=== PATIENT | male | born 1950 | race Caucasian/White ===

== ENCOUNTER 2020-09-13 13:36 | Inpatient (IN) | payer OTHER ==
--- OUTSIDE RECORDS SUMMARY | 2020-09-13 13:45 | XMS REPORT | Clinical Summary ---
:1950 Author Organization [facility] Address [address] [place] [id number] Care Team Providers Name Role Phone MD Chris Primary Care Provider Allergies Active Allergy Reactions Severity Noted Date Comments Amoxicillin-Pot 03/12/2018 Patient call ed after Clavulanate his office visi t to inform that he had a previous allerg y to medication. He could not give specif ic reactions. He o nly stated " he fel t really bad" Pregabalin 03/12/2018 Patient called after his office visi t to inform that he had a previous allerg y to medication. He could not give specif ic reactions. He o nly stated " he fel t really bad" Liraglutide Other (See Comments) 03/11/2018 Per hetal leo, makes him extremly il l. Breaks out in a cold sweat. Medications Medication Sig Dispensed Refills Start End Status Date Date lactulose 10 Take by mouth 3 0 A ctive gram/15 mL (15 mL) (three) times a solution day. cyclobenzaprine Take 1 tablet (5 30 tablet 0 Active (FLEXERIL) 5 mg mg total) by 0 021 tablet mouth 2 (two) times a day as needed for muscle spasms for up to 30 days. hydrOXYzine Take 1 tablet 10 tablet 0 Acti ve (ATARAX) 25 MG (25 mg total) by 0 021 tablet mouth 2 (two) times a day as needed for itching for up to 30 days. alum-mag Take 30 mL by 354 mL 0 Active hydroxide-simeth mouth 3 (three) 0 (MAALOX PLUS) times a day as 200-200-20 mg/5 mL needed for suspension indigestion or heartburn. fluticasone 2 sprays (100 15.8 mL 0 Acti ve propionate mcg total) by 1 021 (FLONASE) 50 Each Nare route mcg/actuation nasal daily for 30 spray days. metoprolol tartrate Take 0.5 tablets 30 tablet 0 Active (LOPRESSOR) 25 mg (12.5 mg total) 0 021 tablet by mouth 2 (two) times a day for 30 days. midodrine Take 3 tablets 270 tablet 0 Acti ve (PROAMATINE) 5 MG (15 mg total) by 0 021 tablet mouth 3 (three) times a day for 30 days. pantoprazole Take 1 tablet 60 tablet 0 Act brandon (Protonix) 40 MG EC (40 mg total) by 0 021 tablet mouth 2 (two) times a day for [address] 1 tablet 90 tablet 12 A ctive (NITROSTAT) 0.4 MG (0.4 mg total) 0 021 SL tablet under the tongue every 5 (five) minutes as needed for chest pain for up to 30 days. ondansetron ODT Take 1 tablet (4 20 tablet 0 Active (ZOFRAN-ODT) 4 MG mg total) by 0 021 disintegrating mouth every 8 tablet (eight) hours as needed for nausea or vomiting for up to 30 days. riFAXimin (XIFAXAN) Take 1 tablet 60 tablet 0 Active 550 mg tablet (550 mg total) 0 021 by mouth 2 (two) times a day for 30 days. voriconazole Take 1 tablet 60 tablet 0 2 Act brandon (VFEND) 200 MG (200 mg total) 0 021 tablet by mouth every 12 (twelve) hours for 30 days. senna (SENOKOT) 8.6 Take 1 tablet by 60 tablet 0 Active mg tablet mouth 2 (two) 0 021 times a day as needed for constipation (stool softening) for up to 30 days. cyclobenzaprine Take 10 mg by 0 Discontinued (FLEXERIL) 10 mg mouth 3 (three) 020 (Stop Taking at tablet times a day as Disch arge) needed. metoprolol Take 25 mg by 0 Disco ntinued succinate XL mouth daily. 020 (Sto p Taking at (TOPROL-XL) 25 mg Di scharge) 24 hr tablet naproxen sodium 220 Take 1 capsule 0 08/25 Discontinued mg capsule by mouth every 8 020 (S top Taking at (eight) hours as Dis charge) needed. omega-3 fatty Take 1,000 mg by 0 Discontinued acids-fish oil mouth. 020 (Med List 300-1,000 mg Cleanup ) capsule omeprazole Take 40 mg by 0 Disco ntinued (PriLOSEC) 40 MG mouth. 020 (St op Taking at capsule Discharge) traMADol (ULTRAM) Take 50 mg by 0 Discontinued 50 mg tablet mouth every 6 020 (St op Taking at (six) hours as Disch arge) needed. metFORMIN Take 1,000 mg by 0 Dis continued (GLUCOPHAGE) 1,000 mouth daily with 020 (Stop Taking at mg tablet breakfast. Discharge ) loratadine Take 10 mg by 0 Disco ntinued (CLARITIN) 10 mg mouth. 020 (Me d List tablet Cleanup) lisinopril Take 20 mg by 0 Disco ntinued (PRINIVIL,ZESTRIL) mouth daily. 020 (Stop Taking at 20 mg tablet Dischar ge) aspirin 325 MG Take 325 mg by 0 Discontinued tablet mouth. 020 (Stop Taki ng at Discharge) citalopram (CeleXA) Take 40 mg by 0 Discontinued 40 MG tablet mouth daily. 020 (Sto p Taking at Discharge) hydrOXYzine Take 25 mg by 0 Disc ontinued (ATARAX) 25 MG mouth 2 (two) 020 ( Stop Taking at tablet times a day. Dischar ge) Active Problems Problem Noted Date Debilitated 08/24/2020 Encounter for pre-transplant evaluation for liver quijano splant 08/15/2020 Anasarca 08/04/2020 Non-alcoholic cirrhosis 07/27/2020 Ascites 07/27/2020 Portal hypertension 07/27/2020 Leg edema 03/11/2018 Venous stasis dermatitis of both lower extremities Leg pain, bilateral 03/11/2018 Encounters Date Type Specialty Care Team Description 09/12/2020 Telephone Transplant Alvarez, Labs needed to list Tanika, CAYETANO patient 09/05/2020 Telephone Transplant Alvarez, Labs needed for CAYETANO Sagastume listing 08/31/2020 Travel 08/31/2020 Transcribe Orders Radiology Golden, Other asci dejuan Montemayor MD (Primary Dx) 08/30/2020 Telephone Transplant Anisa Menjivar TXP APPROVED 08/29/2020 Telephone Transplant Mitul, Speak to martin zhufilemon Rupa 08/24/2020 Surgery Procedural Jey Grier MD Right and lef t heart Cardiology cath w lv alexus [42669 (CPT)] 08/23/2020 Telephone Transplant Torrey Sawant post MRB outco me Eliud RN 08/18/2020 Documentation Transplant Torrey Sawant, CAYETANO 08/15/2020 Orders Only Transplant Unique Naqvi MD 08/15/2020 Documentation Transplant Marcus Martin, Liver Eval ( consent RN for OLT evaluat ion scanned in ) 08/15/2020 Telephone Transplant Radha Diggs, CAYETANO 08/15/2020 Telephone Transplant Maria A Ace, Referral - anatoly Txp RN (pt was previou sly referred for ou tpt eval but today is referred for in pt liver eval) 08/04/2020 - Hospital Encounter General Internal Dimitri Pierre rca (Primary Dx); 08/25/2020 Medicine MD Irina Leg edema; Wili Crowley, Venous stasis dermatitis of both lower extremities; Non-alcoholic c irrhosis (HCC); Portal hyperten arian (HCC); Hyperkalemia; Essential hyper tension; JENNIFER (acute kidn ey injury) (HCC); Hypervolemia, u nspecified hypervolemia type; Encounter for p re-transplant evaluation for liver transplant; Leg pain, bilat eral; Other ascites 08/02/2020 Telephone Transplant Kecia Chambers, New patient p acket MA 08/01/2020 Travel 08/01/2020 Orders Only Transplant Kale Dickey Liver cirrhosi s secondary to ANAYA (HCC) (Primary Dx); Fly Encounter for p re-transplant evaluation for liver transplant; Screening for i schemic heart disease 07/29/2020 Telephone Transplant Anisa Menjivar APPROVED 07/27/2020 Telephone Transplant Maria A Ace, Padmini - Brandie Wong RN after 09/13/2019 Immunizations Name Administration Dates Next Due FLUZONE HIGH-DOSE PF 08/25/2020 Surgical History Surgery Date Site/Laterality Comments TONSILLECTOMY WISDOM TOOTH EXTRACTION CATARACT EXTRACTION, BILATERAL CARDIAC CATHETERIZATION 08/24/2020 N/A Procedur e: Right and left heart cath w lv gram; Surgeon: Donal Grier MD; Location: [facility] [employer] Supervisor Invasive Locatio n; Service: Cardiov ascular; Laterality: N/A; Medical History Medical History Date Comments Diabetes mellitus (HCC) Hyperlipidemia Hypertension Obesity Coronary artery disease Sleep apnea, obstructive uses CPAP Ascites Nonalcoholic hepatosteatosis Hepatic encephalopathy (HCC) Type 2 diabetes mellitus (HCC) Depression feeling anxious and a little over health issues Family History Medical History Relation Name Comments Cancer Father mesothelioma-isra g Diabetes Father Heart disease Father Hypertension Father Heart disease Mother Hypertension Mother Relation Name Status Comments Father at 87y/ o Mother @age 87y/o Social History Tobacco Use Types Packs/Day Years Used Date Former Smoker Cigarettes 16 Quit: 1979 Smokeless Tobacco: Never Used Alcohol Use Drinks/Week oz/Week Comments No Sex Assigned at Date Recorded Not on file Job Start Date Occupation Industry Not on file Not on file Not on file COVID-19 Exposure Response Date Recorded In the last month, have you been in contact with No / Unsure 08/31/2020 12:47 PM [employer] someone who was confirmed or suspected to have Coronavirus / COVID-19? Last Filed Vital Signs Vital Sign Reading Time Taken Comments Blood Pressure 117/57 08/25/2020 6:18 PM [employer] Pulse 77 08/25/2020 6:18 PM [employer] Temperature 35.6 C (96.1 F) 08/25/2020 4:10 PM [employer] Respiratory Rate 19 08/25/2020 4:10 PM [employer] Oxygen Saturation 98% 08/25/2020 6:18 PM [employer] Inhaled Oxygen Concentration - - Weight 123 kg (272 lb 3.2 oz) 08/23/2020 6:15 AM [employer] Height 182.9 cm (6') 08/16/2020 2:52 PM [employer] Body Mass Index 36.92 08/16/2020 2:52 PM [employer] Plan of Treatment Date Type Specialty Care Team Description 09/19/2020 Appointment Radiology Jazmyne Franks MD [address] [place], [place] [address] [phone] Health Maintenance Due Date Last Done Comments COVID-19 VACCINE (1 of 2) 1964 COLONOSCOPY SCREENING 1998 SHINGLES VACCINES (#1) 1998 65+ PNEUMOCOCCAL VACCINE (1 of 1 - PPSV23) 2013 INFLUENZA VACCINE Completed 08/25/2020 Procedures Procedure Name Priority Date/Time Associated Comments Diagnosis POC GLUCOSE Routine 08/25/2020 6:24 Results for this PM [employer] procedure are i n the results section. CT CHEST W CONTRAST Routine 08/25/2020 5:30 Resu lts for this ABDOMEN W WO CONTRAST PM [employer] proced ure are in PELVIS W CONTRAST the result s section. POC GLUCOSE Routine 08/25/2020 11:49 Results for this AM [employer] procedure are i n the results section. POC GLUCOSE Routine 08/25/2020 7:22 Results for this AM [employer] procedure are i n the results section. ESTIMATED GFR Routine 08/25/2020 5:30 Results fo r this AM [employer] procedure are i n the results section. PHOSPHORUS LEVEL Routine 08/25/2020 5:30 Results for this AM [employer] procedure are i n the results section. MAGNESIUM LEVEL Routine 08/25/2020 5:30 Results for this AM [employer] procedure are i n the results section. COMPREHENSIVE METABOLIC Routine 08/25/2020 5:30 Results for this PANEL AM [employer] procedure are i n the results section. HC COMPLETE BLD COUNT Routine 08/25/2020 5:30 Re sults for this W/AUTO DIFF AM [employer] procedure are i n the results section. PROTHROMBIN TIME WITH Routine 08/25/2020 5:30 Re sults for this INR AM [employer] procedure are i n the results section. POC GLUCOSE Routine 08/24/2020 9:18 Results for this PM [employer] procedure are i n the results section. POC GLUCOSE Routine 08/24/2020 5:38 Results for this PM [employer] procedure are i n the results section. POC GLUCOSE Routine 08/24/2020 2:08 Results for this PM [employer] procedure are i n the results section. POC GLUCOSE Routine 08/24/2020 11:14 Results for this AM [employer] procedure are i n the results section. POC GLUCOSE Routine 08/24/2020 9:31 Results for this AM [employer] procedure are i n the results section. CV RIGHT AND LEFT HEART Routine 08/24/2020 8:44 Results for this CATH W LV GRAM AM [employer] procedure are in the results section. ESTIMATED GFR Routine 08/24/2020 6:38 Results fo r this AM [employer] procedure are i n the results section. COMPREHENSIVE METABOLIC Routine 08/24/2020 6:38 Results for this PANEL AM [employer] procedure are i n the results section. HC COMPLETE BLD COUNT Routine 08/24/2020 6:38 Re sults for this W/AUTO DIFF AM [employer] procedure are i n the results section. PHOSPHORUS LEVEL Routine 08/24/2020 6:38 Results for this AM [employer] procedure are i n the results section. MAGNESIUM LEVEL Routine 08/24/2020 6:38 Results for this AM [employer] procedure are i n the results section. PROTHROMBIN TIME WITH Routine 08/24/2020 6:38 Re sults for this INR AM [employer] procedure are i n the results section. HEMODIALYSIS Routine 08/24/2020 12:05 AM [employer] POC GLUCOSE Routine 08/23/2020 9:25 Results for this PM [employer] procedure are i n the results section. POC GLUCOSE Routine 08/23/2020 4:49 Results for this PM [employer] procedure are i n the results section. COVID-19 QUALITATIVE PCR Routine 08/23/2020 3:56 Results for this PM [employer] procedure are i n the results section. SPIROMETRY, DIFFUSION, Routine 08/23/2020 2:10 Anasarca R esults for this MIPS/MEPS PM [employer] procedure are i n the results section. POC GLUCOSE Routine 08/23/2020 1:26 Results for this PM [employer] procedure are i n the results section. XR CHEST 1 VW PORTABLE Routine 08/23/2020 12:07 R esults for this PM [employer] procedure are i n the results section. POC GLUCOSE Routine 08/23/2020 8:28 Results for this AM [employer] procedure are i n the results section. BILIRUBIN DIRECT Routine 08/23/2020 6:08 Results for this AM [employer] procedure are i n the results section. ESTIMATED GFR Routine 08/23/2020 6:08 Results fo r this AM [employer] procedure are i n the results section. HC COMPLETE BLD COUNT Routine 08/23/2020 6:08 Re sults for this W/AUTO DIFF AM [employer] procedure are i n the results section. COMPREHENSIVE METABOLIC Routine 08/23/2020 6:08 Results for this PANEL AM [employer] procedure are i n the results section. PROTHROMBIN TIME WITH Routine 08/23/2020 6:08 Re sults for this INR AM [employer] procedure are i n the results section. POC GLUCOSE Routine 08/22/2020 8:01 Results for this PM [employer] procedure are i n the results section. POC GLUCOSE Routine 08/22/2020 12:29 Results for this PM [employer] procedure are i n the results section. POC GLUCOSE Routine 08/22/2020 11:32 Results for this AM [employer] procedure are i n the results section. POC GLUCOSE Routine 08/22/2020 8:37 Results for this AM [employer] procedure are i n the results section. ESTIMATED GFR Routine 08/22/2020 5:47 Results fo r this AM [employer] procedure are i n the results section. HC COMPLETE BLD COUNT Routine 08/22/2020 5:47 Re sults for this W/AUTO DIFF AM [employer] procedure are i n the results section. PHOSPHORUS LEVEL Routine 08/22/2020 5:47 Results for this AM [employer] procedure are i n the results section. MAGNESIUM LEVEL Routine 08/22/2020 5:47 Results for this AM [employer] procedure are i n the results section. BASIC METABOLIC PANEL Routine 08/22/2020 5:47 Re sults for this AM [employer] procedure are i n the results section. HEPATIC FUNCTION PANEL Routine 08/22/2020 5:47 R esults for this AM [employer] procedure are i n the results section. PROTHROMBIN TIME WITH Routine 08/22/2020 5:47 Re sults for this INR AM [employer] procedure are i n the results section. HEMODIALYSIS Routine 08/22/2020 12:05 AM [employer] POC GLUCOSE Routine 08/21/2020 9:22 Results for this PM [employer] procedure are i n the results section. POC GLUCOSE Routine 08/21/2020 7:16 Results for this PM [employer] procedure are i n the results section. BLAYNE HOOVER VIRUS (EBV) Routine 08/21/2020 6:03 Results for this BY PCR PM [employer] procedure are i n the results section. US ABDOMINAL Routine 08/21/2020 3:05 Results for this PARACENTESIS IMAGING PM [employer] procedu re are in the results section. ALBUMIN, MISC FLUID Routine 08/21/2020 2:35 Resu lts for this PM [employer] procedure are i n the results section. CELL COUNT AND Routine 08/21/2020 2:35 Results f or this DIFFERENTIAL, BODY FLUID PM [employer] pro cedure are in the results section. PROTEIN, MISC FLUID Routine 08/21/2020 2:35 Resu lts for this PM [employer] procedure are i n the results section. GRAM STAIN Routine 08/21/2020 2:35 Results for this PM [employer] procedure are i n the results section. ANAEROBIC CULTURE Routine 08/21/2020 2:35 Result s for this PM [employer] procedure are i n the results section. AEROBIC CULTURE Routine 08/21/2020 2:35 Results for this PM [employer] procedure are i n the results section. POC GLUCOSE Routine 08/21/2020 11:39 Results for this AM [employer] procedure are i n the results section. POC GLUCOSE Routine 08/21/2020 8:24 Results for this AM [employer] procedure are i n the results section. HEPATIC FUNCTION PANEL Routine 08/21/2020 5:46 R esults for this AM [employer] procedure are i n the results section. VANCOMYCIN LEVEL, RANDOM Routine 08/21/2020 5:46 Results for this AM [employer] procedure are i n the results section. PROTHROMBIN TIME WITH Routine 08/21/2020 5:46 Re sults for this INR AM [employer] procedure are i n the results section. PHOSPHORUS LEVEL Routine 08/21/2020 5:46 Results for this AM [employer] procedure are i n the results section. MAGNESIUM LEVEL Routine 08/21/2020 5:46 Results for this AM [employer] procedure are i n the results section. IONIZED CALCIUM Routine 08/21/2020 5:46 Results for this AM [employer] procedure are i n the results section. ESTIMATED GFR Routine 08/21/2020 5:46 Results fo r this AM [employer] procedure are i n the results section. HC COMPLETE BLD COUNT Routine 08/21/2020 5:46 Re sults for this W/AUTO DIFF AM [employer] procedure are i n the results section. BASIC METABOLIC PANEL Routine 08/21/2020 5:46 Re sults for this AM [employer] procedure are i n the results section. POC GLUCOSE Routine 08/20/2020 8:46 Results for this PM [employer] procedure are i n the results section. POC GLUCOSE Routine 08/20/2020 11:57 Results for this AM [employer] procedure are i n the results section. POC GLUCOSE Routine 08/20/2020 8:12 Results for this AM [employer] procedure are i n the results section. HEMODIALYSIS Routine 08/20/2020 8:10 AM [employer] POC GLUCOSE Routine 08/20/2020 4:20 Results for this AM [employer] procedure are i n the results section. ESTIMATED GFR Routine 08/20/2020 12:31 Results fo r this AM [employer] procedure are i n the results section. PHOSPHORUS LEVEL Routine 08/20/2020 12:31 Results for this AM [employer] procedure are i n the results section. MAGNESIUM LEVEL Routine 08/20/2020 12:31 Results for this AM [employer] procedure are i n the results section. IONIZED CALCIUM Routine 08/20/2020 12:31 Results for this AM [employer] procedure are i n the results section. HEPATIC FUNCTION PANEL Routine 08/20/2020 12:31 R esults for this AM [employer] procedure are i n the results section. BASIC METABOLIC PANEL Routine 08/20/2020 12:31 Re sults for this AM [employer] procedure are i n the results section. VANCOMYCIN LEVEL, RANDOM Routine 08/20/2020 12:31 Results for this AM [employer] procedure are i n the results section. POC GLUCOSE Routine 08/20/2020 12:16 Results for this AM [employer] procedure are i n the results section. FIBRINOGEN Routine 08/20/2020 12:00 Results for this AM [employer] procedure are i n the results section. HC COMPLETE BLD COUNT Routine 08/20/2020 12:00 Re sults for this W/AUTO DIFF AM [employer] procedure are i n the results section. POC GLUCOSE Routine 08/19/2020 9:28 Results for this PM [employer] procedure are i n the results section. POC GLUCOSE Routine 08/19/2020 3:50 Results for this PM [employer] procedure are i n the results section. POC GLUCOSE Routine 08/19/2020 11:31 Results for this AM [employer] procedure are i n the results section. POC GLUCOSE Routine 08/19/2020 7:46 Results for this AM [employer] procedure are i n the results section. HEMODIALYSIS Routine 08/19/2020 7:18 AM [employer] POC GLUCOSE Routine 08/19/2020 7:08 Results for this AM [employer] procedure are i n the results section. POC GLUCOSE Routine 08/19/2020 4:40 Results for this AM [employer] procedure are i n the results section. TYPE AND SCREEN Routine 08/19/2020 12:47 Results for this AM [employer] procedure are i n the results section. POC GLUCOSE Routine 08/19/2020 12:37 Results for this AM [employer] procedure are i n the results section. ESTIMATED GFR Routine 08/19/2020 12:30 Results fo r this AM [employer] procedure are i n the results section. IONIZED CALCIUM Routine 08/19/2020 12:30 Results for this AM [employer] procedure are i n the results section. FIBRINOGEN Routine 08/19/2020 12:30 Results for this AM [employer] procedure are i n the results section. HEPATIC FUNCTION PANEL Routine 08/19/2020 12:30 R esults for this AM [employer] procedure are i n the results section. PROTHROMBIN TIME WITH Routine 08/19/2020 12:30 Re sults for this INR AM [employer] procedure are i n the results section. PHOSPHORUS LEVEL Routine 08/19/2020 12:30 Results for this AM [employer] procedure are i n the results section. PARTIAL THROMBOPLASTIN Routine 08/19/2020 12:30 R esults for this TIME (PTT) AM [employer] procedure are i n the results section. MAGNESIUM LEVEL Routine 08/19/2020 12:30 Results for this AM [employer] procedure are i n the results section. HC COMPLETE BLD COUNT Routine 08/19/2020 12:30 Re sults for this W/AUTO DIFF AM [employer] procedure are i n the results section. BASIC METABOLIC PANEL Routine 08/19/2020 12:30 Re sults for this AM [employer] procedure are i n the results section. VANCOMYCIN LEVEL, RANDOM Routine 08/19/2020 12:30 Results for this AM [employer] procedure are i n the results section. HEPATITIS B SURFACE STAT 08/18/2020 9:20 Resu lts for this ANTIGEN PM [employer] procedure are i n the results section. POC GLUCOSE Routine 08/18/2020 8:44 Results for this PM [employer] procedure are i n the results section. HEMODIALYSIS Routine 08/18/2020 5:58 PM [employer] POC GLUCOSE Routine 08/18/2020 3:50 Results for this PM [employer] procedure are i n the results section. POC GLUCOSE Routine 08/18/2020 2:15 Results for this PM [employer] procedure are i n the results section. CT CHEST WO CONTRAST Routine 08/18/2020 1:32 Res ults for this PM [employer] procedure are i n the results section. IR TUNNELED DIALYSIS Routine 08/18/2020 1:23 Res ults for this CATHETER PLACEMENT PM [employer] procedure are in the results section. US CAROTID DUPLEX Routine 08/18/2020 11:45 Result s for this BILATERAL AM [employer] procedure are i n the results section. C1Q CLASS 1 & 2 ANTIBODY Routine 08/18/2020 11:15 Results for this AM [employer] procedure are i n the results section. SINGLE ANTIGEN BEADS Routine 08/18/2020 11:15 Res ults for this AM [employer] procedure are i n the results section. LOW RESOLUTION FULL Routine 08/18/2020 11:15 Resu lts for this TYPING BY SSO AM [employer] procedure are in the results section. BLAYNE-HOOVER VIRUS Routine 08/18/2020 11:15 Resul ts for this ANTIBODY TEST AM [employer] procedure are in the results section. POC GLUCOSE Routine 08/18/2020 8:05 Results for this AM [employer] procedure are i n the results section. POC GLUCOSE Routine 08/18/2020 4:46 Results for this AM [employer] procedure are i n the results section. BILIRUBIN DIRECT Routine 08/18/2020 12:27 Results for this AM [employer] procedure are i n the results section. ESTIMATED GFR Routine 08/18/2020 12:27 Results fo r this AM [employer] procedure are i n the results section. PARTIAL THROMBOPLASTIN Routine 08/18/2020 12:27 R esults for this TIME (PTT) AM [employer] procedure are i n the results section. PHOSPHORUS LEVEL Routine 08/18/2020 12:27 Results for this AM [employer] procedure are i n the results section. MAGNESIUM LEVEL Routine 08/18/2020 12:27 Results for this AM [employer] procedure are i n the results section. IONIZED CALCIUM Routine 08/18/2020 12:27 Results for this AM [employer] procedure are i n the results section. FIBRINOGEN Routine 08/18/2020 12:27 Results for this AM [employer] procedure are i n the results section. HC COMPLETE BLD COUNT Routine 08/18/2020 12:27 Re sults for this W/AUTO DIFF AM [employer] procedure are i n the results section. PROTHROMBIN TIME WITH Routine 08/18/2020 12:27 Re sults for this INR [employer] procedure are i n the results section. COMPREHENSIVE METABOLIC Routine 08/18/2020 12:27 Results for this PANEL [employer] procedure are i n the results section. POC GLUCOSE Routine 08/18/2020 12:25 Results for this [employer] procedure are i n the results section. POC GLUCOSE Routine 08/17/2020 8:15 Results for this PM [employer] procedure are i n the results section. POC GLUCOSE Routine 08/17/2020 3:39 Results for this [employer] procedure are i n the results section. POC GLUCOSE Routine 08/17/2020 11:46 Results for this [employer] procedure are i n the results section. POC GLUCOSE Routine 08/17/2020 7:58 Results for this [employer] procedure are i n the results section. POC GLUCOSE Routine 08/17/2020 4:18 Results for this [employer] procedure are i n the results section. BILIRUBIN DIRECT Routine 08/17/2020 12:32 Results for this [employer] procedure are i n the results section. FIBRINOGEN Routine 08/17/2020 12:32 Results for this AM [employer] procedure are i n the results section. PARTIAL THROMBOPLASTIN Routine 08/17/2020 12:32 R esults for this TIME (PTT) [employer] procedure are i n the results section. PROTHROMBIN TIME WITH Routine 08/17/2020 12:32 Re sults for this INR AM [employer] procedure are i n the results section. COMPREHENSIVE METABOLIC Routine 08/17/2020 12:32 Results for this PANEL [employer] procedure are i n the results section. IONIZED CALCIUM Routine 08/17/2020 12:32 Results for this AM [employer] procedure are i n the results section. ESTIMATED GFR Routine 08/17/2020 12:32 Results fo r this AM [employer] procedure are i n the results section. PHOSPHORUS LEVEL Routine 08/17/2020 12:32 Results for this [employer] procedure are i n the results section. MAGNESIUM LEVEL Routine 08/17/2020 12:32 Results for this AM [employer] procedure are i n the results section. HC COMPLETE BLD COUNT Routine 08/17/2020 12:32 Re sults for this W/AUTO DIFF [employer] procedure are i n the results section. POC GLUCOSE Routine 08/17/2020 12:13 Results for this [employer] procedure are i n the results section. HC COMPLETE BLD COUNT STAT 08/16/2020 9:38 Re sults for this W/AUTO DIFF PM [employer] procedure are i n the results section. POC GLUCOSE Routine 08/16/2020 8:30 Results for this PM [employer] procedure are i n the results section. US DUPLEX VENOUS LOWER Routine 08/16/2020 8:20 R esults for this EXTREMITY BILATERAL [employer] procedur e are in the results section. POC GLUCOSE Routine 08/16/2020 4:16 Results for this PM [employer] procedure are i n the results section. BLOOD CULTURE, AEROBIC & Routine 08/16/2020 4:15 Results for this ANAEROBIC [employer] procedure are i n the results section. BLOOD CULTURE, AEROBIC & Routine 08/16/2020 4:05 Results for this ANAEROBIC [employer] procedure are i n the results section. POC GLUCOSE Routine 08/16/2020 3:08 Results for this [employer] procedure are i n the results section. ESTIMATED GFR STAT 08/16/2020 3:05 Results fo r this PM [employer] procedure are i n the results section. PROTHROMBIN TIME WITH STAT 08/16/2020 3:05 Re sults for this INR [employer] procedure are i n the results section. PHOSPHORUS LEVEL STAT 08/16/2020 3:05 Results for this [employer] procedure are i n the results section. MAGNESIUM LEVEL STAT 08/16/2020 3:05 Results for this [employer] procedure are i n the results section. LACTIC ACID LEVEL STAT 08/16/2020 3:05 Result s for this [employer] procedure are i n the results section. IONIZED CALCIUM STAT 08/16/2020 3:05 Results for this [employer] procedure are i n the results section. HEPATIC FUNCTION PANEL STAT 08/16/2020 3:05 R esults for this PM [employer] procedure are i n the results section. FIBRINOGEN STAT 08/16/2020 3:05 Results for this [employer] procedure are i n the results section. HC COMPLETE BLD COUNT STAT 08/16/2020 3:05 Re sults for this W/AUTO DIFF PM [employer] procedure are i n the results section. BASIC METABOLIC PANEL STAT 08/16/2020 3:05 Re sults for this [employer] procedure are i n the results section. POC GLUCOSE Routine 08/16/2020 12:12 Results for this PM [employer] procedure are i n the results section. TTE LIMITED W AGITATED Today 08/16/2020 10:00 R esults for this SALINE W CONT W DOP [employer] procedur e are in the results section. POC GLUCOSE Routine 08/16/2020 8:25 Results for this AM [employer] procedure are i n the results section. PROTHROMBIN TIME WITH Routine 08/16/2020 5:30 Re sults for this INR AM [employer] procedure are i n the results section. HC COMPLETE BLD COUNT Routine 08/16/2020 5:30 Re sults for this W/AUTO DIFF AM [employer] procedure are i n the results section. MISCELLANEOUS REFERRAL Routine 08/16/2020 5:30 R esults for this TEST AM [employer] procedure are i n the results section. TB T-SPOT Routine 08/16/2020 5:30 Results for this AM [employer] procedure are i n the results section. CYTOMEGALOVIRUS AB, IGM Routine 08/16/2020 4:00 Results for this [employer] procedure are i n the results section. CYTOMEGALOVIRUS AB, IGG Routine 08/16/2020 4:00 Results for this AM [employer] procedure are i n the results section. ALPHA-1 ANTITRYPSIN Routine 08/16/2020 4:00 Resu lts for this LEVEL [employer] procedure are i n the results section. CERULOPLASMIN LEVEL Routine 08/16/2020 4:00 Resu lts for this AM [employer] procedure are i n the results section. TOTAL IRON BINDING Routine 08/16/2020 4:00 Resul ts for this CAPACITY AM [employer] procedure are i n the results section. FERRITIN LEVEL Routine 08/16/2020 4:00 Results f or this AM [employer] procedure are i n the results section. VITAMIN D 25 HYDROXY Routine 08/16/2020 4:00 Res ults for this LEVEL [employer] procedure are i n the results section. C-REACTIVE PROTEIN Routine 08/16/2020 4:00 Resul ts for this AM [employer] procedure are i n the results section. THYROID STIMULATING Routine 08/16/2020 4:00 Resu lts for this HORMONE AM [employer] procedure are i n the results section. CORTISOL LEVEL, RANDOM Routine 08/16/2020 4:00 R esults for this AM [employer] procedure are i n the results section. LIPID PANEL Routine 08/16/2020 4:00 Results for this AM [employer] procedure are i n the results section. CARCINOEMBRYONIC ANTIGEN Routine 08/16/2020 4:00 Results for this (CEA) AM [employer] procedure are i n the results section. ALPHA FETOPROTEIN Routine 08/16/2020 4:00 Result s for this AM [employer] procedure are i n the results section. ESTIMATED GFR Routine 08/16/2020 4:00 Results fo r this AM [employer] procedure are i n the results section. COMPREHENSIVE METABOLIC Routine 08/16/2020 4:00 Results for this PANEL [employer] procedure are i n the results section. PHOSPHORUS LEVEL Routine 08/16/2020 4:00 Results for this AM [employer] procedure are i n the results section. MAGNESIUM LEVEL Routine 08/16/2020 4:00 Results for this [employer] procedure are i n the results section. XR PANOREX STAT 08/15/2020 9:39 Results for this PM [employer] procedure are i n the results section. POC GLUCOSE Routine 08/15/2020 9:03 Results for this PM [employer] procedure are i n the results section. SYPHILIS TOTAL ANTIBODY Routine 08/15/2020 6:30 Results for this PM [employer] procedure are i n the results section. MISCELLANEOUS REFERRAL Routine 08/15/2020 5:30 R esults for this TEST [employer] procedure are i n the results section. MISCELLANEOUS REFERRAL Routine 08/15/2020 5:30 R esults for this TEST [employer] procedure are i n the results section. MISCELLANEOUS REFERRAL STAT 08/15/2020 5:30 R esults for this TEST [employer] procedure are i n the results section. VITAMIN D 25 HYDROXY Routine 08/15/2020 5:30 Res ults for this LEVEL [employer] procedure are i n the results section. TYPE AND SCREEN Routine 08/15/2020 5:30 Results for this PM [employer] procedure are i n the results section. T3, FREE STAT 08/15/2020 5:30 Results for this PM [employer] procedure are i n the results section. ANTI SMOOTH MUSCLE AB STAT 08/15/2020 5:30 Re sults for this SCREEN [employer] procedure are i n the results section. ANTI MITOCHONDRIA SCREEN STAT 08/15/2020 5:30 Results for this PM [employer] procedure are i n the results section. HEPATITIS BE AB STAT 08/15/2020 5:30 Results for this PM [employer] procedure are i n the results section. HEPATITIS BE AG STAT 08/15/2020 5:30 Results for this PM [employer] procedure are i n the results section. HCG QUALITATIVE, SERUM Routine 08/15/2020 5:30 R esults for this SCREEN [employer] procedure are i n the results section. DRUG CASTILLO 9, SER/MADDIE, Routine 08/15/2020 5:30 Res ults for this SCRN W/RFLX TO CONF PM [employer] procedur e are in the results section. HEMOGLOBIN A1C Routine 08/15/2020 5:30 Results f or this PM [employer] procedure are i n the results section. HC COMPLETE BLD COUNT Routine 08/15/2020 5:30 Re sults for this W/AUTO DIFF PM [employer] procedure are i n the results section. ARTERIAL BLOOD GAS Routine 08/15/2020 5:00 Resul ts for this PM [employer] procedure are i n the results section. POC GLUCOSE Routine 08/15/2020 4:30 Results for this PM [employer] procedure are i n the results section. CORTISOL LEVEL, RANDOM STAT 08/15/2020 3:21 R esults for this PM [employer] procedure are i n the results section. LIPID PANEL STAT 08/15/2020 3:21 Results for this PM [employer] procedure are i n the results section. PROSTATE SPECIFIC STAT 08/15/2020 3:21 Result s for this ANTIGEN PM [employer] procedure are i n the results section. CANCER ANTIGEN 19-9 STAT 08/15/2020 3:21 Resu lts for this PM [employer] procedure are i n the results section. T4, FREE STAT 08/15/2020 3:21 Results for this PM [employer] procedure are i n the results section. HIV AG/AB COMBINATION Routine 08/15/2020 3:20 Re sults for this PM [employer] procedure are i n the results section. PREALBUMIN LEVEL Routine 08/15/2020 3:19 Results for this PM [employer] procedure are i n the results section. POC GLUCOSE Routine 08/15/2020 11:53 Results for this AM [employer] procedure are i n the results section. US RENAL Routine 08/15/2020 10:57 Results for this AM [employer] procedure are i n the results section. POC GLUCOSE Routine 08/15/2020 7:31 Results for this AM [employer] procedure are i n the results section. BETA HYDROXYBUTYRATE Routine 08/15/2020 6:02 Res ults for this AM [employer] procedure are i n the results section. LACTIC ACID LEVEL Routine 08/15/2020 6:02 Result s for this AM [employer] procedure are i n the results section. ESTIMATED GFR Routine 08/15/2020 3:59 Results fo r this AM [employer] procedure are i n the results section. PHOSPHORUS LEVEL Routine 08/15/2020 3:59 Results for this AM [employer] procedure are i n the results section. MAGNESIUM LEVEL Routine 08/15/2020 3:59 Results for this AM [employer] procedure are i n the results section. BASIC METABOLIC PANEL Routine 08/15/2020 3:59 Re sults for this AM [employer] procedure are i n the results section. HC COMPLETE BLD COUNT Routine 08/15/2020 3:59 Re sults for this W/AUTO DIFF AM [employer] procedure are i n the results section. FIBRINOGEN Routine 08/15/2020 12:54 Results for this AM [employer] procedure are i n the results section. PARTIAL THROMBOPLASTIN Routine 08/15/2020 12:54 R esults for this TIME (PTT) [employer] procedure are i n the results section. PROTHROMBIN TIME WITH Routine 08/15/2020 12:54 Re sults for this INR [employer] procedure are i n the results section. POC GLUCOSE Routine 08/14/2020 9:23 Results for this PM [employer] procedure are i n the results section. POC GLUCOSE Routine 08/14/2020 6:17 Results for this PM [employer] procedure are i n the results section. POC GLUCOSE Routine 08/14/2020 11:49 Results for this AM [employer] procedure are i n the results section. HC COMPLETE BLD COUNT Routine 08/14/2020 11:15 Re sults for this W/AUTO DIFF AM [employer] procedure are i n the results section. ESTIMATED GFR Routine 08/14/2020 8:20 Results fo r this AM [employer] procedure are i n the results section. PHOSPHORUS LEVEL Routine 08/14/2020 8:20 Results for this [employer] procedure are i n the results section. MAGNESIUM LEVEL Routine 08/14/2020 8:20 Results for this AM [employer] procedure are i n the results section. COMPREHENSIVE METABOLIC Routine 08/14/2020 8:20 Results for this PANEL [employer] procedure are i n the results section. POC GLUCOSE Routine 08/14/2020 7:34 Results for this AM [employer] procedure are i n the results section. POC GLUCOSE Routine 08/13/2020 9:16 Results for this PM [employer] procedure are i n the results section. POC GLUCOSE Routine 08/13/2020 4:55 Results for this PM [employer] procedure are i n the results section. POC GLUCOSE Routine 08/13/2020 11:54 Results for this AM [employer] procedure are i n the results section. POC GLUCOSE Routine 08/13/2020 8:02 Results for this AM [employer] procedure are i n the results section. ESTIMATED GFR Routine 08/13/2020 4:21 Results fo r this [employer] procedure are i n the results section. PHOSPHORUS LEVEL Routine 08/13/2020 4:21 Results for this AM [employer] procedure are i n the results section. MAGNESIUM LEVEL Routine 08/13/2020 4:21 Results for this AM [employer] procedure are i n the results section. HC COMPLETE BLD COUNT Routine 08/13/2020 4:21 Re sults for this W/AUTO DIFF AM [employer] procedure are i n the results section. COMPREHENSIVE METABOLIC Routine 08/13/2020 4:21 Results for this PANEL [employer] procedure are i n the results section. PROTHROMBIN TIME WITH Routine 08/13/2020 4:21 Re sults for this INR AM [employer] procedure are i n the results section. POC GLUCOSE Routine 08/12/2020 10:13 Results for this PM [employer] procedure are i n the results section. POC GLUCOSE Routine 08/12/2020 5:58 Results for this PM [employer] procedure are i n the results section. POC GLUCOSE Routine 08/12/2020 11:53 Results for this [employer] procedure are i n the results section. POC GLUCOSE Routine 08/12/2020 7:38 Results for this AM [employer] procedure are i n the results section. ESTIMATED GFR Routine 08/12/2020 3:45 Results fo r this [employer] procedure are i n the results section. PHOSPHORUS LEVEL Routine 08/12/2020 3:45 Results for this [employer] procedure are i n the results section. MAGNESIUM LEVEL Routine 08/12/2020 3:45 Results for this AM [employer] procedure are i n the results section. HC COMPLETE BLD COUNT Routine 08/12/2020 3:45 Re sults for this W/AUTO DIFF [employer] procedure are i n the results section. COMPREHENSIVE METABOLIC Routine 08/12/2020 3:45 Results for this PANEL [employer] procedure are i n the results section. PROTHROMBIN TIME WITH Routine 08/12/2020 3:45 Re sults for this INR [employer] procedure are i n the results section. POC GLUCOSE Routine 08/11/2020 9:17 Results for this PM [employer] procedure are i n the results section. POC GLUCOSE Routine 08/11/2020 6:30 Results for this [employer] procedure are i n the results section. POC GLUCOSE Routine 08/11/2020 11:40 Results for this [employer] procedure are i n the results section. POC GLUCOSE Routine 08/11/2020 7:56 Results for this AM [employer] procedure are i n the results section. ESTIMATED GFR Routine 08/11/2020 6:20 Results fo r this [employer] procedure are i n the results section. PHOSPHORUS LEVEL Routine 08/11/2020 6:20 Results for this [employer] procedure are i n the results section. MAGNESIUM LEVEL Routine 08/11/2020 6:20 Results for this AM [employer] procedure are i n the results section. HC COMPLETE BLD COUNT Routine 08/11/2020 6:20 Re sults for this W/AUTO DIFF [employer] procedure are i n the results section. COMPREHENSIVE METABOLIC Routine 08/11/2020 6:20 Results for this PANEL [employer] procedure are i n the results section. PROTHROMBIN TIME WITH Routine 08/11/2020 6:20 Re sults for this INR [employer] procedure are i n the results section. POC GLUCOSE Routine 08/10/2020 8:51 Results for this [employer] procedure are i n the results section. POC GLUCOSE Routine 08/10/2020 6:25 Results for this [employer] procedure are i n the results section. POC GLUCOSE Routine 08/10/2020 12:14 Results for this [employer] procedure are i n the results section. US ABDOMINAL Routine 08/10/2020 11:40 Results for this PARACENTESIS IMAGING AM [employer] procedu re are in the results section. ESTIMATED GFR Routine 08/10/2020 4:00 Results fo r this [employer] procedure are i n the results section. PHOSPHORUS LEVEL Routine 08/10/2020 4:00 Results for this [employer] procedure are i n the results section. MAGNESIUM LEVEL Routine 08/10/2020 4:00 Results for this [employer] procedure are i n the results section. HC COMPLETE BLD COUNT Routine 08/10/2020 4:00 Re sults for this W/AUTO DIFF [employer] procedure are i n the results section. PROTHROMBIN TIME WITH Routine 08/10/2020 4:00 Re sults for this INR [employer] procedure are i n the results section. COMPREHENSIVE METABOLIC Routine 08/10/2020 4:00 Results for this PANEL [employer] procedure are i n the results section. POC GLUCOSE Routine 08/09/2020 9:24 Results for this PM [employer] procedure are i n the results section. POC GLUCOSE Routine 08/09/2020 6:01 Results for this [employer] procedure are i n the results section. COVID-19 QUALITATIVE PCR Routine 08/09/2020 1:37 Results for this [employer] procedure are i n the results section. OSMOLALITY, URINE Routine 08/09/2020 1:15 Result s for this [employer] procedure are i n the results section. SODIUM LEVEL, URINE, Routine 08/09/2020 1:15 Res ults for this RANDOM [employer] procedure are i n the results section. URINALYSIS SCREEN AND Routine 08/09/2020 1:15 Re sults for this MICROSCOPY, WITH REFLEX [employer] proc edure are in TO CULTURE the results section. URINE CULTURE Routine 08/09/2020 1:15 Results fo r this [employer] procedure are i n the results section. POC GLUCOSE Routine 08/09/2020 11:49 Results for this [employer] procedure are i n the results section. ESTIMATED GFR Routine 08/09/2020 4:40 Results fo r this [employer] procedure are i n the results section. PHOSPHORUS LEVEL Routine 08/09/2020 4:40 Results for this [employer] procedure are i n the results section. MAGNESIUM LEVEL Routine 08/09/2020 4:40 Results for this [employer] procedure are i n the results section. HC COMPLETE BLD COUNT Routine 08/09/2020 4:40 Re sults for this W/AUTO DIFF [employer] procedure are i n the results section. PROTHROMBIN TIME WITH Routine 08/09/2020 4:40 Re sults for this INR [employer] procedure are i n the results section. COMPREHENSIVE METABOLIC Routine 08/09/2020 4:40 Results for this PANEL [employer] procedure are i n the results section. POC GLUCOSE Routine 08/08/2020 9:51 Results for this [employer] procedure are i n the results section. POC GLUCOSE Routine 08/08/2020 12:10 Results for this [employer] procedure are i n the results section. US ABDOMINAL Routine 08/08/2020 10:17 Results for this PARAC[employer]ESIS IMAGING [employer] procedu re are in the results section. POC GLUCOSE Routine 08/08/2020 7:54 Results for this [employer] procedure are i n the results section. ESTIMATED GFR Routine 08/08/2020 4:45 Results fo r this [employer] procedure are i n the results section. PHOSPHORUS LEVEL Routine 08/08/2020 4:45 Results for this [employer] procedure are i n the results section. MAGNESIUM LEVEL Routine 08/08/2020 4:45 Results for this [employer] procedure are i n the results section. BASIC METABOLIC PANEL Routine 08/08/2020 4:45 Re sults for this [employer] procedure are i n the results section. HC COMPLETE BLD COUNT Routine 08/08/2020 4:45 Re sults for this W/AUTO DIFF [employer] procedure are i n the results section. POC GLUCOSE Routine 08/07/2020 10:54 Results for this [employer] procedure are i n the results section. POC GLUCOSE Routine 08/07/2020 5:00 Results for this [employer] procedure are i n the results section. POC GLUCOSE Routine 08/07/2020 11:40 Results for this [employer] procedure are i n the results section. ECG 12-LEAD STAT 08/07/2020 8:32 Results for this [employer] procedure are i n the results section. POC GLUCOSE Routine 08/07/2020 7:52 Results for this [employer] procedure are i n the results section. HC COMPLETE BLD COUNT Routine 08/07/2020 5:30 Re sults for this W/AUTO DIFF [employer] procedure are i n the results section. ESTIMATED GFR Routine 08/07/2020 4:00 Results fo r this [employer] procedure are i n the results section. PHOSPHORUS LEVEL Routine 08/07/2020 4:00 Results for this [employer] procedure are i n the results section. MAGNESIUM LEVEL Routine 08/07/2020 4:00 Results for this [employer] procedure are i n the results section. BASIC METABOLIC PANEL Routine 08/07/2020 4:00 Re sults for this [employer] procedure are i n the results section. POC GLUCOSE Routine 08/06/2020 9:40 Results for this [employer] procedure are i n the results section. POC GLUCOSE Routine 08/06/2020 6:45 Results for this [employer] procedure are i n the results section. ECG 12-LEAD Routine 08/06/2020 9:03 Results for this [employer] procedure are i n the results section. ECG 12-LEAD Routine 08/06/2020 8:20 Results for this [employer] procedure are i n the results section. POC GLUCOSE Routine 08/06/2020 8:02 Results for this [employer] procedure are i n the results section. ECG 12-LEAD STAT 08/06/2020 7:32 Results for this [employer] procedure are i n the results section. URINALYSIS SCREEN AND STAT 08/06/2020 6:30 Re sults for this MICROSCOPY, WITH REFLEX [employer] proc edure are in TO CULTURE the results section. URINE CULTURE STAT 08/06/2020 6:30 Results fo r this [employer] procedure are i n the results section. OCCULT BLOOD, STOOL Routine 08/06/2020 6:30 Resu lts for this [employer] procedure are i n the results section. HC COMPLETE BLD COUNT Routine 08/06/2020 5:00 Re sults for this W/AUTO DIFF [employer] procedure are i n the results section. TROPONIN Routine 08/06/2020 4:00 Results for this [employer] procedure are i n the results section. ESTIMATED GFR Routine 08/06/2020 4:00 Results fo r this [employer] procedure are i n the results section. PHOSPHORUS LEVEL Routine 08/06/2020 4:00 Results for this [employer] procedure are i n the results section. MAGNESIUM LEVEL Routine 08/06/2020 4:00 Results for this [employer] procedure are i n the results section. BASIC METABOLIC PANEL Routine 08/06/2020 4:00 Re sults for this [employer] procedure are i n the results section. MISCELLANEOUS REFERRAL Routine 08/05/2020 10:30 R esults for this TEST [employer] procedure are i n the results section. POC GLUCOSE Routine 08/05/2020 9:27 Results for this [employer] procedure are i n the results section. POC GLUCOSE Routine 08/05/2020 5:41 Results for this [employer] procedure are i n the results section. US ABDOMEN COMPLETE Routine 08/05/2020 4:25 Resu lts for this [employer] procedure are i n the results section. US ABDOMINAL Routine 08/05/2020 4:05 Results for this PARACENTESIS IMAGING PM [employer] procedu re are in the results section. CELL COUNT AND Routine 08/05/2020 3:30 Results f or this DIFFERENTIAL, BODY FLUID PM [employer] pro cedure are in the results section. GRAM STAIN Routine 08/05/2020 3:30 Results for this PM [employer] procedure are i n the results section. ANAEROBIC CULTURE Routine 08/05/2020 3:30 Result s for this PM [employer] procedure are i n the results section. AEROBIC CULTURE Routine 08/05/2020 3:30 Results for this PM [employer] procedure are i n the results section. TTE COMPLETE, W Routine 08/05/2020 1:00 Results for this CONTRAST, W DOPPLER PM [employer] procedur e are in ([id number]) the results section. MISCELLANEOUS REFERRAL Routine 08/05/2020 12:40 R esults for this TEST PM [employer] procedure are i n the results section. MISCELLANEOUS REFERRAL Routine 08/05/2020 12:40 R esults for this TEST PM [employer] procedure are i n the results section. POC GLUCOSE Routine 08/05/2020 12:06 Results for this PM [employer] procedure are i n the results section. AMYLASE LEVEL Routine 08/05/2020 11:40 Results fo r this AM [employer] procedure are i n the results section. HEMOCHROMATOSIS (HFE) 3 Routine 08/05/2020 11:40 Results for this MUTATIONS AM [employer] procedure are i n the results section. IMMUNOGLOBULIN M Routine 08/05/2020 11:40 Results for this AM [employer] procedure are i n the results section. IMMUNOGLOBULIN A Routine 08/05/2020 11:40 Results for this AM [employer] procedure are i n the results section. IMMUNOGLOBULIN G Routine 08/05/2020 11:40 Results for this AM [employer] procedure are i n the results section. SILKE Routine 08/05/2020 11:40 Results for this AM [employer] procedure are i n the results section. LIVER-KIDNEY MICROSOME Routine 08/05/2020 11:40 R esults for this AB, IGG AM [employer] procedure are i n the results section. HEPATITIS C ANTIBODY Routine 08/05/2020 11:40 Res ults for this AM [employer] procedure are i n the results section. HEPATITIS B CORE Routine 08/05/2020 11:40 Results for this ANTIBODY IGM AM [employer] procedure are i n the results section. HEPATITIS B CORE Routine 08/05/2020 11:40 Results for this ANTIBODY TOTAL AM [employer] procedure are in the results section. HEPATITIS B SURFACE Routine 08/05/2020 11:40 Resu lts for this ANTIGEN AM [employer] procedure are i n the results section. HEPATITIS B SURFACE AB, Routine 08/05/2020 11:40 Results for this QUANTITATIVE AM [employer] procedure are i n the results section. HEPATITIS B SURFACE Routine 08/05/2020 11:40 Resu lts for this ANTIBODY AM [employer] procedure are i n the results section. HEPATITIS A ANTIBODY IGM Routine 08/05/2020 11:40 Results for this AM [employer] procedure are i n the results section. HEPATITIS A ANTIBODY Routine 08/05/2020 11:40 Res ults for this TOTAL AM [employer] procedure are i n the results section. URIC ACID LEVEL Routine 08/05/2020 11:40 Results for this AM [employer] procedure are i n the results section. ALPHA-1 ANTITRYPSIN Routine 08/05/2020 11:40 Resu lts for this PHENOTYPE AM [employer] procedure are i n the results section. ALPHA-1 ANTITRYPSIN Routine 08/05/2020 11:40 Resu lts for this LEVEL AM [employer] procedure are i n the results section. CERULOPLASMIN LEVEL Routine 08/05/2020 11:40 Resu lts for this AM [employer] procedure are i n the results section. TOTAL IRON BINDING Routine 08/05/2020 11:40 Resul ts for this CAPACITY AM [employer] procedure are i n the results section. FERRITIN LEVEL Routine 08/05/2020 11:40 Results f or this AM [employer] procedure are i n the results section. LIPID PANEL Routine 08/05/2020 11:40 Results for this AM [employer] procedure are i n the results section. BILIRUBIN DIRECT Routine 08/05/2020 11:40 Results for this AM [employer] procedure are i n the results section. LIPASE LEVEL Routine 08/05/2020 11:40 Results for this AM [employer] procedure are i n the results section. ALPHA FETOPROTEIN Routine 08/05/2020 11:40 Result s for this AM [employer] procedure are i n the results section. BLOOD CULTURE, AEROBIC & Routine 08/05/2020 11:14 Results for this ANAEROBIC AM [employer] procedure are i n the results section. BLOOD CULTURE, AEROBIC & Routine 08/05/2020 11:14 Results for this ANAEROBIC AM [employer] procedure are i n the results section. ECG 12-LEAD Routine 08/05/2020 10:09 Results for this AM [employer] procedure are i n the results section. FIBRINOGEN STAT 08/05/2020 8:10 Results for this AM [employer] procedure are i n the results section. POC GLUCOSE Routine 08/05/2020 7:32 Results for this AM [employer] procedure are i n the results section. URINALYSIS SCREEN AND Routine 08/05/2020 7:00 Re sults for this MICROSCOPY, WITH REFLEX AM [employer] proc edure are in TO CULTURE the results section. CREATININE LEVEL, URINE, Routine 08/05/2020 7:00 Results for this RANDOM AM [employer] procedure are i n the results section. OSMOLALITY, URINE Routine 08/05/2020 7:00 Result s for this AM [employer] procedure are i n the results section. SODIUM LEVEL, URINE, Routine 08/05/2020 7:00 Res ults for this RANDOM AM [employer] procedure are i n the results section. URINE CULTURE Routine 08/05/2020 7:00 Results fo r this AM [employer] procedure are i n the results section. HEMOGLOBIN A1C Routine 08/05/2020 5:20 Results f or this AM [employer] procedure are i n the results section. CBC HEMOGRAM Routine 08/05/2020 5:20 Results for this AM [employer] procedure are i n the results section. HEPATIC FUNCTION PANEL Routine 08/05/2020 4:00 R esults for this AM [employer] procedure are i n the results section. ESTIMATED GFR Routine 08/05/2020 4:00 Results fo r this AM [employer] procedure are i n the results section. LIPID PANEL Routine 08/05/2020 4:00 Results for this AM [employer] procedure are i n the results section. T4, FREE Routine 08/05/2020 4:00 Results for this AM [employer] procedure are i n the results section. THYROID STIMULATING Routine 08/05/2020 4:00 Resu lts for this HORMONE AM [employer] procedure are i n the results section. PHOSPHORUS LEVEL Routine 08/05/2020 4:00 Results for this AM [employer] procedure are i n the results section. MAGNESIUM LEVEL Routine 08/05/2020 4:00 Results for this AM [employer] procedure are i n the results section. BASIC METABOLIC PANEL Routine 08/05/2020 4:00 Re sults for this AM [employer] procedure are i n the results section. LACTIC ACID LEVEL, Timed 08/04/2020 10:54 Resul ts for this SEPSIS - NOW AND REPEAT PM [employer] proc edure are in 2X EVERY 3 HOURS the results section. POC GLUCOSE Routine 08/04/2020 10:50 Results for this PM [employer] procedure are i n the results section. TROPONIN Timed 08/04/2020 9:55 Results for this PM [employer] procedure are i n the results section. LACTIC ACID LEVEL, Timed 08/04/2020 9:55 Resul ts for this SEPSIS - NOW AND REPEAT PM [employer] proc edure are in 2X EVERY 3 HOURS the results section. US ABDOMINAL DOPPLER STAT 08/04/2020 9:43 Res ults for this PM [employer] procedure are i n the results section. POC GLUCOSE Routine 08/04/2020 9:35 Results for this PM [employer] procedure are i n the results section. US RENAL STAT 08/04/2020 8:50 Results for this PM [employer] procedure are i n the results section. POC GLUCOSE Routine 08/04/2020 6:48 Results for this PM [employer] procedure are i n the results section. ECG 12-LEAD Routine 08/04/2020 6:45 Results for this PM [employer] procedure are i n the results section. ESTIMATED GFR STAT 08/04/2020 6:45 Results fo r this PM [employer] procedure are i n the results section. ALCOHOL LEVEL, BLOOD STAT 08/04/2020 6:45 Res ults for this PM [employer] procedure are i n the results section. BASIC METABOLIC PANEL STAT 08/04/2020 6:45 Re sults for this PM [employer] procedure are i n the results section. TROPONIN Timed 08/04/2020 6:45 Results for this PM [employer] procedure are i n the results section. COVID-19 QUALITATIVE PCR STAT 08/04/2020 6:45 Results for this PM [employer] procedure are i n the results section. POC GLUCOSE Routine 08/04/2020 6:31 Results for this PM [employer] procedure are i n the results section. POC GLUCOSE Routine 08/04/2020 6:17 Results for this PM [employer] procedure are i n the results section. POC GLUCOSE Routine 08/04/2020 6:01 Results for this PM [employer] procedure are i n the results section. BILIRUBIN DIRECT Routine 08/04/2020 5:10 Results for this PM [employer] procedure are i n the results section. AMMONIA LEVEL STAT 08/04/2020 5:10 Results fo r this PM [employer] procedure are i n the results section. LIPASE LEVEL STAT 08/04/2020 5:10 Results for this PM [employer] procedure are i n the results section. AMYLASE LEVEL STAT 08/04/2020 5:10 Results fo r this PM [employer] procedure are i n the results section. MAGNESIUM LEVEL STAT 08/04/2020 5:10 Results for this PM [employer] procedure are i n the results section. LACTIC ACID LEVEL, STAT 08/04/2020 5:10 Resul ts for this SEPSIS - NOW AND REPEAT PM [employer] proc edure are in 2X EVERY 3 HOURS the results section. BLOOD CULTURE, AEROBIC & Routine 08/04/2020 5:10 Results for this ANAEROBIC PM [employer] procedure are i n the results section. BLOOD CULTURE, AEROBIC & Routine 08/04/2020 4:55 Results for this ANAEROBIC PM [employer] procedure are i n the results section. ME CRITICAL CARE, E/M Routine 08/04/2020 4:30 Re sults for this 30-74 MINUTES PM [employer] procedure are in the results section. ESTIMATED GFR STAT 08/04/2020 4:25 Results fo r this PM [employer] procedure are i n the results section. LACTIC ACID LEVEL STAT 08/04/2020 4:25 Result s for this PM [employer] procedure are i n the results section. PROTHROMBIN TIME WITH STAT 08/04/2020 4:25 Re sults for this INR PM [employer] procedure are i n the results section. PARTIAL THROMBOPLASTIN STAT 08/04/2020 4:25 R esults for this TIME (PTT) PM [employer] procedure are i n the results section. B NATRIURETIC PEPTIDE STAT 08/04/2020 4:25 Re sults for this PM [employer] procedure are i n the results section. TROPONIN STAT 08/04/2020 4:25 Results for this PM [employer] procedure are i n the results section. COMPREHENSIVE METABOLIC STAT 08/04/2020 4:25 Results for this PANEL PM [employer] procedure are i n the results section. HC COMPLETE BLD COUNT STAT 08/04/2020 4:25 Re sults for this W/AUTO DIFF PM [employer] procedure are i n the results section. ECG 12-LEAD STAT 08/04/2020 4:05 Results for this PM [employer] procedure are i n the results section. after 09/13/2019 Results POC glucose (08/25/2020 6:24 PM [employer] WORK[employer])Only the most recent of95 resultswithin the time period is included. Pathologist Sig nature POC glucose 123 (H) 65 - 99 mg/dL [facility] Comment: HOSPITAL Supervisor Testing Name: Bc Valera Device ID: [id number] Chartable: PENDING SALE TO [facility] Notified RN Specimen Blood Performing Organization Address City/State/ZIP Code Phon e Number [facility] DEPARTMENT OF PATHOLOGY AND [address] [place] [address] [phone] GENOMIC MEDICINE [facility] [address] [place] [id number] Chest W Contrast Abdomen W Wo Contrast Pelvis W Contrast (08/25/2020 5:30 PM [employer] WORK[employer]) Specimen Narrative Performed At EXAMINATION: CT CHEST W CONTRAST ABDOMEN W WO CONTRA ST PELVIS W [facility] CONTRAST CLINICAL HISTORY: 70 years Male OLT ev al, elevated alk phos TECHNIQUE: Multiple axial images of the chest, abdom en, and pelvis were obtained following intravenous administration of iodinated contrast. Precontrast, arterial, portal venous and del ayed series of the abdomen were included as part of the [facility] er protocol. Oral contrast was administered. Sagittal and coronal computerized reformatted images were obtained. CT imag ing was performed with iterative reconstruction techniques and/or automa luis exposure control to reduce radiation dose. Examin ation limited due to patient habitus with partial exclusion of both flanks in the left hemiabdomen beyond study limits . COMPARISON: CT chest 08/18/2020 IMPRESSION: CHEST: Lungs: Small left pleural effusion with associated bas ilar atelectasis, similar to prior. No confluent consolidation or pneumo thorax. 9 mm calcified granuloma in the right upper lobe. Additiona l smaller calcified granulomata in the right lower lobe. Heart, vasculature: Right internal jugular central acc ess catheter with tip in the superior cavoatrial junction. Cardiac size is normal. No pericardial effusion. Caliber of the great vessels is normal. No central pulmonary embolism. Atherosclerotic calcification of the coronary arteries. Lymph nodes: No supraclavicular, axillary or mediastin al lymphadenopathy. Other findings: 7 mm and smaller right t hyroid nodules. ABDOMEN: Upper abdominal organs: Liver: Liver measures 22 cm in craniocaudal dimension with macronodular contour, hypertrophy of the left hemiliver and caudate lobe and widening of the periportal space. Hepatic parenchyma has a mode rately heterogeneous attenuation on precontrast series with numerous subcentimeter hypoattenuating and hypoen hancing foci in the left greater than right hemiliver (series 5, image 42).No suspicious arterially enhancing lesions. Gallbladder: Nondistended. Spleen: Enlarged, measures 17.3 cm in cr aniocaudal dimension. Pancreas: Normal. Adrenal Glands: Mild low-attenuation thickening of the left adrenal gland with normal adreniform morphology. Kidneys: No hydronephrosis. No obstructi ng renal or ureteral calculi. Bowel and mesentery: Small hiatal hernia. Large and sm all bowel loops are normal in caliber without focal wall thickening or mesenteric fat stranding. Large volume of ascites. No f ree intraperitoneal gas. Vasculature: Abdominal aorta is of normal caliber. Elise iac artery, superior and inferior mesenteric arteries, superior me senteric and portal veins appear patent. Severe calcified and non-calcified atherosclerotic disease of the abdominal aorta and branch vessels. Recanalized umbilical ve in. Perisplenic collaterals. Lymph nodes: Increased number of mildly enlarged small bowel mesentery and retroperitoneal, periportal and gastrohepatic liga ment lymph nodes. For reference: 1. Left para-aortic lymph node (series 6, image 135) m easures 2.4 x 1.4 cm. 2. Small bowel mesentery lymph node (series 6, image 1 51) measures 2.1 x 1.4 cm. 3. Gastrohepatic ligament lymph node (series 6, image 124) measures 1.7 x 1.5 cm. PELVIS: Urinary bladder: Normal. Lymph nodes: No pelvic lymphadenopathy. MUSCULOSKELETAL: No suspicious lytic or blastic osseous lesions. The cartwright perficial soft tissues are unremarkable. Age appropriate degenerative changes of the spine. SUMMARY: 1. Nodular, cirrhotic liver with sequelae of portal hy pertension including splenomegaly and large volume of ascites. 2. Numerous subcentimeter hypoattenuating/hypoenhancin g foci in the left greater than right right hemiliver, indeterminate and could represent regenerative nodules, however infiltrative hepatocellu lar lesion not excluded. Further evaluation with liver MRI is recommended. Evacuation of ascites prior to MRI may be considered to improve image fidelity. 3. Small left pleural effusion. [id number] Procedure Note Hm Interface, Radiology Results Incoming - 08/25/2020 5:51 PM [employer] WORKER EXAMINATION: CT CHEST W CONTRAST ABDOMEN W WO CONTRAST PELVIS W CONTRAST CLINICAL HISTORY: 70 years Male OLT rosenda l, elevated alk phos TECHNIQUE: Multiple axial images of the chest, abdomen, and pelvis were obtained following intravenous administration of iodinated contrast. Precontrast, arterial, portal venous and delayed series of the abdomen were included as part of the liver protocol. Oral contrast was administered . Sagittal and coronal computerized reformatted images were obtained. CT imaging was performed with iterative reconstruction techniques and/or automated exposure control to reduce radiation dose. Examination limited due to patient habitus with part ial exclusion of both flanks in the left hemiabdomen beyond study limits. COMPARISON: CT chest 08/18/2020 IMPRESSION: CHEST: Lungs: Small left pleural effusion with associated basilar atelectasis, similar to prior. No confluent consolidation or pneumothorax. 9 mm calcified granuloma in the right upper lobe. Additional smaller calcified granulomata in the right lower lobe. Heart, vasculature: Right internal jugul ar central access catheter with tip in the superior cavoatrial junction. Cardiac size is normal. No pericardial effusion. Caliber of the great vessels is normal. No central pulmonary embolism. Atherosclerotic calcification of the coronary arteries. Lymph nodes: No supraclavicular, axillar y or mediastinal lymphadenopathy. Other findings: 7 mm and smaller right t hyroid nodules. ABDOMEN: Upper abdominal organs: Liver: Liver measures 22 cm in craniocau baldev dimension with macronodular contour, hypertrophy of the left hemiliver and caudate lobe and widening of the periportal space. Hepatic parenchyma has a moderately heterogeneous attenuation on precontrast series with numerous subcentimeter hypoattenuat ing and hypoenhancing foci in the left greater than right hemiliver (series 5, image 42).No suspicious arterially enhancing lesions. Gallbladder: Nondistended. Spleen: Enlarged, measures 17.3 cm in cr aniocaudal dimension. Pancreas: Normal. Adrenal Glands: Mild low-attenuation thi ckening of the left adrenal gland with normal adreniform morphology. Kidneys: No hydronephrosis. No obstructi ng renal or ureteral calculi. Bowel and mesentery: Small hiatal hernia . Large and small bowel loops are normal in caliber without focal wall thickening or mesenteric fat stranding. Large volume of ascites. No free intraperitoneal gas. Vasculature: Abdominal aorta is of noni l caliber. Celiac artery, superior and inferior mesenteric arteries, superior mesenteric and portal veins appear patent. Severe calcified and non-calcified atherosclerotic disease of the abdominal aorta and branch vessels. Recanalized umbilical ve in. Perisplenic collaterals. Lymph nodes: Increased number of mildly enlarged small bowel mesentery and retroperitoneal, periportal and gastrohepatic ligament lymph nodes. For reference: 1. Left para-aortic lymph node (series 6 , image 135) measures 2.4 x 1.4 cm. 2. Small bowel mesentery lymph node (ser ies 6, image 151) measures 2.1 x 1.4 cm. 3. Gastrohepatic ligament lymph node (se vee 6, image 124) measures 1.7 x 1.5 cm. PELVIS: Urinary bladder: Normal. Lymph nodes: No pelvic lymphadenopathy. MUSCULOSKELETAL: No suspicious lytic or blastic osseous l esions. The superficial soft tissues are unremarkable. Age appropriate degenerative changes of the spine. SUMMARY: 1. Nodular, cirrhotic liver with sequela e of portal hypertension including splenomegaly and large volume of ascites. 2. Numerous subcentimeter hypoattenuatin g/hypoenhancing foci in the left greater than right right hemiliver, indeterminate and could represent regenerative nodules, however infiltrative hepatocellular lesion not excluded. Further evaluation with liver MRI is recommended. Evacuation of ascite s prior to MRI may be considered to improve image fidelity. 3. Small left pleural effusion. [id number] Performing Organization Address City/State/ZIP Code [facility] e Number [facility] [address] [place] [address] Estimated GFR (08/25/2020 5:30 AM [employer]ESHOW WORKER)Only the most recent of24 resultswithin the time period is included. Estimated GFR 13 (A) mL/min/1.73 [facility] Comment: [facility]2 [facility] Catergory Units Interpretation G1 >=90 Normal or high G2 60-89 Mildly decreased G3a 45-59 Mildly to moderately decreas ed G3b 30-44 Moderately to severely decre ased G4 15-29 Severely decreased G5 <15 Kidney failure The eGFR was calculated using the Chronic Kidney Disea se Epidemiology Collaboration (CKD-EPI) equation. Interpretation is based on recommendations of the National Kidney Foundation-Kidney Disease Outcomes Eb lity Initiative (NKF-KDOQI) published in 2014. Specimen Plasma Performing Organization Address City/[facility]/ZIP [facility] Phon e Number [facility] DEPARTMENT OF PATHOLOGY AND [address] [place] [address] [phone] [address] Prothrombin time with INR (08/25/2020 5:30 AM [employer]ESHOW WORKER)Only the most recent of17 resultswithin the time period is included. Prothrombin time 15.4 (H) 11.5 - 14.5 [facility] INR 1.2 [facility] Comment: [facility] International Normalized Ratio (INR) is a [facility] monitoring tool for patients who are stable on oral anticoagulant therapy. An INR of 2.0-3.0 is suggested for deep vein thrombosis/pulmonary embolism. Specimen Blood Performing Organization Address City/[facility] Phon e Number [facility] DEPARTMENT OF PATHOLOGY AND [address] [place] [address] [phone] [address] CBC with platelet and differential (08/25/2020 5:30 AM [employer] WORKER)Only the most recent of24 resultswithin the time period is included. WBC 8.19 4.50 - 11.00 [facility] k/uL [facility] RBC 3.17 (L) 4.40 - 6.00 [facility] m/uL [facility] HGB 9.0 (L) 14.0 - 18.0 [facility]/dL [facility] HCT 28.3 (L) 41.0 - 51.0 % [facility] MCV 89.3 82.0 - 100.0 [facility] MCH 28.4 27.0 - 34.0 pg [facility] MCHC 31.8 31.0 - 37.0 [facility] RDW - SD 52.9 37.0 - 55.0 fL [facility] MPV 11.0 8.8 - 13.2 [facility] Platelet count 124 (L) 150 - 400 k/uL [facility] Nucleated RBC 0.00 /100 WBC [facility] Neutrophils 82.3 (H) 39.0 - 69.0 % [facility] Lymphocytes 7.0 (L) 25.0 - 45.0 % [facility] Monocytes 6.3 0.0 - 10.0 % [facility] Eosinophils 3.3 0.0 - 5.0 % [facility] Basophils 0.6 0.0 - 1.0 % [facility] Immature granulocytes 0.5Comment: 0.0 - 1.0 % [facility] "Immature [facility] granulocytes" (promyelocytes , myelocytes, metamyelocytes ) Specimen Plasma Performing Organization Address [facility] Phon e Number [facility] DEPARTMENT OF PATHOLOGY AND [address] [place] [address] [address] Phosphorus level (08/25/2020 5:30 AM TR[employer]ESHOW WORKER)Only the most recent of21 results within the time period is included. Pathologist Sig nature Phosphorus 3.2 2.4 - 4.5 mg/dL [facility] L Specimen Plasma Performing Organization Address [facility] Phon e Number [facility] DEPARTMENT OF PATHOLOGY AND [address] [place] [address] [phone] [address] Magnesium level (08/25/2020 5:30 AM TRADESHOW WORKER)Only the most recent of22 resultswithin the time period is included. Pathologist Sig nature Magnesium 2.2 1.6 - 2.4 mg/dL [facility] L Specimen Plasma Performing Organization Address [facility] Phon e Number [facility] DEPARTMENT OF PATHOLOGY AND [address] [place] [address] [address] Comprehensive metabolic panel (08/25/2020 5:30 AM TRADESHOW WORKER)Only the most recent of13 resultswithin the time period is included. Sodium 134 (L) 135 - 148 [facility] mEq/L [facility] Potassium 3.9 3.5 - 5.0 [facility] mEq/L [facility] Chloride 94 (L) 98 - 112 [facility] mEq/L [facility] CO2 25 24 - 31 mEq/L [facility] Anion gap 15@ANIO 7 - 15 mEq/L [facility] BUN 42 (H) 8 - 23 mg/dL [facility] Creatinine 4.14 (H) 0.70 - 1.20 [facility] mg/dL [facility] Glucose 152 (H) 65 - 99 mg/dL [facility] Calcium 9.9 8.8 - 10.2 [facility] mg/dL HOSPITAL Protein 7.5 6.3 - 8.3 [facility] Comment: g/dL [facility] [place] 4.6-7.0 g/dL 1 week 4.4-7.6 g/dL 7 months-1year 5.1-7.3 g/dL 1-2 years 5.6-7.5 g/dL >3 years 6.0-8.0 g/dL 18-150 6.3-8.3 g/dL Albumin 4.2 3.5 - 5.0 [facility] g/dL [facility] A/G ratio 1.3 0.7 - 3.8 [facility] Alkaline phosphatase 717 (H) 40 - 129 U/L [facility] AST 108 (H) 10 - 50 U/L [facility] ALT 64 (H) 5 - 50 U/L [facility] Total bilirubin 0.9 0.0 - 1.2 [facility] mg/dL [facility] Specimen Plasma Performing Organization Address City/State/[facility] Code Phon e Number [facility] DEPARTMENT OF PATHOLOGY AND [address] [place] [address] [phone] GENOMIC MEDICINE [facility] [address] [place] [phone] labor delivery specialist procedure (08/24/2020 8:44 AM TRADESHOW WORKER) Pathologist Sig nature Cath EF Estimated 60 % [facility] Specimen Narrative Performed At This result has an attachment that is no t available. PATIENT PROFILE: [facility] 70[facility] being [facility] for OLTxp is brought for right and left heart cath with coronary angiogram. DESCRIPTION OF PROCEDURE: After obtaining informed consent, the patient was brou ght to the cardiac catheterization suite. The right groin was prepped and draped in normal sterile fashion. Moderate sedation was administered with physician ya nguyenisionof patient consciousness, respiration, Oxygen saturation and CO2 monitoring, beginning at 0751 ( time) for a total period of 53 minutes. 10 cc of lidocaine was used as local anesthetic. The r ight feomral vein was accessed using an ultrasound device with a Smart Balloon ne edle and a 7 Trinidadian sheath placed. The right common femoral artery was acc essed under ultrasound guidance with a Cook needle and a 5 Fr thomson th placed. A 7 Trinidadian [place]-Eric catheter was then advanced under direct fluoroscopic guidance into the distal pulmonary artery. Right atria l, right ventricular, pulmonary arterial and pulmonary capillar y pressure tracings were obtained. Measurements were obtained for calculat ion of a ALONZO and Thermodilution cardiac output. The catheter was then r emoved. Selective coronary angiography was performed using a F L5 catheter to engage the LM and a WR catheter to engage the RCA. A 5 Fr Pigtail catheter was used to cross the AV and measure LVEDP and perform LV gram. LV-Ao pull back was performed. At the conclusion of the procedure, the patient was re turned to the collaborative teacher holding area for recovery. FINDINGS: Right heart Catheterization: Normal hemodynamics RA 6 RV 34/0/6 PA 28/14/19 PCWP 10 CO by Thermo 6.6 L/min CO by Alonzo 5.42 L/min Selective coronary angiogram: No significant CAD. Left heart catheterization: LVEDP 10 EF 70%, hyperdynamic ventricle No LV-Ao gradient on pullback Performing Organization Address [facility] Phon e Number [facility] [address] [place] [address] COVID-19 qualitative PCR (08/23/2020 3:56 PM TRADESHOW WORKER)Only the most recent of3 resultswithin the time period is included. Interpretation Negative results do not prec lude 2019-nCoV infection and should not be used as the sole basis for treatment or other patient management decisions. Negative results must be combined with clinical observations, patient history, and epidemiological [place] information. [facility] COVID-19 qualitative Not-Detected Not-Detecte [place] PCR result d [facility] COVID-19 qualitative See link below for [place] PCR PDF Lab [facility] ReportComment: Case HOSPITAL Number: [id number] Specimen Nasal swab Performing Organization Address City/[facility] Phon e Number [facility] DEPARTMENT OF PATHOLOGY AND [address] [place], [place] [phone] GENOMIC MEDICINE [address] Spirometry, diffusion, MIPS/MEPS (08/23/2020 2:10 PM TRADESHOW WORKER) Pathologist Sig nature FEV1 Pre 2.62 L [facility] FEV1/FVC % Pre 77.30 % [facility] FVC Pre 3.38 [facility] PEF Pre 4.84 L/s [facility] FEF 25-75% Pre 2.32 L/s [facility] DLCO Pre 15.11 18.56 - 34.49 [facility] ml/(min*mmHg) DL/VA Pre 2.78 2.56 - 4.96 [facility] ml/(min*mmHg*L) VA SB Pre 5.43 5.84 - 8.57 L [facility] DLCOc Pre 19.09 18.56 - 34.49 [facility] ml/(min*mmHg) KCOc SB Pre 3.52 2.56 - 4.96 [facility] ml/(min*mmHg*L) Hb Pre 8.90 g(Hb)/dL [facility] MIP Pre 32.46 cmH2O [facility] MEP Pre 48.16 cmH2O [facility] FEV1 Predicted 3.44 [facility] FEV1 LLN 2.61 [facility] FEV1 % Pre of Predicted 76.0 % [facility] FVC Predicted 4.69 [facility] FVC LLN 3.71 [facility] FVC % Pre of Predicted 72.1 % [facility] FEV1/FVC % Predicted 73 [facility] FEV1/FVC % LLN 64 [facility] FEV1/FVC % Pre of 105.6 % [facility] Predicted FEF 25-75% Predicted 2.56 [facility] FEF 25-75% LLN 0.87 [facility] FEF 25-75% % Pre of 90.6 % [facility] Predicted PEF Predicted 8.61 [facility] PEF LLN 6.16 [facility] PEF % Pre of Predicted 56.2 % [facility] DLCO Predicted 26.53 [facility] DLCO LLN 18.56 [facility] DLCO % Pre of Predicted 56.9 % [facility] DLCOc Predicted 26.53 [facility] DLCOc LLN 18.56 [facility] DLCOc % Pre of 72.0 % [facility] Predicted DL/VA Predicted 3.76 [facility] DL/VA LLN 2.56 [facility] DL/VA % Pre of 74.0 % [facility] Predicted KCOc SB Predicted 3.76 [facility] KCOc SB LLN 2.56 [facility] KCOc SB % Pre of 93.5 % [facility] Predicted VA SB Predicted 7.21 [facility] VA SB LLN 5.84 [facility] VA SB % Pre of 75.3 % [facility] Predicted MIP Predicted 80.82 [facility] MIP LLN 26.96 [facility] MIP % Pre of Predicted 40.2 % [facility] MEP Predicted 131.00 [facility] MEP LLN 84.10 [facility] MEP % Pre of Predicted 36.8 % [facility] Specimen Narrative Performed At This result has an attachment that is no t available. Performing Organization Address [facility] Phon e Number [facility] [address] [place] [address] XR Chest 1 Vw Portable (08/23/2020 12:07 PM TRADESHOW WORKER) Specimen Narrative Performed At EXAMINATION: XR CHEST 1 VW PORTABLE [facility] INDICATION: HD center placement COMPARISON: Most recent prior IMPRESSION: Right-sided tunneled dialysis catheter t ip overlies the SVC. No visible pneumothorax. Heart size is within normal limits. No c onfluent airspace disease. Atherosclerotic calcification of the tho racic aorta. HMRM-MPHYMAT Procedure Note Hm Interface, Radiology Results Incoming - 08/23/2020 12:12 PM TRADESHOW WORKER EXAMINATION: XR CHEST 1 VW PORTABLE INDICATION: HD center placement COMPARISON: Most recent prior IMPRESSION: Right-sided tunneled dialysis catheter t ip overlies the SVC. No visible pneumothorax. Heart size is within normal limits. No c onfluent airspace disease. Atherosclerotic calcification of the tho racic aorta. HMRM-MPHYMAT Performing Organization Address [facility] Phon e Number [facility] [address] [place] [address] Bilirubin direct (08/23/2020 6:08 AM TRADESHOW WORKER)Only the most recent of5 resultswithin the time period is included. Pathologist Sig nature Bilirubin direct 0.4 (H) 0.0 - 0.3 mg/dL [facility] Specimen Plasma Performing Organization Address City/[facility]/ZIP Code Phon e Number [facility] DEPARTMENT OF PATHOLOGY AND [address] [place] [address] [phone] GENOMIC MEDICINE [address] [address] Hepatic function panel (08/22/2020 5:47 AM TRADESHOW WORKER)Only the most recent of6 results within the time period is included. Albumin 4.6 3.5 - 5.0 [facility] g/dL [facility] Total bilirubin 0.6 0.0 - 1.2 [facility] mg/dL [facility] Bilirubin direct 0.4 (H) 0.0 - 0.3 [facility] mg/dL HOSPITAL Alkaline phosphatase 505 (H) 40 - 129 U/L [facility] Protein 6.9 6.3 - 8.3 [facility] Comment: g/dL HOSPITAL - 4.6-7.0 g/dL 1 week 4.4-7.6 g/dL 7 months-1year 5.1-7.3 g/dL 1-2 years 5.6-7.5 g/dL >3 years 6.0-8.0 g/dL 18-150 6.3-8.3 g/dL ALT 36 5 - 50 U/L [facility] AST 87 (H) 10 - 50 U/L [facility] Specimen Plasma Performing Organization Address City/[facility] Phon e Number [facility] DEPARTMENT OF PATHOLOGY AND [address] [place], [place] [phone] [address] [address] Basic metabolic panel (08/22/2020 5:47 AM TRADESHOW WORKER)Only the most recent of11 results within the time period is included. Pathologist Sig nature Sodium 137 135 - 148 mEq/L [facility] Potassium 3.8 3.5 - 5.0 mEq/L [facility] Chloride 94 (L) 98 - 112 mEq/L [facility] CO2 26 24 - 31 mEq/L [facility] Anion gap 17@ANIO (H) 7 - 15 mEq/L [facility] BUN 64 (H) 8 - 23 mg/dL [facility] Creatinine 4.80 (H) 0.70 - 1.20 mg/dL [facility] Glucose 117 (H) 65 - 99 mg/dL [facility] Calcium 10.3 (H) 8.8 - 10.2 mg/dL [facility] Specimen Plasma Performing Organization Address [facility] Phon e Number [facility] DEPARTMENT OF PATHOLOGY AND [address] [place], [place] [phone] [address] [address] Blayne Hoover Virus (EBV) by PCR (08/21/2020 6:03 PM TRADESHOW WORKER) Blayne Hoover virus, Not-Detected Not-Detected [facility] PCR copies/mL [facility] Blayne Hoover virus, See link below [facility] PCR for PDF Lab HOSPITAL ReportComment: Specimen Plasma Performing Organization Address City/State/ZIP Code Phon e Number [facility] DEPARTMENT OF PATHOLOGY AND [address] [place], [place] [phone] GENOMIC MEDICINE [facility] [address] [place] [address] [facility] US Abdominal Paracentesis Imaging (08/21/2020 3:05 PM TRADESHOW WORKER)Only the most recent of4 resultswithin the time period is included. Specimen Narrative Performed At Procedure [facility] Ultrasound-guided paracentesis. Clinical Indication Ascites. Anesthesia Lidocaine 1%. Sedation None. Technique Written informed consent was obtained prior to the pro cedure. The patient was placed in a supine position, and ultrasoun d imaging over the abdomen was performed, demonstrating a large amount of ascites. The left lower abdomen was sterilely prepared and draped in the routine manner. Lidocaine 1% was used fo r local anesthetic. Using real-time ultrasound guidance, a 5 F rench catheter was advanced successfully into the peritoneal cavity with return of cloudy yellow ascites. A total of 5000 mL of fl uid was removed. The catheter was removed and hemostasis was a chieved with manual compression. Ultrasound imaging over the abdome n following completion of the paracentesis demonstrated large resi dual amount of ascites. The patient tolerated the proce dure well. Complications None. Impression: Successful ultrasound-guided paracentesis with removal of 5000 ml of cloudy yellow ascites. [facility]-[id number] Procedure Note Interface, Radiology Results Incoming - 08/21/2020 3:16 PM TRADESHOW WORKER Procedure Ultrasound-guided paracentesis. Clinical Indication Ascites. Anesthesia Lidocaine 1%. Sedation None. Technique Written informed consent was obtained pr ior to the procedure. The patient was placed in a supine position, and ultrasound imaging over the abdomen was performed, demonstrating a large amount of ascites. The left lower abdomen was sterilely prepared and draped in the routine manner. Lidocaine 1% was used for local anesthetic. Using real-time ultrasound guidance, a 5 Trinidadian catheter was advanced successfully into the peritoneal cavity with return of cloudy yellow ascites. A total of 5000 mL of fluid was removed. The catheter was removed and he mostasis was achieved with manual compression. Ultrasound imaging over the abdomen following completion of the paracentesis demonstrated large residual amount of ascites. The patient tolerated the procedure well. Complications None. Impression: Successful ultrasound-guided paracentesi s with removal of 5000 ml of cloudy yellow ascites. [facility]-[id number] Performing Organization Address City/[facility]/ZIP Code Phon e Number [facility] [address] [place] [phone] Aerobic culture (08/21/2020 2:35 PM TRADESHOW WORKER)Only the most recent of2 resultswithin the time period is included. Aerobic culture No growth after 3 days. [facility] IS isolate Comment: HOSPITAL Specimen Information Specimen Source: Peritoneal fluid Specimen Site: Abdomen, left Specimen Peritoneal fluid - Abdomen, left Performing Organization Address City/[facility]/ZIP Code Phon e Number [facility] DEPARTMENT OF PATHOLOGY AND [address] [place] [address] [phone] [address] Gram stain (08/21/2020 2:35 PM TRADESHOW WORKER)Only the most recent of2 resultswithin the time period is included. Gram stain isolate Few WBC's [facility] No organisms seen HOSPITAL Comment: Specimen Information Specimen Source: Peritoneal fluid Specimen Site: Abdomen, left Specimen Peritoneal fluid - Abdomen, left Performing Organization Address City/[facility] Phon e Number [facility] DEPARTMENT OF PATHOLOGY AND [address] [place] [address] [phone] [address] Anaerobic culture (08/21/2020 2:35 PM TRADESHOW WORKER)Only the most recent of2 results within the time period is included. Pathologist [facility] Anaerobic culture No anaerobic organisms isolated. [facility] isolate Comment: HOSPITAL Specimen Information Specimen Source: Peritoneal fluid Specimen Site: Abdomen, left Specimen Peritoneal fluid - Abdomen, left Performing Organization Address City/[facility] Phon e Number [facility] DEPARTMENT OF PATHOLOGY AND [address] [place] [address] [phone] [address] Cell count and differential, body fluid (08/21/2020 2:35 PM TRADESHOW WORKER)Only the most recent of2 resultswithin the time period is included. Misc fluid type Ascitic [facility] Color, fluid Yellow [facility] Appearance, fluid Slightly hazy [facility] RBC, fluid SEE /CMM [facility] COMMENTComment: HOSPITAL 2+ (500 - 10,000 RBC/CMM) Nucleated cells, 251 /CMM [facility] Fluid mononuclear See Diff [facility] Neutrophils, fluid 3 % [facility] Lymphocytes, fluid 28 % [facility] Eosinophils, fluid 1 % [facility] Macrophages, fluid 68 % [facility] Specimen Fluid Narrative Performed At PERITONEAL FLUID [facility] DEPARTMENT OF PATHOLOGY AND GENOMIC ?Specimen to be drawn in Interventional MEDICINE Radiology area. Performing Organization Address [facility] Phon e Number [facility] DEPARTMENT OF PATHOLOGY AND [address] [place] [address] [address] Protein, misc fluid (08/21/2020 2:35 PM TRADESHOW WORKER) Fluid type Ascitic [facility] Protein, fluid 4.5 g/dL [facility] Comment: HOSPITAL The reference interval(s) and other method performance specifications have not been established for this body fluid. The test results must be integrated into the clinical context for interpretation. This test has been modified from the manufacturers instructions. The performance characteristics were determined by [facility] in a manner consistent with CLIA requirements. This test has not been cleared or approved by the U.S. Food and Drug Administration. Specimen Fluid Narrative Performed At [facility] DEPARTMENT PATHOLOGY AND [facility] ?Specimen to be drawn in Interventional MEDICINE Radiology area. Performing Organization Address [facility] Phon e Number [facility] DEPARTMENT OF PATHOLOGY AND [address] [place] [address] [address] Albumin, misc fluid (08/21/2020 2:35 PM TRADESHOW WORKER) Fluid type [facility] Albumin, fluid 3.6 g/dL [facility] Comment: HOSPITAL The reference interval(s) and other method performance specifications have not been established for this body fluid. The test results must be integrated into the clinical context for interpretation. This test has been modified from the manufacturers instructions. The performance characteristics were determined by [facility] in a manner consistent with CLIA requirements. This test has not been cleared or approved by the U.S. Food and Drug Administration. Specimen Fluid Narrative Performed At [facility] DEPARTMENT OF PATHOLOGY AND GENOMIC ?Specimen to be drawn in Interventional MEDICINE Radiology area. Performing Organization Address [facility] Phon e Number [facility] DEPARTMENT OF PATHOLOGY AND [address] [place] [address] [phone] [address] Ionized calcium (08/21/2020 5:46 AM TRADESHOW WORKER)Only the most recent of6 resultswithin the time period is included. Pathologist Sig nature pH 7.48 [facility] Ionized calcium 1.10 (L) 1.11 - 1.32 [facility] mmol/L HOSPITAL Specimen Plasma Performing Organization Address [facility] Phon e Number [facility] DEPARTMENT OF PATHOLOGY AND [address] [place] [address] [phone] [address] Vancomycin level, random (08/21/2020 5:46 AM TRADESHOW WORKER)Only the most recent of3 resultswithin the time period is included. Pathologist Sig nature Vancomycin, random 20.9 ug/mL [facility] Specimen Serum Performing Organization Address [facility] Phon e Number [facility] DEPARTMENT OF PATHOLOGY AND [address] [place] [address] [phone] [address] Fibrinogen (08/20/2020 12:00 AM TRADESHOW WORKER)Only the most recent of7 resultswithin the time period is included. Pathologist Sig nature Fibrinogen 280 200 - 450 mg/dL [facility] L Specimen Blood Performing Organization Address [facility] Phon e Number [facility] DEPARTMENT OF PATHOLOGY AND [address] [place], [place] [phone] [address] [address] Type and screen (08/19/2020 12:47 AM TRADESHOW WORKER)Only the most recent of2 resultswithin the time period is included. Pathologist Sig nature ABO grouping O [facility] Rh type POS [facility] Antibody screen (gel) NEG [facility] Specimen Plasma Performing Organization Address [facility] Phon e Number [facility] DEPARTMENT OF PATHOLOGY AND [address] [place] [address] [phone] [address] Partial thromboplastin time, activated (08/19/2020 12:30 AM TRADESHOW WORKER)Only the most recent of5 resultswithin the time period is included. PTT 35.7 23.0 - 36.0 [facility] Comment: [facility] HOSPITAL PTT therapeutic range for unfractionated heparin is 61.0-112.0 seconds which corresponds to Anti-Xa 0.3-0.7 U/ml. Specimen Blood Performing Organization Address City/[facility] Phon e Number [facility] DEPARTMENT OF PATHOLOGY AND [address] [place], [place] [phone] Hepatitis B surface antigen (08/18/2020 9:20 PM TRADESHOW WORKER)Only the most recent of2 resultswithin the time period is included. Pathologist Sig nature Hepatitis B surface Non-reactive Non-reactive [facility] Specimen Blood Performing Organization Address City/[facility] Phon e Number [facility] DEPARTMENT OF PATHOLOGY AND [address] [place] [address] [phone] [address] [address] Chest Wo Contrast (08/18/2020 1:32 PM TRADESHOW WORKER) Specimen Narrative Performed At EXAMINATION: [facility] CT CHEST WO CONTRAST CLINICAL HISTORY: OLT evaluation TECHNIQUE: Multiple axial images of the chest were obtained witho ut contrast. Sagittal and coronal computerized reformatted images w ere also obtained. . All CT images were acquired using radiation dose lowering technique with automated exposure contro l and / or iterative reconstruction. COMPARISON: No IMPRESSION: 1.Soft tissue gas within and along the right sternocle idomastoid, and subcutaneous fat of the upper right chest wall related to recently placed tunneled hemodialysis catheter, tip in the supe rior talar junction. No pneumothorax. 2.A large calcified granuloma posteriorly in the right lung apex measuring 1 cm. Mosaic attenuation pattern in the lung s likely due to combination of air trapping and interstitial pulmonary edema. Patient imaged in expiration. 3.Scattered calcified granulomata elsewhere. Moderate left and small right pleural effusions with adjacent atelectasis. Isra gs otherwise clear. 4.Borderline enlarged subcarinal lymph nodes are likel y reactive, though attention on follow-up advised. No definite lymphadeno sada detected on noncontrast exam. 5.Heart is enlarged. Small pericardial e ffusion. 6.Calcified plaque within the thoracic aorta and moder ate coronary artery calcifications. Ectasia of the ascending aorta measuring 4 cm tapering distally. 7.Cirrhosis and splenomegaly with upper abdominal asci dejuan partially seen. 8.Old healed rib fractures. Visualized b ones show no suspicious lesion. SUMMARY: No evidence of metastatic disease. Compressive atelect asis from pleural effusions limits evaluation of the lungs . Other findings as above [id number] Procedure Note Hm Interface, Radiology Results Incoming - 08/18/2020 2:01 PM TRADESHOW WORKER EXAMINATION: CT CHEST WO CONTRAST CLINICAL HISTORY: OLT evaluation TECHNIQUE: Multiple axial images of the chest were obtained without contrast. Sagittal and coronal computerized reformatted images were also obtained. . All CT images were acquired using radiation dose lowering technique with automated exposure control and / or iterative reconstruction. COMPARISON: No IMPRESSION: 1.Soft tissue gas within and along the r ight sternocleidomastoid, and subcutaneous fat of the upper right chest wall related to recently placed tunneled hemodialysis catheter, tip in the superior talar junction. No pneumothorax. 2.A large calcified granuloma posteriorl y in the right lung apex measuring 1 cm. Mosaic attenuation pattern in the lungs likely due to combination of air trapping and interstitial pulmonary edema. Patient imaged in expiration. 3.Scattered calcified granulomata elsewh ere. Moderate left and small right pleural effusions with adjacent atelectasis. Lungs otherwise clear. 4.Borderline enlarged subcarinal lymph n odes are likely reactive, though attention on follow-up advised. No definite lymphadenopathy detected on noncontrast exam. 5.Heart is enlarged. Small pericardial e ffusion. 6.Calcified plaque within the thoracic a ruslan and moderate coronary artery calcifications. Ectasia of the ascending aorta measuring 4 cm tapering distally. 7.Cirrhosis and splenomegaly with upper abdominal ascites partially seen. 8.Old healed rib fractures. Visualized b ones show no suspicious lesion. SUMMARY: No evidence of metastatic disease. Compr essive atelectasis from pleural effusions limits evaluation of the lungs. Other findings as above [id number] Performing Organization Address City/State/ZIP Code Phon e Number JOSE DE JESUS [address] [facility] [address] IR Tunneled Dialysis Catheter Placement (08/18/2020 1:23 PM TRADESHOW WORKER) Specimen Narrative Performed At Performing Radiologist RICKY Delarosa MD Assistants None. Anesthesia Type Moderate sedation was administered by the procedure nu rse and monitored by the procedure physician for a total ahgw-vj-pxth se dation time of 11 minutes. Lidocaine 1% and lidocaine 1% with epinephrin e were used for local anesthetic. Indication Renal failure. Central venous access req uired for hemodialysis. Procedure Tunneled hemodialysis catheter placement Technique Written informed consent was obtained prior to the pro cedure. All elements of maximal sterile barrier technique were fol lowed. The patient's right neck and upper chest were sterilely pr epared and draped in the routine manner. Lidocaine 1% was used for local anesthetic. Using real-time ultrasound guidance, a 21-gauge micropuncture needle was advanced successfully into th e right internal jugular vein. A 0.018 inch guidewire was advanced cent rally through the needle under fluoroscopy. The needle was removed and a micropuncture sheath system was then maddie jhonny. Under ultrasound guidance, documentation of vessel patency, needle access with permanent recording, and reporting are performed follo wed by placement of a sheath in the right internal jugula r vein. The inner dilator and guidewire were then remove d, and a 0.035 inch stiff Amplatz wire was advanced through the micro puncture sheath and successfully into the inferior vena cava. The right infraclavicular fossa was anesthetized with lidocaine 1% mixed with epinephrine. A skin incision was made, and a tunn eling device was used to pass the tunneled hemodialysis catheter from t he skin entry site to the venotomy site. Attention was then returned to the venotomy site. The tract was then sequentially dilated, and a 23 cm long tip to cuff tunneled hemodia lysis catheter was then deployed through a peel-away sheath. The catheter tip was placed in the right atrium under fluoroscopic guidance. All ports were tested and demonstrate adequa te flow. The catheter was sutured to the skin. The small venotomy i ncision was closed with Dermabond. The patient tolerated th e procedure well. Radiation Dose Ka,r = 2 mGy Complications None. Specimens Removed None. Estimated Blood Loss Less than 2 mL. Blood/Blood Products Administered None. Grafts/Implants As described in the above report. Impression: Successful fluoroscopic-guided placement of a 23 cm lo ng tip to cuff tunneled hemodialysis catheter via the right internal jugular vein. The catheter tip lies in the right atrium an d is ready for use. [facility]-[id number] Procedure Note Interface, Radiology Results Incoming - 08/18/2020 1:54 PM TRADESHOW WORKER Performing Radiologist Alex Delarosa MD Assistants None. Anesthesia Type Moderate sedation was administered by e procedure nurse and monitored by the procedure physician for a total tvbf-gz-hdgd sedation time of 11 minutes. Lidocaine 1% and lidocaine 1% with epinephrine were used for local anesthetic. Indication Renal failure. Central venous access req uired for hemodialysis. Procedure Tunneled hemodialysis catheter placement Technique Written informed consent was obtained pr ior to the procedure. All elements of maximal sterile barrier technique were followed. The patient's right neck and upper chest were sterilely prepared and draped in the routine manner. Lidocaine 1% was used for local anesthetic. Using real-time ultras ound guidance, a 21-gauge micropuncture needle was advanced successfully into the right internal jugular vein. A 0.018 inch guidewire was advanced centrally through the needle under fluoroscopy. The needle was removed and a micropuncture sheath syste m was then placed. Under ultrasound guidance, documentation of vessel patency, needle access with permanent recording, and reporting are performed followed by placement of a sheath in the right internal jugular vein. The inner dilator and guidewire we re then removed, and a 0.035 inch stiff Amplatz wire was advanced through the micropuncture sheath and successfully into the inferior vena cava. The right infraclavicular fossa was anes thetized with lidocaine 1% mixed with epinephrine. A skin incision was made, and a tunneling device was used to pass the tunneled hemodialysis catheter from the skin entry site to the venotomy site. Attention was then returned to the venotomy site. The tract was then sequentially dilated, and a 23 cm long tip to cuff tunneled hemodialysis catheter was then deployed through a peel-away sheath. The catheter tip was placed in the right atrium under fluoroscopic guidance. All ports were tested and demo nstrate adequate flow. The catheter was sutured to the skin. The small venotomy incision was closed with Dermabond. The patient tolerated the procedure well. Radiation Dose Ka,r = 2 mGy Complications None. Specimens Removed None. Estimated Blood Loss Less than 2 mL. Blood/Blood Products Administered None. Grafts/Implants As described in the above report. Impression: Successful fluoroscopic-guided placement of a 23 cm long tip to cuff tunneled hemodialysis catheter via the right internal jugular vein. The catheter tip lies in the right atrium and is ready for use. [id number] Performing Organization Address City/State/ZIP Code Phon e Number [facility] [address] [facility]. [place] [phone] Us carotid duplex (08/18/2020 11:45 AM TRADESHOW WORKER) Specimen Narrative Performed At [facility] U ltrasound Laboratory Carotid A rtery Duplex Report [address] [facility], [facility] [address], [place] [address] For software quality automation engineer purposes, the categorization of the degree of the stenosis of this exam is based on criteria described i n the IAC carotid stenosis grading white paper( www.intersocietal.org/Va scular) and Kobi Begum, Radha Landis, et al. Carotid artery stenosis: haji-scale and Doppler US diagnosis-- Society of Radiologists in Ultrasound Consensus Conference. Radio logy. 2002; 229(2):340-6. Pat.Name: ERIC SAUNDERS JR Pat.ID: [id number]Date: 08/18/2020 Refer.MD: KENNA HEART MD Exam Time: 11:17:00 AM Study Type:Ca rotid Height: 72in Weight: 272lb BSA: 2.43 m2 Ag e: 1950,70Y Sex: MALE BP: 129/70 Sonogrphr: Mary Johnson RDCS, RVT Pat. Stat.:Inpatient Room: [address] V ol: ED, CPT - 4: 21400 Echo Sari nt ID:[id number] Order ID: [id number] Reason for Study:Pre-op evaluation History / Clinical:Former smoker, Liver cirrhosis, Anasarca, Portal HTN Procedures: Colorflow, Grayscale/2D, Pul sed wave Doppler Race: C SUMMARY: PHYSICAL ASSESSMENT Blood Pulses Carotid Pressure Carotid Temporal Br uit Right IV + + 0 Left 129/70 + + 0 CAROTID ARTERY SCAN RIGHT: There is intimal thickening i n the common carotid artery and carotid bulb. There is focal hard plaq ue noted proximal internal carotid artery. The external carotid art margarito is clear. Colorflow is normal. LEFT: There is intimal thickening i n the common carotid, bulb and internal carotid artery. The external carotid artery is clear. Colorflow is normal. PRELIMINARY FINDINGS 1. <50% stenosis in the bulb and right internal carotid artery. 2. Normal carotid duplex exam on the [facility] t. 3. Antegrade vertebral artery flow bilat erally. 4. Technically difficult exam due to the patient's body habitus and inability to cooperate. PHYSICIAN INTERPRETATION Bilateral carotid duplex examination dem onstrated atherosclerotic plaques in the right bulb. Less than 50% stenosis in the right inte rnal carotid artery. Left side is normal. Antegrade vertebral artery flow bilater ally. FINDINGS: Carotid Findings: Right Left Verteb.Flw Antegrade Antegrade Subclavian Triphasic Triphasic MEASUREMENTS: DOPPLER Left CCA Dist CCA Dist PSV 108 cm/s CCA Dist EDV 15 cm/s Left CCA Mid CCA Mid PSV 110 cm/s CCA Mid EDV 12.7 cm/s Left CCA Prox CCA Prox PSV 127 cm/s CCA Prox EDV 12.7 cm/s ICA Dist ICA Dist PSV 119 cm/s ICA Dist EDV 15 cm/s Left ICA Mid ICA Mid PSV 78.2 cm/s ICA Mid EDV 17.1 cm/s Left ECA Prox ECA Prox PSV 109 cm/s ECA Prox EDV 11.2 cm/s Right CCA Dist CCA Dist PSV 77.8 cm/s CCA Dist EDV 16.6 cm/s Right CCA Mid CCA Mid PSV 74.8 cm/s CCA Mid EDV 11.3 cm/s Right CCA Prox CCA Prox PSV 89.1 cm/s CCA Prox EDV 10.7 cm/s Right ICA Dist ICA Dist PSV 59.7 cm/s ICA Dist EDV 9.29 cm/s Right ICA Mid ICA Mid PSV 85.4 cm/s ICA Mid EDV 18 cm/s Right ICA Prox ICA Prox PSV 83.9 cm/s ICA Prox EDV 15 cm/s Right SCA Prox SCA Prox PSV 127 cm/s Right Vertebral Vertebral PSV 64.5 cm/s Vertebral EDV 14.2 cm/s Left ICA Prox ICA Prox PSV 96.7 cm/s ICA Prox EDV 15 cm/s Right ECA Prox ECA Prox PSV 123 cm/s ECA Prox EDV 13.5 cm/s Left Vertebral Vertebral PSV 60 cm/s Vertebral EDV 11.2 cm/s Left SCA Prox SCA Prox PSV 129 cm/s Right ICA/CCA Ratio ICA/CCA PSV 1.12 Left ICA/CCA Ratio ICA/CCA PSV 0.879 Signed 08/18/2020 04:01 PM Darian Castillo MD, RPVI Procedure Note Interface, Radiology Results In - 2019 4:01 PM [facility] Vascular Ultrasound Laboratory Carotid Artery Dupl ex Report [address] [place] [address] For software quality automation engineer purposes, the deb gorization of the degree of the stenosis of this exam is based on criteria described in the IAC carotid stenosis grading white paper( www.intersocietal.org/Vascular) and Kel, E.Moraima., Boby, C.B., et al. Carotid artery stenosis: haji-scale and Doppler US diagnosis--Society of Radiologists in Ultrasound Consensus Conference. Radiology. 2003 Nov; 229(2):340-6. Pat.Name: ERIC SAUNDERS Pat.I D: [id number] St.Date: 08/18/2020 Refer .MD: KENNA HEART MD Exam Time: 11:17:00 AM Study Type:Carotid Height: 72in Weigh t: 272lb BSA: 2.43 m2 Age: 7 1950,70Y Sex: MALE BP: 129/70 Sonogrphr: Mary Johnson RDCS, RVT Pat. Stat.:Inpatient Room: [place] [address] Tape Vol: ED, CPT - 4: 20240 Echo Event ID:[id number] Order ID: [id number] Reason for Study:Pre-op evaluation History / Clinical:Former smoker, Liver cirrhosis, Anasarca, Portal HTN Procedures: Colorflow, Grayscale/2D, Pul sed wave Doppler Race: C SUMMARY: PHYSICAL ASSESSMENT Blood Pulses Caroti d Pressure Carotid Temporal Bruit Right IV + + 0 Left 129/70 + + 0 CAROTID ARTERY SCAN RIGHT: There is intimal thickening in the common carotid artery and carotid bulb. There is focal hard plaqu e noted proximal internal carotid artery. The external carotid art margarito is clear. Colorflow is normal. LEFT: There is intimal thickening in the common carotid, bulb and internal carotid artery. The external c arotid artery is clear. Colorflow is normal. PRELIMINARY FINDINGS 1. <50% stenosis in the bulb and right internal carotid artery. 2. Normal carotid duplex exam on the [facility] t. 3. Antegrade vertebral artery flow bilat elisay. 4. Technically difficult exam due to the patient's body habitus and inability to cooperate. PHYSICIAN INTERPRETATION Bilateral carotid duplex examination dem onstrated atherosclerotic plaques in the right bulb. Less than 50% stenosis in the right inte rnal carotid artery. Left side is normal. Antegrade vertebral artery flow bilater ally. FINDINGS: Carotid Findings: Right Left Verteb.Flw Antegrade Antegrade Subclavian Triphasic Triphasic MEASUREMENTS: DOPPLER Left CCA Dist CCA Dist PSV 108 cm/s CCA Dist EDV 15 cm/s Left CCA Mid CCA Mid PSV 110 cm/s CCA Mid EDV 12.7 cm/s Left CCA Prox CCA Prox PSV 127 cm/s CCA Prox EDV 12.7 cm/s ICA Dist ICA Dist PSV 119 cm/s ICA Dist EDV 15 cm/s Left ICA Mid ICA Mid PSV 78.2 cm/s ICA Mid EDV 17.1 cm/s Left ECA Prox ECA Prox PSV 109 cm/s ECA Prox EDV 11.2 cm/s Right CCA Dist CCA Dist PSV 77.8 cm/s CCA Dist EDV 16.6 cm/s Right CCA Mid CCA Mid PSV 74.8 cm/s CCA Mid EDV 11.3 cm/s Right CCA Prox CCA Prox PSV 89.1 cm/s CCA Prox EDV 10.7 cm/s Right ICA Dist ICA Dist PSV 59.7 cm/s ICA Dist EDV 9.29 cm/s Right ICA Mid ICA Mid PSV 85.4 cm/s ICA Mid EDV 18 cm/s Right ICA Prox ICA Prox PSV 83.9 cm/s ICA Prox EDV 15 cm/s Right SCA Prox SCA Prox PSV 127 cm/s Right Vertebral Vertebral PSV 64.5 cm/s Vert ebral EDV 14.2 cm/s Left ICA Prox ICA Prox PSV 96.7 cm/s ICA Prox EDV 15 cm/s Right ECA Prox ECA Prox PSV 123 cm/s ECA Prox EDV 13.5 cm/s Left Vertebral Vertebral PSV 60 cm/s Vert ebral EDV 11.2 cm/s Left SCA Prox SCA Prox PSV 129 cm/s Right ICA/CCA Ratio ICA/CCA PSV 1.12 Left ICA/CCA Ratio ICA/CCA PSV 0.879 Signed 08/18/2020 04:01 PM Darian Castillo MD, RPVI Performing Organization Address City/State/ZIP Code Phon e Number [facility] [address] [place] [address] Low resolution full typing by SSO (08/18/2020 11:15 AM TRADESHOW WORKER) Interpretation Note: HLA typing was performed by PCR-SSO DNA ba sed procedures. [place] Note: The serological phenot ype is an interpretation based on molecular typing data. [facility] Low resolution full See link below for [place] typing by SSO PDF Lab Report [facility] Specimen Blood Performing Organization Address City/[facility] Phon e Number [facility] DEPARTMENT OF PATHOLOGY AND [address] [place] [address] [phone] [address] [facility] C1Q class 1 & 2 antibody (08/18/2020 11:15 AM TRADESHOW WORKER) Pathologist Sig nature [facility] C1Q class 1 & 2 See link below [facility] antibody for PDF Lab HOSPITAL Report Specimen Blood Performing Organization Address City/[facility] Phon e Number [facility] DEPARTMENT OF PATHOLOGY AND [address] [place] [phone] [facility] Blayne-Hoover virus antibody test (08/18/2020 11:15 AM TRADESHOW WORKER) EBV Ab to viral capsid Positive (A) Negative [facility] Ag, IgG HOSPITAL EBV Ab to viral capsid Negative Negative [facility] Ag, IgM HOSPITAL EBV Ab to nuclear Ag, Positive (A) Negative [facility] IgG HOSPITAL EBV Ab to early (D) Negative Negative [facility] Ag, IgG HOSPITAL Blayne-Hoover virus SEE [facility] antibody COMMENTComment: HOSPITAL interpretation Infection Status: Results may suggest past EBV infection. Specimen Serum Performing Organization Address [facility] Phon e Number [facility] DEPARTMENT OF PATHOLOGY AND [address] [place], [place] [phone] [address] [address] Single antigen beads (08/18/2020 11:15 AM TRADESHOW WORKER) SAB interpretation ADDITIONAL ANTIBODY INFORMATION GUADALUPE JIMENEZ DP1= DPB1*01:01;DPA1*02:01 [facility] SAB serum ID [id number] [facility] SAB serum collection 08/18/2020 11:15 AM [place] D&T [facility] SAB class I antibody Negative [facility] SAB cPRA class I 0 [facility] SAB class II antibody DP1 [facility] SAB cPRA class II 0 [facility] Single antigen beads See link below for [place] PDF Lab Report [facility] Specimen Blood Performing Organization Address City/State/ZIP Code Phon e Number [facility] DEPARTMENT OF PATHOLOGY AND [address] [place], [place] [phone] GENOMIC MEDICINE [facility] [address] [place] [address] [facility] Us duplex venous lower extremity (08/16/2020 8:20 PM TRADESHOW WORKER) Specimen Narrative Performed At [facility] V[facility] U ltrasound Laboratory Lower Extr emity Venous Report [address] [facility], [address], [place] [address] Pat.Name: ERIC SAUNDERS JR Pat.ID: [id number]Date: 08/16/2020 Refer.MD: WILI CROWLEY MD Exam Time: 7:46:00 PM Study Type:L E Venous Age: 9 1950,70Y Sex: MALE Sonogrphr: VALERIA Aguirre RCS Pat. Stat.:Inpati ent Room: [facility] DSIC 0301-25 Tape Vol: JM, CPT - 4: 40477 Echo Sari nt ID:[id number] Order ID: [id number] Reason for Study:Leg swelling or pain, D VT suspected.History of HTN, HLD, DMII, CAD, liver cirrhosis, Depress ion, obese and GERD Procedures: Colorflow, Grayscale/2D, Pul sed wave Doppler Race: C SUMMARY: DUPLEX SCAN OBSERVATIONS Deep Veins Superficial Veins Right Left Right Left GSV (prox) Normal Normal CFV Normal Normal (above knee) Femoral Normal Normal GSV (dist) Normal Normal Profunda Normal Normal (below knee) Popliteal Normal Normal PT (prox) Normal Normal SSV Normal Nor mal PT (dist) Not Visualized Normal Peroneal Normal Normal Gastrocs Normal Normal RIGHT: There is normal compressibility with no evidence of echogenic material noted within the lumen of the v isualized veins. Color flow and Doppler signals are normal. LEFT: There is normal compressibili ty with no evidence of echogenic material noted within the lumen of the v isualized veins. Color flow and Doppler signals are normal. PRELIMINARY FINDINGS: 1. No evidence of venous thrombosis of t he visualized veins, bilaterally. PHYSICIAN INTERPRETATION: Venous examination of the both lower ext remities demonstrated no evidence of venous thrombosis in the vis ualized veins. Normal compressibility and augmentation of all veins visualized. FINDINGS: Signed 08/16/2020 09:32 PM Darian Castillo MD, RPVI Procedure Note Interface, Radiology Results In - 2019 9:32 PM [facility] Vascular Ultrasound Laboratory Lower Extremity Veno us Report [address] [place] [address] Pat.Name: ERIC SAUNDERS Pat.I D: [id number] .Date: 08/16/2020 Refer .MD: WILI CROWLEY MD Exam Time: 7:46:00 PM Study Type:LE Venous Age: 9 1950,70Y Sex: MALE Sonogrphr: VALERIA Aguirre, ARTEMIO Pat. Stat.:Inpatient Room: [place] [address] Tape Vol: JM, CPT - 4: 95022 Echo Event ID:[id number] Order ID: [id number] Reason for Study:Leg swelling or pain, D VT suspected.History of HTN, HLD, DMII, CAD, liver cirrhosis, Depress ion, obese and GERD Procedures: Colorflow, Grayscale/2D, Pul sed wave Doppler Race: C SUMMARY: DUPLEX SCAN OBSERVATIONS Deep Veins Superficial Veins Right Left Right Left GSV (prox) Normal Normal CFV Normal Normal (above knee) Femoral Normal Normal GSV (dist) Normal Normal Profunda Normal Normal (below knee) Popliteal Normal Normal PT (prox) Normal Normal SSV Normal Norm al PT (dist) Not Visualized Normal Peroneal Normal Normal Gastrocs Normal Normal RIGHT: There is normal compressibility with no evidence of echogenic material noted within the lumen of the v isualized veins. Color flow and Doppler signals are normal. LEFT: There is normal compressibility with no evidence of echogenic material noted within the lumen of the v isualized veins. Color flow and Doppler signals are normal. PRELIMINARY FINDINGS: 1. No evidence of venous thrombosis of t he visualized veins, bilaterally. PHYSICIAN INTERPRETATION: Venous examination of the both lower ext remities demonstrated no evidence of venous thrombosis in the vis ualized veins. Normal compressibility and augmentation of all veins visualized. FINDINGS: Signed 08/16/2020 09:32 PM Darian Castillo MD, RPVI Performing Organization Address [facility] Phon e Number [facility] [address] [place] [address] Blood culture, aerobic & anaerobic (08/16/2020 4:15 PM TRADESHOW WORKER)Only the most recent of6 resultswithin the time period is included. Pathologist [facility] Blood culture No growth after 5 days of incubation. [facility] isolate Comment: HOSPITAL Specimen Information Specimen Source: Blood Specimen Site: Hand, right Specimen Blood - Hand, right Performing Organization Address [facility] Phon e Number [facility] DEPARTMENT OF PATHOLOGY AND [address] [place], [place] [phone] GENOMIC [address] [address] Lactic acid level (08/16/2020 3:05 PM TRADESHOW WORKER)Only the most recent of3 results within the time period is included. Pathologist Sig nature Lactic acid 2.4 (H) 0.5 - 2.2 mmol/L [facility] AL Specimen Plasma Performing Organization Address [facility] Phon e Number [facility] DEPARTMENT OF PATHOLOGY AND [address] [facility]. [place], [place] [phone] GENOMIC MEDICINE [facility] [address] [place] [address] Transthoracic Echocardiogram Limited or Follow Up (w Contrast if needed) (08/16/2020 10:00 AM TRADESHOW WORKER) Specimen Narrative Performed At [facility] Echo cardiography Report [address] [facility], [place] [address] Pat.Name: ERIC SAUNDERS JR Pat.ID: [id number] .Date: 08/16/2020 Refer.MD: WILI CROWLEY MD Exam Time: 9:16:00 AM Study Type:R outine Echo Height: 72.01in Weight: 277.2lb BSA: 2.45 m2 Ag e: 1950,70Y Sex: MALE BP: 100/44 HR: 56 bpm Sonogrphr: Cj Horn, [facility], Adair Kapoor AD Pat. Stat.:Inpatient Room: [address] Study Status:Final Echo Event ID:[id number] Order ID: [id number] Reason for Study:decompensated cirrhosis , transplant evaluation. Evaluate for transpulmonary shunt, pleas e document number of cardiac cycles. History / Clinical:Coronary Artery Disea se, Diabetes, Hyperlipidemia, Hypertension Procedures: Portable, Intravenous Lumaso n Contrast, Intravenous Saline Contrast, 2D Echo,Colorflow Doppler Yudy smith Race: C SUMMARY: LV size is normal. LV EF is hyperdynamic . RV size is normal. RV systolic function is normal. Right to left shunt noted on agitate d saline testing after two cardiac cycles at the atrial level throu gh possible ASD versus PFO. Consider further imaging with FRANCISCO if cli nically indicated. Normal diastolic function and LV filling pressures. FINDINGS: LV: LV size is normal. Concentr ic left ventricular remodeling. LV EF is hyperdynamic. Overall wall mot ion is hyperdynamic. Estimated EF is >70%. RV: RV size is normal. RV systo lic function is normal. LA: LA volume is mildly enlarge d. RA: RA size is normal. AO: Aortic root diameter is nor mal. JAVI: No pericardial effusion. Cntrst: Right to left shunt noted on agitated saline testing after two cardiac cycles at the atrial level through possible ASD versus PFO. Consider further imaging wi th FRANCISCO if clinically indicated. AV: Mild thickening and calcifi cation of AV leaflets. MV: No structural MV abnormalit ies noted. PV: No structural PV abnormalit ies noted. TV: No structural TV abnormalit ies noted. Jacobs: Normal diastolic function an d LV filling pressures. Other: Insufficient TR jet to estim ate PA systolic pressure. MEASUREMENTS: 2D Parasternal Long [place] Ao An 2.6 cm LVPWd 1.2 cm Ao Rtd 4.4 cm Index 1.8 cm/m2 LA Ds 4.3 cm IVSd 1.2 cm RWT 0.47 LVIDd 5.1 cm Index 2.1 cm/m2 LV Mass 241 g (122-1 74) LVIDs 2.8 cm LVM In dex 98 g/m LV%fs 45 % LVOT 2.4 cm LA Sng Plane LA Area 25 cm (8.8-23.4) LA Vol 93 ml Index 38 ml/m2 LA LngAx 6.2 cm RA Sng Plane RA Vol 30 ml Index 12 ml/m2 RA LngAx 5.2 cm RA Area 14 cm (8.3-1 9.5) LVOT LVOT Area 4.5 cm Signed 08/16/2020 12:55 PM Riana Hooper MD Procedure Note Interface, Radiology Results In - 2019 12:55 PM TRADESHOW WORKER Echocardiography Report [id number] [address] , [place] [address] Pat.Name: ERIC SAUNDERS JR Pat.I D: [id number] .Date: 08/16/2020 Refer .MD: WILI CROWLEY MD Exam Time: 9:16:00 AM Study Type:Routine Echo Height: 72.01in Weigh t: 277.2lb BSA: 2.45 m2 Age: 9 1950,70Y Sex: MALE BP: 100/44 HR: 56 bpm Sonogrphr: Cj Horn, [facility], Adair Kapoor, [facility] Pat. Stat.:Inpatient Room: [address] Study Status:Final Echo Event ID:[id number] Order ID: [id number] Reason for Study:decompensated cirrhosis , transplant evaluation. Evaluate for transpulmonary shunt, pleas e document number of cardiac cycles. History / Clinical:Coronary Artery Disea se, Diabetes, Hyperlipidemia, Hypertension Procedures: Portable, Intravenous Lumaso n Contrast, Intravenous Saline Contrast, 2D Echo,Colorflow Doppler Yudy smith Race: C SUMMARY: LV size is normal. LV EF is hyperdynamic . RV size is normal. RV systolic function is normal. Right to left shunt noted on agitated saline testing after two cardiac cycles at the atrial level throu gh possible ASD versus PFO. Consider further imaging with FRANCISCO if cli nically indicated. Normal diastolic function and LV filling pressures. FINDINGS: LV: LV size is normal. Concentric left ventricular remodeling. LV EF is hyperdynamic. Overall wall motion is hyperdynamic. Estimated EF is >70%. RV: RV size is normal. RV systolic function is normal. LA: LA volume is mildly enlarged. RA: RA size is normal. AO: Aortic root diameter is normal . JAVI: No pericardial effusion. Cntrst: Right to left shunt noted on a gitated saline testing after two cardiac cycles at the atri al level through possible ASD versus PFO. Consider further i maging with FRANCISCO if clinically indicated. AV: Mild thickening and calcificat ion of AV leaflets. MV: No structural MV abnormalities noted. PV: No structural PV abnormalities noted. TV: No structural TV abnormalities noted. Jacobs: Normal diastolic function and LV filling pressures. Other: Insufficient TR jet to estimat e PA systolic pressure. MEASUREMENTS: 2D Parasternal Long [place] Ao An 2.6 cm LVPW d 1.2 cm Ao Rtd 4.4 cm Inde x 1.8 cm/m2 LA Ds 4.3 cm IVSd 1.2 cm RWT 0.47 LVIDd 5.1 cm Inde x 2.1 cm/m2 LV Mass 241 g (122-174) LVIDs 2.8 cm LVM Index 98 g/m LV%fs 45 % LVOT 2.4 cm LA Sng Plane LA Area 25 cm (8.8-23.4) L A Vol 93 ml Index 38 ml/m2 LA LngAx 6.2 cm RA Sng Plane RA Vol 30 ml Inde x 12 ml/m2 RA LngAx 5.2 cm RA Area 14 cm (8.3-19.5) LVOT LVOT Area 4.5 cm Signed 08/16/2020 12:55 PM Riana Hooper MD Performing Organization Address City/State/ZIP Code Phon e Number [facility] [id number] [place] [address] TB T-SPOT (08/16/2020 5:30 AM TRADESHOW WORKER) Pathologist Sig nature TB T-SPOT SEE NOTE [facility] RE[facility] Comment: LAB T-SPOT TUBERCULOSIS Nil Control: 099 Panel A: 1 Panel B: 0 Positive Control: SAT Result: NEGATIVE NOTE: TMTC INDICATES TOO MANY SPOTS TO COUNT SAT INDICATES THE WELL WAS SATURATED RESULTS INTERPRETATION: RESULTS ARE NEGATIVE WHEN (PANEL A-NIL) OR (PANEL B-NI L) <= 4 SPOTS, INCLUDING VALUES LESS THAN ZERO. RESULTS ARE POSITIVE WHEN (PANEL A-NIL) OR (PANEL B-NI L) >= 8 SPOTS RESULTS ARE BORDERLINE WHEN EITHER (PANEL A-NIL) OR (PANEL B-NIL) = 5,6,0R 7. THE TEST IS INVALID WHEN EITHER OF THE FOLLOWING CONDI TIONS IS MET: 1.) THE NIL CONTROL HAS >10 SPOTS 2.) THE MITOGEN (POSITIVE CONTROL) HAS <20 SPOTS AND B OTH (PANEL A-NIL) AND (PANEL B-NIL) <= 4 SPOTS. M. TUBERCULOSIS INFECTION UNLIKELY, BUT CANNOT BE EXCL UDED ESPECIALLY WHEN: 1. ANY ILLNESS IS CONSISTENT WITH TB DISEASE. 2. LIKELIHOOD OF PROGRESSION TO DISEASE (e.g. DUE TO I MMUNOSUPPRESSION) IS INCREASED. LIMITATIONS: DIAGNOSING OR EXCLUDING TUBERCULOSIS DISEASE, AND ASSE SSING THE PROBABILITY OF LTBI, REQUIRES A COMBINATION OF EPIDEMIOLOGICAL, HI STORICAL, MEDICAL, AND DIAGNOSTIC FINDINGS THAT SHOULD BE TAKEN INTO ACCOUNT WHEN INTERPRETING T-SPOT.TB REFER TO THE MOST RECENT CDC GUIDANCE (HTTP: //WWW.CDC.GOV/NCHSTP/TB) FOR DETAILED RECOMMENDATIONS ABOUT DIAGNOSING TB INFECTION (INCLUDING DISEASE) AND SELECTING PERSONS FOR TESTING. 1.) A FALSE NEGATIVE RESULT CAN BE CAUSED BY INCORRECT BLOOD SAMPLE COLLECTION OR IMPROPER HANDLING OF THE S PECIMEN, AFFECTING LYMPHOCYTE FUNCTION 2.) THE PERFORMANCE OF T-SPOT.TB HAS NOT BEEN ADEQUATE LY EVALUATED WITH SPECIMENS FROM INDIVIDUALS YOUNGER THAN AGE 17 YEARS, IN WOMEN, AND IN PATIENTS WITH HEMOPHILIA. 3-) A FALSE POSITIVE RESULT WAS OBTAINED FOR T-SPOT.TB WHEN TESTED IN SUBJECTS WITH M. XENOPI, M. KANSASII, AND M. GORDONAE. WHILE ESAT-6 AND CFP-10 ANTIGENS ARE ABSENT FROM BCG STRAINS OF M. BOVIS AND FROM MOST ENVIRONMENTAL MYCOBACTERIA, IT IS POSSIBLE THAT A POSI TIVE T-SPOT.TB RESULT MAY BE DUE TO INFECTION WITH M. KANSASII, M. SZULGAI, M. GORDONAE, OR M. MARINUM. ALTERNATIVE TESTS WOULD BE REQUIRED IF THESE INFECTIONS ARE SUSPECTED. 4.) A NEGATIVE TEST RESULT DOES NOT EXCLUDE THE POSSIB ILITY OF EXPOSURE TO, OR INFECTION WITH, M. TUBERCULOSIS. PATIENTS WITH RECE NT EXPOSURE TO TB INFECTED INDIVIDUALS EXHIBITING A NEGATIVE T-SPO T.TB RESULT SHOULD BE CONSIDERED FOR RETESTING WITHIN 6 WEEKS OR I F OTHER RELEVANT CLINICAL SYMPTOMS INDICATE POSSIBLE INFECTION. 5.) A POSITIVE TEST RESULT DOES NOT RULE IN ACTIVE TB DISEASE; OTHER TESTS SHOULD BE PERFORMED TO CONFIRM THE DIAGNOSIS OF ACTIVE TB DISEASE SUCH SPUTUM SMEAR AND CULTURE, PCR AND CHEST RADIOGRAPHY. 6.) T-SPOT.TB TEST HAS NOT BEEN EVALUATED IN SUBJECTS WHO HAVE RECEIVED >1 MONTH OF ANTI-TB THERAPY. 7. ) REFRIGERATED AND FROZEN SAMPLES ARE NOT RECOMMEND ED FOR USE WITH T=SPOT.TB TEST. Performed by: [facility] Molecular Tuberculosis Laboratory [facility] ([id number]) [place], [place] [address] Specimen Blood Performing Organization Address City/State/ZIP Code Phon e Number [facility] DEPARTMENT OF PATHOLOGY AND [address] [place] [phone] GENOMIC MEDICINE [facility] - [facility] Miscellaneous referral test (08/16/2020 5:30 AM TRADESHOW WORKER)Only the most recent of7 resultswithin the time period is included. [facility] test name PETH SHOWN ABOVE Misc test result see note SHOWN ABOVE Comment: Phosphatidylethanol (PEth), Whole Blood, Quantitative [facility] test code [id number] PEth 16:0/18:1 (POPEth) <10 ng/mL INTERPRETIVE INFORMATION:Phosphatidylethanol (PEth), W hole Blood Phosphatidylethanol (PEth) homologues Result Interpret ation PEth 16:0/18:1 (POPEth) Less than 10 ng/mL............Not detected Less than 20 ng/mL............Abstinence or light alco hol consumpti on 20 - 200 ng/mL................Moderate alcohol consump tion Greater than 200 ng/mL........Heavy alcohol consumptio n or chronic a lcohol use PEth 16:0/18:2 (PLPEth).......Reference ranges are not well establish ed. (Reference: Yolanda Oconnell and Roger Ace 2018 J. Forensic Sci) Phosphatidylethanol (PEth) is a group of phospholipids formed in the presence of ethanol, phospholipase D and phosphatidylcholine. PEth is known to be a direct alco hol biomarker. The predominant PEth homologues are PEth 16 :0/18:1 (POPEth) and PEth 16:0/18:2 (PLPEth), which account fo r 37-46% and 26-28% of the total PEth homologues, respectively. PEth is incorporated into the phospholipid membrane of red blo od cells and has a general half-life of 4 - 10 days and a windo w of detection of 2-4 weeks. However, the window of detecti on is longer in individuals who chronically or excessively c onsume alcohol. The limit of quantification is 10 ng/mL. Seri al monitoring of PEth may be helpful in monitoring alcoho l abstinence over time. PEth results should be interpret ed in the context of the patient's clinical and behavioral histo ry. Patients with advanced liver disease may have falsely elevated PEth concentrations (Sofi ROLLE et al 2018, Alcoholism Clinical & Experimental Research). Test developed and characteristics determined by [employer]. See Compliance Statement B: [employer]back/ CS - - - - - - - - - - - - - - - - - - - - - - - - - - - - - - PEth 16:0/18:2 (PLPEth) <10 ng/mL ===== Test performed by: [employer] [address] [place], [place] [address] Specimen Performing Organization Address City/State/ZIP Code Phon e Number [facility] DEPARTMENT OF PATHOLOGY AND [address] [place] [address] [phone] GENOMIC MEDICINE SHOWN ABOVE Total iron binding capacity (08/16/2020 4:00 AM TRADESHOW WORKER)Only the most recent of2 resultswithin the time period is included. Pathologist Sig nature Iron level 47 (L) 59 - 158 ug/dL [facility] Iron binding capacity 143 (L) 200 - 400 ug/dL [facility] % Saturation 32.9 20.0 - 40.0 % [facility] Specimen Plasma Performing Organization Address City/[facility] Phon e Number [facility] DEPARTMENT OF PATHOLOGY AND [address] [place] [address] [phone] [address] Cytomegalovirus Ab, IgM (08/16/2020 4:00 AM TRADESHOW WORKER) Pathologist Sig nature Cytomegalovirus Ab, IgM Negative Negative [facility] Specimen Serum Performing Organization Address [facility] Phon e Number [facility] DEPARTMENT OF PATHOLOGY AND [address] [place] [address] [phone] [address] Alpha-1 antitrypsin level (08/16/2020 4:00 AM TRADESHOW WORKER)Only the most recent of2 resultswithin the time period is included. Pathologist Sig nature Alpha-1 antitrypsin 104 90 - 200 mg/dL [facility] Specimen Plasma Performing Organization Address [facility] Phon e Number [facility] DEPARTMENT OF PATHOLOGY AND [address] [place] [address] [phone] [address] Ceruloplasmin level (08/16/2020 4:00 AM TRADESHOW WORKER)Only the most recent of2 results within the time period is included. Pathologist Sig nature Ceruloplasmin 16 15 - 30 mg/dL [facility] Specimen Plasma Performing Organization Address [facility] Phon e Number [facility] DEPARTMENT OF PATHOLOGY AND [address] [place] [address] [phone] [address] Alpha fetoprotein (08/16/2020 4:00 AM TRADESHOW WORKER)Only the most recent of2 results within the time period is included. Alpha fetoprotein 1.3 0.0 - 8.3 [place] Comment: ng/mL [facility] The Magda 8000 AFP immunoassay was used. HOSPITAL Results obtained with different assay methods or kits should not be used interchangeably and may be differen t. Specimen Serum Performing Organization Address [facility] Phon e Number [facility] DEPARTMENT OF PATHOLOGY AND [address] [place] [address] [phone] [address] Vitamin D 25 hydroxy level (08/16/2020 4:00 AM TRADESHOW WORKER)Only the most recent of2 resultswithin the time period is included. Pathologist Cristiane Vitamin D, 11.2 (L) 30.0 - 150.0 [facility] 25-hydroxy Comment: ng/mL HOSPITAL This assay reports the sum of 25-hydroxy vitamin D3 an d 25-hydroxy vitamin D2. Reference range: 0-17 years: Deficiency: less than 20ng/mL Optimum level: greater than or equal to 20 ng/mL. 18 years and older: Deficiency: less than 20ng/mL Insufficiency: 20-29 ng/mL Optimum Level: 30-80 ng/mL The assay reportable range is 3.4 155.9 ng/mL. Level s higher than 150 ng/mL may be associated with toxicity. If toxicity is clinically suspected and the reported r esult is >155.9 ng/mL,contact lab for alternative methods to obtain a definitive level. If separate quantitation of 25-hydroxy vitamin D3 and 25-hydroxy vitamin D2 is needed, please contact lab for alternative methods. Specimen Blood Performing Organization Address City/[facility]/ZIP Code Phon e Number [facility] DEPARTMENT OF PATHOLOGY AND [address] [place] [address] [address] Cytomegalovirus Ab, IgG (08/16/2020 4:00 AM TRADESHOW WORKER) Pathologist Cristiane Cytomegalovirus Ab, IgG NegativeComment: Negative [place] Negative; No CMV [facility] IgG antibodies HOSPITAL were detected. Specimen Serum Performing Organization Address [facility] Phon e Number [facility] DEPARTMENT OF PATHOLOGY AND [address] [place] [address] [address] C-reactive protein (08/16/2020 4:00 AM TRADESHOW WORKER) Pathologist Sig nature CRP 2.04 (H) 0.00 - 0.50 mg/dL [facility] Specimen Plasma Performing Organization Address City/[facility] Phon e Number [facility] DEPARTMENT OF PATHOLOGY AND [address] [place] [address] [address] Thyroid stimulating hormone (08/16/2020 4:00 AM TRADESHOW WORKER)Only the most recent of2 resultswithin the time period is included. Pathologist Sig nature TSH 3.83 0.27 - 4.20 uIU/mL [facility] ITAL Specimen Plasma Performing Organization Address City/[facility] Phon e Number [facility] DEPARTMENT OF PATHOLOGY AND [address] [place] [address] [place] [phone] Ferritin level (08/16/2020 4:00 AM TRADESHOW WORKER)Only the most recent of2 resultswithin the time period is included. Pathologist Sig nature Ferritin level 128 30 - 400 ng/mL [facility] Specimen Plasma Performing Organization Address [facility] Phon e Number [facility] DEPARTMENT OF PATHOLOGY AND [address] [place] [address] Cortisol level, random (08/16/2020 4:00 AM TRADESHOW WORKER)Only the most recent of2 results within the time period is included. Cortisol, random 15 ug/dL [facility] Comment: HOSPITAL Reference Ranges are not established for non-timed Cor tisol levels. Reference Range for Timed Cortisol: 6 - 10 AM 6 - 18 ug/d l 4 - 8 PM 3 - 11 ug/ dl Specimen Plasma Performing Organization Address [facility] Phon e Number [facility] DEPARTMENT OF PATHOLOGY AND [address] [place] [phone] Carcinoembryonic antigen (CEA) (08/16/2020 4:00 AM TRADESHOW WORKER) CEA 3.0 0.0 - 3.8 [facility] Comment: ng/mL HOSPITAL Reference range for heavy smokers: 0.0 - 5.5 ng/mL The [employer] Magda 8000 CEA immunoassay was used. Results obtained with different assay methods or kits should not be used interchangeably and may be differen t. Specimen Serum Performing Organization Address [facility] Phon e Number [facility] DEPARTMENT OF PATHOLOGY AND [address] [place] [phone] Lipid panel (08/16/2020 4:00 AM TRADESHOW WORKER)Only the most recent of4 resultswithin the time period is included. Cholesterol 90 <200 mg/dL [facility] Triglycerides 88 <150 mg/dL [facility] HDL cholesterol 33 (L) >40 mg/dL [facility] LDL cholesterol 37Comment: Result <100 mg/dL [place] obtained by direct [facility] LDL measurement [facility] Lipid panel [facility] interpretation Comment: [facility] Total Cholesterol (mg/dL) HOSPIT AL <200 Desirable 200-239 Borderline-high >=240 High Triglycerides (mg/dL) <150 Normal 150-199 Borderline-high 200-499 High >=500 Very high HDL Cholesterol (mg/dL) <40 Low (male) <40 Low (female) LDL Cholesterol (mg/dL) <100 Optimal 100-129 Near or above optimal 130-159 Borderline-high 160-189 High >=190 Very high Risk Catergories that modify LDL goals. Risk Catergories LDL goal (mg/d L) CHD and CHD risk equivalent <100 (10-year risk >20%) Multiple (2+) risk factors <130 (10-year risk =<20%) 0-1 risk factors <160 (<10-year risk) Defining levels of lipids in metabolic syndrome Triglycerides >=150 mg/dL HDL Cholesterol Men <40 mg /dL Women <40 mg/ dL Non-HDL cholesterol is a second target for therapy in persons with high triglycerides (>=200 mg/dL) Specimen Plasma Performing Organization Address City/State/ZIP Code Phon e Number [facility] DEPARTMENT OF PATHOLOGY AND [address] [place] [phone] GENOMIC MEDICINE [address] [address] XR Panorex (08/15/2020 9:39 PM TRADESHOW WORKER) Specimen Narrative Performed At EXAMINATION: XR PANOREX [facility] CLINICAL HISTORY: Liver Transplant Rosenda luation COMPARISON: None. IMPRESSION: There is a small lucency in the right third maxillary molar area of tooth decay. There is no periapical bone destruction or fracture [facility]-[id number] Procedure Note Interface, Radiology Results Incoming - 08/15/2020 9:44 PM TRADESHOW WORKER EXAMINATION: XR PANOREX CLINICAL HISTORY: Liver Transplant Eval uation COMPARISON: None. IMPRESSION: There is a small lucency in the right th ird maxillary molar area of tooth decay. There is no periapical bone destruction or fracture [facility]-[id number] Performing Organization Address City/[facility]/ZIP Code Phon e Number [facility] [address] [place] [phone] Syphilis total antibody (08/15/2020 6:30 PM TRADESHOW WORKER) Syphilis total Non-reactiveComment Non-reactive [facility] antibody : No serological HOSPITAL evidence of syphilis infection. Specimen Performing Organization Address [facility]/ZIP [facility] Phon e Number [facility] DEPARTMENT OF PATHOLOGY AND [address] [place] [address] [address] Anti smooth muscle Ab screen (08/15/2020 5:30 PM TRADESHOW WORKER) Pathologist Sig nature Anti smooth muscle Not Detected Not-Detected [facility] Ab [facility] Specimen Blood Performing Organization Address City/[facility]/ZIP Code Phon e Number [facility] DEPARTMENT OF PATHOLOGY AND [address] [place], [place] [phone] [address] [address] Hepatitis Be Ab (08/15/2020 5:30 PM TRADESHOW WORKER) Pathologist Sig nature Hepatitis Be Ab Negative Negative [facility] Comment: Performed by [employer], [address] [place] [address] [email or web address], Fior Madera MD - Lab. Director Specimen Serum Performing Organization Address [facility]/ZIP [facility] Phon e Number [facility] [address] [place] [address] [facility] [address] [place] [address] Anti mitochondria screen (08/15/2020 5:30 PM TRADESHOW WORKER) Anti mitochondria Not Detected Not-Detected [facility] Specimen Blood Performing Organization Address City/[facility]/ZIP [facility] Phon e Number [facility] DEPARTMENT OF PATHOLOGY AND [address] [place] [address] [address] Drug castillo 9, ser/maddie, scrn w/rflx to conf (08/15/2020 5:30 PM TRADESHOW WORKER) Amphetamines, Negative Cutoff 20 [facility] s/p, screen ng/mL Methamphetamine, Negative Cutoff 20 HM [facility] s/p, screen ng/mL Barbiturates, Negative Cutoff 50 HM [facility] s/p, screen ng/mL Benzodiazepines, Negative Cutoff 50 HM [facility] s/p, screen ng/mL Cocaine, s/p, Negative Cutoff 20 HM [facility] screen ng/mL Methadone, s/p, Negative Cutoff 25 [facility] screen ng/mL Opiates, s/p, Negative Cutoff 20 HM [facility] screen ng/mL Oxycodone, s/p, Negative Cutoff 20 HM [facility] screen ng/mL Phencyclidine, Negative Cutoff 10 HM [facility] s/p, screen ng/mL Cannabinoids, Negative Cutoff 20 [facility] s/p, screen ng/mL Drug screen See Note HM [facility] comments, serum Comment: INTERPRETIVE INFORMATION: Drug Screen 9 Panel, Serum o r Plasma - Immuno assay Screen with Reflex to Mass Spectrometry Confirmation/Qu antitation 1. Methodology: Qualitative Immunoassay Screen 2. Drugs/Drug classes reported as "Positive" are autom atically reflexed to mass spectrometry confirmation/quantitatio n testing. An immunoassay unconfirmed positive screen result may be useful for medical purposes but does not meet forensic standa rds. 3. The absence of expected drug(s) and/or drug metabol ite(s) may indicate noncompliance, inappropriate timing of specim en collection relative to drug administration, poor drug absorption, or limitations of testing. The concentration at which the screening test can detect a drug or metabolite varies within a drug class. Specimens for which drugs or drug classes are detected by the screen are automatically reflexed to a second, more specific technology (mass spectrometry). The concentra tion value must be greater than or equal to the cutoff to be repo rted as positive. Interpretive questions should be directed to the laboratory. 4. For medical purposes only; not valid for forensic u se. Test developed and characteristics determined by [employer]. See Compliance Statement B: [email or web address] Panels/ CS Performed By: [facility] [address] [place] [address] Lubricating Specialist: Fior Madera MD Specimen Blood Performing Organization Address City/State/ZIP Code Phon e Number [facility] [address] [place] [address] [facility] [address] [place] [address] Hepatitis Be Ag (08/15/2020 5:30 PM TRADESHOW WORKER) Pathologist Sig nature Hepatitis Be Ag Negative Negative [facility] Comment: Performed by [employer], [address] [place] [address] [email or web address], Fior Madera MD - Lab. Director Specimen Serum Performing Organization Address City/[facility]/ZIP [facility] Phon e Number [facility] [address] [place] [address] [facility] [address] [place] [address] hCG qualitative, serum screen (08/15/2020 5:30 PM TRADESHOW WORKER) Pathologist [facility] hCG qualitative, NegativeComment: [facility] serum Sensitivity of HCG HOSPITAL test: 25 mIU/mL Specimen Blood Performing Organization Address City/[facility]/ZIP Code Phon e Number [facility] DEPARTMENT OF PATHOLOGY AND [address] [place] [phone] GENOMIC MEDICINE [address] [address] T3, free (08/15/2020 5:30 PM TRADESHOW WORKER) Pathologist Sig [facility] T3, free 1.9 (L) 2.4 - 4.2 pg/mL [facility] Comment: REFERENCE INTERVAL: Triiodothyronine, Free (Free T3) Access complete set of age- and/or gender-specific ref erence intervals for this test in the [employer] [facility] Test Di rectory (Cardback). Performed By: [employer] [address] [place] [address] Lubricating Specialist: Fior Madera MD Specimen Serum Performing Organization Address City/[facility]/ZIP [facility] Phon e Number [facility] [address] [phone] [facility] [address] [place] [place], [place] [id number] Hemoglobin A1c (08/15/2020 5:30 PM TRADESHOW WORKER)Only the most recent of2 resultswithin the time period is included. Pathologist [facility] Hemoglobin A1C 5.3 4.0 - 5.6 % [facility] Comment: HOSPITAL HbA1c cutoffs for diagnosing diabetes: 4.0% - 5.6% = normal 5.7% - 6.4% = increased risk for diabetes (prediabetes )9 >=6.5% = diabetes9 Goals for glycemic control (ADA 2016) < 7.0% Target for non adults with diabetes. More or less stringent targets may be appropriate for individual patients. <7.5% Target for Children and adolescents with type 1 diabetes. Specimen Blood Performing Organization Address City/[facility]/ZIP [facility] Phon e Number [facility] DEPARTMENT OF PATHOLOGY AND [address] [place] [address] Arterial blood gas (08/15/2020 5:00 PM TRADESHOW WORKER) Pathologist Sig nature pH, arterial 7.39 7.35 - 7.45 [facility] pCO2, arterial 34 (L) 35 - 45 mmHg [facility] pO2, arterial 111 (H) 80 - 90 mmHg [facility] Bicarbonate, 20.1 (L) 21.0 - 28.0 [facility] mmol/L HOSPITAL Base excess, -4 (L) -2 - 2 mEq/L [facility] O2 saturation, 99 95 - 100 % [facility] Specimen Blood Performing Organization Address [facility] Phon e Number [facility] DEPARTMENT OF PATHOLOGY AND [address] [place] [address] Cancer antigen 19-9 (08/15/2020 3:21 PM TRADESHOW WORKER) CA 19-9 115 (H) 0 - 35 U/mL [facility] Comment: HOSPITAL The Cooliris Magda 8000 CA19-9 immunoassay was used. Results obtained with different assay methods or kits should not be used interchangeably and may be differen t. Specimen Plasma Performing Organization Address [facility] Phon e Number [facility] DEPARTMENT OF PATHOLOGY AND [address] [place], [place] [phone] [address] [address] T4, free (08/15/2020 3:21 PM TRADESHOW WORKER)Only the most recent of2 resultswithin the time period is included. Pathologist Sig nature T4, free 0.8 (L) 0.9 - 1.7 ng/dL [facility] L Specimen Plasma Performing Organization Address City/[facility]/ZIP [facility] Phon e Number [facility] DEPARTMENT OF PATHOLOGY AND [address] [place] [address] [phone] [address] Prostate specific antigen (08/15/2020 3:21 PM TRADESHOW WORKER) PSA <0.1 0.0 - 4.0 [facility] Comment: ng/mL HOSPITAL The MAGDA 8000 PSA immunoassay was used. Results obtained with different assay methods or kits should not be used interchangeably and may be differen t. Specimen Plasma Performing Organization Address City/[facility] Phon e Number [facility] DEPARTMENT OF PATHOLOGY AND [address] [place] [address] [address] HIV Ag/Ab combination (08/15/2020 3:20 PM TRADESHOW WORKER) HIV Ag/Ab combination Non-reactive Non-reactive [facility] Specimen Blood Performing Organization Address [facility] Phon e Number [facility] DEPARTMENT OF PATHOLOGY AND [address] [place] [address] [address] Prealbumin level (08/15/2020 3:19 PM TRADESHOW WORKER) Pathologist Sig nature Prealbumin 11 (L) 16 - 32 mg/dL [facility] Specimen Serum Performing Organization Address [facility] Phon e Number [facility] DEPARTMENT OF PATHOLOGY AND [address] [place] [address] [address] US Renal (08/15/2020 10:57 AM TRADESHOW WORKER)Only the most recent of2 resultswithin the time period is included. Specimen Narrative Performed At EXAMINATION: US RENAL [facility] CLINICAL HISTORY: HYDRONEPHROSIS, does not need to d rink water prior to exam COMPARISON: 08/05/2020 IMPRESSION: 1. The right kidney measures 15.1 cm in length. 2. The left kidney measures 12.1 cm in l ength. 3. Cysts: No cysts are identified. 4. Hydronephrosis: There is no hydroneph rosis. 5. Masses: No suspicious masses. 6. Calculi: No calculi 7. Bladder: The bladder appears normal. 8. Renal echogenicity: Within normal l imits. 9. Other Findings:Abdominal ascites. Cir rhosis of the liver. [facility]-[id number] Procedure Note Hm Interface, Radiology Results Incoming - 08/15/2020 1:31 PM TRADESHOW WORKER EXAMINATION: US RENAL CLINICAL HISTORY: HYDRONEPHROSIS, does not need to drink water prior to exam COMPARISON: 08/05/2020 IMPRESSION: 1. The right kidney measures 15.1 cm in length. 2. The left kidney measures 12.1 cm in l ength. 3. Cysts: No cysts are identified. 4. Hydronephrosis: There is no hydroneph rosis. 5. Masses: No suspicious masses. 6. Calculi: No calculi 7. Bladder: The bladder appears normal. 8. Renal echogenicity: Within normal li mits. 9. Other Findings:Abdominal ascites. Cir rhosis of the liver. [facility]-[id number] Performing Organization Address City/[facility] Phon e Number [address] [address] Beta hydroxybutyrate (08/15/2020 6:02 AM TRADESHOW WORKER) Pathologist [facility] Beta hydroxybutyrate 0.28 (H) 0.02 - 0.27 [facility] mmol/L HOSPITAL Specimen Serum Performing Organization Address City/[facility] Phon e Number [facility] DEPARTMENT OF PATHOLOGY AND [address] [place] [phone] GENOMIC MEDICINE [address] [address] Urinalysis screen and microscopy, with reflex to culture (08/09/2020 1:15 PM TRADESHOW WORKER)Only the most recent of3 resultswithin the time period is included. Pathologist [facility] nature Specimen site Clean catch [facility] Color, UA Straw [facility] Appearance, UA Clear [facility] Specific gravity, 1.009 1.001 - 1.035 [facility] pH, UA 5.0 5.0 - 8.5 [facility] Protein, UA Negative Negative [facility] Glucose, UA Negative Negative [facility] Ketones, UA Negative Negative [facility] Bilirubin, UA Negative Negative [facility] Blood, UA Negative Negative [facility] Nitrite, UA Negative Negative [facility] Urobilinogen, UA <2.0 <2.0 [facility] Leukocyte esterase, Negative Negative [facility] WBC, UA 1 0 - 1 /HPF [facility] RBC, UA None seen 0 - 5 /HPF [facility] Bacteria, UA Few None seen [facility] Yeast, UA None seen [facility] Yeast with None seen [facility] pseudohyphae, UA [facility] Hyaline casts, UA 1 /LPF [facility] Specimen Urine Performing Organization Address [facility] Phon e Number [facility] DEPARTMENT OF PATHOLOGY AND [address] [place] [address] [phone] [address] Sodium level, urine, random (08/09/2020 1:15 PM TRADESHOW WORKER)Only the most recent of2 resultswithin the time period is included. Pathologist Sig nature Sodium, urine, random 100 mEq/L [facility] Specimen Urine Performing Organization Address [facility] Phon e Number [facility] DEPARTMENT OF PATHOLOGY AND [address] [place] [address] [address] Osmolality, urine (08/09/2020 1:15 PM TRADESHOW WORKER)Only the most recent of2 results within the time period is included. Pathologist Sig nature Osmolality, urine 337 50 - 1,400 mOsm/kg [facility] Specimen Urine Performing Organization Address [facility] Phon e Number [facility] DEPARTMENT OF PATHOLOGY AND [address] [place] [address] [address] [address] Urine culture (08/09/2020 1:15 PM TRADESHOW WORKER)Only the most recent of3 resultswithin the time period is included. Pathologist Sig nature Urine culture SEE COMMENTComment: [facility] Bacteriuria screen HOSPITAL negative. Specimen Performing Organization Address [facility] Phon e Number [facility] DEPARTMENT OF PATHOLOGY AND [address] [place] [address] [address] ECG 12 lead (08/07/2020 8:32 AM TRADESHOW WORKER)Only the most recent of7 resultswithin the time period is included. Pathologist Sig nature Ventricular rate 132 [facility] Atrial rate 170 [facility] QRSD interval 82 [facility] QT interval 310 [facility] QTC interval 459 [facility] QRS axis 1 -21 [facility] T wave axis 149 [facility] EKG impression Atrial fibrillation with rap id ventricular response-Septal infarct (cited on or before 06-AUG-2020)-Abnormal ECG-In automated comparison with ECG of 06-AUG-2020 09:03,-ST no longer depressed in Inferior leads- Nonspecific T wave abnormality no longer [facility] evident in Inferior leads-El ectronically Signed By Senthil Siddiqui MD ([id number]) on 08/07/2020 8:59:38 AM Specimen Narrative Performed At This result has an attachment that is no t available. Performing Organization Address City/State/ZIP Code Phon e Number [facility] MUSE [address] [place] [address] Occult blood, stool (08/06/2020 6:30 AM TRADESHOW WORKER) Occult blood, Positive for Occult blood (A) [facility] stool Comment: HOSPITAL Specimen Information Specimen Source: Stool Specimen Site: Not otherwise specified Specimen Stool - Not otherwise specified Performing Organization Address City/[facility] Code Phon e Number [facility] DEPARTMENT OF PATHOLOGY AND [address] [place] [phone] GENOMIC MEDICINE [address] [address] Troponin (08/06/2020 4:00 AM TRADESHOW WORKER)Only the most recent of4 resultswithin the time period is included. Troponin 0.007 0.000 - 0.040 [facility] Comment: ng/mL HOSPITAL In patients suspected of having a myocardial infarctio n, along with all other appropriate clinical measures and actions includ ing ECG and other diagnostics as appropriate, measure Ultra TnI at 0 hrs and at 3 hrs. Myocardial infarction VERY LIKELY The 0 hr TnI level is > 0.10 ng/mL Myocardial infarction LIKELY The 0 hr TnI level is > 0.04 ng/mL and 3 hr level is i ncreased or decreased by at least 0.020 ng/mL Myocardial infarction VERY UNLIKELY Both the 0 hr and 3 hr TnI levels <= 0.04 ng/mL(within normal limits) OR 0 hr is > 0.04 ng/mL and 3 hr is increased OR decreased by less than 0.020 ng/mL Specimen Plasma Performing Organization Address City/State/ZIP Code Phon e Number [facility] DEPARTMENT OF PATHOLOGY AND [address] [place], [place] [address] GENOMIC MEDICINE [facility] [address] [place] [address] US Abdomen Complete (08/05/2020 4:25 PM TRADESHOW WORKER) Specimen Narrative Performed At EXAM: US ABDOMEN COMPLETE [facility] CLINICAL DATA: CIRRHOSIS TECHNIQUE: Sonographic evaluation of the abdomen was performed. COMPARISON: NONE. IMPRESSION: 1.Cirrhotic liver. The liver is enlarged. There are no discrete lesions. There is no evidence of intrahepatic biliary ductal di lation The common bile duct has normal caliber. The portal vein is paten t with normal hepatopetal flow. 2.Layering sludge and stones in the gallbladder withou t evidence of cholecystitis. 3.Limited views of the pancreas are unre markable. 4.The kidneys are normal size. The kidneys have normal echogenicity. Vascular flow is unremarkable. There is no evidence of hydronephrosis, perinephric fluid, mass or calculus. 5.The spleen has normal echogenicity. The spleen is en larged measuring up to 14.5 cm. 6.Small ascites. 7.Visualized aorta and IVC are unremarka ble. [facility]-[id number] Procedure Note Interface, Radiology Results Incoming - 08/05/2020 6:59 PM TRADESHOW WORKER EXAM: US ABDOMEN COMPLETE CLINICAL DATA: CIRRHOSIS TECHNIQUE: Sonographic evaluation of the abdomen was performed. COMPARISON: NONE. IMPRESSION: 1.Cirrhotic liver. The liver is enlarged . There are no discrete lesions. There is no evidence of intrahepatic biliary ductal dilation The common bile duct has normal caliber. The portal vein is patent with normal hepatopetal flow. 2.Layering sludge and stones in the gall bladder without evidence of cholecystitis. 3.Limited views of the pancreas are unre markable. 4.The kidneys are normal size. The kidne ys have normal echogenicity. Vascular flow is unremarkable. There is no evidence of hydronephrosis, perinephric fluid, mass or calculus. 5.The spleen has normal echogenicity. Th e spleen is enlarged measuring up to 14.5 cm. 6.Small ascites. 7.Visualized aorta and IVC are unremarka ble. [facility]-[id number] Performing Organization Address City/State/ZIP Code Phon e Number [facility] [address] [place] [address] Transthoracic Echocardiogram Complete, (w Contrast, Strain and 3D if needed) (08/05/2020 1:00 PM TRADESHOW WORKER) Specimen Narrative Performed At [facility] Echo cardiography Report [id number] [facility], [facility] [address], [place] [address] Pat.Name: ERIC SAUNDERS Pat.ID: [id number]Date: 08/05/2020 Refer.MD: WILI CROWLEY MD Exam Time: 12:31:00 PM Study Type:Terri aparicio Echo Height: 70in Weight: 299lb BSA: 2.48 m2 Ag e: 1950,70Y Sex: MALE BP: 139/47 HR: 87 bpm Sonogr phr: ARTEMIO Bagley Pat. Stat.:Inpatient Room: [facility] Study Status:Final Echo Event ID:[id number] Order ID: [id number] Reason for Study:Heart Failure; HF - Ini tial eval of known or suspected HF (systeolic or diastolic) ba sed on symptoms, signs, or abnormal test results Procedures: 2D Echo, Colorflow Doppler, Portable, Intravenous Lumason Contrast Race: C SUMMARY: LV EF is hyperdynamic. Estimated EF is > 70%. RV systolic function is normal. Estimated PA systolic pressure is 31 mmH g, assuming a mean RAP of 5 mmHg. FINDINGS: LV: LV size is normal. LV EF is hyperdynamic. Overall wall motion is hyperdynamic. E stimated EF is >70%. RV: RV size is normal. RV systo lic function is normal. LA: LA volume is difficult to a ssess but appears normal. RA: RA size is normal. AO: Aortic root diameter is nor mal. JAVI: No pericardial effusion. AV: No structural AV abnormalit ies noted. MV: No structural MV abnormalit ies noted. PV: No structural PV abnormalit ies noted. TV: No structural TV abnormalit ies noted. Jacobs: Normal diastolic function an d LV filling pressures. Other: Estimated PA systolic pressu re is 31 mmHg, assuming a mean RAP of 5 mmHg. MEASUREMENTS: 2D Parasternal Long [place] Ao An 2.3 cm LVPWd 0.94 cm Ao Rtd 3.9 cm Index 1.6 cm/m2 LA Ds 3.7 cm IVSd 1.1 cm RWT 0.43 LVIDd 4.4 cm Index 1.8 cm/m2 LV Mass 152 g (122-1 74) LVIDs 2 cm LVM I ndex 61 g/m LV%fs 55 % LVOT 2.1 cm LVOT LVOT Area 3.6 cm DOPPLER LVOT Stroke Vol & Cardiac Out LVOT TVI 19 cm HR 182 bpm LVOT LVOT SV 69 ml LVOT CO 13 l/min SVi 28 ml/m LVOT C I 5.1 l/m/m Signed 08/05/2020 02:54 PM Alphonso Marcelo M.D. Procedure Note Interface, Radiology Results In - 2019 2:55 PM [facility] Echocardiography Report [id number] [address] Pat.Name: ERIC SAUNDERS JR Pat.I D: [id number] .Date: 08/05/2020 Refer .MD: WILI CROWLEY MD Exam Time: 12:31:00 PM Study Type:Routine Echo Height: 70in Weigh t: 299lb BSA: 2.48 m2 Age: 7 1950,70Y Sex: MALE BP: 139/47 HR: 87 bpm Sonog rphr: Denia PavelARTEMIO pablo Pat. Stat.:Inpatient Room: [facility] Study Status:Final Echo Event ID:[id number] Order ID: [id number] Reason for Study:Heart Failure; HF - Ini tial eval of known or suspected HF (systeolic or diastolic) ba sed on symptoms, signs, or abnormal test results Procedures: 2D Echo, Colorflow Doppler, Portable, Intravenous Lumason Contrast Race: C SUMMARY: LV EF is hyperdynamic. Estimated EF is > 70%. RV systolic function is normal. Estimated PA systolic pressure is 31 mmH g, assuming a mean RAP of 5 mmHg. FINDINGS: LV: LV size is normal. LV EF is hy perdynamic. Overall wall motion is hyperdynamic. Estima luis EF is >70%. RV: RV size is normal. RV systolic function is normal. LA: LA volume is difficult to asse ss but appears normal. RA: RA size is normal. AO: Aortic root diameter is normal . JAVI: No pericardial effusion. AV: No structural AV abnormalities noted. MV: No structural MV abnormalities noted. PV: No structural PV abnormalities noted. TV: No structural TV abnormalities noted. Jacobs: Normal diastolic function and LV filling pressures. Other: Estimated PA systolic pressure is 31 mmHg, assuming a mean RAP of 5 mmHg. MEASUREMENTS: 2D Parasternal [place] Ao An 2.3 cm LVPW d 0.94 cm Ao Rtd 3.9 cm Inde x 1.6 cm/m2 LA Ds 3.7 cm IVSd 1.1 cm RWT 0.43 LVIDd 4.4 cm Inde x 1.8 cm/m2 LV Mass 152 g (122-174) LVIDs 2 cm LVM Index 61 g/m LV%fs 55 % LVOT 2.1 cm LVOT LVOT Area 3.6 cm DOPPLER LVOT Stroke Vol & Cardiac Out LVOT TVI 19 cm HR 182 bpm LVOT LVOT SV 69 ml LVOT CO 13 l/min SVi 28 ml/m LVO T CI 5.1 l/m/m Signed 08/05/2020 02:54 PM Alphonso Marcelo M.D. Performing Organization Address City/State/[facility] Code Phon e Number [facility] [address] [place] [address] Liver-kidney microsome Ab, IgG (08/05/2020 11:40 AM TRADESHOW WORKER) Liver-kidney <1:20 <1:20 [facility] microsome Ab, IgG Comment: INTERPRETIVE INFORMATION: Tnvxd-Sisodp-Jktkzvfjp Abs , IgG Liver-Kidney Microsome IgG antibody (anti-LKM), as det ected by indirect immunofluorescent antibody (IFA) techniques, may be observed in patients with autoimmune hepatitis type 2 (AIH-2), AIH-2 associated with autoimmune xqrarcuvmlqvswvvrg-mfgserevxtd-lwxecqcxwz dystrophy (A PECED), viral hepatitis C or D, and some forms of drug-induced hepatitis. This IFA does not differentiate among the four types o f LKM antibodies (LKM-1, LKM-2, LKM-3, and a fourth type jennifer t recognizes CY and CY antigens). Of these, anti-LKM-1 (cyt ochrome [id number]) IgG antibodies are considered specific for A IH-2. Test developed and characteristics determined by [employer]. See Compliance Statement D: [email or web address] Pan[employer]/ CS Performed By: [employer] [address] [place] [address] Lubricating Specialist: Fior Madera MD Specimen Serum Performing Organization Address [facility] Phon e Number [facility] [address] [place] [address] [facility] [address] [place] [address] Hepatitis B surface Ab, quantitative (08/05/2020 11:40 AM TRADESHOW WORKER) Pathologist [facility] Hepatitis B <3.10 IU/L [facility] surface Ab Comment: The anti-HBs is less than 10 IU/L and is therefore neg ative. There is no evidence of recovery from hepatitis B infection or evidence of antibody response to HBV vaccination. An anti-HBs result greater than or equal to 10 IU/L im plies immunity. For post-vaccination antibody testing guidel eduard for the general public refer to MMWR August 17, 2005/Vol. 54 (No. 16);09-17, and for healthcare workers refer to MMWR Jul/Vol. 62(No. 10);-. Reference Interval: anti-HBs 9.99 IU/L or less ....... Negative 10.00 IU/L or greater .... Positive Results greater than 1,000.00 IU/L are reported as gre ater than 1,000.00 IU/L. This assay should not be used for blood donor screenin g, associated re-entry protocols, or for screening Human Cell, Tissues and Cellular and Tissue-Based Products (HCT/P) . Performed By: [employer] [address] [place] [phone] Lubricating Specialist: Fior Madera MD Specimen Serum Performing Organization Address [facility] Phon e Number [facility] [address] [place] [address] [facility] [address] [place] [address] Alpha-1 antitrypsin phenotype (08/05/2020 11:40 AM TRADESHOW WORKER) Pathologist [facility] Alpha-1 152Comment: To 90 - 200 HM [facility] antitrypsin convert to umol/L, mg/dL multiply mg/dL by 0.185 Alpha-1 M1S [facility] antitrypsin Comment: phenotype 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 The M allele protein product is a normal variant. The S allele protein product is a deficiency variant that is associ ated with a less severe deficiency (approximately 60 percent of no rmal serum concentrations) of the eimoc-9-ffcspzlc inhibitor than the classic Z variant (approximately 15 percent of normal serum concentrations). Individuals with this phenotype are r kayli at risk for development of cckgx-9-nsicsoiq inhibitor deficiency-related hepatic or pulmonary disease. Cauti on in interpretation is advised if the patient has been quijano sfused in the previous 21 days. Performed By: [employer] [address] [place] [address] Lubricating Specialist: Fior Madera MD Specimen Serum Performing Organization Address City/[facility] Phon e Number [facility] [address] [place] [address] [facility] [address] [place] [phone] Hepatitis C antibody (08/05/2020 11:40 AM TRADESHOW WORKER) Pathologist Sig nature Hepatitis C Ab Non-reactive Non-reactive [facility] Specimen Serum Performing Organization Address City/State/[facility] Phon e Number [facility] DEPARTMENT OF PATHOLOGY AND [address] [place], [place] [address] 0 GENOMIC MEDICINE [address] [address] Hemochromatosis (HFE) 3 mutations (08/05/2020 11:40 AM TRADESHOW WORKER) HFE PCR specimen Whole Blood [facility] C282Y hemochromatosis Negative [facility] mutation H63D hemochromatosis Negative [facility] mutation S65C hemochromatosis Negative [facility] mutation Hemochromatosis See Note [facility] mutation Comment: interpretation Indication for testing: Carrier screening or donte gnostic testing for hereditary hemochromatosis. Hemochromatosis Interpretive Results: Negative WT: C282Y: Negative The patient is negative for the HFE C282Y mutation. H63D: Negative The patient is negative for the HFE H 63D mutation. S65C: Negative The patient is negative for the HFE S 65C mutation. Mutations in unidentified genes or other mutations in the HFE gene are not ruled out. This result has been reviewed and approved by Jem Hoffman, Ph.D. BACKGROUND INFORMATION: Hemochromatosis (HFE) 3 Mutati ons CHARACTERISTICS: Disorder of iron metabolism resulting in excessive iron storage leading to increased skin pigme ntation, arthritis, hypogonadism, diabetes mellitus, heart arrhythmias/failure, cirrhosis and liver carcinoma. INCIDENCE: One in 300 individuals of [place] descent; unknown in other ethnicities. INHERITANCE: Autosomal recessive. PENETRANCE: 5 percent of C282Y homozygotes, 1 percent of C282Y/H63D compound heterozygotes and rare H63D homozy gotes develop clinical symptoms. 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 MUTATIONS TESTED: p.C282Y (c.845G>A), p.H63D (c.187C>G ), and p.S65C (c.193A>T). CLINICAL SENSITIVITY: 85 percent of hereditary hemochr omatosis in Northern Europeans is caused by C282Y homozygosity and 5 percent by C282Y/H63D compound heterozygosity. METHODOLOGY: PCR and fluorescence monitoring. ANALYTICAL SENSITIVTY AND SPECIFICITY: 99 percent. LIMITATIONS: HFE mutations, other than those targeted, will not be detected. Diagnostic errors can occur due to rare sequ ence variations. Test developed and characteristics determined by [employer]. See Compliance Statement C: [email or web address] Performed by [employer], [address] [place] [address] [email or web address] Madera MD - Lab. Director Specimen Serum Performing Organization Address [facility] Phon e Number [facility] [address] [place] [address] [facility] RE[facility] [address] [place] [address] Hepatitis A antibody IgM (08/05/2020 11:40 AM TRADESHOW WORKER) Pathologist Sig nature Hepatitis A IgM Non-reactive Non-reactive [facility] Specimen Serum Performing Organization Address City/[facility]/ZIP [facility] Phon e Number [facility] DEPARTMENT OF PATHOLOGY AND [address] [place] [phone] GENOMIC MEDICINE [address] [address] Hepatitis A antibody total (08/05/2020 11:40 AM TRADESHOW WORKER) Pathologist Sig nature Hepatitis A total Non-reactive Non-reactive [facility] Specimen Serum Performing Organization Address City/[facility] Code Phon e Number [facility] DEPARTMENT OF PATHOLOGY AND [address] [place] [address] [phone] [address] Hepatitis B core antibody IgM (08/05/2020 11:40 AM TRADESHOW WORKER) Pathologist Sig nature Hepatitis B core Non-reactive Non-reactive [facility] IgM HOSPITAL Specimen Serum Performing Organization Address City/[facility]/ZIP [facility] Phon e Number [facility] DEPARTMENT OF PATHOLOGY AND [address] [place] [address] [phone] [address] Hepatitis B core antibody total (08/05/2020 11:40 AM TRADESHOW WORKER) Pathologist Sig nature Hepatitis B core Non-reactive Non-reactive [facility] total Ab HOSPITAL Specimen Serum Performing Organization Address [facility] Phon e Number [facility] DEPARTMENT OF PATHOLOGY AND [address] [place] [address] [phone] [address] Hepatitis B surface antibody (08/05/2020 11:40 AM TRADESHOW WORKER) Pathologist Sig nature Hepatitis B surface Non-reactive Non-reactive [facility] Ab HOSPITAL Specimen Serum Performing Organization Address City/[facility] Phon e Number [facility] DEPARTMENT OF PATHOLOGY AND [address] [place] [address] [phone] [address] SILKE (08/05/2020 11:40 AM TRADESHOW WORKER) SILKE screen Negative Negative [facility] Comment: HOSPITAL Test performed using NOVA Lite DAPI SILKE kit (Indirect Immunofluorescence Assay) for Anti-Nuclear Antibody on TransbiomedA-Lyser 160 Analyzer. Specimen Blood Performing Organization Address City/[facility] Phon e Number [facility] DEPARTMENT OF PATHOLOGY AND [address] [place] [address] [phone] [address] Uric acid level (08/05/2020 11:40 AM TRADESHOW WORKER) Pathologist Sig nature Uric acid 8.2 (H) 3.4 - 7.0 mg/dL [facility] L Specimen Plasma Performing Organization Address City/[facility] Phon e Number [facility] DEPARTMENT OF PATHOLOGY AND [address] [place] [address] [phone] [address] Lipase level (08/05/2020 11:40 AM TRADESHOW WORKER)Only the most recent of2 resultswithin the time period is included. Pathologist Sig nature Lipase 37 13 - 60 U/L [facility] Specimen Plasma Performing Organization Address City/[facility] Phon e Number [facility] DEPARTMENT OF PATHOLOGY AND [address] [place] [address] [phone] [address] Immunoglobulin A (08/05/2020 11:40 AM TRADESHOW WORKER) Pathologist Sig nature IgA 270 70 - 400 mg/dL [facility] Specimen Plasma Performing Organization Address City/[facility] Phon e Number [facility] DEPARTMENT OF PATHOLOGY AND [address] [place] [address] [place] [address] Immunoglobulin M (08/05/2020 11:40 AM TRADESHOW WORKER) Pathologist Sig nature IgM 65 33 - 255 mg/dL [facility] Specimen Plasma Performing Organization Address [facility] Phon e Number [facility] DEPARTMENT OF PATHOLOGY AND [address] [place] [address] [phone] [address] Immunoglobulin G (08/05/2020 11:40 AM TRADESHOW WORKER) Pathologist Sig nature IgG 1,078 700 - 1,600 mg/dL [facility] Specimen Plasma Performing Organization Address [facility] Phon e Number [facility] DEPARTMENT OF PATHOLOGY AND [address] [place] [address] Amylase level (08/05/2020 11:40 AM TRADESHOW WORKER)Only the most recent of2 resultswithin the time period is included. Pathologist Sig nature Amylase 23 (L) 28 - 100 U/L [facility] Specimen Plasma Performing Organization Address City/[facility] Phon e Number [facility] DEPARTMENT OF PATHOLOGY AND [address] [place] [address] [phone] [address] Creatinine level, urine, random (08/05/2020 7:00 AM TRADESHOW WORKER) Pathologist Sig nature Creatinine, urine, 114 mg/dL [facility] Specimen Urine Performing Organization Address City/[facility] Phon e Number [facility] DEPARTMENT OF PATHOLOGY AND [address] [place] [address] [phone] [address] CBC hemogram (08/05/2020 5:20 AM TRADESHOW WORKER) Pathologist Sig [facility] WBC 8.30 4.50 - 11.00 k/uL [facility] RBC 3.67 (L) 4.40 - 6.00 m/uL [facility] HGB 10.4 (L) 14.0 - 18.0 g/dL [facility] HCT 33.3 (L) 41.0 - 51.0 % [facility] MCV 90.7 82.0 - 100.0 fL [facility] MCH 28.3 27.0 - 34.0 pg [facility] MCHC 31.2 31.0 - 37.0 g/dL [facility] RDW - SD 50.4 37.0 - 55.0 fL [facility] MPV 9.3 8.8 - 13.2 fL [facility] Platelet count 142 (L) 150 - 400 k/uL [facility] Nucleated RBC 0.00 /100 WBC [facility] Specimen Plasma Performing Organization Address City/[facility] Phon e Number [facility] DEPARTMENT OF PATHOLOGY AND [address] [place] [address] [phone] [address] Lactic acid level, SEPSIS - Now and repeat 2x every 3 hours (08/04/2020 10:54 PM TRADESHOW WORKER)Only the most recent of3 resultswithin the time period is included. Pathologist Sig [facility] Lactic acid 1.8 0.5 - 2.2 mmol/L [facility] Specimen Blood Performing Organization Address City/[facility] Phon e Number [facility] DEPARTMENT OF PATHOLOGY AND [address] [place] [address] [phone] [address] [place] Abdominal Doppler (08/04/2020 9:43 PM TRADESHOW WORKER) Specimen Narrative Performed At EXAMINATION: US ABDOMINAL DOPPLER [facility] CLINICAL HISTORY: Portal HTN, Portal vein thrombosis , r o portal vein thrombosis COMPARISON: None TECHNIQUE: Haji scale, color Doppler and spectral wave form analysis of the hepatic vasculature. IMPRESSION: 1. PORTAL VEINS: *Main portal vein: Patent with hepatopetal flow and a diameter of 1.3 cm. Portal vein velocity is 23 cm/sec. *Left Portal Vein: The left portal vein is patent with hepatopetal flow. *Right Portal Vein:The right portal vein is patent wit h hepatopetal flow. 2. HEPATIC VEINS: *Right Hepatic Vein: The right hepatic v ein is patent. *Middle Hepatic Vein: The middle hepatic vein is patent. *Left Hepatic Vein: The left hepatic vei n is patent. 3. HEPATIC ARTERIES: *Right Hepatic Artery: The right hepatic artery is patent. *Left Hepatic Artery: The left hepatic a rtery is patent. 4. IVC: The inferior vena cava is patent . 5. SMV: The superior mesenteric vein is patent. 6. SPLENIC ARTERY/VEINS: *Splenic Artery/Vein at Spleen: The splenic artery/vei n at the spleen are patent. *Splenic Artery/Vein at Midline: The splenic artery/ve in at the midline are patent. Incidentally noted hepatic cirrhosis and moderate to large ascites. Procedure Note Hm Interface, Radiology Results Incoming - 08/04/2020 9:51 PM TRADESHOW WORKER EXAMINATION: US ABDOMINAL DOPPLER CLINICAL HISTORY: Portal HTN, Portal ve in thrombosis, r o portal vein thrombosis COMPARISON: None TECHNIQUE: Haji scale, color Doppler and spectral waveform analysis of the hepatic vasculature. IMPRESSION: 1. PORTAL VEINS: *Main portal vein: Patent with hepatopet al flow and a diameter of 1.3 cm. Portal vein velocity is 23 cm/sec. *Left Portal Vein: The left portal vein is patent with hepatopetal flow. *Right Portal Vein:The right portal vein is patent with hepatopetal flow. 2. HEPATIC VEINS: *Right Hepatic Vein: The right hepatic v ein is patent. *Middle Hepatic Vein: The middle hepatic vein is patent. *Left Hepatic Vein: The left hepatic vei n is patent. 3. HEPATIC ARTERIES: *Right Hepatic Artery: The right hepatic artery is patent. *Left Hepatic Artery: The left hepatic a rtery is patent. 4. IVC: The inferior vena cava is patent . 5. SMV: The superior mesenteric vein is patent. 6. SPLENIC ARTERY/VEINS: *Splenic Artery/Vein at Spleen: The sple josefa artery/vein at the spleen are patent. *Splenic Artery/Vein at Midline: The spl enic artery/vein at the midline are patent. Incidentally noted hepatic cirrhosis and moderate to large ascites. Performing Organization Address City/State/ZIP Code Phon e Number [facility] [address] [place] [phone] Alcohol level, blood (08/04/2020 6:45 PM TRADESHOW WORKER) Alcohol None Detected mg/dL [facility] Comment: HOSPITAL Normal None Detected Legal Intoxication in [place] 80 mg/dL (0.08%) - Whole Blood Toxic Concentration 200 mg/dL (0.2%) Potentially Fatal 350 - 500 mg/dL (0. 35 - 0.5%) Alcohol percent None Detected % [facility] Specimen Plasma Performing Organization Address City/[facility] Phon e Number [facility] DEPARTMENT OF PATHOLOGY AND [address] [place] [address] [phone] [address] Ammonia level (08/04/2020 5:10 PM TRADESHOW WORKER) Pathologist Sig nature Ammonia 32 16 - 60 umol/L [facility] Specimen Blood Performing Organization Address City/[facility] Phon e Number [facility] DEPARTMENT OF PATHOLOGY AND [address] [place] [address] [phone] [address] CRITICAL CARE (08/04/2020 4:30 PM TRADESHOW WORKER) Narrative Performed At Dimitri Pierre MD 08/20/2020 1 0:43 PM Critical Care Performed by: Dimitri Pierre MD Authorized by: Dimitri Pierre MD Critical care provider statement: Critical care time (minutes): 45 Critical care time was exclusive of: Separately b illable procedures and treating other patients and teaching alexandrea e Critical care was necessary to treat or prevent imminent or life-threatening deterioration of the fo llowing conditions: Metabolic crisis, renal failure and hepatic failur e (hyperkalemia) Critical care was time spent personal ly by me on the following activities: Development of treatment p catarina with patient or surrogate, discussions with consultants, evaluation of patient's response to treatment, examination of patient, inter pretation of cardiac output measurements, obtaining history from pat ient or surrogate, ordering and performing treatments and interventions, ordering and review of laboratory studies, pulse oximetry, re-evaluation of patient's co ndition and review of old charts Eric 'yes' if you are taking over critical care for this patient from another provider.: no Comments: Pt with cirrhosis, HE, p/w increasing swelling to bilateral extremities - found to have hyperkalemia , IV calciu m gluconate, sodium bicarb, insulin, dextrose, neb albuterol, po [place] exalate; + JENNIFER, empiric IV ceftriaxone for possible SBP, hepatology consulted, li anatoly team consulted, admitted for further eval. B natriuretic peptide (08/04/2020 4:25 PM TRADESHOW WORKER) Pathologist Sig nature BNP 112 (H) 0 - 100 pg/mL [facility] Specimen Blood Performing Organization Address City/State/ZIP Code Phon e Number [facility] DEPARTMENT OF PATHOLOGY AND [address] [place], [place] [phone] GENOMIC MEDICINE [facility] [address] [place] [address] after 09/13/2019 Eric Saunders Transplant Self 1950 [address] [facility] (Home) [place] [id number] Advance Directives For more information, please contact: [phone] Type Date Recorded Patient Team Driver Explanati on Advance Directives, Living Will and Medical Power of Support Manager
--- OUTSIDE RECORDS SUMMARY | 2020-09-13 13:47 | XMS REPORT | Summary of Care ---
:1950 Author Organization [facility] Address [address] [place] [id number] Care Team Providers Name Role Phone Chris Primary Care Provider Reason for Referral Radiology Services (Routine) Status Reason Specialty Diagnoses / Referred By Referred To Procedures Contact Contact Closed Diagnostic Diagnoses Other ascites [place] Radiology Procedures IR PARACENTESIS/PERITONECENTESIS WITH IMAGING IR PARACENTESIS I [address] [place] [address] Reason for Visit Radiology Services (Routine) Status Reason Specialty Diagnoses / Referred By Referred To Procedures Contact Contact Closed Diagnostic Diagnoses Other ascites [place], [place] Radiology Procedures IR PARACENTESIS/PERITONECENTESIS WITH IMAGING IR PARACENTESIS I [address] [place] [address] Encounter Details Date Type Department Care Team Description 07/15/2020 Hospital Encounter [facility] Radio logy Arrived [facility] [address] [facility] [place] [address] [address] [place] [phone] Allergies No Known Allergiesdocumented as of this encounter (statuses as of 07/16/2020) Medications Medication Sig Dispensed Refills Start Date End Date Status lisinopril Take 20 mg by 0 Activ e (PRINIVIL,ZESTRIL) 20 mg mouth daily. tablet traMADOL (ULTRAM) 50 mg Take 100 mg by 0 Active tablet mouth 2 (two) times daily. citalopram (CELEXA) 40 Take 40 mg by 0 Active mg tablet mouth daily. metoprolol succinate XL Take 50 mg by 0 Active (TOPROL XL) 50 mg 24 hr mouth daily. tablet omeprazole (PRILOSEC) 40 Take 40 mg by 0 Active mg capsule mouth daily. loratadine (CLARITIN) 10 Take 10 mg by 0 Active mg tablet mouth daily. aspirin 325 mg tablet Take 325 mg by 0 Active mouth daily. omega-3 fatty acids Take 1,000 mg by 0 Active (FISH OIL) capsule mouth daily. Magnesium Oxide 500 mg Take 1 capsule 0 Active Cap by mouth 2 (two) times daily. turmeric capsule Take 1,000 mg by 0 Active mouth daily. metFORMIN (GLUCOPHAGE) Take 1,000 mg by 0 Active 1,000 mg tablet mouth 2 (two) times daily with meals. cyclobenzaprine Take 10 mg by 0 Active (FLEXERIL) 10 mg tablet mouth 3 (three) times daily. naproxen sodium (ALEVE) Take 1 capsule 0 Active 220 mg capsule by mouth 2 (two) times daily. exenatide microspheres inject 2 mg 0 Active (BYDUREON) 2 mg under the skin injection every 7 (seven) days. documented as of this encounter (statuses as of 07/16/2020) Active Problems No known active problemsdocumented as of this encounter (statuses as of 07/16/2020) Social History Tobacco Use Types Packs/Day Years Used Date Never Smoker Smokeless Tobacco: Never Used Alcohol Use Drinks/Week oz/Week Comments No 0 Standard drinks or equivalent 0.0 Sex Assigned at Date Recorded Not on file COVID-19 Exposure Response Date Recorded In the last month, have you been in contact with No / Unsure 07/15/2020 10:47 AM DRAFTSPERSON someone who was confirmed or suspected to have Coronavirus / COVID-19? documented as of this encounter Last Filed Vital Signs Vital Sign Reading Time Taken Comments Blood Pressure 110/64 07/15/2020 12:40 PM DRAFTSPERSON Pulse 76 07/15/2020 12:40 PM DRAFTSPERSON Temperature - - Respiratory Rate 20 07/15/2020 12:40 PM DRAFTSPERSON Oxygen Saturation 96% 07/15/2020 12:40 PM DRAFTSPERSON Inhaled Oxygen Concentration - - Weight 149.7 kg (330 lb) 07/15/2020 11:31 AM DRAFTSPERSON Height - - Body Mass Index 44.76 06/09/2020 1:30 PM CDT documented in this encounter Discharge Instructions Litzy Adorno RN - 07/15/2020 Patient Discharge Instructions Follow instructions as indicated below: Today you had a procedure in the radiology department. We want to make sure that you have the information that you need to care for yourself after you go home. The nurse has explained the things that you need to do and has indicated the instruction that apply to your procedure below. General Watch for signs and symptoms of infection (chills, fever of 101F, drainage, redness, edema, swelling). The arm vein where medication was given may be tender. Apply a warm compress. If pain persists for more than 12 hours, call the number listed below. Keep puncture site dry and clean. If bleeding occurs at the site, place a clean cloth over the area and apply firm pressure for 15 minutes, If the area does not stop bleeding or you notice your site swelling, call the number listed below. Diet Instructions: Resume previous diet Take Home Medications: These are medications ordered for you by your healthcare provider. Do not take any other medicationsor supplements unless advised by your healthcare provider. Patient's Medications START taking these medications No medications on file CONTINUE taking these medications which have NOT CHANGED ASPIRIN 325 MG TABLET Take 325 mg by mouth daily. CITALOPRAM (CELEXA) 40 MG TABLET Take 40 mg by mouth daily. CYCLOBENZAPRINE (FLEXERIL) 10 MG TABLET Take 10 mg by mouth 3 (three) times daily. EXENATIDE MICROSPHERES (BYDUREON) 2 MG INJECTION inject 2 mg under the skin every 7 (seven) days. LISINOPRIL (PRINIVIL,ZESTRIL) 20 MG TABLET Take 20 mg by mouth daily. LORATADINE (CLARITIN) 10 MG TABLET Take 10 mg by mouth daily. MAGNESIUM OXIDE 500 MG CAP Take 1 capsule by mouth 2 (two) times daily. METFORMIN (GLUCOPHAGE) 1,000 MG TABLET Take 1,000 mg by mouth 2 (two) times daily with meals. METOPROLOL SUCCINATE XL (TOPROL XL) 50 MG 24 HR TABLET Take 50 mg by mouth daily. NAPROXEN SODIUM (ALEVE) 220 MG CAPSULE Take 1 capsule by mouth 2 (two) times daily. OMEGA-3 FATTY ACIDS (FISH OIL) CAPSULE Take 1,000 mg by mouth daily. OMEPRAZOLE (PRILOSEC) 40 MG CAPSULE Take 40 mg by mouth daily. TRAMADOL (ULTRAM) 50 MG TABLET Take 100 mg by mouth 2 (two) times daily. TURMERIC CAPSULE Take 1,000 mg by mouth daily. START taking Modified Medications as Prescribed No medications on file STOP taking these medications No medications on file Follow-up appointments: To schedule other appointments, call the [facility] at or . You may also make appointments online by going to [email or web address] and follow the RequestAppointment quicklink. For worsening symptoms/problems/questions: Non-emergency/urgent: call the [facility] at or and ask for the Interventional radiologist options advisor. Patient and Family member provided with preferred teaching of verbal information and written information on post care of Paracenthesis site. Shows readiness to learn. Verbal instruction and Written material teaching provided. Individual is able to read and verbalizes understanding of teaching provided. Our Goal is to Always Provide You with Very Good Care! We will be mailing you a survey, Please complete and return at your convenience. Thank You TOBACCO AVOIDANCE Exposure to tobacco either from smoking or from second hand (environmental) smoke or smokeless tobacco (snuff) is damaging to your health. This information is to encourage everyone to avoid tobacco exposure. It is recommended that you: ? If you smoke or use smokeless tobacco, we encourage you to quit. ? If you have already quit smoking, continue your good work! ? If you do not smoke or use smokeless tobacco, do not start. ? Avoid secondhand smoke. Additional Resources You may want to contact these organizations for further information on smoking and how to quit. [place] [employer], http://www.lungusa.org/stop-smoking/ [place] [employer], http://www.cancer.org/Healthy/StayAwayfromTobacco/index [place] [employer], http://www.heart.org/HEARTORG/GettingHealthy/QuitSmoking/Quit-Smoking_[facility] _001085_SubHomePage.jsp documented in this encounter Plan of Treatment Date Type Specialty Care Team Description 07/19/2020 Nurse Visit Infusion Therapy Azul Rascon MD [id number] [place] [id number] 2, Adc Infusion Chair Health Maintenance Due Date Last Done Comments HEPATITIS C (HCV) SCREEN 1950 Depression Screening 1960 DTaP,Tdap,and Td Vaccines (1 - Tdap) 1967 COLON CANCER SCREENING ANNUAL FIT/FOBT 1998 COLON CANCER SCREENING FIT DNA EVERY 3 YEARS 1998 COLON CANCER SCREENING SIGMOIDOSCOPY EVERY 5 YEARS 1998 COLONOSCOPY 1998 Colorectal Cancer Screening 1998 Zoster Recombinant Vaccine (SHINGRIX) (1 of 2) 1998 Medicare Wellness Visit 2013 PNEUMOCOCCAL VACCINES 65+ (1 of 1 - PPSV23) 2013 INFLUENZA VACCINE (#1) 2020 documented as of this encounter Implants Implanted Type Area Commercial Collections Specialist Device Shelf Model / Serial Identifier Expiration / Lot Date Lens LENS Left: Eye Ji 10/23/2020 [id number] / Implanted: Qty: 1 on 03/14/2016 by Sarmad Berrios MD at [facility] 7 [id number] / [id number] Lens LENS Right: Ji 10/23/2020 [id number] / Implanted: Qty: 1 on 03/28/2016 by Sarmad Berrios MD at [facility] Eye 1 [id number] / [id number] documented as of this encounter Procedures Procedure Name Priority Date/Time Associated Diagnosis Comme nts IR Routine 07/15/2020 1:03 PM Other ascites Results for this PARACENTESIS/PERITO DRAFTSPERSON procedur e are in NECENTESIS WITH the results IMAGING section. BODY FLUID DIRECT Routine 07/15/2020 12:30 PM Other ascites Re sults for this COUNT DRAFTSPERSON procedure are i n the results section. BODY FLUID MANUAL Routine 07/15/2020 12:30 PM Other ascites Re sults for this DIFF DRAFTSPERSON procedure are i n the results section. BODY FLUID DIRECT Routine 07/15/2020 12:30 PM Other ascites Re sults for this COUNT DRAFTSPERSON procedure are i n the results section. documented in this encounter Results IR PARACENTESIS/PERITONECENTESIS WITH IMAGING (07/15/2020 1:03 PM DRAFTSPERSON) Specimen Impressions Performed At Successful image guided paracentesis. PACS/VR/DOSE Narrative Performed At EXAMINATION: IMAGE GUIDED PARACENTESIS. PACS/VR/DOSE HISTORY/INDICATION: 70-year-old male US GUIDED PARACENTESIS ALBUMIN 251 X50GMS IV P PARCENTESIS LABS PRIOR TO PROCEDURE (IF NE EDED) CBC T PLATELET 2. PT/PTT SEND ASCITES FOR CELL COUNT AN D DIFF MAX IS 6 LITERS FAXED REFERRAL ATTENDING PRESENCE: As the attending radiologist, I performed the entire procedure. SEDATION: The patient did not require consc ious sedation for the procedure. TECHNIQUE: The risks, benefits and alternatives were d iscussed and informed consent was obtained. Prior to beginning the procedure , [place] Protocol was performed to confirm the identity and the planned procedure. Maximum sterile barriers including cap, mask, hand hygiene, st erile gloves, sterile gown, large sterile drape and cutaneous antisepsis were used. The patient's abdomen was examined with ultrasound and a suitable pocket of ascitic fluid in the RLQ was identified. The skin over lying this area was anesthetized with 1 percent lidocaine. Using real-time ultrasound guidance, the needle was advanced into the ascitic fluid. Approximately 8000 mL of serous yellow fluid was drain ed. 50 g of albumin 25 percent was given intravenously durin g the procedure. Samples were sent for culture and labora tory analysis. At the conclusion of the procedure the catheter was re moved and a sterile dressing applied to the site. ESTIMATED BLOOD LOSS: Minimal. CONDITION: Stable. DISCHARGED TO: Patient care area. FINDINGS: Ultrasound demonstrated a larg e amount of ascitic fluid. Procedure Note [facility], Radiant Results Inft User - 2019 1:52 PM DRAFTSPERSON EXAMINATION: IMAGE GUIDED PARACENTESIS. HISTORY/INDICATION: 70-year-old male US GUIDED PARACENTESIS ALBUMIN 251 X50GMS IV P PARCENTESIS LABS PRIOR TO MA OCEDURE (IF NEEDED) CBC T PLATELET 2. PT/PTT SEND ASCITES FOR CELL COUNT AN D DIFF MAX IS 6 LITERS FAXED REFERRAL ATTENDING PRESENCE: As the attending ra diologist, I performed the entire procedure. SEDATION: The patient did not require conscious sedation for the procedure. TECHNIQUE: The risks, benefits and alter natives were discussed and informed consent was obtained. Prior to beginning the procedure, [place] Protocol was performed to confirm the identity an d the planned procedure. Maximum sterile barriers including cap, mask, patricia nd hygiene, sterile gloves, sterile gown, large sterile drape and cutaneous antisepsis were used. The patient's abdomen was examined with ultrasound and a suitable pocket of ascitic fluid in the RLQ was identified. The skin overlying this area was anesthetized with 1 percent lidocaine. U sing real-time ultrasound guidance, the needle was advanced into the ascitic fluid. Approximately 8000 mL of serous yellow f luid was drained. 50 g of albumin 25 percent was given intravenously durin g the procedure. Samples were sent for culture and labora tory analysis. At the conclusion of the procedure the c atheter was removed and a sterile dressing applied to the site. ESTIMATED BLOOD LOSS: Minimal. CONDITION: Stable. DISCHARGED TO: Patient care area. FINDINGS: Ultrasound demonstrated a larg e amount of ascitic fluid. IMPRESSION Successful image guided paracentesis. Performing Organization Address City/[facility]/Zipcode Phone Number PACS/VR/DOSE BODY FLUID MANUAL DIFF (07/15/2020 12:30 PM DRAFTSPERSON) Pathologist Sig [facility] BF SEGS 8 % [facility] BF LYMPHS 59 % [facility] MACROPHAGE 29 % [facility] MESOS 3 % [facility] BF EOS 1 % [facility] #CELS CNTD 100 [facility] Specimen Fluid - ASCITES Performing Organization Address City/[facility]/Zipcode Phone Number [facility] CLIA: [id number] [place] [address] [facility] [address] [facility] BODY FLUID DIRECT COUNT (07/15/2020 12:30 PM DRAFTSPERSON) Pathologist Sig nature BF COLOR Light Yellow [facility] TURBIDITY Slightly Turbid [facility] BF WBC Count 88 /L [facility] BF RBC Count <3000 /L [facility] Specimen Fluid - ASCITES Narrative Performed At The reference range and other method [facility] S [facility] performance specifications have not been CAMPUS established for this body fluid. The test results must be integrated into the clinical context for interpretation. Sample collected at (07/15/20 / 1230) , received in lab at (07/15/20 /1347). Excessive delay in receipt of sample may affect accuracy of counts. Reported RBC and WBC counts may be falsely low due to disintegration of the cells. /time) Performing Organization Address City/State/Zipcode Phone Number [facility] CLIA: [id number] [place] [address] [facility] [address] [facility] documented in this encounter Visit Diagnoses Diagnosis Other ascites - Primary documented in this encounter Administered Medications Medication Order MAR Action Action Date Dose Rate Site albumin (ALBUMINAR 25%) 25 % Given 07/15/2020 11:20 AM DRAFTSPERSON 50 g injection IV Infusion, PRN, Starting Sat07/15/20 at 1120, Until Sat07/15/20 at 1120 lidocaine 1% (PF) (XYLOCAINE) Given 07/15/2020 11:35 AM DRAFTSPERSON 10 m L Abdomen injection PRN, Starting Sat07/15/20 at 1135, Until Sat07/15/20 at 1135, Routine documented in this encounter Insurance Payer Benefit Plan Subscriber ID Effective Phone Address Typ e / Group Dates [employer]ET[employer] - [employer] [id number] 2014-Prese [address] Medic are Adv [place]NAGED MEDICARE ADV [place] [id number] [place] [address] documented as of this encounter
--- OUTSIDE RECORDS SUMMARY | 2020-09-13 13:47 | XMS REPORT | Continuity of Care Document ---
:1950 Author Organization [facility] t Address [address] [place] [address] Care Team Providers Name Role Phone Chris DOWNS Primary Care Physician Alvarez MONTEIRO Attending Clinician Unavailable Singer BECERRA Attending Clinician Doctor Unassigned, Name Attending Clinician Unavailable Golden DOWNS Attending Clinician Tiara Attending Clinician Unavailable Mitul Attending Clinician Unavailable Irina Pierre MD Attending Clinician Devin DOWNS Attending Clinician Marvel DOWNS Attending Clinician Eliud Sawant RN Attending Clinician Unavailable Eric Naqvi MD Attending Clinician Veronica MONTEIRO Attending Clinician Unavailable Cassandra Diggs RN Attending Clinician Unavailable Db MONTEIRO Attending Clinician Unavailable Miguel Meredith MD Attending Clinician Vls-Lab Attending Clinician Unavailable Trish OREILLY Attending Clinician Unavailable Fly Dickey Attending Clinician Unavailable Radiology Attending Clinician Unavailable 3, Infusion Chair Attending Clinician Unavailable DEVIN Admitting Clinician Unavailable Payers Payer Name Policy Type Policy Number Effective Date Expiration Date Karlo ramirez AETNA [id number] 2014 [place] MEDICAREAETNA 00:00:00 [facility] MEDICARE HMO/PPO [id number]-PresentHMO Problems Condition Condition Condition Status Onset Resolution Last Treating Co mments Source Name Details Category Date Date Treatment Clinician Date Debilitate Debilitate Disease Active 2019-08 [facility]: st 00 Encounter Encounter Disease Active 2019-08 Maty ston for for 10-16 [facility] pre-transp pre-transp 00:00: st lant lant 00 evaluation evaluation for liver for liver transplant transplant Anasarca Anasarca Disease Active 2019-08 [place] 10-05 [facility] 00:[facility]: st 00 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 00:00: st 00 Ascites Ascites Disease Active 2019-08 [place] 09-27 [facility] 00:00: st 00 Portal Portal Disease Active 2019-08 [place] hypertensi hypertensi 09-27 Me thodi on on 00:00: st 00 Leg edema Leg edema Disease Active Maty ston 03-11 [facility] 00:00: st 00 Venous Venous Disease Active [place] stasis stasis 03-11 [facility] dermatitis dermatitis 00:00: st of both of both 00 lower lower extremitie extremitie s s Leg pain, Leg pain, Disease Active Maty ston bilateral bilateral 03-11 Meth aubree 00:00: st 00 Ascites Ascites Problem Active [facility] Urgency Urgency Problem Active [facility] Allergies, Adverse Reactions, Alerts Allergy Allergy Status Severity Reaction(s) Onset Inactive Treating Comm ents Source Name Type Date Date Clinician Amoxicil Propensi Active Patient Charlyt on alex-Pot ty to 03-12 called [facility] Clavulan adverse 00:00: after his st ate reaction 00 office s to visit to drug inform that he had a previous allergy to medicatio n. He could not give specific reactions . He only stated " he felt really bad" Pregabal Propensi Active Patient [place] in ty to 03-12 called [facility] adverse 00:00: after his st reaction 00 office s to visit to drug inform that he had a previous allergy to medicatio n. He could not give specific reactions . He only stated " he felt really bad" Liraglut Propensi Active Other (See Per Stephane levine ty to Comments) 03-11 patient, Metho di adverse 00:00: makes him st reaction 00 extremly s to ill. drug Breaks out in a cold sweat. Family History Family Member Diagnosis Comments Start Date Stop Date Source Natural father Cancer [facility] father Heart disease [facility] Natural father Hypertension [facility] Natural mother Heart disease [facility] Natural mother Hypertension [facility] Social History Social Habit Start Date Stop Date Quantity Comments Source [facility] of [facility] Sex Assigned At [facility] ethodist Exposure to Not sure [facility] Metho dist SARS-CoV-2 (event) Tobacco use and 2020-08-28 2020-08-28 Never used [facility] ethodist exposure 00:00:00 00:00:00 Alcohol intake 2020-08-28 2020-08-28 Current [facility] thodist 00:00:00 00:00:00 non-drinker of alcohol (finding) Smoking Status Start Date Stop Date Source Former smoker 2020-08-28 00:00:00 2020-08-28 00:00:00 [facility] Medications Ordered Filled Start Stop Current Ordering Indication Dosage Frequency Signature Comments Components Source Medication Medication Date Date Medication? Clinician (SIG) Name Name fluticasone 2020- Yes 100ug QD 2 sprays [place] propionate 08-26 (100 mcg Meth aubree (FLONASE) 00:00: 23:59 total) by st 50 00 :00 Each Nare mcg/actuati route on nasal daily for spray 30 days. cyclobenzap 2019-08- No 10mg Q.[id number] Take 10 mg [facility] rine 08-25 [id number] by mouth 3 Me thodi (FLEXERIL) 20:57: 00:00 3D (three) st 10 mg 44 :00 times a tablet day as needed. metoprolol 2019-08- No 25mg QD Take 25 mg [facility] succinate 08-25 by mouth Metho di XL 20:57: 00:[address] (TOPROL-XL) 44 :00 25 mg 24 hr tablet naproxen 2019-08- No 1{capsu Q8H Take 1 Maty ston sodium 220 08-25 le} capsule by Mn thodi mg capsule 20:57: 00:[address] 44 :00 every 8 (eight) hours as needed. omeprazole 2019-08 No 40mg Take 40 mg [facility] (PriLOSEC) - by mouth. Met hodi 40 MG 20:57: 00:00 st capsule 44 :00 traMADol 2019-08- No 50mg Q6H Take 50 mg [place] (ULTRAM) 50 - by mouth Met hodi mg tablet 20:57: 00:[address] 44 :00 (six) hours as needed. metFORMIN 2019-08- No 1000mg QD Take 1,000 [facility] (GLUCOPHAGE 12-31 mg by Method i ) 1,000 mg 20:57: 00:[address] tablet 44 :00 daily with breakfast. lisinopril 2019-08 No 20mg QD Take 20 mg [facility] (PRINIVIL,Z - by mouth Met hodi ESTRIL) 20 20:57: 00:[address] mg tablet 44 :00 aspirin 325 2019-08 No 325mg Take 325 [facility] MG tablet -31 mg by Methodi 20:57: 00:[address] 44 :00 citalopram 2019-08 No 40mg QD Take 40 mg [facility] (CeleXA) 40 - by mouth Met hodi MG tablet 20:57: 00:[address] 44 :00 hydrOXYzine 2019-08- No 25mg Q.5D Take 25 mg [facility] (ATARAX) 25 - by mouth 2 M ethodi MG tablet 20:57: 00:00 (two) st 44 :00 times a day. lactulose 2019-08 Yes Q.[id number] Take by [facility] 10 gram/15 - [id number] mouth 3 [facility] mL (15 mL) 20:57: 3D (three) st solution 40 times a day. alum-mag 2019-08 Yes 30mL Q.[id number] Take 30 mL [facility] hydroxide-s - [id number] by mouth 3 [facility] imeth 00:00: 3D (three) st (MAALOX 00 times a PLUS) day as 200-200-20 needed for mg/5 mL indigestio suspension n or heartburn. cyclobenzap 2019-08- Yes 5mg Q.5D Take 1 Maty ston rine 2-31 01-30 tablet (5 [facility] (FLEXERIL) 00:00: 23:59 mg total) s t 5 mg tablet 00 :00 by mouth 2 (two) times a day as needed for muscle spasms for up to 30 days. hydrOXYzine 2019-08- Yes 25mg Q.5D Take 1 Maty garcia (ATARAX) 25 09-24 tablet (25 M ethodi MG tablet 00:00: 23:59 mg total) st 00 :00 by mouth 2 (two) times a day as needed for itching for up to 30 days. metoprolol 2019-08- Yes 12.5mg Q.5D Take 0.5 [facility] tartrate 09-24 tablets [facility] (LOPRESSOR) 00:00: 23:59 (12.5 mg s t 25 mg 00 :00 total) by tablet mouth 2 (two) times a day for 30 days. midodrine 2019-08- Yes 15mg Q.[id number] Take 3 [facility] (PROAMATINE 09-24 [id number] tablets Methodi ) 5 MG 00:00: 23:59 3D ([address] tablet 00 :00 total) by mouth 3 (three) times a day for 30 days. pantoprazol 2019-08- Yes 40mg Q.5D Take 1 Maty garcia e 09-24 tablet (40 [facility] (Protonix) 00:00: 23:59 mg total) s t 40 MG EC 00 :00 by mouth 2 tablet (two) times a day for 30 days. nitroglycer 2019-08- Yes .4mg Place 1 Stephane mello in 09-24 tablet [facility] (NITROSTAT) 00:00: 23:59 (0.[address] 0.4 MG SL 00 :00 total) tablet under the tongue every 5 (five) minutes as needed for chest pain for up to 30 days. ondansetron 2019-08- Yes 4mg Q8H Take 1 Maty garcia ODT 09-24 tablet (4 [facility] (ZOFRAN-ODT 00:00: 23:59 mg total) st ) 4 MG 00 :00 by mouth disintegrat every 8 ing tablet (eight) hours as needed for nausea or vomiting for up to 30 days. riFAXimin 2019-08- Yes 550mg Q.5D Take 1 [place] (XIFAXAN) 09-24 tablet [facility] 550 mg 00:00: 23:59 ([address] tablet 00 :00 total) by mouth 2 (two) times a day for 30 days. voriconazol 2019-08- Yes 200mg Q12H Take 1 Ho riaz e (VFEND) 09-24 tablet Methodi 200 MG 00:00: 23:59 ([address] tablet 00 :00 total) by mouth every 12 (twelve) hours for 30 days. senna 2019-08- Yes 1{tbl} Q.5D Take 1 [facility] (SENOKOT) 09-24 tablet by Meth aubree 8.6 mg 00:00: 23:[address] tablet 00 :00 (two) times a day as needed for constipati on (stool softening) for up to 30 days. omega-3 2019-08- No 1000mg Take 1,000 [place] fatty 09-2702 mg by Method[facility] acids-fish 11:18: 00:[address] oil 23 :00 300-1,000 mg capsule loratadine 2019-08- No 10mg Take 10 mg Jem (CLARITIN) 09-27 by mouth. Met hodi 10 mg 11:18: 00:00 st tablet 23 :00 Immunizations Ordered Immunization Filled Immunization Date Status Commen ts Source Name Name FLUZONE HIGH-DOSE PF 2020-08-25 Completed [place] 00:00:00 [facility] Vital Signs Vital Name Observation Time Observation Value Comments Source Systolic blood 2020-08-25 18:18:00 117 mm[Hg] Xander n [facility] pressure Diastolic blood 2020-08-25 18:18:00 57 mm[Hg] Katherine on [facility] pressure Heart rate 2020-08-25 18:18:00 77 /min Jem Henderson Oxygen saturation in 2020-08-25 18:18:00 98 /min Jem Henderson Arterial blood by Pulse oximetry Body temperature 2020-08-25 16:10:40 35.61 Elise Charly Henderson Respiratory rate 2020-08-25 16:10:40 19 /min Charly Henderson Body weight 2020-08-23 06:15:47 123.469 kg Jem Henderson BMI 2020-08-23 06:15:47 36.92 kg/m2 Jem Henderson Body height 2020-08-16 14:52:00 182.9 cm Jem Henderson Procedures Procedure Date / Time Performing Clinician Source Performed POC GLUCOSE 2020-08-25 18:24:00 Wili Beltran Meth odist CT CHEST W CONTRAST ABDOMEN 2020-08-25 17:30:29 Micah Thomas W WO CONTRAST PELVIS W [place] CONTRAST POC GLUCOSE 2020-08-25 11:49:00 Wili Beltran Meth odist POC GLUCOSE 2020-08-25 07:22:00 Wili Beltran Meth odist PROTHROMBIN TIME WITH INR 2020-08-25 05:30:00 Annette Thomas [place] HC COMPLETE BLD COUNT 2020-08-25 05:30:00 Wili Beltran n [facility] W/AUTO DIFF COMPREHENSIVE METABOLIC 2020-08-25 05:30:00 Wili Beltran [facility] PANEL MAGNESIUM LEVEL 2020-08-25 05:30:00 Wili Beltran Meth odist PHOSPHORUS LEVEL 2020-08-25 05:30:00 Wili Beltran Met hodist ESTIMATED GFR 2020-08-25 05:30:00 Annette Thomas ethodist [place] POC GLUCOSE 2020-08-24 21:18:00 Wili Beltran Meth odist POC GLUCOSE 2020-08-24 17:38:00 Wili Beltran Meth odist POC GLUCOSE 2020-08-24 14:08:00 Wili Beltran Meth odist POC GLUCOSE 2020-08-24 11:14:00 Wili Beltran Meth odist POC GLUCOSE 2020-08-24 09:31:00 Wili Beltran Meth odist CV RIGHT AND LEFT HEART 2020-08-24 08:44:53 Lizeth Sawant [facility] CATH W LV GRAM PROTHROMBIN TIME WITH INR 2020-08-24 06:38:00 Annette Thomas [place] MAGNESIUM LEVEL 2020-08-24 06:38:00 Audra Beltrankeith [facility] Meth odist PHOSPHORUS LEVEL 2020-08-24 06:38:00 Audra Beltrankeith [facility] Met hodist HC COMPLETE BLD COUNT 2020-08-24 06:38:00 Wili Beltran n [facility] W/AUTO DIFF COMPREHENSIVE METABOLIC 2020-08-24 06:38:00 Wili Beltran [facility] PANEL ESTIMATED GFR 2020-08-24 06:38:00 Audra Beltrankeith [facility] Meth odist HEMODIALYSIS 2020-08-24 00:05:17 Devin Scott [facility] M ethodist Benny POC GLUCOSE 2020-08-23 21:25:00 Audra Beltrankeith [facility] odist POC GLUCOSE 2020-08-23 16:49:00 Wili Beltran Meth odist COVID-19 QUALITATIVE PCR 2020-08-23 15:56:00 Lizeth Sawant [facility] SPIROMETRY, DIFFUSION, 2020-08-23 14:10:53 Unique Naqvi MIPS/MEPS POC GLUCOSE 2020-08-23 13:26:00 Audra Beltrankeith [facility] odist XR CHEST 1 VW PORTABLE 2020-08-23 12:07:40 Kevyn Moody POC GLUCOSE 2020-08-23 08:28:00 Audra Beltrankeith Robert odist PROTHROMBIN TIME WITH INR 2020-08-23 06:08:00 Wili Beltran COMPREHENSIVE METABOLIC 2020-08-23 06:08:00 Annette Thomas [facility] PANEL [place] HC COMPLETE BLD COUNT 2020-08-23 06:08:00 Annette Thomas W/AUTO DIFF [place] ESTIMATED GFR 2020-08-23 06:08:00 Annette Thomas ethodist [place] BILIRUBIN DIRECT 2020-08-23 06:08:00 Annette Thomas [place] POC GLUCOSE 2020-08-22 20:01:00 Angel Beltranjuankeith [facility] odist POC GLUCOSE 2020-08-22 12:29:00 Wili Beltran Meth odist POC GLUCOSE 2020-08-22 11:32:00 Karla Beltranjohnjuankeith [facility] odist POC GLUCOSE 2020-08-22 08:37:00 ElissaKarla garciajohnjuankeith [facility] Meth odlawrence PROTHROMBIN TIME WITH INR 2020-08-22 05:47:00 Wili Beltran HEPATIC FUNCTION PANEL 2020-08-22 05:47:00 Wili Beltran on [facility] BASIC METABOLIC PANEL 2020-08-22 05:47:00 Wili Beltran MAGNESIUM LEVEL 2020-08-22 05:47:00 Wili Beltran Meth odist PHOSPHORUS LEVEL 2020-08-22 05:47:00 Wili Beltran HC COMPLETE BLD COUNT 2020-08-22 05:47:00 Wili Beltran W/AUTO DIFF ESTIMATED GFR 2020-08-22 05:47:00 Wili Beltran odlawrence HEMODIALYSIS 2020-08-22 00:05:06 Kevyn Moody ethodist POC GLUCOSE 2020-08-21 21:22:00 Wili Beltran Meth odist POC GLUCOSE 2020-08-21 19:16:00 Wili Beltran Meth odlawrence BLAYNE SCHRADER VIRUS (EBV) BY 2020-08-21 18:03:00 Yovany Ulloa PCR US ABDOMINAL PARACENTESIS 2020-08-21 15:05:53 Stephane Damon IMAGING Cassandra Crandall AEROBIC CULTURE 2020-08-21 14:35:00 Jem Damon R ANAEROBIC CULTURE 2020-08-21 14:35:00 Jem Damon Mn thodist Cassandra Crandall GRAM STAIN 2020-08-21 14:35:00 Jey Montemayor PROTEIN, MISC FLUID 2020-08-21 14:35:00 Jem Damon CELL COUNT AND 2020-08-21 14:35:00 Jem Damon DIFFERENTIAL, BODY FLUID Cassandra Crandall ALBUMIN, MISC FLUID 2020-08-21 14:35:00 Jem Damon POC GLUCOSE 2020-08-21 11:39:00 Audra Beltrankeith [facility] odist POC GLUCOSE 2020-08-21 08:24:00 Audra Beltrankeith [facility] Meth odist BASIC METABOLIC PANEL 2020-08-21 05:46:00 Wili Beltran HC COMPLETE BLD COUNT 2020-08-21 05:46:00 Wili Beltran W/AUTO DIFF ESTIMATED GFR 2020-08-21 05:46:00 Devin Audrakeith [facility] Meth odist IONIZED CALCIUM 2020-08-21 05:46:00 ElissaashtynWili Meth odist MAGNESIUM LEVEL 2020-08-21 05:46:00 Wili Beltran Meth odist PHOSPHORUS LEVEL 2020-08-21 05:46:00 Wili Beltran PROTHROMBIN TIME WITH INR 2020-08-21 05:46:00 Wili Beltran [facility] VANCOMYCIN LEVEL, RANDOM 2020-08-21 05:46:00 Wili Beltran [facility] HEPATIC FUNCTION PANEL 2020-08-21 05:46:00 Wili Beltran on [facility] POC GLUCOSE 2020-08-20 20:46:00 Devin Audrakeith [facility] Meth odist POC GLUCOSE 2020-08-20 11:57:00 Devin Angelanastacia [facility] Meth odist POC GLUCOSE 2020-08-20 08:12:00 DevinWili Meth odist HEMODIALYSIS 2020-08-20 08:10:20 Kevyn Moody ethodist POC GLUCOSE 2020-08-20 04:20:00 Audra Beltrankeith [facility] Meth odist VANCOMYCIN LEVEL, RANDOM 2020-08-20 00:31:00 Randal Mohr [facility] BASIC METABOLIC PANEL 2020-08-20 00:31:00 Randal Mohr [facility] HEPATIC FUNCTION PANEL 2020-08-20 00:31:00 Randal Mohr on [facility] IONIZED CALCIUM 2020-08-20 00:31:00 Randal Mohr odist MAGNESIUM LEVEL 2020-08-20 00:31:00 Randal Mohr odist PHOSPHORUS LEVEL 2020-08-20 00:31:00 Randal Mohr ESTIMATED GFR 2020-08-20 00:31:00 Randal Mohr Meth odist POC GLUCOSE 2020-08-20 00:16:00 Wili Beltran Meth odist HC COMPLETE BLD COUNT 2020-08-20 00:00:00 Randal Mohrist W/AUTO DIFF FIBRINOGEN 2020-08-20 00:00:00 Randal Mohr Meth odist POC GLUCOSE 2020-08-19 21:28:00 Wili Beltran Meth odist POC GLUCOSE 2020-08-19 15:50:00 Wili Beltran Meth odist POC GLUCOSE 2020-08-19 11:31:00 Wili Beltran Meth odist POC GLUCOSE 2020-08-19 07:46:00 Wili Beltran Meth odist HEMODIALYSIS 2020-08-19 07:18:40 Kevyn Moody ethodist POC GLUCOSE 2020-08-19 07:08:00 Wili Beltran Meth odist POC GLUCOSE 2020-08-19 04:40:00 Wili Beltran Meth odist TYPE AND SCREEN 2020-08-19 00:47:00 Bharati Bedoyaist POC GLUCOSE 2020-08-19 00:37:00 Wili Beltran Meth odist VANCOMYCIN LEVEL, RANDOM 2020-08-19 00:30:00 Wili Beltran BASIC METABOLIC PANEL 2020-08-19 00:30:00 Randal Mohr HC COMPLETE BLD COUNT 2020-08-19 00:30:00 Randal Mohr W/AUTO DIFF MAGNESIUM LEVEL 2020-08-19 00:30:00 Randal Mohr odist PARTIAL THROMBOPLASTIN TIME 2020-08-19 00:30:00 Randal Mohr (PTT) PHOSPHORUS LEVEL 2020-08-19 00:30:00 Randal Mohr PROTHROMBIN TIME WITH INR 2020-08-19 00:30:00 Randal Mohr HEPATIC FUNCTION PANEL 2020-08-19 00:30:00 Randal Mohr on [facility] FIBRINOGEN 2020-08-19 00:30:00 Randal Mohr IONIZED CALCIUM 2020-08-19 00:30:00 Randal Mohr odlawrence ESTIMATED GFR 2020-08-19 00:30:00 Randal Mohr odlawrence HEPATITIS B SURFACE ANTIGEN 2020-08-18 21:20:00 Kevyn Moody POC GLUCOSE 2020-08-18 20:44:00 Wili Beltran odist HEMODIALYSIS 2020-08-18 17:58:34 Kevyn Moody ethodist POC GLUCOSE 2020-08-18 15:50:00 Wili Beltran odist POC GLUCOSE 2020-08-18 14:15:[address] CHEST WO CONTRAST 2020-08-18 13:32:25 Kenna Crawford IR TUNNELED DIALYSIS 2020-08-18 13:23:32 Yun Godfrey CATHETER PLACEMENT US CAROTID DUPLEX BILATERAL 2020-08-18 11:45:00 Kenna Crawford BLAYNE-SCHRADER VIRUS ANTIBODY 2020-08-18 11:15:00 Kenna Crawford TEST LOW RESOLUTION FULL TYPING 2020-08-18 11:15:00 Kenna Crawford BY SSO SINGLE ANTIGEN BEADS 2020-08-18 11:15:00 Kenna Crawford C1Q CLASS 1 & 2 ANTIBODY 2020-08-18 11:15:00 Kenna Crawford POC GLUCOSE 2020-08-18 08:05:00 Wili Beltran odist POC GLUCOSE 2020-08-18 04:46:00 Wili Beltran Meth odist COMPREHENSIVE METABOLIC 2020-08-18 00:27:00 Annette Thomas [facility] PANEL [place] PROTHROMBIN TIME WITH INR 2020-08-18 00:27:00 Martha Annette Jem Henderson [place] HC COMPLETE BLD COUNT 2020-08-18 00:27:00 Randal Mohr [facility] W/AUTO DIFF FIBRINOGEN 2020-08-18 00:27:00 Randal Mohr Meth odist IONIZED CALCIUM 2020-08-18 00:27:00 Randal Mohr Meth odist MAGNESIUM LEVEL 2020-08-18 00:27:00 Randal Mohr Meth odist PHOSPHORUS LEVEL 2020-08-18 00:27:00 Randal Mohr Met hodist PARTIAL THROMBOPLASTIN TIME 2020-08-18 00:27:00 Randal Mohr (PTT) ESTIMATED GFR 2020-08-18 00:27:00 Randal Mohr Meth odist BILIRUBIN DIRECT 2020-08-18 00:27:00 Randal Mohr Met hodist POC GLUCOSE 2020-08-18 00:25:00 Wili Beltran Meth odist POC GLUCOSE 2020-08-17 20:15:00 Wili Beltran Meth odist POC GLUCOSE 2020-08-17 15:39:00 Wili Beltran Meth odist POC GLUCOSE 2020-08-17 11:46:00 Wili Beltran Meth odist POC GLUCOSE 2020-08-17 07:58:00 Wili Beltran Meth odist POC GLUCOSE 2020-08-17 04:18:00 Wili Beltran Meth odist HC COMPLETE BLD COUNT 2020-08-17 00:32:00 Brandie Montemayorist W/AUTO DIFF MAGNESIUM LEVEL 2020-08-17 00:32:00 Brandie Montemayor Meth odist PHOSPHORUS LEVEL 2020-08-17 00:32:00 Brandie Montemayor Met hodist ESTIMATED GFR 2020-08-17 00:32:00 Brandie Montemayor odist IONIZED CALCIUM 2020-08-17 00:32:00 Brandie Montemayor odist COMPREHENSIVE METABOLIC 2020-08-17 00:32:00 Brandie Montemayor PANEL PROTHROMBIN TIME WITH INR 2020-08-17 00:32:00 Sun, Li Juarez [place] [facility] PARTIAL THROMBOPLASTIN TIME 2020-08-17 00:32:00 Brandie Montemayorist (PTT) FIBRINOGEN 2020-08-17 00:32:00 Brandie Montemayor Meth odist BILIRUBIN DIRECT 2020-08-17 00:32:00 Brandie Montemayor Met hodist POC GLUCOSE 2020-08-17 00:13:00 Wili Beltran Meth odist HC COMPLETE BLD COUNT 2020-08-16 21:38:00 Bharati Bedoya [facility] W/AUTO DIFF POC GLUCOSE 2020-08-16 20:30:00 Audra Beltrankeith [facility] Meth odist US DUPLEX VENOUS LOWER 2020-08-16 20:20:00 Brandie Montemayor on [facility] EXTREMITY BILATERAL POC GLUCOSE 2020-08-16 16:16:00 Devin Audrakeith [facility] Meth odist BLOOD CULTURE, AEROBIC & 2020-08-16 16:15:00 Maria A Darby [facility] ANAEROBIC [place] BLOOD CULTURE, AEROBIC & 2020-08-16 16:05:00 Maria A Darby [facility] ANAEROBIC [place] POC GLUCOSE 2020-08-16 15:08:00 Devin Audrakeith [facility] Meth odist BASIC METABOLIC PANEL 2020-08-16 15:05:00 Brandie Montemayor [facility] HC COMPLETE BLD COUNT 2020-08-16 15:05:00 Brandie Montemayor [facility] W/AUTO DIFF FIBRINOGEN 2020-08-16 15:05:00 Brandie Montemayor Meth odist HEPATIC FUNCTION PANEL 2020-08-16 15:05:00 Brandie Montemayor on [facility] IONIZED CALCIUM 2020-08-16 15:05:00 Brandie Montemayor Meth odist LACTIC ACID LEVEL 2020-08-16 15:05:00 Brandie Montemayor Me thodist MAGNESIUM LEVEL 2020-08-16 15:05:00 Brandie Montemayor Meth odist PHOSPHORUS LEVEL 2020-08-16 15:05:00 Brandie Montemayor Met hodist PROTHROMBIN TIME WITH INR 2020-08-16 15:05:00 Brandie Montemayor [facility] ESTIMATED GFR 2020-08-16 15:05:00 Brandie Montemayor Meth odist POC GLUCOSE 2020-08-16 12:12:00 AhmedAudrakeith Parish Meth odist TTE LIMITED W AGITATED 2020-08-16 10:00:00 Maria A Darby on [facility] SALINE W CONT W DOP [place] POC GLUCOSE 2020-08-16 08:25:00 DevinWili Parish Meth odist TB T-SPOT 2020-08-16 05:30:00 Unique Naqvi MISCELLANEOUS REFERRAL TEST 2020-08-16 05:30:00 Unqiue Naqvi HC COMPLETE BLD COUNT 2020-08-16 05:30:00 Kevyn Moody [facility] W/AUTO DIFF PROTHROMBIN TIME WITH INR 2020-08-16 05:30:00 Annette Thomas [place] MAGNESIUM LEVEL 2020-08-16 04:00:00 Kevyn Moody ethodist PHOSPHORUS LEVEL 2020-08-16 04:00:00 Kevyn Moody COMPREHENSIVE METABOLIC 2020-08-16 04:00:00 Annette Thomas [facility] PANEL [place] ESTIMATED GFR 2020-08-16 04:00:00 Kevyn Moody ethodist ALPHA FETOPROTEIN 2020-08-16 04:00:00 Kevyn Moody CARCINOEMBRYONIC ANTIGEN 2020-08-16 04:00:00 Kevyn Moody (CEA) LIPID PANEL 2020-08-16 04:00:00 Kevyn Moody ethodist CORTISOL LEVEL, RANDOM 2020-08-16 04:00:00 Kevyn Moody [facility] THYROID STIMULATING HORMONE 2020-08-16 04:00:00 Kevyn Moody C-REACTIVE PROTEIN 2020-08-16 04:00:00 Kevyn Moody [facility] VITAMIN D 25 HYDROXY LEVEL 2020-08-16 04:00:00 Kevyn Moody FERRITIN LEVEL 2020-08-16 04:00:00 Kevyn Moody ethodist TOTAL IRON BINDING CAPACITY 2020-08-16 04:00:00 Kevyn Moody CERULOPLASMIN LEVEL 2020-08-16 04:00:00 Kevyn Moody on [facility] ALPHA-1 ANTITRYPSIN LEVEL 2020-08-16 04:00:00 Kevyn Moody CYTOMEGALOVIRUS AB, IGG 2020-08-16 04:00:00 Kevyn Moody CYTOMEGALOVIRUS AB, IGM 2020-08-16 04:00:00 Kevyn Moody XR PANOREX 2020-08-15 21:39:30 Unique Naqvi POC GLUCOSE 2020-08-15 21:03:00 Wili Beltran Meth odlawrence SYPHILIS TOTAL ANTIBODY 2020-08-15 18:30:00 Wili Beltran HC COMPLETE BLD COUNT 2020-08-15 17:30:00 Unique Naqvi W/AUTO DIFF HEMOGLOBIN A1C 2020-08-15 17:30:00 Unique Naqvi DRUG JUAREZ 9, SER/MADDIE, SCRN 2020-08-15 17:30:00 Unique Naqvi Ma W/RFLX TO CONF HCG QUALITATIVE, SERUM 2020-08-15 17:30:00 Unique Naqvi SCREEN HEPATITIS BE AG 2020-08-15 17:30:00 Unique Naqvi HEPATITIS BE AB 2020-08-15 17:30:00 Unique Naqvi ANTI SMOOTH MUSCLE AB 2020-08-15 17:30:00 Unique Naqvi SCREEN T3, FREE 2020-08-15 17:30:00 Unique Naqvi TYPE AND SCREEN 2020-08-15 17:30:00 Unique Naqvi VITAMIN D 25 HYDROXY LEVEL 2020-08-15 17:30:00 Unique Naqvi MISCELLANEOUS REFERRAL TEST 2020-08-15 17:30:00 [facility] MISCELLANEOUS REFERRAL TEST 2020-08-15 17:30:00 Wili Beltran MISCELLANEOUS REFERRAL TEST 2020-08-15 17:30:00 Wili Beltran ARTERIAL BLOOD GAS 2020-08-15 17:00:00 DonyaUnique glaser POC GLUCOSE 2020-08-15 16:30:00 Devin Audrakeith Robert odlawrence T4, FREE 2020-08-15 15:21:00 DonyaUnique glaser CANCER ANTIGEN 19-9 2020-08-15 15:21:00 DonyaUnique glaser PROSTATE SPECIFIC ANTIGEN 2020-08-15 15:21:00 [facility] Ma LIPID PANEL 2020-08-15 15:21:00 DonyaUnique glaser CORTISOL LEVEL, RANDOM 2020-08-15 15:21:00 [facility] HIV AG/AB COMBINATION 2020-08-15 15:20:00 DonyaUnique glaser PREALBUMIN LEVEL 2020-08-15 15:19:00 [facility] Congregation POC GLUCOSE 2020-08-15 11:53:00 Wili Beltran US RENAL 2020-08-15 10:57:35 Kevyn Moody ethodist POC GLUCOSE 2020-08-15 07:31:00 Wili Beltran LACTIC ACID LEVEL 2020-08-15 06:02:00 Kevyn Moody BETA HYDROXYBUTYRATE 2020-08-15 06:02:00 Kevyn Moody HC COMPLETE BLD COUNT 2020-08-15 03:59:00 Kevyn Moody W/AUTO DIFF BASIC METABOLIC PANEL 2020-08-15 03:59:00 Kevyn Moody MAGNESIUM LEVEL 2020-08-15 03:59:00 Kevyn Moody ethodist PHOSPHORUS LEVEL 2020-08-15 03:59:00 Heidy, Shouieb AAnder Henderson ESTIMATED GFR 2020-08-15 03:59:00 HeidyElisamichael TarikAnder Jem Cheng ethodist PROTHROMBIN TIME WITH INR 2020-08-15 00:54:00 Unique Naqvi Ma PARTIAL THROMBOPLASTIN TIME 2020-08-15 00:54:00 Unique Naqvi (PTT) FIBRINOGEN 2020-08-15 00:54:00 Unique [facility]vi POC GLUCOSE 2020-08-14 21:23:00 Wili Beltran [facility]ist POC GLUCOSE 2020-08-14 18:17:00 Wili Beltran Meth odist POC GLUCOSE 2020-08-14 11:49:00 Wili Beltran [facility] HC COMPLETE BLD COUNT 2020-08-14 11:15:00 [facility] W/AUTO DIFF COMPREHENSIVE METABOLIC 2020-08-14 08:20:00 [facility]yn [facility] PANEL MAGNESIUM LEVEL 2020-08-14 08:20:00 HeidyElisamichael TarikAnder Jem Cheng ethodist PHOSPHORUS LEVEL 2020-08-14 08:20:00 Kevyn Moody ESTIMATED GFR 2020-08-14 08:20:00 HeidyElisamichael TarikAnder Jem Cheng ethodist POC GLUCOSE 2020-08-14 07:34:00 Wili Beltran Meth odist POC GLUCOSE 2020-08-13 21:16:00 Wili Beltran Meth odist POC GLUCOSE 2020-08-13 16:55:00 Wili Beltran Meth odist POC GLUCOSE 2020-08-13 11:54:00 Wili Beltran Meth [facility]ist POC GLUCOSE 2020-08-13 08:02:00 Wili Beltran Meth odist PROTHROMBIN TIME WITH INR 2020-08-13 04:21:00 Annette Thomas [place] COMPREHENSIVE METABOLIC 2020-08-13 04:21:00 Wili Beltran [facility] PANEL HC COMPLETE BLD COUNT 2020-08-13 04:21:00 Ahmed, Rezwan [place] [facility] W/AUTO DIFF MAGNESIUM LEVEL 2020-08-13 04:21:00 Karla Beltranjohnjuankeith [facility] PHOSPHORUS LEVEL 2020-08-13 04:21:00 DevinKarlajohnjuankeith [facility] Met hodist ESTIMATED GFR 2020-08-13 04:21:00 Karla Beltranjohnjuankeith [facility] POC GLUCOSE 2020-08-12 22:13:00 Karla Beltranjohnjuankeith [facility] POC GLUCOSE 2020-08-12 17:58:00 Devin Karlajohnjuankeith [facility] POC GLUCOSE 2020-08-12 11:53:00 Audra [facility]anke[facility] POC GLUCOSE 2020-08-12 07:38:00 Devin Karlajohnjuankeith [facility] PROTHROMBIN TIME WITH INR 2020-08-12 03:45:00 Annette Thomas [place] COMPREHENSIVE METABOLIC 2020-08-12 03:45:00 Wili Beltran [facility] PANEL HC COMPLETE BLD COUNT 2020-08-12 03:45:00 Wili Beltran n [facility] W/AUTO DIFF MAGNESIUM LEVEL 2020-08-12 03:45:00 Devin Karlaarnoldo [facility] PHOSPHORUS LEVEL 2020-08-12 03:45:00 Wili Beltran Met hodist ESTIMATED GFR 2020-08-12 03:45:00 Devin Audrakeith [facility] POC GLUCOSE 2020-08-11 21:17:00 Devin Karlajohnjuankeith [facility] POC GLUCOSE 2020-08-11 18:30:00 Devin Karlaarnoldo [facility] POC GLUCOSE 2020-08-11 11:40:00 Devin Karlajohnjuankeith [facility] POC GLUCOSE 2020-08-11 07:56:00 Wili Beltran Meth odist PROTHROMBIN TIME WITH INR 2020-08-11 06:20:00 Annette Thomas [place] COMPREHENSIVE METABOLIC 2020-08-11 06:20:00 Wili Beltran [facility] PANEL HC COMPLETE BLD COUNT 2020-08-11 06:20:00 Wili Beltranto n [facility] W/AUTO DIFF MAGNESIUM LEVEL 2020-08-11 06:20:00 Elissaashtyn Karlaarnoldo [facility] PHOSPHORUS LEVEL 2020-08-11 06:20:00 Wili Beltran Met hodist ESTIMATED GFR 2020-08-11 06:20:00 Elissaashtyn Karlajohnjuankeith [facility] POC GLUCOSE 2020-08-10 20:51:00 ElissaAngel garciajuankeith [facility] POC GLUCOSE 2020-08-10 18:25:00 Wili Beltran Meth odist POC GLUCOSE 2020-08-10 12:14:00 Wili Beltran Meth odist US ABDOMINAL PARACENTESIS 2020-08-10 11:40:00 Wili Beltran [facility] IMAGING COMPREHENSIVE METABOLIC 2020-08-10 04:00:00 Annette Thomas PANEL [place] PROTHROMBIN TIME WITH INR 2020-08-10 04:00:00 Annette Thomas [place] HC COMPLETE BLD COUNT 2020-08-10 04:00:00 Wili Beltran n [facility] W/AUTO DIFF MAGNESIUM LEVEL 2020-08-10 04:00:00 Wili Beltran Meth odist PHOSPHORUS LEVEL 2020-08-10 04:00:00 Wili Beltran Met hodist ESTIMATED GFR 2020-08-10 04:00:00 Wili Beltran Meth odist POC GLUCOSE 2020-08-09 21:24:00 Wili eBltran Meth odist POC GLUCOSE 2020-08-09 18:01:00 Wili Beltran [facility]ist COVID-19 QUALITATIVE PCR 2020-08-09 13:37:00 Wili Beltran URINE CULTURE 2020-08-09 13:15:00 Kevyn Moody ethodist URINALYSIS SCREEN AND 2020-08-09 13:15:00 Kevyn Moody MICROSCOPY, WITH REFLEX TO CULTURE SODIUM LEVEL, URINE, RANDOM 2020-08-09 13:15:00 Kevyn Moody OSMOLALITY, URINE 2020-08-09 13:15:00 Kevyn Moodyist POC GLUCOSE 2020-08-09 11:49:00 Wili Beltran Meth odist COMPREHENSIVE METABOLIC 2020-08-09 04:40:00 Annette Thomas [facility] PANEL [place] PROTHROMBIN TIME WITH INR 2020-08-09 04:40:00 Annette Thomas [facility] [place] HC COMPLETE BLD COUNT 2020-08-09 04:40:00 Wili Beltran [facility] W/AUTO DIFF MAGNESIUM LEVEL 2020-08-09 04:40:00 Wili Beltran Meth odist PHOSPHORUS LEVEL 2020-08-09 04:40:00 Wili Beltran Met hodist ESTIMATED GFR 2020-08-09 04:40:00 Wili Beltran Meth odist POC GLUCOSE 2020-08-08 21:51:00 Wili Beltran Meth odist POC GLUCOSE 2020-08-08 12:10:00 Wili Beltran Meth odist US ABDOMINAL PARACENTESIS 2020-08-08 10:17:13 Wili Beltran [place] [facility] IMAGING POC GLUCOSE 2020-08-08 07:54:00 Wili Beltran Meth od[facility] HC COMPLETE BLD COUNT 2020-08-08 04:45:00 Wili Beltran [facility] W/AUTO DIFF BASIC METABOLIC PANEL 2020-08-08 04:45:00 Wili Beltran [facility] MAGNESIUM LEVEL 2020-08-08 04:45:00 Wili Beltran Meth odist PHOSPHORUS LEVEL 2020-08-08 04:45:00 Wili Beltran Met hodist ESTIMATED GFR 2020-08-08 04:45:00 Wili Beltran Meth odist POC GLUCOSE 2020-08-07 22:54:00 iWli Beltran Meth odist POC GLUCOSE 2020-08-07 17:00:00 Wili Beltran Meth odist POC GLUCOSE 2020-08-07 11:40:00 Wili Beltran Meth odist ECG 12-LEAD 2020-08-07 08:32:37 Mariposa Currie Met hodist POC GLUCOSE 2020-08-07 07:52:00 Devin Karlaarnoldo [facility] HC COMPLETE BLD COUNT 2020-08-07 05:30:00 Wili Beltran W/AUTO DIFF BASIC METABOLIC PANEL 2020-08-07 04:00:00 Wili Beltran [facility] MAGNESIUM LEVEL 2020-08-07 04:00:00 Wili Beltran Meth odist PHOSPHORUS LEVEL 2020-08-07 04:00:00 Wili Beltran Met hodist ESTIMATED GFR 2020-08-07 04:00:00 ElissaashtynWili Meth odist POC GLUCOSE 2020-08-06 21:40:00 Wili Beltran Meth odist POC GLUCOSE 2020-08-06 18:45:00 Wili Beltran Meth odist ECG 12-LEAD 2020-08-06 09:03:34 Wili Beltran Meth odist ECG 12-LEAD 2020-08-06 08:20:37 Wili Beltran [facility] POC GLUCOSE 2020-08-06 08:02:00 Wili Beltran [facility] ECG 12-LEAD 2020-08-06 07:32:50 Esvin Ke [facility] OCCULT BLOOD, STOOL 2020-08-06 06:30:00 Jem Huang Annel A. URINE CULTURE 2020-08-06 06:30:00 Jem Huang Ann[facility] A. URINALYSIS SCREEN AND 2020-08-06 06:30:00 Xander Huang MICROSCOPY, WITH REFLEX TO Annel A. CULTURE HC COMPLETE BLD COUNT 2020-08-06 05:00:00 Wili Beltran W/AUTO DIFF BASIC METABOLIC PANEL 2020-08-06 04:00:00 Wili Beltranist MAGNESIUM LEVEL 2020-08-06 04:00:00 Wili Beltran Meth odist PHOSPHORUS LEVEL 2020-08-06 04:00:00 Wili Beltran Met hodist ESTIMATED GFR 2020-08-06 04:00:00 Wili Beltran odlawrence TROPONIN 2020-08-06 04:00:00 Wili Beltran [place] [facility] MISCELLANEOUS REFERRAL TEST 2020-08-05 22:30:00 [facility] Annel A. POC GLUCOSE 2020-08-05 21:27:00 Wili Beltran Meth odist POC GLUCOSE 2020-08-05 17:41:00 Wili Beltran Meth odist US ABDOMEN COMPLETE 2020-08-05 16:25:00 [facility] Annel A. US ABDOMINAL PARACENTESIS 2020-08-05 16:05:00 [facility] IMAGING AEROBIC CULTURE 2020-08-05 15:30:00 Huang, [facility] odist Annel A. ANAEROBIC CULTURE 2020-08-05 15:30:00 [facility] thodist Annel A. GRAM STAIN 2020-08-05 15:30:00 Huang, [facility] odist Annel A. CELL COUNT AND 2020-08-05 15:30:00 Huang, [facility] odist DIFFERENTIAL, BODY FLUID Annel A. TTE COMPLETE, W CONTRAST, W 2020-08-05 13:00:00 Wili Beltran DOPPLER ([id number]) MISCELLANEOUS REFERRAL TEST 2020-08-05 12:40:00 aSl [place] [facility] Annel A. MISCELLANEOUS REFERRAL TEST 2020-08-05 12:40:00 Wili Beltran POC GLUCOSE 2020-08-05 12:06:00 Wili Beltran [place] [facility] odist ALPHA FETOPROTEIN 2020-08-05 11:40:00 [facility] thodist Annel A. LIPASE LEVEL 2020-08-05 11:40:00 Reagan [facility] odist Annel A. BILIRUBIN DIRECT 2020-08-05 11:40:00 [facility] hodist Annel A. LIPID PANEL 2020-08-05 11:40:00 Reagan [facility] odist Annel A. FERRITIN LEVEL 2020-08-05 11:40:00 [facility] Meth odist Annel A. TOTAL IRON BINDING CAPACITY 2020-08-05 11:40:00 [facility] Annel A. CERULOPLASMIN LEVEL 2020-08-05 11:40:00 [facility] Annel A. ALPHA-1 ANTITRYPSIN 2020-08-05 11:40:00 Reagan [place] [facility] PHENOTYPE Annel A. URIC ACID LEVEL 2020-08-05 11:40:00 [facility] Jakob odist Annel A. HEPATITIS A ANTIBODY TOTAL 2020-08-05 11:40:00 Arlene Huang Annel A. HEPATITIS A ANTIBODY IGM 2020-08-05 11:40:00 Maty Huang [facility] A. HEPATITIS B SURFACE AB, 2020-08-05 11:40:00 Charly Huang QUANTITATIVE Annel A. HEPATITIS B SURFACE ANTIGEN 2020-08-05 11:40:00 HuangJem mac Ann[facility] A. HEPATITIS B CORE ANTIBODY 2020-08-05 11:40:00 Stephane Huang TOTAL Annel A. HEPATITIS B CORE ANTIBODY 2020-08-05 11:40:00 Stephane Huang IGM Annel A. HEPATITIS C ANTIBODY 2020-08-05 11:40:00 ReaganJem [facility] A. LIVER-KIDNEY MICROSOME AB, 2020-08-05 11:40:00 Arlene Huang IGG Annel A. SILKE 2020-08-05 11:40:00 [facility] Jakob ramírezist Annel A. IMMUNOGLOBULIN M 2020-08-05 11:40:00 Reagan [place] [facility] hodlawrence Annel A. HEMOCHROMATOSIS (HFE) 3 2020-08-05 11:40:00 Charly Huang MUTATIONS Annel A. AMYLASE LEVEL 2020-08-05 11:40:00 [facility] Jakob odist Annel A. BLOOD CULTURE, AEROBIC & 2020-08-05 11:14:00 Maty Huang ANAEROBIC Annel A. ECG 12-LEAD 2020-08-05 10:09:57 Wili Beltran Meth odist FIBRINOGEN 2020-08-05 08:10:00 HernandezJennifer hoang Jem Met hodlawrence Deirdre POC GLUCOSE 2020-08-05 07:32:00 Wili Beltran Meth odist URINE CULTURE 2020-08-05 07:00:00 Kevyn Moody ethodist SODIUM LEVEL, URINE, RANDOM 2020-08-05 07:00:00 Kevyn Moody OSMOLALITY, URINE 2020-08-05 07:00:00 Kevyn Moody CREATININE LEVEL, URINE, 2020-08-05 07:00:00 Kevyn Moody RANDOM URINALYSIS SCREEN AND 2020-08-05 07:00:00 Kevyn [facility] MICROSCOPY, WITH REFLEX TO CULTURE CBC HEMOGRAM 2020-08-05 05:20:00 Wili Beltran odist HEMOGLOBIN A1C 2020-08-05 05:20:00 Wili Beltran odist BASIC METABOLIC PANEL 2020-08-05 04:00:00 Wili Beltran n [facility] MAGNESIUM LEVEL 2020-08-05 04:00:00 Wili Beltran odist PHOSPHORUS LEVEL 2020-08-05 04:00:00 Wili Beltran Met hodist THYROID STIMULATING HORMONE 2020-08-05 04:00:00 iWli Beltran T4, FREE 2020-08-05 04:00:00 Wili Beltran Meth odist LIPID PANEL 2020-08-05 04:00:00 Wili Beltran Meth odist ESTIMATED GFR 2020-08-05 04:00:00 Wili Beltran odist HEPATIC FUNCTION PANEL 2020-08-05 04:00:00 Wili Beltran on [facility]regation LACTIC ACID LEVEL, SEPSIS - 2020-08-04 22:54:00 Wili Beltran NOW AND REPEAT 2X EVERY 3 HOURS POC GLUCOSE 2020-08-04 22:50:00 Wili Beltran Meth odist LACTIC ACID LEVEL, SEPSIS - 2020-08-04 21:55:00 Wili Beltran NOW AND REPEAT 2X EVERY 3 HOURS TROPONIN 2020-08-04 21:55:00 Wili Beltran Meth odist US ABDOMINAL DOPPLER 2020-08-04 21:43:25 Dimitri Pierre on Congregation POC GLUCOSE 2020-08-04 21:35:00 Wili Beltran Meth odist US RENAL 2020-08-04 20:50:00 Wili Beltran Meth odist POC GLUCOSE 2020-08-04 18:48:00 Wili Beltran Meth odist ECG 12-LEAD 2020-08-04 18:45:23 Wili Beltran Meth odist COVID-19 QUALITATIVE PCR 2020-08-04 18:45:00 Dimitri Pierre TROPONIN 2020-08-04 18:45:00 Wili Beltran Meth odist BASIC METABOLIC PANEL 2020-08-04 18:45:00 Wili Beltran n Congregation ALCOHOL LEVEL, BLOOD 2020-08-04 18:45:00 Wili Beltran [facility] ESTIMATED GFR 2020-08-04 18:45:00 Wili Beltran Meth odist POC GLUCOSE 2020-08-04 18:31:00 Dimitri Pierre Me thodist POC GLUCOSE 2020-08-04 18:17:00 Dimitri Pierre Me thodist POC GLUCOSE 2020-08-04 18:01:00 Dimitri Pierre Me thodist BLOOD CULTURE, AEROBIC & 2020-08-04 17:10:00 Dimitri Pierreist ANAEROBIC LACTIC ACID LEVEL, SEPSIS - 2020-08-04 17:10:00 Wili Beltran NOW AND REPEAT 2X EVERY 3 HOURS MAGNESIUM LEVEL 2020-08-04 17:10:00 Dimitri Pierre Me thodist AMYLASE LEVEL 2020-08-04 17:10:00 Dimitri Pierre Me thodist LIPASE LEVEL 2020-08-04 17:10:00 Dimirti Pierre Me thodist AMMONIA LEVEL 2020-08-04 17:10:00 Gabby Dimitri Parish Me thodist BILIRUBIN DIRECT 2020-08-04 17:10:00 Gabby Dimitri Parish M ethodist BLOOD CULTURE, AEROBIC & 2020-08-04 16:55:00 Dimitri Pierre ANAEROBIC OK CRITICAL CARE, E/M 30-74 2020-08-04 16:30:51 Dimitri Pierre MINUTES HC COMPLETE BLD COUNT 2020-08-04 16:25:00 Dimitri Pierre W/AUTO DIFF COMPREHENSIVE METABOLIC 2020-08-04 16:25:00 Dimitri Pierre PANEL TROPONIN 2020-08-04 16:25:00 Wili Beltran odlawrence B NATRIURETIC PEPTIDE 2020-08-04 16:25:00 Dimitri Pierre PARTIAL THROMBOPLASTIN TIME 2020-08-04 16:25:00 Dimitri Pierre (PTT) PROTHROMBIN TIME WITH INR 2020-08-04 16:25:00 Dimitri Pierre LACTIC ACID LEVEL 2020-08-04 16:25:00 Dimitri Pierre ESTIMATED GFR 2020-08-04 16:25:00 Dimitri Pierre Me thodist ECG 12-LEAD 2020-08-04 16:05:07 Wili Beltran Meth odist Plan of Care Planned Activity Planned Date Details Comments Source Future Scheduled 2013 65+ PNEUMOCOCCAL Jem [facility] Test 00:00:00 VACCINE (1 of 1 - PPSV23) [code = 65+ PNEUMOCOCCAL VACCINE (1 of 1 - PPSV23)] Future Scheduled 1998 COLONOSCOPY SCREENING Ho riaz Cong[facility] Test 00:00:00 [code = COLONOSCOPY SCREENING] Future Scheduled 1998 SHINGLES VACCINES (#1) H ag Congregation Test 00:00:00 [code = SHINGLES VACCINES (#1)] Future Scheduled 1964 COVID-19 VACCINE (1 of H ag Congregation Test 00:00:00 2) [code = COVID-19 VACCINE (1 of 2)] Encounters Start End Encounter Admission Attending Care Care Encounter Source Date/Time Date/Time Type Type Clinicians Facility Department ID 2020-09-07 2020-09-07 Emergency Singer [facility] [id number] 08:54:00 11:24:00 George Luis [id number] [place] 4.2.7.2.686 [place] [id number] 2020-09-07 2020-09-07 Orders Doctor CURTIS [id number] 00:00:00 00:00:00 Only Unassigned, EMIR [id number] [place] [facility] 4.2.7.2.686 [id number] 2020-08-04 2020-08-25 [id number] 95 [place] 00:00:00 00:00:00 WILI Guevara Method i 2020-08-03 2020-08-03 [facility] Marquez Meredith [facility] [id number] 12:29:15 23:59:00 Encounter Miguel SPECIALTY [id number] CARE [id number] CENTER AT [id number] SAMANTHA[address] 2020-08-03 2020-08-03 P D Driver Vls-Lab [facility] [id number] 12:16:44 12:31:44 Visit SPECIALTY [id number] CARE [id number] CENTER AT [id number] SAMANTHAAdeola 353 [facility] 2020-07-27 2020-07-27 [facility] Marquez Meredith [facility] [id number] 13:30:00 23:59:00 Encounter Miguel SPECIALTY [id number] CARE [id number] CENTER AT [id number] [place] [address] [facility] 2020-07-27 2020-07-27 [facility] Marquez Meredith [facility] [id number] 12:32:44 13:29:00 Encounter Miguel SPECIALTY [id number] CARE [id number] CENTER AT [id number] [facility] [place] 2020-07-15 2020-07-15 [facility] Radiology [facility] [id number] 10:47:30 23:59:00 Encounter SPECIALTY [id number] CARE [id number] CENTER AT [id number] [place] Apple [facility] 2020-06-09 2020-06-10 Nurse 3, Adc [facility] [id number] 11:42:40 07:54:00 Visit Infusion [place] 350.1.13.10 Chair Mayito 4.2.7.2.686 Surgical [id number] [place] 053 2020-03-18 2020-03-18 [facility] [id number] 07:59:00 07:59:00 t Specialty/U Macie kes - Specialty rology Memori a /Urology Clinic l Clinic Outpati ent Clinics Results Test Description Test Time Test Comments Results Result Comments Source C1Q class 1 & 2 antibody 2020-08-30 10:40:18 Test Item Value Reference Range Interpretation Comme nts Case number (test code = [id number]) [id number] C1Q class 1 & 2 antibody (test code = See link below for PDF Lab Re port [id number]) [place] [facility] resolution full typing by [id number] 17:09:26 Test Item Value Reference Range Interpretation Comments Interpretation (test Note: HLA typing was code = 1048546) performed by PCR-SSO DNA based procedures.Note: The serological phenotype is an interpretation based on molecular typing data. Case number (test code [id number] = [id number]) Low resolution full See link below for PDF typing by SSO (test Lab Report code = 1359) [facility] [id number] 18:25:38 Test Item Value Reference Range Interpretation Comments POC glucose (test code = 123 mg/dL 65-99 H Ope rator Name: [id number]) Bc crowder GDevice ID: [id number] able : [facility] Notified management lecturer Interpretation (test Abnormal code = 86321-0) Jem KillianistCT Chest W Contrast Abdomen W Wo Contrast Pelvis W Contrast 2020-08-25 17:48:00Hm Interface, Radiology Results 08/25/2020 5:51 PM CSTEXAMINATION: CT CHEST W CONTRAST ABDOMEN W WO CONTRAST PELVIS W CONTRASTCLINICAL HISTORY: 70 years Male OLT eval, elevated alk phosTECHNIQUE: Multiple axial images of the chest, abdomen, and pelvis were obtained following intravenousadministration of iodinated contrast. Precontrast, arterial, portal venous and delayed series of theabdomen were included as part of the liver protocol. Oral contrast was administered. Sagittal and coronal computerized reformatted images were obtained. CT imaging was performed with iterative reconstruction techniques and/or automated exposure control to reduce radiation dose. Examination limited dueto patient habitus with partial exclusion of both flanks in the left hemiabdomen beyond study limits.COMPARISON: CT chest 08/18/2020IMPRESSION:CHEST:Lungs: Small left pleural effusion with associated b asilar atelectasis, similar to prior. No confluent consolidation or pneumothorax. 9 mm calcified granuloma in the right upper lobe. Additional smaller calcified granulomata in the right lower lobe.Heart, vasculature: Right internal jugular central access catheter with tip in the superior cavoatrial riky ction. Cardiac size is normal. No pericardial effusion. Caliber of the great vessels is normal. No central pulmonary embolism. Atherosclerotic calcification of the coronary arteries. Lymph nodes: No supraclavicular, axillary or mediastinal lymphadenopathy. Other findings: 7 mm and smaller right thyroid nodules.ABDOMEN:Upper abdominal organs: Liver: Liver measures 22 cm in craniocaudal dimension with macronodular contour, hypertrophy of the left hemiliver and caudate lobe and widening of the periportal space. Hepatic parenchyma has a moderately heterogeneous attenuation on precontrast series with numerous subcentimeter hypoattenuating and hypoenhancing foci in the left greater than right hemiliver (series 5, image 42).No suspicious arterially enhancing lesions.Gallbladder: Nondistended. Spleen: Enlarged, measures 17.3 cm in craniocaudal dimension.Pancreas: Normal.Adrenal Glands: Mild low-attenuation thickening of the left adrenal gland with normal adreniform morphology.Kidneys: No hydronephrosis. No obstructing renal or ureteral calculi.Bowel and mesentery: Small hiatal hernia. Large and small bowel loops are normal in caliber without focal wall thickening or mesenteric fat stranding. Large volume of ascites. No free intraperitoneal gas.Vasculature: Abdominal aorta is of normal caliber. Celiac artery, superior and inferior mesenteric arteries, superior mesenteric and portal veins appear patent. Severe calcified and non-calcified atherosclerotic disease of the abdominal aorta and branch vessels. Recanalized umbilical vein. Perisplenic collaterals.Lymph nodes: Increased number of mildly enlarged small bowel mesentery and retroperitoneal, periportal and gastrohepatic ligament lymph nodes.For reference:1. Left para-aortic lymph node (series 6, image 135) measures 2.4 x 1.4 cm.2. Small bowel mesentery lymph node (series 6, image 151) measures 2.1 x 1.4 cm.3. Gastrohepatic ligament lymph node (series 6, image 124) measures 1.7 x 1.5 cm. PELVIS:Urinary bladder: Normal.Lymph nodes: No pelvic lymphadenopathy.MUSCULOSKELETAL: No suspicious lytic or blastic osseous lesions. The superficial soft tissues are unremarkable. Age appropriate degenerative changes of the spine.SUMMARY:1. Nodular, cirrhotic liver with sequelae of portal hypertension including splenomegaly and large volume of ascites.2. Numerous subcentimeter hypoattenuating/hypoenhancing foci in the left greater than right right hemiliver, indeterminate and could represent regenerative nodules, however infiltrative hepatocellular lesion not excluded. Further evaluation with liver MRI is recommended. Evacuation of ascites prior to MRI may be considered to improve image fidelity.3. Small left pleural effusion.[id number] MethodistAnaerobic [id number] 08:23:59 Test Item Value Reference Range Interpretation Comments Anaerobic No anaerobic Specimen culture isolate organisms InformationS pecimen (test code = isolated. Source: Periton eal 552) fluidSpecimen S ite: Abdomen, left [place] MethodistComprehensive metabolic [id number] 07:38:34 Test Item Value Reference Range Interpretation Comments Sodium (test code = 134 135- 148 mEq/L L 2951-2) Potassium (test code = 3.9 3.5- 5.0 mEq/L 2823-3) Chloride (test code = 94 98- 112 mEq/L L 2075-0) CO2 (test code = 2027-9) 25 24- 31 mEq/L Anion gap (test code = 15@ANIO 7- 15 mEq/L 18461-3) BUN (test code = 3094-0) 42 mg/dL 8-23 H Creatinine (test code = 4.14 mg/dL 0.7-1.2 H 2160-0) Glucose (test code = 152 mg/dL 65-99 H 2345-7) Calcium (test code = 9.9 mg/dL 8.8-10.2 49109-5) Protein (test code = 7.5 g/dL 6.3-8.3 -[place] n 2885-2) 4.6-7.0 g/dL1 week 4.4-7 .6 g/dL7 months-1y ear 5.1-7 .3 g/dL1-2 years 5.6-7 .5 g/dL>3 years 6.0-8 .0 g/dG93-857 6.3-8 .3 g/dL Albumin (test code = 4.2 g/dL 3.5-5 1751-7) A/G ratio (test code = 1.3 0.7-3.8 1759-0) Alkaline phosphatase 717 U/L 40-129 H (test code = 6768-6) AST (test code = 1920-8) 108 U/L 10-50 H ALT (test code = 1742-6) 64 U/L 5-50 H Total bilirubin (test 0.9 mg/dL 0-1.2 code = 1974-) Lab Interpretation (test Abnormal code = 25819-3) [facility] MethodistMagnesium [id number] 07:38:34 Test Item Value Reference Range Interpretation Comments Magnesium (test code = 70857-7) 2.2 mg/dL 1.6-2.4 [place] MethodistEstimated [id number] 07:38:33 Test Item Value Reference Range Interpretation Comments Estimated GFR (test 13 mL/min/1.73 m2 A [facility] Units code = 5488) InterpretationG 1 >=90 Olivia l or highG2 60-89 Mildly decrease dG3a 45-59 Mil dly to moderately decr tnppiT6j 30-44 Moderately to s everely decreasedG4 15-29 Severe ly decreasedG5 <15 Kidney kristyn lureThe eGFR was calcul ated using the Chron ic Kidney Disease Epidemiology Collaboration ( CKD-EPI) equation. Interpretation is based on recommendati ons of the National Ki dney [facility]-Kidn ey Disease Outcome s Quality Initiat brandon (NKF-KDOQI) pub lished in 2013. Lab Interpretation Abnormal (test code = 83103-4) [facility] [id number] 07:38:32 Test Item Value Reference Range Interpretation Comments Phosphorus (test code = 2777-1) 3.2 mg/dL 2.4-4.5 [facility]Prothrombin time with [id number] 07:25:19 Test Item Value Reference Range Interpretation Comments Prothrombin time (test 15.4 11.5- 14.5 sec H code = 5902-2) INR (test code = 1.2 The Interna tional 95497-1) Normalized Rati o (INR) is a therapeuti c monitoring tool for patients who ar e stable on oral anticoagulant t herapy. An INR of 2.0-3 .0 is suggested for d eep vein thrombosis/pulm onary embolism. Lab Interpretation Abnormal (test code = 95090-0) [facility] with platelet and [id number] 06:56:16 Test Item Value Reference Range Interpretation Comments WBC (test code = 90764-5) 8.19 4.50- 11.00 k/uL RBC (test code = 24794-8) 3.17 m/uL 4.4-6 L HGB (test code = 718-7) 9.0 g/dL 14-18 L HCT (test code = 4544-3) 28.3 % 41-51 L MCV (test code = 787-2) 89.3 fL 82-100 MCH (test code = 785-6) 28.4 pg 27-34 MCHC (test code = 786-4) 31.8 g/dL 31-37 RDW - SD (test code = 52.9 fL 37-55 43733-4) MPV (test code = 26689-2) 11.0 fL 8.8-13.2 Platelet count (test code 124 150- 400 k/uL L = 24824-5) Nucleated RBC (test code 0.00 /100 WBC = 88947-0) Neutrophils (test code = 82.3 % 39-69 H 51548-7) Lymphocytes (test code = 7.0 % 25-45 L 33980-0) Monocytes (test code = 6.3 % 0-10 82162-7) Eosinophils (test code = 3.3 % 0-5 69026-8) Basophils (test code = 0.6 % 0-1 52217-7) Immature granulocytes 0.5 % 0-1 "Immat ure (test code = 55810-0) granul ocytes" (promyelocytes, myelocytes, metamyelocytes) Lab Interpretation (test Abnormal code = 42002-9) [facility] MethodistAerobic [id number] 20:29:24 Test Item Value Reference Range Interpretation Comments Aerobic culture No growth Specimen isolate (test after 3 days. 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 DESCRIPTION OF PROCEDURE: After obtaining informed consent, the patient was brought to the cardiac catheterization suite. The right groin was prepped and draped in normal sterile fashion. Moderate sedation was administered with physician supervisionof patient consciousness, respiration, Oxygen saturation and CO2 monitoring, beginning at 0751 ( time) for a total period of 53 minutes. 10 cc of lidocaine was used as local anesthetic. The right feomral vein was accessed using an ultrasound device with a Cook needle and a 7 Polish sheath placed. The right common femoral artery was accessed under ultrasound guidance with a Cook needle and a 5 Fr sheath placed. A 7 Polish [place]-Eric catheter was then advanced under direct fluoroscopic guidance into the distal pulmonary artery. Right atrial, right ventricular, pulmonary arterial and pulmonary capillary pressure tracings were obtained. Measurements were obtained for calculation of a ALONZO and Thermodilution cardiac output. The catheter was then removed. Selective coronary angiography was performed using a FL5 catheter to engage the LM and a WR catheter to engage the RCA. A 5Fr Pigtail catheter was used to cross the AV and measure LVEDP and perform LV gram. LV-Ao pull back was performed. At the conclusion of the procedure, the patient was returned to the optical laboratory mechanic holding area for recovery. FINDINGS:Right heart Catheterization: Normal hemodynamicsRA 6RV 34/0/6PA 28/14/19PCWP 10CO by Thermo 6.6 L/minCO by Alonzo 5.42 L/min Selective coronary angiogram:No significant CAD. Left heart catheterization:LVEDP 10EF 70%, hyperdynamic ventricleNo LV-Ao gradient on pullback [facility] MethodistCOVID-19 qualitative [id number] 23:06:24 Test Item Value Reference Range Interpretation Comments Interpretation (test Negative results do code = 1908781) not preclude 2019-nCoV infection and should not be used as the sole basis for treatment or other patient management decisions. Negative results must be combined with clinical observations, patient history, and epidemiological information. COVID-19 qualitative Not-Detected Not-Detected PCR result (test code = 39870-9) COVID-19 qualitative See link below for C ase Number: PCR (test code = PDF Lab Report [id number] 175 7070) [facility] Hospitaltein Schrader Virus (EBV) by [id number] 16:05:33 Test Item Value Reference Range Interpretation Comments Blayne Schrader Not-Detected Not-Detected virus, PCR (test copies/mL code = 5005-4) Blayne Schrader See link below Case Number: virus, PCR (test for PDF Lab [id number] 1 code = 1340) Report [facility] MethodistSpirometry, diffusion, MIPS/[id number] 14:10:53 Test Item Value Reference Range Interpretation Comments FEV1 Pre (test code = 2.62 L 5348) FEV1/FVC % Pre (test code 77.3 % = 5361) FVC Pre (test code = 5354) 3.38 L PEF Pre (test code = 5367) 4.84 L/s FEF 25-75% Pre (test code 2.32 L/s = 5547) DLCO Pre (test code = 15.11 18.56- 34.49 ml/(min*mmHg) 5423) DL/VA Pre (test code = 2.78 2.56- 4.96 ml/(min*mmHg*L) 5437) VA SB Pre (test code = 5.43 L 5.84-8.57 5444) DLCOc Pre (test code = 19.09 18.56- 34.49 ml/(min*mmHg) 5430) KCOc SB Pre (test code = 3.52 2.56- 4.96 ml/(min*mmHg*L) 5535) Hb Pre (test code = 5540) 8.9 g(Hb)/dL MIP Pre (test code = 5451) 32.46 cmH2O MEP Pre (test code = 5458) 48.16 cmH2O FEV1 Predicted (test code 3.44 = 5302) FEV1 LLN (test code = 2.61 5347) FEV1 % Pre of Predicted 76 % (test code = 5308) FVC Predicted (test code = 4.69 5307) FVC LLN (test code = 5353) 3.71 FVC % Pre of Predicted 72.1 % (test code = 5355) FEV1/FVC % Predicted (test 73 code = 5359) FEV1/FVC % LLN (test code 64 = 5360) FEV1/FVC % Pre of 105.6 % Predicted (test code = 5362) FEF 25-75% Predicted (test 2.56 code = 5546) FEF 25-75% LLN (test code 0.87 = 5545) FEF 25-75% % Pre of 90.6 % Predicted (test code = 5548) PEF Predicted (test code = 8.61 5310) PEF LLN (test code = 5366) 6.16 PEF % Pre of Predicted 56.2 % (test code = 5368) DLCO Predicted (test code 26.53 = 5421) DLCO LLN (test code = 18.56 5422) DLCO % Pre of Predicted 56.9 % (test code = 5424) DLCOc Predicted (test code 26.53 = 5428) DLCOc LLN (test code = 18.56 5429) DLCOc % Pre of Predicted 72 % (test code = 5431) DL/VA Predicted (test code 3.76 = 5435) DL/VA LLN (test code = 2.56 5436) DL/VA % Pre of Predicted 74 % (test code = 5438) KCOc SB Predicted (test 76 code = 5533) KCOc SB LLN (test code = 2.56 5534) KCOc SB % Pre of Predicted 93.5 % (test code = 5536) VA SB Predicted (test code 7.21 = 5442) VA SB LLN (test code = 5.84 5443) VA SB % Pre of Predicted 75.3 % (test code = 5445) MIP Predicted (test code = 80.82 5449) MIP LLN (test code = 5450) 26.96 MIP % Pre of Predicted 40.2 % (test code = 5452) MEP Predicted (test code = 131 5456) MEP LLN (test code = 5457) 84.1 MEP % Pre of Predicted 36.8 % (test code = 5459) [facility] MethodistXR Chest 1 Vw [id number] 12:08:56 Interface, Radiology Results 08/23/2020 12:12 PM CSTEXAMINATION: XR CHEST 1 VW PORTABLEINDICATION: HD center placementCOMPARISON: Most recent priorIMPRESSION:Right-sided tunneled dialysiscatheter tip overlies the SVC.No visible pneumothorax.Heart size is within normal limits. No confluent airspace disease.Atherosclerotic calcification of the thoracic aorta.HMRM-MPHYMATHouston MethodistBilirubin ywfhvq0427-81-22 07:05:51 Test Item Value Reference Range Interpretation Comments Bilirubin direct (test code = 0.4 mg/dL 0-0.3 H 1968-02) Lab Interpretation (test code = Abnormal 75818-0) [facility] MethodistMiscellaneous referral [id number] 12:52:05 Test Item Value Reference Range Interpretation Comments [facility] test name PETH (test code = 2566) [facility] test see note Phosphatidyleth anol (PEth), result (test Whole Blood, Qu antitative ARUP code = 1730) test code 05848 98 PEth 16:0/18:1 (RIBEIRO th) <10 ng/mL INTERPRETIVE INFORMATION:Andi sphatidylethanol (PEth), Whole BloodPhosphatid ylethanol (PEth) homologues Resu lt Interpretation PEth 16:0/18:1 (POPEth) Less than 10 ng/mL.......... ..Not detectedLess th an 20 ng/mL.......... ..Abstinence or light alcohol cons sgblcyv46 - 200 ng/mL.......... ......Moderate alcohol consump tionGreater than 200 ng/mL...... ..Heavy alcohol consumption or chr onic alcohol use PEth 16:0/18:2 (PLPEth)....... Reference ranges are not well established.(Re ference: Yolanda Oconnell and Roger Ace 2018 J. Forensic Sci) Phosphatidyleth anol (PEth) is a group of phosph olipids formed in the presence of ethanol, phospholipase D and phosphatidylcho line. PEth is known to be a d irect alcohol biomarker. The predominant PEth homologues are PEth 16:0/18:1 (POPEth) and PE th 16:0/18:2 (PLPEth), which account for 37-46% and 26-2 8% of the total PEth homologues , respectively. PEth is incorpo rated into the phospholipid me mbrane of red blood cells and has a general half-life of 4 - 10 days and a window of detec tion of 2-4 weeks. However, the window of detection is lo nger in individuals who chronically or excessively con sume alcohol. The limit of qu antification is 10 ng/mL. Seria l monitoring of PEth may be hel pful in monitoring alco hol abstinence over time. PEth results should be interpreted in the context of the patient' s clinical and behavioral hist ory. Patients with advanced l iver disease may have falsely el evated PEth concentrations (Sofi ROLLE et al 2018, Shadiais m Clinical & Experimental Re search). Test developed and c haracteristics determined by [facility]. S ee Compliance Statement B: [place]/CS - - - - - - - - - - - - - - - - - - - - - - - - - - - - - - PEth 16:0/18:2 (PLPE th) <10 ng/mL Kaela t performed by: [employer] [place] [id number] [facility] antigen [id number] 07:41:52 Test Item Value Reference Range Interpretation Comments SAB interpretation (test ADDITIONAL ANTIBODY code = 5950) INFORMATIONDP1= DPB1*01:01;DPA1*02:0 1 SAB serum ID (test code = [id number] 5866) SAB serum collection D&T 08/18/2020 11:15 AM (test code = 5867) SAB class I antibody Negative assignment (test code = 5870) SAB cPRA class I (test 0 code = 5868) SAB class II antibody DP1 assignment (test code = 5871) SAB cPRA class II (test 0 code = 5869) Case number (test code = [id number]) Single antigen beads See link below for (test code = 4604) PDF Lab Report [facility] MethodistHepatic function [id number] 07:33:49 Test Item Value Reference Range Interpretation Comments Albumin (test code = 4.6 g/dL 3.5-5 1-7) Total bilirubin (test 0.6 mg/dL 0-1.2 code = 1974-2) Bilirubin direct (test 0.4 mg/dL 0-0.3 H code = 1967-7) Alkaline phosphatase 505 U/L 40-129 H (test code = 6768-6) Protein (test code = 6.9 g/dL 6.3-8.3 -[place] n 2885-2) 4.6-7.0 g /dL1 week 4.4-7.6 g/dL 7 months-1year 5.1-7.3 g/dL 1-2 years 5.6-7.5 g/dL>3 years 6.0-8.0 g/yU79-719 6.3-8. 3 g/dL ALT (test code = 1742-6) 36 U/L 5-50 AST (test code = 1920-8) 87 U/L 10-50 H Lab Interpretation (test Abnormal code = 05738-0) [facility] MethodistBasic metabolic [id number] 07:32:34 Test Item Value Reference Range Interpretation Comments Sodium (test code = 2951-2) 137 135- 148 mEq/L Potassium (test code = 2823-3) 3.8 3.5- 5.0 mEq/L Chloride (test code = 2075-0) 94 98- 112 mEq/L L CO2 (test code = 2027-9) 26 24- 31 mEq/L Anion gap (test code = 65548-9) 17@ANIO 7- 15 mEq/L H BUN (test code = 3094-0) 64 mg/dL 8-23 H Creatinine (test code = 2160-0) 4.80 mg/dL 0.7-1.2 H Glucose (test code = 2345-7) 117 mg/dL 65-99 H Calcium (test code = 02270-1) 10.3 mg/dL 8.8-10.2 H Lab Interpretation (test code = Abnormal 57354-2) [facility] MethodistCell count and differential, body [id number] 21:04:41 Test Item Value Reference Range Interpretation Comments [facility] fluid type Ascitic (test code = 24780-9) Color, fluid (test Yellow code = 6824-7) Appearance, fluid Slightly hazy (test code = 9335-1) RBC, fluid (test SEE COMMENT /CMM 2+ (500 - code = 88441-7) 10,000 RBC/C MM) Nucleated cells, 251 /CMM fluid (test code = 47949-7) Fluid mononuclear See Diff cell (test code = 1407) Neutrophils, fluid 3 % (test code = 71527-4) Lymphocytes, fluid 28 % (test code = 58005-0) Eosinophils, fluid 1 % (test code = 85209-2) Macrophages, fluid 68 % (test code = 85477-5) ALEE (test code = PERITONEAL ALEE) FLUID?Specimen to be drawn in Interventional Radiology area. [facility] MethodistBlood culture, aerobic & tirujergp4875-32-34 19:33:08 Test Item Value Reference Range Interpretation Comments Blood culture No growth Specimen isolate (test after 5 days InformationSpe cimen code = 600-7) of Source: BloodS pecimen incubation. Site: Hand, rig [facility] MethodistAlbumin, misc [id number] 16:53:15 Test Item Value Reference Range Interpretation Comments Fluid type Ascitic (test code = 35085-2) Albumin, 3.6 g/dL The reference fluid (test interval(s) and other code = method performa nce 1747-5) specifications have not been establ ished for this body f luid. The test result s must be integrated i nto the clinical co ntext for interpretation. This test has been modified from t holly manufacturers instructions. The performance characteristics were determined by Arlene Hammonds juan diego in a manner consis tent with CLIA requirements. This test has not be en cleared or appr mary by the [place] and Drug Administra tion. ALEE (test PERITONEAL code = ALEE) FLUID?Specimen to be drawn in Interventional Radiology area. Jem Ponce, [facility] [id number] 16:53:15 Test Item Value Reference Range Interpretation Comments Fluid type Ascitic (test code = 36409-2) Protein, 4.5 g/dL The reference fluid (test interval(s) and other code = method performa nce 2881-1) specifications have not been establ ished for this body f luid. The test result s must be integrated i nto the clinical co ntext for interpretation. This test has been modified from daniel barrera manufacturers instructions. The performance characteristics were determined by Arlene Hammonds juan diego in a manner consis tent with CLIA requirements. This test has not be en cleared or appr mary by the [place] and Drug Administra tion. ALEE (test PERITONEAL code = ALEE) FLUID?Specimen to be drawn in Interventional Radiology area. Jem Arce Abdominal Paracentesis [id number] 15:13:16Hm Interface, Radiology Results - 08/21/2020 3:16 PM CSTProcedureUltrasound-guided paracentesis. Clinical IndicationAscites. AnesthesiaLidocaine 1%. SedationNone. TechniqueWritten informed consent was obtained prior to the procedure. The patient was placed in a supine position, and ultrasound imaging over the abdomen was performed, demonstrating a large amount of ascites. The left lower abdomen was sterilely prepared and draped in the routine manner. Lidocaine 1% was used for local anesthetic. Using real-time ultrasound guidance, a 5 Polish catheter was advanced successfully into the peritoneal cavity with return of cloudy yellow ascites. A total of 5000 mL of fluid was removed. The catheter was removed and hemostasis was achieved with manual compression. Ultrasound imaging over the abdomen following completion of the paracentesis demonstrated large residual amount of ascites. The patient tolerated the procedure well. ComplicationsNone. Impression: Successful ultrasound-guided paracentesis with removal of 5000 ml of cloudy yellow ascites. [facility]-[id number] Children's Hospital2020-12-27 06:51:46 Test Item Value Reference Range Interpretation Comments pH (test code = 2753-2) 7.48 Ionized calcium (test code = 1.10 mmol/L 1.11-1.32 L ) Lab Interpretation (test code = Abnormal 92877-0) [place] [facility]car[facility]bad medical centerVancomycin level, [id number] 06:34:26 Test Item Value Reference Range Interpretation Comments Vancomycin, random (test code = 20.9 ug/mL 79400-5) [facility] JqrertotrDomngrjvwr6979-67-43 00:48:37 Test Item Value Reference Range Interpretation Comments Fibrinogen (test code = 53609-9) 280 mg/dL 200-450 [facility] MethodistType and [id number] 03:08:00 Test Item Value Reference Range Interpretation Comments ABO grouping (test code = 883-9) O Rh type (test code = 98844-3) POS Antibody screen (gel) (test code = NEG 890-4) [facility]Partial thromboplastin time, ufdhxcmxs6318-68-42 02:31:23 Test Item Value Reference Range Interpretation Comments PTT (test code = 35.7 23.0- 36.0 [place] [address]-1) unfractionated heparin is61.0-112.0 se conds which corresponds to Anti-Xa0.3-0.7 U/ml. [facility] MethodistHepatitis B surface [id number] 23:44:27 Test Item Value Reference Range Interpretation Comments Hepatitis B surface Ag (test Non-reactive Non-reactive code = 5195-3) [facility]allawrenceUs carotid nvadcz2972-90-73 16:01:00Interface, Radiology Results In - 08/18/2020 4:01 PM [facility] Vascular Ultrasound Laboratory Carotid Artery Duplex [address] [place] [address] For quality facilitator purposes, the categorization of the degree of the stenosis of this exam is based on criteria described in the IAC carotid stenosis grading white paper( www.intersocietal.org/Vascular) and Gabino Begum., Rolanda Landis., et al. Carotid artery stenosis: haji-scale and Doppler US diagnosis--Society of Radiologists in Ultrasound Consensus Conference. Radiology. 2003 Nov; 229(2):340-6. Pat.Name: ERIC SAUNDERS JR Pat.ID: [id number] .Date: 08/18/2020 Refer.MD: KENNA CRAWFORD MD Exam Time: 11:17:00 AM Study Type:Carotid Height: 72in Weight: 272lb BSA: 2.43 m2 Age: 9 1950,70Y Sex: MALE BP: 129/70 Sonogrphr: Mary Johnson RDCS, RVTPat. Stat.:Inpatient Room: [address] Vol: ED, CPT - 4: 42538 Echo Event ID:[id number] Order ID: [id number] Reason for Study:Pre-op evaluation History / Clinical:Former smoker, Liver cirrhosis, Anasarca, PortalHTNProcedures: Colorflow, Grayscale/2D, Pulsed wave DopplerRace: C SUMMARY: PHYSICAL ASSESSMENT Blood Pulses Carotid Pressure Carotid Temporal BruitRight IV + + 0Left 129/70 + + 0CAROTID ARTERY SCANRIGHT: There is intimal thickening in the common carotid artery andcarotid bulb. There is focal hard plaque noted proximal inte rnalcarotid artery. The external carotid artery is clear. Colorflow isnormal.LEFT: There is intimal thickening in the common carotid, bulb andinternal carotid artery. The external carotid artery isclear.Colorflow is normal.PRELIMINARY FINDINGS1. <50% stenosis in the bulb and right internal carotid artery. 2. Normal carotid duplex exam on the left.3. Antegrade vertebral artery flow bilaterally.4. Technically difficult exam due to the patient's body habitus andinability to cooperate.PHYSICIANINTERPRETATION Bilateral carotid duplex examination demonstrated atheroscleroticplaques in the rightbulb. Less than 50% stenosis in the right internal carotid artery. Left sideis normal. Antegrade vertebral artery flow bilaterally. FINDINGS: Carotid Findings: Right Left Verteb.Flw Antegrade Antegrade Subclavian Triphasic Triphasic MEASUREMENTS: ----- DOPPLERLeft CCA Dist CCA Dist PSV 108 cm/s CCA Dist EDV 15 cm/sLeft CCA Mid CCA Mid PSV 110 cm/s CCA Mid EDV 12.7 cm/sLeft CCA Prox CCA Prox PSV 127 cm/s CCA Prox EDV 12.7 cm/Dimitri Dist ICA Dist PSV 119 cm/s ICA Dist EDV 15 cm/sLeft ICA Mid ICA Mid PSV 78.2 cm/s ICA Mid EDV 17.1 cm/sLeft ECA Prox ECA Prox PSV 109 cm/s ECA Prox EDV 11.2 cm/sRight CCA Dist CCA Dist PSV 77.8 cm/s CCA Dist EDV 16.6 cm/sRight CCA Mid CCA Mid PSV 74.8 cm/s CCA Mid EDV 11.3 cm/sRight CCA Prox CCA Prox PSV 89.1 cm/s CCA Prox EDV 10.7 cm/sRight ICA Dist ICA Dist PSV 59.7 cm/s ICA Dist EDV 9.29 cm/sRight ICA Mid ICA Mid PSV 85.4 cm/s ICA Mid EDV 18 cm/sRight ICA Prox ICA Prox PSV 83.9 cm/s ICA Prox EDV 15 cm/sRight SCA Prox SCA Prox PSV 127 cm/s Right Vertebral Vertebral PSV 64.5 cm/s Vertebral EDV 14.2 cm/sLeft ICA Prox ICA Prox PSV 96.7 cm/s ICA Prox EDV 15 cm/sRight ECA Prox ECA Prox PSV 123 cm/s ECA Prox EDV 13.5 cm/sLeft Vertebral Vertebral PSV 60 cm/s Vertebral EDV 11.2 cm/sLeft SCA Prox SCA Prox PSV 129 cm/s Right ICA/CCA Ratio ICA/CCA PSV 1.12 Left ICA/CCA Ratio ICA/CCA PSV 0.879 Signed 08/18/2020 04:01 PMDarian Castillo MD, RPVIAltamont MethodistCT Chest Wo [id number] 13:58:46Hm Interface, Radiology Results 08/18/2020 2:01 PM CSTEXAMINATION:CT CHEST WO CONTRASTCLINICAL HISTORY: OLT evaluationTECHNIQUE:Multiple axial images of the chest were obtained without contrast. Sagittal and coronal computerized reformatted images were also obtained. . All CT images were acquired using radiation dose lowering technique with automated exposure control and / or iterative reconstruction.COMPARISON:NoIMPRESSION:1.Soft tissue gas within and along the right sternocleidomastoid, and subcutaneous fat of the upper right chest wall related to recently placed tunneled hemodialysis catheter, tip in the superior talar junction. No pneumothorax.2.A large calcified granuloma posteriorly in the right lung apex measuring 1 cm. Mosaic attenuation pattern in the lungs likely due to combination of air trapping and interstitial pulmonary edema. Patient imaged in expiration.3.Scatteredcalcified granulomata elsewhere. Moderate left and small right pleural effusions with adjacent atelectasis. Lungs otherwise clear.4.Borderline enlarged subcarinal lymph nodes are likely reactive, though attention on follow-up advised. No definite lymphadenopathy detected on noncontrast exam.5.Heart isenlarged. Small pericardial effusion.6.Calcified plaque within the thoracic aorta and moderate coronary artery calcifications. Ectasia of the ascending aorta measuring 4 cm tapering distally.7.Cirrhosis and splenomegaly with upper abdominal ascites partially seen.8.Old healed rib fractures. Visualizedbones show no suspicious lesion.SUMMARY:No evidence of metastatic disease. Compressive atelectasis from pleural effusions limits evaluation of the lungs.Other findings as [id number] MethodistIR Tunneled Dialysis Catheter Ywkupzzkx9810-71-75 13:51:05Hm Interface, Radiology Results 08/18/2020 1:54 PM CSTPerforming RadiologistAlex Delarosa MD AssistantsNone. Anesthesia TypeModerate sedation was administered by the procedure nurse and monitored by the procedure physician for a total cgdx-il-wnyd sedation time of 11 minutes. Lidocaine 1% and lidocaine 1% with epinephrine were used for local anesthetic. Indication Renal failure. Central ve nous access required for hemodialysis. ProcedureTunneled hemodialysis catheter placementTechniqueWritten informed consent was obtained prior to the procedure. All elements of maximal sterile barrier technique were followed. The patient's right neck and upper chest were sterilely prepared and draped inthe routine manner. Lidocaine 1% was used for local anesthetic. Using real-time ultrasound guidance,a 21-gauge micropuncture needle was advanced successfully into the right internal jugular vein. A 0.018 inch guidewire was advanced centrally through the needle under fluoroscopy. The needle was removed and a micropuncture sheath system was then placed. Under ultrasound guidance, documentation of vesse l patency, needle access with permanent recording, and reporting are performed followed by placementof a sheath in the right internal jugular vein. The inner dilator and guidewire were then removed, and a 0.035 inch stiff [...] guidance. All ports were tested and demonstrate adequate flow. The catheter was sutured to the skin. The small venotomy incision was closed with Dermabond. The patient tolerated the procedure well. Radiation DoseKa,r = 2 mGyComplicationsNone. Specimens RemovedNone. Estimated Blood LossLess than 2 mL. Blood/Blood Products AdministeredNone. Grafts/ImplantsAs described in the above report. Impression: Successful fluoroscopic-guided placement of a 23 cm long tip to cuff tunneled hemodialysis catheter via the right internal jugular vein. The catheter tip lies in the right atrium and is ready for use.[facility]-[id number] HendersonEpstein-Schrader virus antibody [id number] 13:11:25 Test Item Value Reference Range Interpretation Comments EBV Ab to viral capsid Positive Negative A Ag, IgG (test code = 85883-3) EBV Ab to viral capsid Negative Negative Ag, IgM (test code = 56147-2) EBV Ab to nuclear Ag, Positive Negative A IgG (test code = 7883-2) EBV Ab to early (D) Ag, Negative Negative IgG (test code = 62457-1) Blayne-Schrader virus SEE COMMENT Infection Status: antibody interpretation Resu lts may (test code = 5466) suggest p ast EBV infection. Lab Interpretation (test Abnormal code = 04587-8) [facility] Methodistpatitis Be [id number] 22:31:19 Test Item Value Reference Range Interpretation Comments Hepatitis Be Ag (test Negative Negative Perfor med by ARUP code = 48480-7) Laboratories , [address] [facility] [place] [address] www.[employer] , MD Alpesh Guardado. Director [facility] Be [id number] 22:21:20 Test Item Value Reference Range Interpretation Comments Hepatitis Be Ab (test Negative Negative Perfor med by ARUP code = 01122-5) Laboratories , [address] [facility] [place] [address] [phone] www.[facility] , MD Alpesh Guardado. Director [facility] 9, ser/maddie, scrn w/rflx to [id number] 19:59:38 Test Item Value Reference Range Interpretation Comments Amphetamines, s/p, Negative Cutoff 20 ng/mL screen (test code = 8149-7) Methamphetamine, Negative Cutoff 20 ng/mL s/p, screen (test code = 3777-0) Barbiturates, s/p, Negative Cutoff 50 ng/mL screen (test code = 95418-3) Benzodiazepines, Negative Cutoff 50 ng/mL s/p, screen (test code = 08506-8) Cocaine, s/p, Negative Cutoff 20 ng/mL screen (test code = 8191-9) Methadone, s/p, Negative Cutoff 25 ng/mL screen (test code = 16176-7) Opiates, s/p, Negative Cutoff 20 ng/mL screen (test code = 8219-8) Oxycodone, s/p, Negative Cutoff 20 ng/mL screen (test code = 22187-9) Phencyclidine, Negative Cutoff 10 ng/mL s/p, screen (test code = 8236-2) Cannabinoids, s/p, Negative Cutoff 20 ng/mL screen (test code = 8172-9) Drug screen See Note INTERPRETIVE IN FORMATION: comments, serum Drug Screen 9 Panel, Serum (test code = or 20447-6) Plasma - Immun oassay Screen with Reflex to Mass Spectrometry Confirmation/Qu antitation1. Methodology: Qu alitative Immunoassay Scr een2. Drugs/Drug clas ses reported as "Positive" a re automatically r eflexed to mass spectromet ry confirmation/qu antitation testing. An im munoassay unconfirmed pos itive screen result may be u seful for medical purpose s but does not meet forens ic standards. 3. T he absence of expected florence g(s) and/or drug metabolite (s) may indicate noncom pliance, inappropriate t iming of specimen collec tion relative to florence g administration, poor drug absorption, or limitations of testing. The concentration a t which the screening test can detect a drug or metabol ite varies within a drug c lass. Specimens for w hich drugs or drug classes are detected by the screen are automatically r eflexed to a second, more sp ecific technology (mas s spectrometry). The concentration v alue must be greater than or equal to the cutoff to b e reported as positive. In terpretive questions shoul d be directed to the laboratory.4. F or medical purposes only; not valid for forensic us e.Test developed and characteristics determined by [facility] kenneth. See Compliance Stat ement B: [facility]/CSP erformed By: [facility] [place], [place] [address]Luhnkok ory Director: Fior Madera MD [place], [id number] 18:32:28 Test Item Value Reference Range Interpretation Comments T3, free (test code = 1.9 pg/mL 2.4-4.2 L REFERE NCE INTERVAL: 5404-9) Triiodothyronin e, Free (Free T3)A ccess complete set of age- and/or gender-specific reference inter vals for this test i n the [facility] Test Directory ([facility]).P erfor med By: Tarari [place], [place] [address]Psgkogcfbh Director: Fior Madera MD Lab Interpretation (test Abnormal code = 91045-5) Jem MethodistTB [id number] 13:08:24 Test Item Value Reference Range Interpretation Comments TB T-SPOT (test SEE NOTE T-SPOT TUBER CULOSISNil code = 2260) Control: 099Pa serenity A: 1Panel B: 0Positive Control: SATRe sult: NEGATIVENOTE: T MTC INDICATES TOO MANY SPOTS TO COUNT SAT INDICATES T HE WELL WAS SATURATEDRESULT S INTERPRETATION: RESULTS ARE NEGATIVE WHEN ( PANEL A-NIL) OR (PANEL B-NIL) < = 4 SPOTS, INCLUDING VALUE S LESS THAN ZERO.RESULTS AR E POSITIVE WHEN (PANEL A-NIL) O R (PANEL B-NIL) >= 8 SPOTSRESUL TS ARE BORDERLINE WHEN EITHER (PANEL A-NIL) OR (PANE L B-NIL) = 5,6,0R 7.THE TE ST IS INVALID WHEN EITHER OF THE FOLLOWING CONDITIONS IS M ET:1.) THE NIL CONTROL HAS >10 SPOTS2.) THE MITOGEN (POSITI VE CONTROL) HAS <20 SPOTS AND B OTH (PANEL A-NIL) AND (JUAREZ EL B-NIL) <= 4 SPOTS.M. TUBERC ULOSIS INFECTION UNLIK ELIA, BUT CANNOT BE EXCLUDED SOLOMON ECIALLY WHEN:1. ANY ILLNESS IS CONSISTENT WITH TB DISEASE.2. L IKELIHOOD OF PROGRESSION TO DISEASE (e.g. DUE TO IMMUNOSU PPRESSION) IS INCREASED.LIMIT ATIONS:DIAGNOSI NG OR EXCLUDING TUBERCULOSIS DISEASE, AND SESSING THE PROBABILITY OF LTBI, REQUIRES A COMBINATION O F EPIDEMIOLOGICAL , HISTORICAL, MEDICAL, AND DI AGNOSTIC FINDINGS THAT Karlo SLADE BE TAKEN INTO ACCOUNT WH EN INTERPRETING T-SPOT.TB REFER TO THE MOST RECENT CDC GUID ANCE (HTTP: //WWW.CDC.GOV/N CHSTP/TB) FOR DETAILED RECOMM ENDATIONSABOUT DIAGNOSING TB I NFECTION (INCLUDING DISE ASE) AND SELECTING PERSO NS FOR TESTING.1.) A F ALSE NEGATIVE RESULT CAN BE C AUSED BY INCORRECT BLOOD SAMPLECOLLECTIO N OR IMPROPER HANDLING OF THE SPECIMEN, AFFECTING LYMPH OCYTE FUNCTION2.) THE PERFORMANCE OF T-SPOT.TB HAS N OT BEEN ADEQUATELY EVAL UATED WITH SPECIMENS FROM INDIVIDUALS YOUNGER THAN A GE 17 YEARS, IN WOMEN, AND IN PATIENTS WITH H EMOPHILIA.3-) A FALSE POSITIVE RESULT WAS OBTAINED FOR T- SPOT.TB WHEN TESTED IN SUBJE CTS WITH M. XENOPI, M. KANS ASII, AND M. GORDONAE. WHIL E ESAT-6 AND CFP-10 ANTIGENS ARE ABSENT FROM BCG STRAIN S OF M. BOVIS AND FROM MOST E NVIRONMENTAL MYCOBACTERIA, I T IS POSSIBLE THAT A POSITIVE T-SPOT.TB RESULT MAY BE D UE TO INFECTION WITH M. KANSASI I, M. SZULGAI,M. GORD ONAE, OR M. MARINUM. ALTERN ATIVE TESTS WOULD BE REQUIR ED IF THESE INFECTIONS ARE SUSPECTED.4.) A NEGATIVE TEST R ESULT DOES NOT EXCLUDE THE POS SIBILITY OF EXPOSURE TO, OR INFECTION WITH, M. TUBERC ULOSIS. PATIENTS WITH R ECENT EXPOSURE TO TB INFECTED INDIVIDUALS EXHIBITING A NE GATIVE T-SPOT.TB RESUL T SHOULD BE CONSIDERED FOR RETESTING WITHIN 6 WEEKS OR IF OTHER RELEVANT CLINIC AL SYMPTOMS INDICATE POSSIB LE INFECTION.5.) A POSITIVE TEST RESULT DOES NOT RULE IN ACTIVE TB DISEASE; OTH ER TESTS SHOULD BE PERFORMED TO CONFIRM THE DIAGNOSIS OF AC TIVE TB DISEASE SUCH SPUTUM SMEAR AND CULTURE, PCR AN D CHEST RADIOGRAPHY.6.) T-SPOT.TB TEST HAS NOT BEEN EV ALUATED IN SUBJECTS WHO WOLF VE RECEIVED >1 MONTH OF ANTI-T B THERAPY.7. ) REFRIGERATED AN D FROZEN SAMPLES ARE NOT RECOMMENDED FOR USE WITH T= SPOT.TB TEST.Performed by:[facility] Molecular Tuber culosis Laboratory [facility] ([id number] [id number])[address] duplex venous lower [id number] 21:32:00Interface, Radiology Results In - 08/16/2020 9:32 PM FAMILY SERVICE COUNSELOR Vascular Ultrasound Laboratory Lower Extremity Venous [address] [place] [address] Pat.Name: NICKYERIC JR Pat.ID: [id number] .Date: 08/16/2020 Refer.MD: WILI BELTRAN MD Exam Time: 7:46:00 PM Study Type:LE Venous Age: 9 1950,70Y Sex: MALE Sonogrphr: VALERIA Aguirre, ARTEMIO Pat. Stat.:Inpatient Room: [facility] 0301-25 Tape Vol: [facility], [facility] - 4: [id number] Echo Event ID:[id number] Order ID: [id number] Reason for Study:Leg swelling or pain, DVT suspected. History of HTN,HLD, DMII, CAD, liver cirrhosis, Depression, obese and GERD Procedures: Colorflow, Grayscale/2D, Pulsed wave DopplerRace: C SUMMARY: DUPLEX SCAN OBSERVATIONS Deep Veins Superficial Veins Right Left Right Left GSV (prox) Normal NormalCFV Normal Normal (above knee)Femoral Normal Normal GSV (dist) Normal NormalProfunda Normal Normal (below knee)Popliteal Normal NormalPT (prox) Normal Normal SSV Normal NormalPT (dist) Not Visualized Normal Peroneal Normal Normal Gastrocs Normal NormalRIGHT: There is normal compressibility with no evidence of echogenicmaterial noted within the lumen of the visualized veins. Color flowand Doppler signals are normal.LEFT: There is normal compressibility with no evidence of echogenicmaterial noted within the lumen of the visualized veins. Color flowand Doppler signals are normal. PRELIMINARY FINDINGS:1. No evidence of venous thrombosis of the visualized veins,bilaterally.PHYSICIAN INTERPRETATION: Venous examination of the both lower extremities demonstrated noevidence of venous thrombosis in the visualized veins. Normalcompressibility and augmentation of all veins visualized. FINDINGS: Signed 08/16/2020 09:32 PMDarian Castillo MD, [facility] MethodistVitamin D 25 hydroxy [id number] 15:59:10 Test Item Value Reference Range Interpretation Comments Vitamin D, 25-hydroxy 11.2 ng/mL 30-150 L This a ssay reports (test code = 1989-) the sum of 25-hydroxy andrea min D3 and 25-hydro xy vitamin D2. Reference range :0-17 years:Deficienc y: less than 20ng/mLOptimum level: greater than or equal to 20 ng/mL.18 years and older:Deficienc y: less than 20ng/mLInsuffic iency : 20-29 ng/mLOp timum Level: 30-80 ng/mLThe assay reportable rang e is 3.4 155.9 ng/m L. Levels higher t harrison 150 ng/mL may b e associated with toxicity.If tox icity is clinically suspected and t he reported result is >155.9 ng/mL,co ntact lab for alterna tive methods to obta in a definitive lev el.If separate quantitation of 25-hydroxy andrea min D3 and 25-hydro xy vitamin D2 is needed, please contact lab for alternative met hods. Lab Interpretation Abnormal (test code = 99307-1) [facility] MethodistLactic acid [id number] 15:57:09 Test Item Value Reference Range Interpretation Comments Lactic acid (test code = 82484-9) 2.4 mmol/L 0.5-2.2 H Lab Interpretation (test code = Abnormal 93602-2) [place] MethodistCytomegalovirus Ab, [id number] 15:23:08 Test Item Value Reference Range Interpretation Comments Cytomegalovirus Ab, IgM (test code = Negative Negative 6175211) [place] MethodistAnti mitochondria [id number] 15:14:04 Test Item Value Reference Range Interpretation Comments Anti mitochondria screen (test Not Detected Not-Detected code = 1686) [place] MethodistAnti smooth muscle Ab [id number] 15:14:04 Test Item Value Reference Range Interpretation Comments Anti smooth muscle Ab screen Not Detected Not-Detected (test code = 262) [place] MethodistTransthoracic Echocardiogram Limited or Follow Up (w Contrast if needed)2020-08-16 12:55:00Interface, Radiology Results In - 08/16/2020 12:55 PM FAMILY SERVICE COUNSELOR Echocardiography Report [id number] [address] Pat.Name: ERIC SAUNDERS JR Pat.ID: [id number].Date: 08/16/2020 Refer.MD: WILI BELTRAN MD Exam Time: 9:16:00 AM Study Type:Routine Echo Height: 72.01in Weight: 277.2lb BSA: 2.45 m2 Age: 9 1950,70Y Sex: MALE BP: 100/44 HR: 56 bpm Sonogrphr: ARTEMIO Merritt, Adair Kapoor, RDCSPat. Stat.:Inpatient Room: [address] Study Status:Final Echo Event ID:[id number] Order ID: [id number] Reason for Study:decompensated cirrhosis, transplant evaluation.Evaluate for transpulmonary shunt, please document number of cardiaccycles.History / Clinical:Coronary Artery Disease, Diabetes, Hype rlipidemia,HypertensionProcedures: Portable, Intravenous Lumason Contrast, Intravenous SalineContrast, 2D Echo,Colorflow Doppler LimitedRace: C -----SUMMARY: LV size is normal. LV EF is hyperdynamic.RV size isnormal. RV systolic function is normal.Right to left shunt noted on agitated saline testing after twocardiac cycles at the atrial level through possible ASD versus PFO.Consider further imaging with FRANCISCO if clinically indicated.Normal diastolic function and LV filling pressures. FINDINGS: LV: LV size is normal. Concentric left ventricular remodeling. LV EF is hyperdynamic. Overall wall motion is hyperdynamic. Estimated EF is >70%.RV: RV size is normal. RV systolic function is normal.LA: LA volume is mildly enlarged.RA: RA size is normal.AO: Aortic root diameter is normal.JAVI: No pericardial effusion.Cntrst: Right to left shunt noted on agitated saline testing after two cardiac cycles at the atrial level through possible ASD versus PFO. Consider furtherimaging with FRANCISCO if clinically indicated. AV: Mild thickening and calcification of AV leaflets.MV: No structural MV abnormalities noted.PV: No structural PV abnormalities noted.TV: No structural TV abnormalities noted.Jacobs: Normal diastolic function and LV filling pressures.Other: Insufficient TR jet to estimate PA systolic pressure. -------MEASUREMENTS: 2DParasternal Long [place] Ao An 2.6 cm LVPWd 1.2 cm Ao Rtd 4.4 cm Index 1.8 cm/m2 LA Ds 4.3 cm IVSd 1.2 cm RWT 0.47 LVIDd 5.1 cm Index 2.1 cm/m2 LV Mass 241 g (122-174) LVIDs 2.8 cm LVM Index 98 g/m2 LV%fs 45 % LVOT 2.4 cm LA Sng Plane LA Area 25 cm2 (8.8-23.4) LA Vol 93 ml Index 38 ml/m2 LA LngAx 6.2 cm RA Sng Plane RAVol 30 ml Index 12 ml/m2 RA LngAx 5.2 cm RA Area 14 cm2 (8.3-19.5)LVOT LVOT Area 4.5 cm2 Signed 08/16/2020 12:55 Bradly [place] MethodistCytomegalovirus Ab, IgG 2020-08-16 10:04:40 Test Item Value Reference Range Interpretation Comments Cytomegalovirus Ab, IgG Negative Negative Nega tive; No CMV IgG (test code = 54577-8) antibo dies were detected. Jem MethodistCarcinoembryonic antigen (CEA)2020-08-16 08:25:43 Test Item Value Reference Range Interpretation Comments CEA (test code = 3.0 ng/mL 0-3.8 Reference r rishi for heavy 2039-01) smokers: 0.0 - 5.5 ng/mLThe [employer] Magda 8000 CEA immunoassay was used. Results obtaine d with different assay methods or kits should not be used interchangeably and may be different. [facility] MethodistAlpha [id number] 08:25:43 Test Item Value Reference Range Interpretation Comments Alpha fetoprotein 1.3 ng/mL 0-8.3 The Magda 8000 AFP (test code = immunoassay was used. 28802-5) Results obtaine d with different assay methods or kits should not be used interchang eably and may be differen t. Jem MethodistCortisol level, [id number] 07:30:26 Test Item Value Reference Range Interpretation Comments Cortisol, random 15 ug/dL Reference R anges are not (test code = 2143-6) establi shed for non-timed Cortisol levels .Reference Range for Timed Cortisol: 6 - 10 AM 6 - 18 ug/dl 4 - 8 PM 3 - 11 ug/ dl [facility] MethodistFerritin [id number] 07:30:26 Test Item Value Reference Range Interpretation Comments Ferritin level (test code = 2276-4) 128 ng/mL 30-400 [facility] MethodistThyroid stimulating [id number] 07:30:26 Test Item Value Reference Range Interpretation Comments TSH (test code = 3016-3) 3.83 0.27- 4.20 uIU/mL [place] MethodistLipid [id number] 07:27:09 Test Item Value Reference Range Interpretation Comments Cholesterol (test 90 mg/dL <200 code = 2093-3) Triglycerides (test 88 mg/dL <150 code = 2571-8) HDL cholesterol 33 mg/dL >40 L (test code = 2085-9) LDL cholesterol 37 mg/dL <100 Result obtai luis by direct (test code = 2089-1) LDL meg surement Lipid panel SeeBelow Total Cholester ol (mg/dL) interpretation (test < 200 code = 77745-0) Desirable 200-239 Borderline -high >=240 Hi gh Triglyceri andrew (mg/dL) <150 No rmal 150-199 Borderline-high 200-499 High >=500 Very high HDL Choles terol (mg/dL) <40 Low (male) < 40 Low (female) L DL Cholesterol (mg /dL) <100 Optimal 1 00-129 Near or above o ptimal 130-159 Borderline-high 160-189 High >=190 Very high Risk Cat ergories that modify LDL goals.Risk Catergories LDL goal (mg/dL )CHD and CHD risk equiva lent <100 (10-year risk >20%)Multiple ( 2+) risk factors < 130 (10-year risk = <20%)0-1 risk factors <160 (<10-ye ar risk) Defining levels of lipids in metabolic syndromeTriglyc erides > =150 mg/dLHDL Choles terol Men <40 mg/dL Women <40 mg/dL Non-HDL cholest ravi is a second target f or therapy in personswith high triglycerides ( >=200 mg/dL) Lab Interpretation Abnormal (test code = 00920-3) [facility] MethodistC-reactive [id number] 07:27:09 Test Item Value Reference Range Interpretation Comments CRP (test code = 1987-) 2.04 mg/dL 0-0.5 H Lab Interpretation (test code = Abnormal 76923-8) [facility] MethodistTotal iron binding [id number] 07:27:09 Test Item Value Reference Range Interpretation Comments Iron level (test code = 2498-4) 47 ug/dL 59-158 L Iron binding capacity (test code = 143 ug/dL 200-400 L 2500-7) % Saturation (test code = 2502-3) 32.9 % 20-40 Lab Interpretation (test code = Abnormal 22114-8) [facility] MethodistCeruloplasmin [id number] 07:19:22 Test Item Value Reference Range Interpretation Comments Ceruloplasmin (test code = 2064-4) 16 mg/dL 15-30 [facility] MethodistAlpha-1 antitrypsin [id number] 07:19:21 Test Item Value Reference Range Interpretation Comments Alpha-1 antitrypsin (test code = 104 mg/dL 90-200 6771-0) [place] MethodistHemoglobin [id number] 22:24:25 Test Item Value Reference Range Interpretation Comments Hemoglobin A1C (test 5.3 % 4-5.6 HbA1c c utoffs for code = 14413-5) diagnosing d iabetes:4.0% - 5.6% = normal 5.7% - 6.4% = increase d risk for diabetes (prediabetes)9> =6.5% = axvdgskk9Fetwt for glycemic contro l (ADA 2016)< 7.0% Ta rget for non milagro lts with diabetes. More or less stringent targe ts may be appropriate for individual mike ents. <7.5% Target for Children and ad olescents with type 1 donte betes. [facility] MethodistXR [id number] 21:41:43Hm Interface, Radiology Results 08/15/2020 9:44 PM CSTEXAMINATION: XR PANOREXCLINICAL HISTORY: Liver Transplant EvaluationCOMPARISON: None.IMPRESSION: There is a small lucency in the right third maxillary molar area of tooth decay.There is no periapical bone destruction or fracture [id number] Maria DistSyphilis total xpldqaev4258-20-15 20:40:28 Test Item Value Reference Range Interpretation Comments Syphilis total Non-reactive Non-reactive No serologica l antibody (test code evidence of syphilis = 6194) infection. Jem HendersonHIV Ag/Ab wlmnvxpiiyr0167-58-42 19:35:42 Test Item Value Reference Range Interpretation Comments HIV Ag/Ab combination (test code Non-reactive Non-reactive = 5299) Jem HendersonCancer antigen [id number] 19:03:27 Test Item Value Reference Range Interpretation Comments CA 19-9 (test code = 115 U/mL 0-35 H The Raciel he Magda 8000 1006) CA19-9 immunoas say was used. Results o btained with different assay methods or kits should not be used interchangeably and may be different. Lab Interpretation Abnormal (test code = 40735-7) Jem HendersonProstate specific [id number] 18:54:24 Test Item Value Reference Range Interpretation Comments PSA (test code = <0.1 0-4 The MAGDA 8 000 PSA 2857-1) immunoassay was used. Results obtained with d ifferent assay methods or kits should not be used interchang eably and may be different. Jem HendersonT4, [id number] 18:54:24 Test Item Value Reference Range Interpretation Comments T4, free (test code = 3024-7) 0.8 ng/dL 0.9-1.7 L Lab Interpretation (test code = Abnormal 91215-6) Jem HendersonPrealbumin tstry2404-75-81 18:52:11 Test Item Value Reference Range Interpretation Comments Prealbumin (test code = 6793-4) 11 mg/dL 16-32 L Lab Interpretation (test code = Abnormal 50494-4) Jem HendersonhCG qualitative, serum [id number] 18:33:42 Test Item Value Reference Range Interpretation Comments hCG qualitative, Negative Sensitivity of HCG test: serum (test code = 25 mIU/mL 8-8) [facility] MethodistArterial blood [id number] 17:39:04 Test Item Value Reference Range Interpretation Comments pH, arterial (test code = 2744-1) 7.39 7.35-7.45 pCO2, arterial (test code = 34 35- 45 mmHg L 2018-) pO2, arterial (test code = 111 80- 90 mmHg H 2703-7) Bicarbonate, arterial (test code 20.1 mmol/L 21-28 L = 1960-4) Base excess, arterial (test code -4 -2 - 2 mEq-L L = 1925-7) O2 saturation, arterial (test 99 % 95-100 code = 2708-6) Lab Interpretation (test code = Abnormal 22145-9) Jem HendersonUS [id number] 13:28:15Hm Interface, Radiology Results - 08/15/2020 1:31 PM CSTEXAMINATION: US RENALCLINICAL HISTORY: HYDRONEPHROSIS, does not need to drink water prior to examCOMPARISON: 08/05/2020IMPRESSION:1.The right kidney measures 15.1 cm in length.2. The left kidney measures 12.1 cm in length.3. Cysts: No cysts are identified.4. Hydronephrosis: There is no hydronephrosis.5. Masses: No suspicious masses.6. Calculi: No calculi7. Bladder: The bladder appears normal.8. Renal echogenicity: Within normal limits.9. Other Findings:Abdominal ascites. Cirrhosis of the liver.H-2JJ00625SWQgmjibq MethodistBeta kxbzgsdqbxgqvob9041-07-66 07:50:07 Test Item Value Reference Range Interpretation Comments Beta hydroxybutyrate (test code = 0.28 mmol/L 0.02-0.27 H 6873-4) Lab Interpretation (test code = Abnormal 27184-0) Jem HendersonHemochromatosis (HFE) 3 zqulfhrcb6186-28-29 17:43:28 Test Item Value Reference Range Interpretation Comments HFE PCR specimen (test Whole Blood code = 38595-4) C282Y hemochromatosis Negative mutation (test code = 50439-1) H63D hemochromatosis Negative mutation (test code = 31928-9) S65C hemochromatosis Negative mutation (test code = 94944-0) Hemochromatosis See Note Indication f or mutation testing: Juanita r interpretation (test screeni ng or code = 60606-6) diagnostic t esting for hereditary hemochromatosis . Hemochromatosis Interpretive Results:Negativ e WT:C282Y: Negat brandon The patient is negative for th e HFE C282Y mutation. H63D: Negative The p atient is negative for the HFE H63D mutation.S65C: Negative The p atient is negative for the HFE S65C mutation.Mutati ons in unidentified ge ihsan or other mutations in the HFE gene ar e not ruled out. This result has been reviewed and ap proved by Jem Hoffman, Ph.D.BACKGROUND INFORMATION: Hemochromatosis (HFE) 3 MutationsCHARAC TERIST ICS: Disorder o f iron metabolism resu lting in excessive ir on storage leading to increased skin pigmentation, arthritis, hypogonadism, diabetes mellit us, heart arrhythmias/kristyn lure, cirrhosis and l iver carcinoma.INCID ENCE: One in 300 individuals of [place] an descent; unknow n in other ethnicities.INH ERITAN CE: Autosomal recessive.PENET SHREYA: 5 percent of C2 82Y homozygotes, 1 percent of C282 Y/H63D compound heterozygotes a nd rare H63D homoz ygotes develop clinica l symptoms.CAUSE: 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 METHOD OLOGY: PCR and fluorescence monitoring.ANAL YTICAL SENSITIVTY AND SPECIFICITY: 99 percent.LIMITAT IONS: HFE mutations, other than those targ eted, will not be det ected. Diagnostic erro rs can occur due to ra re sequence variations.Test developed and characteristics determined by [facility]. S ee Compliance Stat ement C: [employer]/CSP erform ed by [employer], [address] [place] [address] www.[email or web address] , Prosper Guardado D - Lab. Director [facility] MethodistUrinalysis screen and microscopy, with reflex to culture 2020-08-09 23:26:29 Test Item Value Reference Range Interpretation Comments Specimen site (test code = Clean catch 6507737) Color, UA (test code = 5778-6) Straw Appearance, UA (test code = Clear 5767-9) Specific gravity, UA (test code = 1.009 1.001-1.035 5811-5) pH, UA (test code = 5803-2) 5.0 5.0-8.5 Protein, UA (test code = 73995-2) Negative Negative Glucose, UA (test code = 67277-5) Negative Negative Ketones, UA (test code = 2514-8) Negative Negative Bilirubin, UA (test code = Negative Negative 5770-3) Blood, UA (test code = 5794-3) Negative Negative Nitrite, UA (test code = 5802-4) Negative Negative Urobilinogen, UA (test code = <2.0 <2.0 07673-3) Leukocyte esterase, UA (test code Negative Negative = 5799-2) WBC, UA (test code = 5821-4) 1 0- 1 /HPF RBC, UA (test code = 63193-8) None seen 0- 5 /HPF Bacteria, UA (test code = Few None seen 42364-4) Yeast, UA (test code = 89152-6) None seen Yeast with pseudohyphae, UA (test None seen code = 52999-9) Hyaline casts, UA (test code = 1 /LPF 5796-8) [facility] MethodistOsmolality, akttu4381-00-22 16:44:02 Test Item Value Reference Range Interpretation Comments Osmolality, urine (test code = 337 50- 1,400 mOsm/kg 2695-5) [facility] MethodistSodium level, urine, dagzta1459-98-60 16:12:24 Test Item Value Reference Range Interpretation Comments Sodium, urine, random (test code = 100 mEq/L 17195-7) [facility] MethodistUrine [id number] 16:02:34 Test Item Value Reference Range Interpretation Comments Urine culture (test SEE COMMENT Bacteriu jerardo screen code = 4348574) negative. [facility] MethodistAlpha-1 antitrypsin eanexhuqj0134-37-07 20:01:34 Test Item Value Reference Range Interpretation Comments Alpha-1 antitrypsin 152 mg/dL 90-200 To conve rt to umol/L, (test code = 1825-9) multipl y mg/dL by 0.185 Alpha-1 antitrypsin M1S The pat ient appears to phenotype (test code be a he terozygote = 51589-0) having a phenot ype of Pi MS. The M al isabelle protein product is a normal variant. The S allele protein product is a deficiency variant that is associa luis with a less severe deficiency (approximately 60 percent of norm al serum concentrations) of the nutim-8-tshqahi e inhibitor than the classic Z varia nt (approximately 15 percent of norm al serum concentrations) . Individuals wit h this phenotype are r kayli at risk for develo pment of zmjwg-1-fjrhtop e inhibitor deficiency-rela luis hepatic or pulm onary disease. Cautio n in interpretation is advised if the patient has been transf used in the previous 21 days.Performed By: [employer] [place] [id number] Director: Fior Madera MD [facility] MethodistLiver-kidney microsome Ab, [id number] 20:58:08 Test Item Value Reference Range Interpretation Comments Liver-kidney <1:20 <1:20 INTERPRETIVE IN FORMATION: microsome Ab, IgG Liver-Kidn ey-Microsome Abs, (test code = IgGLiver-Kidney Microsome 42874-1) IgG antibody (a nti-LKM), as detected by ind irect immunofluoresce nt antibody (IFA) technique s, may be observed in pat ients with autoimmune hepa titis type 2 (AIH-2), AIH-2 associated with autoimmune polyendocrinopa thy-candidias is-ectodermal d ystrophy (APECED), viral hepatitis C or D, and some forms of drug-induced he patitis. This IFA does not di fferentiate among the four types of LKM antibodies (LKM -1, LKM-2, LKM-3, and a fo urth type that recognizes CY and CY antigens ). Of these, anti-LKM-1 (cyt ochrome G127NAN6) IgG a ntibodies are considered spec ific for AIH-2.Test deve loped and characteristics determined by [facility]. See Compliance Stat ement D: [employer]/CSP erformed By: [facility] [place], [place] [address]Ktxyicxglj Director: Fior Madera MD [facility] MethodistEC 12 [id number] 08:59:52 Test Item Value Reference Range Interpretation Comments Ventricular rate (test 132 code = 253) Atrial rate (test code 170 = 255) QRSD interval (test 82 code = 260) QT interval (test code 310 = 264) QTC interval (test 459 code = 265) QRS axis 1 (test code -21 = 268) T wave axis (test code 149 = 270) EKG impression (test Atrial fibrillation code = 273) with rapid ventricular response-Septal infarct (cited on or before 06-AUG-2020)-Abnormal ECG-In automated comparison with ECG of 06-AUG-2020 09:03,-ST no longer depressed in Inferior leads-Nonspecific T wave abnormality no longer evident in Inferior leads- [facility] DistHepatitis B surface Ab, [id number] 19:57:29 Test Item Value Reference Range Interpretation Comments Hepatitis B surface <3.10 IU/L The anti -HBs is less than Ab (test code = 10 IU/L and is therefore 5193-8) negative. There is no evidence of rec overy from hepatitis B inf ection or evidence of ant ibody response to HBV vaccination.An anti-HBs result greater than or equal to 10 IU/ L implies immunity. For post-vaccinatio n antibody testing guideli ihsan for the general public refer to MMWR July 272004/Vol. 54(No. 16);09-17 , and for healthcare work ers refer to MMWR July 272012/Vol. 62(No. 10);-19 .Reference Interval: anti- HBs 9.99 IU/L or less .. ..... Asduehah39.00 I U/L or greater .... PositiveResults greater than 1,000.00 I U/L are reported as gre ater than 1,000.00 IU/L. This assay should not be u sed for blood donor scr eening, associated re-e ntry protocols, or f or screening Human Cell, Tis sues and Cellular and Ti ssue-Based Products (HCT/P ).Performed By: [facility] [place] [id number] or Director: MD Jem AugustinOccult blood, [id number] 15:31:15 Test Item Value Reference Interpretation Comments Range Occult blood, stool Positive for A Specimen (test code = Occult blood InformationSpec imen 2334-1) [facility] Not other jay specified Lab Interpretation Abnormal (test code = 52880-3) Jem [id number] 11:12:36 Test Item Value Reference Range Interpretation Comments SILKE screen (test Negative Negative Test perfor med using NOVA code = 550) Lite DAPI SILKE k it (Indirect Immunofluoresce nce Assay) for Anti-Nuclea r Antibody on [employer] QUANTA-Ly ser 160 Analyzer. Jem HendersonHzgqwxktkVjpkewja0508-23-04 08:08:41 Test Item Value Reference Range Interpretation Comments Troponin (test code 0.007 ng/mL 0-0.04 In patie nts suspected = 11551-7) of having a sabina cardial infarction, [place] with all other appro priate clinical measur es and actions includi ng ECG and other diagn ostics as appropriate, measure Ultra TnI at 0 hrs and at 3 hrs.Myocar dial infarction VERY LIKELYThe 0 hr TnI level is > 0.10 ng/mL -------- -------- -------- --------Myocard ial infarction LIKE LYThe 0 hr TnI level is > 0.04 ng/mL and 3 hr level is increased or de creased by at least 0.0 20 ng/mL -------- -------- -------- ---Myocardial infarction VERY UNLIKELYBoth th e 0 hr and 3 hr TnI le vels <= 0.04 ng/mL(with in normal limits) OR 0 hr is > 0.04 ng/mL and 3 hr is increased OR decreased by le ss than 0.020 ng/mL [facility]US Abdomen Uyjnxazb0564-93-24 18:56:20Hm Interface, Radiology Results 08/05/2020 6:59 PM CSTEXAM: US ABDOMEN COMPLETECLINICAL D OLIVA: CIRRHOSISTECHNIQUE: Sonographic evaluation of the abdomen was performed.COMPARISON: NONE.IMPRESSION:1.Cirrhotic liver. The liver is enlarged. There are no discrete lesions. There is no evidence of intrahepatic biliary ductal dilation The common bile duct has normal caliber. The portal vein is pat ent with normal hepatopetal flow. 2.Layering sludge and stones in the gallbladder without evidence of cholecystitis.3.Limited views of the pancreas are unremarkable. 4.The kidneys are normal size. The kidneys have normal echogenicity. Vascular flow is unremarkable. There is no evidence of hydronephrosis, perinephric fluid, mass or calculus.5.The spleen has normal echogenicity. The spleen is enlarged measuring up to 14.5 cm. 6.Small ascites.7.Visualized aorta and IVC are unremarkable. [facility]-[id number] MethodistHepatitis B core antibody mhnpr2449-56-56 15:25:37 Test Item Value Reference Range Interpretation Comments Hepatitis B core total Ab (test Non-reactive Non-reactive code = 07687-9) [facility] MethodistHepatitis B core antibody [id number] 15:25:37 Test Item Value Reference Range Interpretation Comments Hepatitis B core IgM (test code Non-reactive Non-reactive = 45556-9) [facility] antibody [id number] 15:25:37 Test Item Value Reference Range Interpretation Comments Hepatitis A total Ab (test code Non-reactive Non-reactive = 66085-7) [facility] MethodistHepatitis A antibody [id number] 15:25:37 Test Item Value Reference Range Interpretation Comments Hepatitis A IgM (test code = Non-reactive Non-reactive 58936-8) [facility] MethodistHepatitis C eomlwlrd2655-62-11 15:25:37 Test Item Value Reference Range Interpretation Comments Hepatitis C Ab (test code = Non-reactive Non-reactive 86648-5) [facility] MethodistTransthoracic Echocardiogram Complete, (w Contrast, Strain and 3D if needed)2020-08-05 14:54:00Interface, Radiology Results In - 08/05/2020 2:55 PM FAMILY SERVICE COUNSELOR Echocardiography Report [address]Name: ERIC SAUNDERS Pat.ID: [id number].Date: 08/05/2020 Refer.MD: WILI BELTRAN MD Exam Time: 12:31:00 PM Study Type:Routine Echo Height: 70in Weight: 299lb BSA: 2.48 m2 Age: 9 1950,70Y Sex: MALE BP: 139/47 HR: 87 bpm Sonogrphr: ARTEMIO Bagley Pat. Stat.:Inpatient Room: [facility] Study Status:Final Echo Event ID:[id number] Order ID: [id number] Reason forStudy:Heart Failure; HF - Initial eval of known orsuspected HF (systeolic or diastolic) based on symptoms, signs, orabnormal test resultsProcedures: 2D Echo, Colorflow Doppler, Portable, Intravenous LumasonContrastRace: C SUMMARY: LV EF is hyperdynamic. Estimated EF is >70%.RV systolic function is normal.Estimated PA systolic pressure is 31 mmHg, assuming a mean RAP of 5mmHg. FINDINGS: LV: LV size is normal. LV EF is hyperdynamic. Overall wall motion is hyperdynamic. Estimated EF is >70%.RV: RV size is normal. RV systolic function is normal.LA: LA volume is difficult to assess but appears normal.RA: RA size is normal.AO: Aortic root diameter is normal.JAVI: No pericardial effusion.AV: No structural AV abnormalities noted.MV: No structural MV abnormalities noted.PV: No structural PV abnormalities noted.TV: No structural TV abnormalities noted.Jacobs: Normal diastolic function and LV filling pressures.Other: Estimated PA systolic pressure is 31 mmHg, assuming a mean RAP of 5 mmHg. MEASUREMENTS: 2DParasternal Long [place] Ao An 2.3 cm LVPWd 0.94 cm Ao Rtd 3.9 cm Index 1.6 cm/m2 LA Ds 3.7 cm IVSd 1.1 cm RWT 0.43 LVIDd 4.4 cm Index 1.8 cm/m2 LV Mass 152 g (122-174) LVIDs 2 cm LVM Index 61 g/m2 LV%fs 55 % LVOT 2.1 cm LVOT LVOT Area 3.6 cm2 DOPPLERLVOT Stroke Vol & Cardiac Out LVOT TVI 19 cm HR 182 bpm LVOT LVOT SV 69 ml LVOT CO 13 l/min SVi 28 ml/m2 LVOT CI 5.1 l/m/m2 Signed 08/05/2020 02:54 PMSKeith Diana Hepatitis B surface [id number] 14:51:51 Test Item Value Reference Range Interpretation Comments Hepatitis B surface Ab (test Non-reactive Non-reactive code = 44708-5) [facility] MethodistImmunoglobulin [id number] 14:15:51 Test Item Value Reference Range Interpretation Comments IgG (test code = 2465-3) 1078 mg/dL 700-1600 [facility] MethodistImmunoglobulin [id number] 14:15:51 Test Item Value Reference Range Interpretation Comments IgM (test code = 2472-9) 65 mg/dL 33-255 [facility] MethodistImmunoglobulin [id number] 14:15:51 Test Item Value Reference Range Interpretation Comments IgA (test code = 2458-8) 270 mg/dL 70-400 [facility] MethodistUric acid [id number] 14:15:51 Test Item Value Reference Range Interpretation Comments Uric acid (test code = 3084-1) 8.2 mg/dL 3.4-7 H Lab Interpretation (test code = Abnormal 91915-5) [facility] MethodistLipase [id number] 14:15:50 Test Item Value Reference Range Interpretation Comments Lipase (test code = 3040-3) 37 U/L 13-60 [facility] MethodistAmylase [id number] 14:12:06 Test Item Value Reference Range Interpretation Comments Amylase (test code = 1798-8) 23 U/L 28-100 L Lab Interpretation (test code = Abnormal 61378-7) [facility] MethodistCreatinine level, urine, azpawl5931-69-20 09:12:33 Test Item Value Reference Range Interpretation Comments Creatinine, urine, random (test 114 mg/dL code = 60239-3) [facility] MethodistLactic acid level, SEPSIS - Now and repeat 2x every 3 hours 2020-08-05 06:44:35 Test Item Value Reference Range Interpretation Comments Lactic acid (test code = 66624-9) 1.8 mmol/L 0.5-2.2 [facility] MethodistCBC nakydkii9668-37-19 06:24:28 Test Item Value Reference Range Interpretation Comments WBC (test code = 28626-5) 8.30 4.50- 11.00 k/uL RBC (test code = 92110-2) 3.67 m/uL 4.4-6 L HGB (test code = 718-7) 10.4 g/dL 14-18 L HCT (test code = 4544-3) 33.3 % 41-51 L MCV (test code = 787-2) 90.7 fL 82-100 MCH (test code = 785-6) 28.3 pg 27-34 MCHC (test code = 786-4) 31.2 g/dL 31-37 RDW - SD (test code = 06855-2) 50.4 fL 37-55 MPV (test code = 60916-7) 9.3 fL 8.8-13.2 Platelet count (test code = 142 150- 400 k/uL L 85053-0) Nucleated RBC (test code = 0.00 /100 WBC 36091-0) Lab Interpretation (test code = Abnormal 11548-5) [facility] MethodistUS Abdominal [id number] 21:48:06Hm Interface, Radiology Results 08/04/2020 9:51 PM CSTEXAMINATION: US ABDOMINAL DOPPLERC LINICAL HISTORY: Portal HTN, Portal vein thrombosis, r o portal vein thrombosisCOMPARISON: NoneTECHNIQUE: Haji scale, color Doppler and spectral waveform analysis of the hepatic vasculature.IMPRESSION:1. PORTAL VEINS: *Main portal vein: Patent with hepatopetal flow and a diameter of 1.3 cm. Portal vein velocity is 23 cm/sec. *Left Portal Vein: The left portal vein is patent with hepatopetal flow.*Right Portal Vein:The right portal vein is patent with hepatopetal flow.2. HEPATIC VEINS: *Right Hepatic Vein: The right hepatic vein is patent.*Middle Hepatic Vein: The middle hepatic vein is patent.*Left Hepatic Vein: The left hepatic vein is patent.3. HEPATIC ARTERIES: *Right Hepatic Artery: The right hepatic artery is patent.*Left Hepatic Artery: The left hepatic artery is patent.4. IVC: The inferior vena cava is patent.5. SMV: The superior mesenteric vein is patent.6. SPLENIC ARTERY/VEINS: *Splenic Artery/Vein at Spleen: The splenic artery/vein at the spleen are patent.*Splenic Artery/Vein at Midline: The splenic artery/vein at the midline are patent.Incidentally noted hepatic cirrhosis andmoderate to large ascites. [facility] MethodistAlcohol level, pfgmh2034-08-38 19:38:10 Test Item Value Reference Range Interpretation Comments Alcohol percent None Detected % Normal (test code = None Detec tedLegal 5643-2) Intoxication in [place] 80 mg/dL (0.08% ) - Whole BloodToxi c Concentration 200 mg/dL (0.2%)Potential ly Fatal 350 - 500 mg/dL (0.35 - 0 .5%) [facility] DistAmmonia [id number] 19:03:21 Test Item Value Reference Range Interpretation Comments Ammonia (test code = 1841-6) 32 umol/L 16-60 [facility]regationB natriuretic [id number] 17:19:06 Test Item Value Reference Range Interpretation Comments BNP (test code = 06882-1) 112 pg/mL 0-100 H Lab Interpretation (test code = Abnormal 82721-9) Jem HendersonCRITICAL [id number] 16:30:51BaDimitri cuenca MD 08/20/2020 10:43 PMCritical CarePerformed by: Dimitri Pierre MDAuthorized by: Dimitri Pierre MD Critical care provider statement: Critical care time (minutes): 45Critical care time was exclusive of: Separately billable procedures and treating other patients andteaching time Critical care was necessary to treat or prevent imminent or life-threatening deterioration of the following conditions: Metabolic crisis, renal failure and hepatic failure (hyperkalemia) Critical care was time spent personally by me on the following activities: Development of treatment plan with patient or surrogate, discussions with consultants, evaluation of patient's response to treatment, examination of patient, interpretation of cardiac output measurements, obtaining history from patient or surrogate, ordering and performing treatments and interventions, ordering and review of laboratory studies, pulse oximetry, re- evaluation of patient's condition and review of old charts Eric 'yes' if you are taking over critical care for this patient from another provider.: no Comments: Pt with cirrhosis, HE, p/w increasing swelling to bilateral extremities - found to have hyperkalemia , IV calcium gluconate, sodium bicarb, insulin, dextrose, neb albuterol, po kayexalate; + JENNIFER, empiric IV ceftriaxone for possible SBP, hepatology consulted, liver team consulted, admitted for [facility] eval.Jem Henderson
--- OUTSIDE RECORDS SUMMARY | 2020-09-13 13:47 | XMS REPORT | Summary of Care ---
:1950 Author Organization [facility] Address [address] [place] [id number] Care Team Providers Name Role Phone Chris Primary Care Provider Reason for Referral Radiology Services (Routine) Status Reason Specialty Diagnoses / Referred By Referred To Procedures Contact Contact New Request Diagnostic Diagnoses Alcoholic cirrhosis of liver with ascites Marquez Meredith Radiology Procedures IR PARACENTESIS/PERITONECENTESIS WITH IMAGING MD Miguel [address] [place] [address] Reason for Visit Radiology Services (Routine) Status Reason Specialty Diagnoses / Referred By Referred To Procedures Contact Contact New Request Diagnostic Diagnoses Alcoholic cirrhosis of liver with ascites Marquez Meredith Radiology Procedures IR PARACENTESIS/PERITONECENTESIS WITH IMAGING MD Miguel [address] [place] [id number] Encounter Details Date Type Department Care Team Description 07/27/2020 Hospital Encounter [facility] Marquez Meredith [facility] Interventional Radiology [address] [place] [address] [place] [address] [place], [place] [phone] Allergies No Known Allergiesdocumented as of this encounter (statuses as of 07/28/2020) Medications Medication Sig Dispensed Refills Start Date [...] as of this encounter (statuses as of 07/28/2020) Active Problems No known active problemsdocumented as of this encounter (statuses as of 07/28/2020) Social History Tobacco Use Types Packs/Day Years Used Date Never Smoker Smokeless Tobacco: Never Used Alcohol Use Drinks/Week oz/Week Comments No 0 Standard drinks or equivalent 0.0 Sex Assigned at Date Recorded Not on file COVID-19 Exposure Response Date Recorded In the last month, have you been in contact with No / Unsure 07/27/2020 12:32 PM STAMPER BLOCKER someone who was confirmed or suspected to have Coronavirus / COVID-19? documented as of this encounter Last Filed Vital Signs Not on filedocumented in this encounter Procedure Notes Manuelito Hagan DO - 07/27/2020 1:30 PM CSTVASCULAR AND INTERVENTIONAL RADIOLOGY PROCEDURE NOTE Pre-procedure diagnosis: Ascites, cirrhosis Post-procedure diagnosis: same Procedure: US-guided paracentesis Findings: Successful paracentesis with drainage of 5500 mL of serous yellow fluid from the RLQ. Albumin 25 grams IV given. Complications: None Condition: Stable Estimated blood loss: Minimal Full dictated note to follow in PACS. PER BLOCKER documented in this encounter Plan of Treatment Date Type Specialty Care Team Description 08/03/2020 Appointment Radiology Marquez Meredith MD [address] [place] [address] 555 Health Maintenance Due Date Last Done Comments [...] of this encounter Implants Implanted Type Area Flexographic Printing Machinist Device Shelf Model / Serial Identifier Expiration / Lot Date Lens LENS Left: Eye Ji 10/23/2020 [id number] / Implanted: Qty: 1 on 03/14/2016 by Sarmad Berrios MD at [facility] 9 [id number] / [id number] Lens LENS Right: Ji 10/23/2020 [id number] / Implanted: Qty: 1 on 03/28/2016 by Sarmad Berrios MD at [facility] Eye 7 [id number] / [id number] documented as of this encounter Procedures Procedure Name Priority Date/Time Associated Diagnosis Comme nts IR Routine 07/27/2020 2:41 PM Alcoholic cirrhosis R esults for this PARACENTESIS/PERITO STAMPER BLOCKER of liver with procedu re are in NECENTESIS WITH ascites the results IMAGING section. documented in this encounter Results IR PARACENTESIS/PERITONECENTESIS WITH IMAGING (07/27/2020 2:41 PM STAMPER BLOCKER) Specimen Impressions Performed At Successful image guided paracentesis. PACS/VR/DOSE Narrative Performed At EXAMINATION: IMAGE GUIDED PARACENTESIS. PACS/VR/DOSE HISTORY/INDICATION: ascites Limit to 6 liters ATTENDING PRESENCE: As the attending r adiologistEtienne was present in the room during the entire procedure. SEDATION: The patient did not require conscious sedati on for the procedure. TECHNIQUE: The risks, benefits and alternatives were d iscussed and informed consent was obtained. Prior to beginning the procedure , [place] Protocol was performed to confirm the identity [...] 1 percent lidocaine. Using real-time ultrasound guidance, a 5 Fr Yueh needle was advanced into the ascitic fluid. Approximately 5000 mL of serous yellow fluid was drain ed. 25 g of albumin 25 percent was given intravenously durin g the procedure. At the conclusion of the procedure the catheter was re moved and a sterile dressing applied to the site. ESTIMATED BLOOD LOSS: Minimal. CONDITION: Stable. DISCHARGED TO: Outpatient recovery and t hen discharged. FINDINGS: Ultrasound demonstrated a larg e amount of ascitic fluid. Procedure Note [facility], Radiant Results Inft User - 2019 2:46 PM STAMPER BLOCKER EXAMINATION: IMAGE GUIDED PARACENTESIS. HISTORY/INDICATION: ascites Limit to 6 liters ATTENDING PRESENCE: As the attending ra diologist, I was present in the room during the entire procedure. SEDATION: The patient did not require co nscious sedation for the procedure. TECHNIQUE: The risks, benefits and alter natives were discussed and informed consent was obtained. Prior to beginning the procedure, [place] Protocol was performed to confirm the identity [...] percent lidocaine. U sing real-time ultrasound guidance, a 5 Fr Yueh needle was advanced into the ascitic fluid. Approximately 5000 mL of serous yellow f luid was drained. 25 g of albumin 25 percent was given intravenously durin g the procedure. At the conclusion of the procedure the c atheter was removed and a sterile dressing applied to the site. ESTIMATED BLOOD LOSS: Minimal. CONDITION: Stable. DISCHARGED TO: Outpatient recovery and t hen discharged. FINDINGS: Ultrasound demonstrated a larg e amount of ascitic fluid. IMPRESSION Successful image guided paracentesis. Performing Organization Address City/State/Zipcode Phone Number PACS/VR/DOSE documented in this encounter Visit Diagnoses Diagnosis Alcoholic cirrhosis of liver with ascite s Alcoholic cirrhosis of liver documented in this encounter Insurance Payer Benefit Plan Subscriber ID Effective Phone Address Typ e / Group Dates AETNA - AETNA [id number] 2014-[address] Medic are Adv [place] [id number] [place] [address] documented as of this encounter
--- OUTSIDE RECORDS SUMMARY | 2020-09-13 13:47 | XMS REPORT | Summary of Care ---
:1950 Author Organization [facility] Address [address] [place] [address] Care Team Providers Name Role Phone Chris Primary Care Provider Reason for Visit Reason Comments Infusion Therapy Auth/Cert Status Reason Specialty Diagnoses / Procedures Referred By Mehul valladares Referred To Contact Phlebotomy Diagnoses [id number] [facility] Pob Lab Draw Procedures [facility] Professional Office Building [address] , [address] [place] [address] Phone: Fax: Encounter Details Date Type Department Care Team Description 06/09/2020 Nurse Visit [facility] Infusion Torres Cooper MD [address] [facility] [id number] [place] [address] Cirrhosis of liver Therapy - [place] [address], [facility] Infusion Chair with ascites, [address] [facility] un[address] d hepatic [address] cirrhosis type [place], [place] (Primary Dx) [address] Allergies No Known Allergiesdocumented as of this encounter (statuses as of 06/28/2020) Medications Medication Sig Dispensed Refills Start Date [...] the skin injection every 7 (seven) days. Hospital, Clinic, Ordered Dose Route Frequency Start Date End Date Status or Other Facility Administered Medication albumin (ALBUMINAR 95 g IV Infusion ONCE 06/09/2020 06/09/20 2 Discontinued 25%) 25 % 0 injection 95 g albumin 95 g IV ONCE 06/09/2020 Ended (PLASBUMIN) 25 % 0 injection 95 g documented as of this encounter (statuses as of 06/28/2020) Active Problems No known active problemsdocumented as of this encounter (statuses as of 06/28/2020) Social History Tobacco Use Types Packs/Day Years Used Date Never Smoker Smokeless Tobacco: Never Used Alcohol Use Drinks/Week oz/Week Comments No 0 Standard drinks or equivalent 0.0 Sex Assigned at Date Recorded Not on file COVID-19 Exposure Response Date Recorded In the last month, have you been in contact with No / Unsure 06/09/2020 11:41 AM CDT someone who was confirmed or suspected to have Coronavirus / COVID-19? documented as of this encounter Last Filed Vital Signs Vital Sign Reading Time Taken Comments Blood Pressure 115/48 06/09/2020 4:55 PM CDT M-70 Pulse 90 06/09/2020 4:55 PM CDT Temperature 35.9 C (96.6 F) 06/09/2020 4:25 PM CDT Respiratory Rate 16 06/09/2020 4:40 PM CDT Oxygen Saturation 98% 06/09/2020 4:55 PM CDT Inhaled Oxygen Concentration - - Weight 149.7 kg (330 lb) 06/09/2020 1:30 PM CDT Height 182.9 cm (6') 06/09/2020 1:30 PM CDT Body Mass Index 44.76 06/09/2020 1:30 PM CDT documented in this encounter Progress Notes Huong Washington RN - 06/09/2020 1:15 PM CDT1 1315 received patient from [employer] via w/c accompanied by son. nitriles lab technician reported 23,900 ml removed during procedure. Pt assisted to recliner. Pt cold, pale & c/o dizziness. Connected to monitors. Pt too cold for monitor to rock picker. Pt warmed with blankets. Temp 97.1f via temporal artery. BP 116/67 HR 72 1320 02 sat 97% after skin temp warm. Dr. Rascon notified 24Liters pulled off. No change in orders. 1345 report to Babar Mazariegos RN 1350 report to Babar Benavidez RN, Upholstery Tech; O2 sat 98% Tori Hilton RN - 06/09/2020 1:15 PM CDTContinuation from first progress note. 1404- V.O given per Dr. Rascon to infuse Albumin 25%/50ml to equal 95 gms total. After completion of infusion keep patient for 30 min to monitor vital signs then discharge. Read back. 1655- Patient A&OX3, no c/o of dizziness or shortness of breath. VSS. Son at . Patient discharged in stable condition. Instructed patient to follow up with MD for any concerns or questions. Escorted via wheel chair with son to transport van. Tonio Orozco RN - 06/09/2020 1:15 PM CDT Infusion Therapy Note ALLERGIES: Patient has no known allergies. Diagnosis (Primary)Hepatic Cirrhosis Diagnosis (Secondary)Ascites Time Out Patient identified by Name and Infusion verified with Uzma Mazariegos RNupholstery tech Type:Peripheral Site Location:right antecubital Blood return present:yes I.V. Flush:0.9 NS 10cc x 1 vial(s) I.V. Patent:yes I.V. Fluids:None Comments: HYDRATION/THERAPEUTIC DRUG DOSE ROUTE START TIME STOP TIME INFUSION THERAPY Albumin 95 G IV R AC 1529 1625 Comments: (1310) Pt arrived to infusion clinic via WC with [employer] tech (1315) Monitor applied, VSS WNL, denies pain, No signs of distress (1405) PIV to Right AC by Jacques MONTEIRO () Order verified by Uzma Mazariegos RN and Dr Rascon. Updated on amount removed per paracentesis. (1440) Medication verified and ordered from pharmacy (1529) Albumin infusion 95 g initiated (1625) IV infusion completed. Pt denies any complications or discomfort with infusion. (1440) Report given to Uzma MONTEIRO documented in this encounter Plan of Treatment Health Maintenance Due Date Last Done Comments [...] of this encounter Implants Implanted Type Area Rehanger Device Shelf Model / Serial Identifier Expiration / Lot Date Lens LENS Left: Eye Ji 10/23/2020 SN60WF / Implanted: Qty: 1 on 03/14/2016 by Sarmad Berrios MD at [facility] 1 [id number] / [id number] Lens LENS Right: Ji 10/23/2020 [id number] / Implanted: Qty: 1 on 03/28/2016 by Sarmad Berrios MD at [facility] Eye 6 [id number] / [id number] documented as of this encounter Results Not on filedocumented in this encounter Visit Diagnoses Diagnosis Cirrhosis of liver with ascites, unspeci fied hepatic cirrhosis type - Primary documented in this encounter Administered Medications Medication Order MAR Action Action Date Dose Rate Site albumin (PLASBUMIN) 25 % injection Given 06/09/2020 3:29 PM CDT 95 g 95 g 95 g, Intravenous, ONCE, 1 dose, Tammi 06/09/20 at 1445, 400 mL, Indication: LARGE VOLUME PARACENTESIS IN CIRRHOSIS (>5L) documented in this encounter Insurance Payer Benefit Plan Subscriber ID Effective Phone Address Typ e / Group Dates AETNA - AETNA [id number] 2014-Prese P O BOX Medic are Adv MANAGED MEDICARE ADV nt [id number] [place] [address] documented as of this encounter
--- OUTSIDE RECORDS SUMMARY | 2020-09-13 13:48 | XMS REPORT | Summary of Care ---
:1950 Author Organization [facility] - [facility] Address [address] [place] [address] Care Team Providers Name Role Phone Chris Primary Care Provider Reason for Visit Reason Comments Abdominal Pain Auth/Cert Status Reason Specialty Diagnoses / Referred By Referred To Procedures Contact Contact Emergency Medicine Adc Em ergency Dept [address] [place] [address] Fax: Encounter Details Date Type Department Care Team Description 09/07/2020 Emergency ADC-Emergency George Waters DO Other ascites (Primary Department [address] [place] [address]. Dx) [address] [facility] [address] [place] [address] [place] [address] [phone] Allergies No Known Allergiesdocumented as of this encounter (statuses as of 09/07/2020) Medications Medication Sig Dispensed Refills Start Date [...] as of this encounter (statuses as of 09/07/2020) Active Problems No known active problemsdocumented as of this encounter (statuses as of 09/07/2020) Social History Tobacco Use Types Packs/Day Years Used Date Never Smoker Smokeless Tobacco: Never Used Alcohol Use Drinks/Week oz/Week Comments No 0 Standard drinks or equivalent 0.0 Sex Assigned at Date Recorded Not on file COVID-19 Exposure Response Date Recorded In the last month, have you been in contact with No / Unsure 09/07/2020 8:34 AM SCREENER PERFUMER someone who was confirmed or suspected to have Coronavirus / COVID-19? documented as of this encounter Last Filed Vital Signs Vital Sign Reading Time Taken Comments Blood Pressure 98/52 09/07/2020 11:[address] Singer yamilka mooney. SCREENER PERFUMER Pulse 85 09/07/2020 11:03 AM SCREENER PERFUMER Temperature 35.9 C (96.6 F) 09/07/2020 8:48 AM SCREENER PERFUMER Respiratory Rate 16 09/07/2020 11:03 AM SCREENER PERFUMER Oxygen Saturation 97% 09/07/2020 11:03 AM SCREENER PERFUMER Inhaled Oxygen - - Concentration Weight 117.9 kg (260 lb) 09/07/2020 8:48 AM SCREENER PERFUMER Height 182.9 cm (6') 09/07/2020 8:48 AM SCREENER PERFUMER Body Mass Index 35.26 09/07/2020 8:48 AM SCREENER PERFUMER documented in this encounter Discharge Instructions InstructionsGeorge Waters DO - 09/07/2020 DIAGNOSIS Diagnoses that have been ruled out: None Diagnoses that are still under consideration: None Final diagnoses: Other ascites NO LIFE-THREATENING FINDINGS ON TODAY'S EXAM. PROCEDURES IN THE ER TODAY: Orders Placed This Encounter Procedures Paracentesis CBC WITHOUT DIFF MEDICATIONS ADMINISTERED IN THE ER TODAY AND DISCHARGE MEDICATIONS: No orders of the defined types were placed in this encounter. FOLLOW-UP RECOMMENDATIONS: RECOMMEND FOLLOW-UP WITH A PRIMARY CARE PROVIDER OR SPECIALIST IN 2-5 DAYS, ESPECIALLY IF NO IMPROVEMENT IN SYMPTOMS. MAY FOLLOW-UP WITH A PROVIDER OF YOUR CHOICE, SUCH : 1. A PHYSICIAN OF YOUR CHOICE 2. [facility], . LOCATIONS IN [facility] 3. [facility], [address] [place] [address]; [phone] OR, IF YOU WISH TO FOLLOW-UP WITHIN THE [facility], MAY TRY THESE OPTIONS (CLINIC APPOINTMENTS AVAILABLE ON [id number] BASIS): 1. SCHEDULE AN APPOINTMENT ONLINE AT [email or web address] 2. OR CALL THE [facility] ACCESS CENTER AT OR 3. OR CALL YOUR [facility] PHYSICIAN'S OFFICE DIRECTLY IF YOU ARE ALREADY AN ESTABLISHED [facility] PATIENT. RETURN TO ER FOR WORSENING OF SYMPTOMS. AttachmentsThe following attachments cannot be sent through Care Everywhere. Ascites (Belizean)Paracentesis, Discharge Instructions for (Belizean)documented in this encounter ED Notes Whitney Castrejon RN - 09/07/2020 8:47 AM CSTPt [facility] pain r/t ascites. Last paracentesis done approx 3 weeks ago. George Nickerson DO - 09/07/2020 8:35 AM CST EMERGENCY DEPARTMENT ENCOUNTER [facility] Patient Name: Duglas Morales Jr. 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 is a 70 year old male presenting for paracentesis for ascities. Unable to wait until 25th. Has shortness of breath related to ascities. Requesting only 6L taken off. Has probably 20L. Past Medical History / Immunizations Past Medical History: Diagnosis Date Anesthesia complication Hard time waking up Bone spur In neck - pt states it presses on airway when laying flat - he has a hard time breathing when laying flat and has a narrow airway Cataract Claustrophobia DM (diabetes mellitus) Hypertension Morbid obesity with BMI of 50.0-59.9, adult PAYAM on CPAP SOB (shortness of breath) Tetanus received in last 5 years: Unknown Past Surgical History Past Surgical History: Procedure Laterality Date PHACOEMULSIFICATION OF CATARACT WITH INTRAOCULAR LENS IMPLANT Left 03/14/2016 Surgeon: Sarmad Raphael MD; Location: [facility] OR [facility] PHACOEMULSIFICATION OF CATARACT WITH INTRAOCULAR LENS IMPLANT Right 03/28/2016 Surgeon: Sarmad Raphael MD; Location: [facility] OR [facility] TONSILLECTOMY Age 24 Allergies No Known Allergies Social History Tobacco Use Never smoked or used smokeless tobacco. Alcohol Use No. Drug Use No. Review of Systems Review of Systems Constitutional: Negative for fever. Respiratory: Positive for shortness of breath. Cardiovascular: Negative for chest pain. Gastrointestinal: Positive for abdominal distention. Negative for nausea and vomiting. Hematological: Does not bruise/bleed easily. Physical Exam BP 104/67 | Pulse 82 | Temp 35.9 C (96.6 F) (Oral) | Resp 23 | Ht 1.829 m (6') | Wt 117.9 kg (260 lb) | SpO2 98% | BMI 35.26 kg/m Physical Exam Constitutional: General: He is not in acute distress. Appearance: He is well-developed. HENT: Head: Normocephalic and atraumatic. Eyes: Pupils: Pupils are equal, round, and reactive to light. Neck: Musculoskeletal: Normal range of motion. Cardiovascular: Rate and Rhythm: Normal rate. Pulmonary: Effort: Pulmonary effort is normal. Abdominal: General: There is distension ( massive ascities). Palpations: There is fluid wave. Musculoskeletal: Normal range of motion. Skin: General: Skin is warm and dry. Neurological: Mental Status: He is alert and oriented to person, place, and time. Labs Recent Results (from the past 24 hour(s)) CBC WITHOUT DIFF Collection Time: 09/07/20 9:20 AM Result Value Ref Range WBC 8.19 4.20 - 10.70 10*3/L RBC 2.96 (L) 4.26 - 5.52 10*6/L HGB 8.6 (L) 12.2 - 16.4 g/dL HCT 26.9 (L) 38.4 - 49.3 % MCH 29.1 26.1 - 32.7 pg MCV 90.9 81.7 - 95.6 fL MCHC 32.0 31.2 - 35.0 g/dL PLT 177 150 - 328 10*3/L MPV 9.8 9.8 - 13.0 fL RDW-CV 16.3 (H) 12.1 - 15.4 % RDW-SD 53.9 (H) 38.5 - 51.6 fL NRBC x10^3 <0.01 10*3/L NRBC/100 WBC 0.0 0.0 - 10.0 /100 WBCs IPF % Imaging No results found for this visit on 09/07/20. Orders and Treatments Orders Placed This Encounter Procedures Paracentesis CBC WITHOUT DIFF No orders of the defined types were placed in this encounter. Procedures See ED Procedure Note / Paracentesis Notes & MDM Patient was evaluated for an emergency medical condition related to Abdominal Pain . Differential diagnoses considered by presenting complaints but not limited to: Malignant ascities, SBP, infection, thrombocytopenia, liver dysfunction, and others. ED Course as of Sep 07 1017SatSep 07, 2020 0957 PLT x10^3: 177 [PS] ED Course User Index [PS] George Waters DO Labs:were ordered, and resulted, any relevant abnormalities were considered. Imaging:Was not ordered IV fluids: not indicated Procedures:were performed as documented above. Assessment: Duglas Morales Jr. is a 70 year old male presenting for therapeutic paracentesis. 6L removed. Tolerated well. Stable for Dicharge. Return precautions given if symptoms worsen as documented in the discharge instructions. History, physical exam findings, results of visit, differential diagnosis, medication regimens and plan of future care have been considered. Additional MDM may be found in the ED course. Differential diagnosis considered and final disposition made based on information gathered during evaluation and may not be completely ruled out or specifically listed. Vital signs were rechecked before final disposition and determined to be stable. Diagnosis ICD-10-CM ICD-9-CM 1. Other ascites R18.8 789.59 Disposition & Follow Up ED Disposition ED Disposition Condition Comment Disch - Home Stable Patient's Medications START taking these medications No [...] taking these medications No medications on file Contact information for follow-up Kevin Perez Specialty: FM-FAMILY MEDICINE [address] [facility] [address] ADC-Emergency Department Specialty: Emergency Medicine [address] [place] [address] Instructions: If symptoms worsen as documented in the discharge George Waters DO 09/07/2020 9:03 AM ACTIVE COVID-19 PANDEMIC. documented in this encounter Miscellaneous Notes ED Nurse Note - Whitney Castrejon RN - 09/07/2020 11:21 AM CSTPt discharged with diagnosis of ascites. Printed and verbal instructions reviewed with and given to patient. No new prescription given for this visit. Pt verbalized understanding of teaching, medications, and recommended follow-up. Denies questions or concerns at this time. Trese from [facility] to transport patient back to facility. Pt appears in no apparent distress at discharge. D Nurse Note - Whitney Castrejon RN - 09/07/2020 10:32 AM CSTTransportation back to [facility] facility arranged with Trese. Report ETA 30-35 minutes. D Procedure Note - George Waters DO - 09/07/2020 10:17 AM CSTAssociated Order(s): Paracentesis Paracentesis Performed by: George Waters DO Authorized by: George Waters DO Consent: Consent obtained: Written Consent given by: Patient Risks discussed: Bleeding, bowel perforation, infection and pain Alternatives discussed: No treatment and delayed treatment Pre-procedure details: Procedure purpose: Therapeutic Preparation: Patient was prepped and draped in usual sterile fashion Anesthesia (see MAR for exact dosages): Anesthesia method: Local infiltration Local anesthetic: Lidocaine 1% WITH epi Procedure details: Ultrasound guidance: yes Puncture site: L lower quadrant Fluid removed amount: 6L Fluid appearance: Taylor and chylous Dressing: Adhesive bandage Post-procedure details: Patient tolerance of procedure: Tolerated well, no immediate complications ENER PERFUMER documented in this encounter Plan of Treatment [...] of this encounter Implants Implanted Type Area Clinical Laboratory Science Professor Device Shelf Model / Serial Identifier Expiration / Lot Date Lens LENS Left: Eye Ji 10/23/2020 SN60WF / Implanted: Qty: 1 on 03/14/2016 by Sarmad Berrios MD at [facility] 7 [id number] / [id number] Lens LENS Right: Ji 10/23/2020 SN60WF / Implanted: Qty: 1 on 03/28/2016 by Sarmad Berrios MD at [facility] Eye 4 [id number] / [id number] documented as of this encounter Procedures Procedure Name Priority Date/Time Associated Comments Diagnosis AL ABDOM PARACENTESIS Routine 09/07/2020 10:17 Re sults for this DX/THER W IMAGING AM SCREENER PERFUMER procedure are in GUIDANCE the results section. CBC WITHOUT DIFF STAT 09/07/2020 9:20 Other ascites Result s for this AM SCREENER PERFUMER procedure are i n the results section. NOTICE OF PRIVACY Routine 09/07/2020 8:34 PRACTICES AM SCREENER PERFUMER documented in this encounter Results Paracentesis (09/07/2020 10:17 AM SCREENER PERFUMER) Narrative Performed At George Waters DO 09/07/2020 10:1 8 AM Paracentesis Performed by: George Waters DO Authorized by: George Waters DO Consent: Consent obtained: Written Consent given by: Patient Risks discussed: Bleeding, bowel pe rforation, infection and pain Alternatives discussed: No treatmen t and delayed treatment Pre-procedure details: Procedure purpose: Therapeutic Preparation: Patient was prepped and draped in usua l sterile fashion Anesthesia (see MAR for exact dosages): Anesthesia method: Local infiltrati on Local anesthetic: Lidocaine 1% WITH epi Procedure details: Ultrasound guidance: yes Puncture site: L lower quadrant Fluid removed amount: 6L Fluid appearance: Taylor and chylous Dressing: Adhesive bandage Post-procedure details: Patient tolerance of procedure: Mari erated well, no immediate complications CBC WITHOUT DIFF (09/07/2020 9:20 AM SCREENER PERFUMER) Pathologist Sig nature WBC 8.19 4.20 - 10.70 [facility] 10*3/L HOSPITAL [facility] RBC 2.96 (L) 4.26 - 5.52 [facility] 10*6/L H[facility]ITAL [facility] HGB 8.6 (L) 12.2 - 16.4 g/dL [facility] HCT 26.9 (L) 38.4 - 49.3 % [facility] MCH 29.1 26.1 - 32.7 pg [facility] MCV 90.9 81.7 - 95.6 fL [facility] MCHC 32.0 31.2 - 35.0 g/dL [facility] PLT 177 150 - 328 10*3/L [facility] MPV 9.8 9.8 - 13.0 fL [facility] RDW-CV 16.3 (H) 12.1 - 15.4 % [facility] RDW-SD 53.9 (H) 38.5 - 51.6 fL [facility] NRBC x10^3 <0.01 10*3/L [facility] NRBC/100 WBC 0.0 0.0 - 10.0 /100 [facility] WBCs HOSPITAL LABORATORY IPF % [facility] Specimen Blood - VENOUS Performing Organization Address City/State/Zipcode Phone Number [facility] CLIA: [id number] [place] [address] documented in this encounter Visit Diagnoses Diagnosis Other ascites - Primary documented in this encounter Insurance Payer Benefit Plan Subscriber ID Effective Phone Address Typ e / Group Dates AETNA - AETNA MEBJVXWF 2014-Prese P O BOX Medic are Adv MANAGED MEDICARE ADV nt [id number] [place] [phone] documented as of this encounter"
--- OUTSIDE RECORDS SUMMARY | 2020-09-13 13:48 | XMS REPORT | Summary of Care ---
:1950 Author Organization [facility] Address [address] [place] [address] Care Team Providers Name Role Phone Chris Primary Care Provider Encounter Details Date Type Department Care Team Description 09/07/2020 Orders Only RUST Doctor Unassigned, No [address] [facility] [place] [address] [address] [place] [address] Allergies No Known Allergiesdocumented as of this [...] Assigned at Date Recorded Not on file documented as of this encounter Last Filed Vital Signs Not on filedocumented in this encounter Plan of Treatment Health [...] of this encounter Implants Implanted Type Area Supervisor Parking Lot Device Shelf Model / Serial Identifier Expiration / Lot Date Lens LENS Left: Eye Ji 10/23/2020 SN60WF / Implanted: Qty: 1 on 03/14/2016 by Sarmad Berrios MD at [facility] 4 [id number] / [id number] Lens LENS Right: Ji 10/23/2020 SN60WF / Implanted: Qty: 1 on 03/28/2016 by Sarmad Berrios MD at [facility] Eye 1 [id number] / [id number] documented as of this encounter Procedures Procedure Name Priority Date/Time Associated Diagnosis Comme nts CONSENT/REFUSAL FOR Routine 09/07/2020 8:33 AM [facility] documented in this encounter Results Not on filedocumented in this encounter Insurance Payer Benefit Plan Subscriber ID Effective Phone Address Typ e / Group Dates AETNA - AETNA MEBJVXWF 2014-Prese P O BOX Medic are Adv MANAGED MEDICARE AD[place] nt [id number] [place] [address] documented as of this encounter
--- OUTSIDE RECORDS SUMMARY | 2020-09-13 13:48 | XMS REPORT | Summary of Care ---
:1950 Author Organization [facility] Address [address] [place] [address] Care Team Providers Name Role Phone Chris Primary Care Provider Reason for Visit Reason Comments LAB WORK Encounter Details Date Type Department Care Team Description 08/03/2020 Finisher Plate Visit [facility] Oz Arevalo MD [address] [facility] [place] [phone] Other ascites PHLEBOTOMY/LAB [facility] [address] [facility] [address] [place] [address] Allergies No Known Allergiesdocumented as of this encounter (statuses as of 08/03/2020) Medications Medication Sig Dispensed Refills Start Date [...] as of this encounter (statuses as of 08/03/2020) Active Problems No known active problemsdocumented as of this encounter (statuses as of 08/03/2020) Social History Tobacco Use Types Packs/Day Years Used Date Never Smoker Smokeless Tobacco: Never Used Alcohol Use Drinks/Week oz/Week Comments No 0 Standard drinks or equivalent 0.0 Sex Assigned at Date Recorded Not on file COVID-19 Exposure Response Date Recorded In the last month, have you been in contact with No / Unsure 08/03/2020 12:28 PM CEMENTER HELPER someone who was confirmed or suspected to have Coronavirus / COVID-19? documented as of this encounter Last Filed Vital Signs Not on filedocumented in this encounter Nursing Notes Michelle Chaves - 08/03/2020 1:00 PM CST Venipuncture collection performed by clean technique on the left anticubitus. Total of 1 attempts were made. Slight pressure and a bandage/dressing were applied to the site(s). The patient experienced no complications. The following specimens were processed according to instructions and sent to [facility] laboratories per lab order on 08/03/2020: LT BLUE 1 SST RED LAV 1 PPT DK GREEN (LiHep) DK GREEN (SodH) CACERES DK BLUE (K2) DK BLUE (S) ACD Blood Culture NIPT/NTD documented in this encounter Plan of Treatment Date Type Specialty Care Team Description 08/03/2020 Hospital Encounter Radiology Marquez Meredith MD [address] [place] [address] 77 [phone] Health Maintenance Due Date Last Done Comments [...] of this encounter Implants Implanted Type Area Outpatient Clerk Device Shelf Model / Serial Identifier Expiration / Lot Date Lens LENS Left: Eye Ji 10/23/2020 SN60WF / Implanted: Qty: 1 on 03/14/2016 by Sarmad Berrios MD at [facility] 5 [id number] / [id number] Lens LENS Right: Ji 10/23/2020 [id number] / Implanted: Qty: 1 on 03/28/2016 by Sarmad Berrios MD at [facility] Eye 8 [id number] / [id number] documented as of this encounter Results Not on filedocumented in this encounter Visit Diagnoses Diagnosis Abnormal coagulation profile - Primary Other ascites Other ascites documented in this encounter Insurance Payer Benefit Plan Subscriber ID Effective Phone Address Typ e / Group Dates AETNA - AETNA MEBJVXWF 2014-Prese P O BOX Medic are Adv MANAGED MEDICARE ADV [place] [id number] [place] [address] documented as of this encounter
--- OUTSIDE RECORDS SUMMARY | 2020-09-13 13:48 | XMS REPORT | Summary of Care ---
:1950 Author Organization [facility] Address [address] [place] [address] Care Team Providers Name Role Phone Chris Primary Care Provider Reason for Referral Radiology Services (Routine) Status Reason Specialty Diagnoses / Referred By Referred To Procedures Contact Contact Closed Diagnostic Diagnoses Alcoholic cirrhosis of liver with ascites Marquez Meredith Radiology Procedures IR PARACENTESIS/PERITONECENTESIS WITH IMAGING MD Miguel [address] [place] [address] Reason for Visit Radiology Services (Routine) Status Reason Specialty Diagnoses / Referred By Referred To Procedures Contact Contact Closed Diagnostic Diagnoses Alcoholic cirrhosis of liver with ascites Marquez Meredith Radiology Procedures IR PARACENTESIS/PERITONECENTESIS WITH IMAGING MD Miguel [address] [place] [address] Encounter Details Date Type Department Care Team Description 08/03/[address] [facility] Marquez Meredith [facility] Interventional Radiology [address] [place] [address] [address] [place] [address] [place], [place] [phone] Allergies No Known Allergiesdocumented as of this encounter (statuses as of 08/04/2020) Medications Medication Sig Dispensed Refills Start Date [...] as of this encounter (statuses as of 08/04/2020) Active Problems No known active problemsdocumented as of this encounter (statuses as of 08/04/2020) Social History Tobacco Use Types Packs/Day Years Used Date Never Smoker Smokeless Tobacco: Never Used Alcohol Use Drinks/Week oz/Week Comments No 0 Standard drinks or equivalent 0.0 Sex Assigned at Date Recorded Not on file COVID-19 Exposure Response Date Recorded In the last month, have you been in contact with No / Unsure 08/03/2020 12:28 PM PHYSICAL SCIENCES PROFESSOR someone who was confirmed or suspected to have Coronavirus / COVID-19? documented as of this encounter Last Filed Vital Signs Vital Sign Reading Time Taken Comments Blood Pressure 115/77 08/03/2020 1:50 PM PHYSICAL SCIENCES PROFESSOR Pulse 85 08/03/2020 1:50 PM PHYSICAL SCIENCES PROFESSOR Temperature 35.6 C (96 F) 08/03/2020 1:19 PM PHYSICAL SCIENCES PROFESSOR Respiratory Rate 18 08/03/2020 1:50 PM PHYSICAL SCIENCES PROFESSOR Oxygen Saturation 98% 08/03/2020 1:50 PM PHYSICAL SCIENCES PROFESSOR Inhaled Oxygen Concentration - - Weight 149.7 kg (330 lb) 08/03/2020 1:19 PM PHYSICAL SCIENCES PROFESSOR Height 182.9 cm (6') 08/03/2020 1:19 PM PHYSICAL SCIENCES PROFESSOR Body Mass Index 44.76 08/03/2020 1:19 PM PHYSICAL SCIENCES PROFESSOR documented in this encounter Plan of Treatment Date Type Specialty Care Team Description 08/11/2020 Appointment Marquez Delacruz MD [address] [place] [address] 555 08/16/2020 Appointment Marquez Delacruz MD [address] [place] [address] 77 555 08/24/2020 Appointment Marquez Delacruz MD [address] [place] [address] 77 555 Health Maintenance Due Date Last Done [...] of this encounter Implants Implanted Type Area Supply Teacher Device Shelf Model / Serial Identifier Expiration / Lot Date Lens LENS Left: Eye Ji 10/23/2020 SN60WF / Implanted: Qty: 1 on 03/14/2016 by Sarmad Berrios MD at [facility] 4 [id number] / [id number] Lens LENS Right: Ji 10/23/2020 SN60WF / Implanted: Qty: 1 on 03/28/2016 by Sarmad Berrios MD at [facility] Eye 0 [id number] / [id number] documented as of this encounter Procedures Procedure Name Priority Date/Time Associated Diagnosis Comme nts IR Routine 08/03/2020 2:08 Alcoholic cirrhosis Resu lts for this PARACENTESIS/PERITON PM PHYSICAL SCIENCES PROFESSOR of liver with proced ure are in ECENTESIS WITH ascites the results IMAGING section. PROTHROMBIN TIME / Routine 08/03/2020 12:18 Abnormal coagulati on Results for this INR PM PHYSICAL SCIENCES PROFESSOR profile procedure are i n the results section. CBC WITH DIFF Routine 08/03/2020 12:18 Other ascites Results f or this PM PHYSICAL SCIENCES PROFESSOR procedure are i n the results section. documented in this encounter Results IR PARACENTESIS/PERITONECENTESIS WITH IMAGING (08/03/2020 2:08 PM PHYSICAL SCIENCES PROFESSOR) Specimen Impressions Performed At Successful US-guided paracentesis. PACS/VR/DOSE Narrative Performed At This result has an attachment that is no t available. PROCEDURE: US-guided paracentesis PACS/VR/DOSE HISTORY: Ascites, paracentesis is requested. MEDICATIONS: Local lidocaine. I reviewed the patient?s current medication list as noted in the nursing assessment, and the follo wing actions were taken: None []. ATTENDING PRESENCE: As the attending radiologist, I was present in the room during the entire procedure. TECHNIQUE: Informed consent was obtained from the mike ent after discussing the risks and benefits of the procedure. [place] pro tocol timeout was performed verifying correct patient, correct site, and correct procedure. Images were archived to PACS. The patient was prepped and draped in sterile fashion. US-guided drainage of the ascites was perform ed with a 5 Trinidadian sheathed needle, after infiltrating local anesthesia a t the puncture site. A total of 6000cc clear yellowish fluid was drained. 50 g IV albumin was given during the procedure. COMPLICATIONS: None. Estimated Blood Loss : <1 cc Procedure Note [facility], Radiant Results Inft User - 2019 3:23 PM PHYSICAL SCIENCES PROFESSOR PROCEDURE: US-guided paracentesis HISTORY: Ascites, paracentesis is reques luis. MEDICATIONS: Local lidocaine. I reviewed the patient?s current medication list as noted in the nursing assessment, and the following actions were taken: None []. ATTENDING PRESENCE: As the attending ra diologist, I was present in the room during the entire procedure. TECHNIQUE: Informed consent was obtained from the patient after discussing the risks and benefits of the procedure. [place] protocol timeout was performed verifying correct patient, cor rect site, and correct procedure. Images were archived to PACS. The patien t was prepped and draped in sterile fashion. US-guided drainage of the ascit es was performed with a 5 Trinidadian sheathed needle, after infiltrating loca l anesthesia at the puncture site. A total of 6000cc clear yellowish fluid was drained. 50 g IV albumin was given during the pro cedure. COMPLICATIONS: None. Estimated Blood L oss : <1 cc IMPRESSION Successful US-guided paracentesis. Performing Organization Address City/State/Zipcode Phone Number PACS/VR/DOSE PROTHROMBIN TIME / INR (08/03/2020 12:18 PM PHYSICAL SCIENCES PROFESSOR) PROTIME PATIENT 12.7 (H) 10.1 - 12.6 [facility] Seconds [facility] INR 1.1Comment: Normal [facility] INR <1.1; Warfarin [facility] Therapeutic range [facility] 2.0 to 3.0 or 2.5 to 3.5, depending upon the indications. Specimen Blood Performing Organization Address City/State/Zipcode Phone Number [facility] CLIA: [id number] [place] [address] [place] [address] [facility] CBC WITH DIFF (08/03/2020 12:18 PM PHYSICAL SCIENCES PROFESSOR) Pathologist Sig nature WBC 6.52 4.20 - 10.70 [facility] 10*3/L [facility] RBC 3.99 (L) 4.26 - 5.52 [facility] 10*6/L [facility] HGB 11.4 (L) 12.2 - 16.4 [facility] g/dL [facility] HCT 35.2 (L) 38.4 - 49.3 % [facility] MCV 88.2 81.7 - 95.6 fL [facility] MCH 28.6 26.1 - 32.7 pg [facility] MCHC 32.4 31.2 - 35.0 [facility] g/dL [facility] RDW-SD 48.8 38.5 - 51.6 fL [facility] RDW-CV 15.1 12.1 - 15.4 % [facility] PLT 162 150 - 328 [facility] 10*3/L [facility] MPV 9.5 (L) 9.8 - 13.0 fL [facility] NRBC/100 WBC 0.0 0.0 - 10.0 /100 [facility] WBCs [facility] NRBC x10^3 <0.01 10*3/L [facility] GRAN MAT (NEUT) % 81.4 % [facility] IMM GRAN % 0.50 % [facility] LYMPH % 7.7 % [facility] MONO % 7.8 % [facility] EOS % 2.1 % [facility] BASO % 0.5 % [facility] GRAN MAT x10^3(ANC) 5.31 1.99 - 6.95 [facility] 10*3/uL [facility] IMM GRAN x10^3 0.03 0.00 - 0.06 [facility] 10*3/uL [facility] LYMPH x10^3 0.50 (L) 1.09 - 3.23 [facility] 10*3/uL [facility] MONO x10^3 0.51 0.36 - 1.02 [facility] 10*3/uL [facility] EOS x10^3 0.14 0.06 - 0.53 [facility] 10*3/uL [facility] BASO x10^3 0.03 0.01 - 0.09 [facility] 10*3/uL [facility] Specimen Blood Performing Organization Address City/State/Zipcode Phone Number [facility] CLIA: [id number] [place] [address] [facility] [address] [place] [address] documented in this encounter Visit Diagnoses Diagnosis Abnormal coagulation profile - Primary Other ascites Alcoholic cirrhosis of liver with ascite s Alcoholic cirrhosis of liver documented in this encounter Administered Medications Medication Order MAR Action Action Date Dose Rate Site albumin (ALBUMINAR 25%) 25 % Given 08/03/2020 1:20 PM PHYSICAL SCIENCES PROFESSOR 50 g injection IV Infusion, PRN, Starting Sat08/03/20 at 1320, Until Sat08/03/20 at 1320 lidocaine 1% (PF) (XYLOCAINE) injection Given 08/03/2020 1:29 PM PHYSICAL SCIENCES PROFESSOR 10 mL PRN, Starting Sat08/03/20 at 1329, Until Sat08/03/20 at 1329, Routine documented in this encounter Insurance Payer Benefit Plan Subscriber ID Effective Phone Address Typ e / Group Dates AETNA - AETNA MEBJVXWF 2014-Prese P O BOX Medic are Adv MANAGED MEDICARE [place] nt [id number] [place] [address] documented as of this encounter
--- OUTSIDE RECORDS SUMMARY | 2020-09-13 13:48 | XMS REPORT | Summary of Care ---
:1950 Author Organization [facility] Address [address] [place] [address] Care Team Providers Name Role Phone Chris Primary Care Provider Reason for Visit Radiology Services (Routine) Status Reason Specialty Diagnoses / Referred By Referred To Procedures Contact Contact Authorized Diagnostic Diagnoses Alcoholic cirrhosis of liver with ascites Marquez Meredith Radiology Procedures IR PARACENTESIS STANDING MD Miguel [address] [place] [address] Encounter Details Date Type Department Care Team Description 07/27/2020 [facility] Marquez Arita Canceled (ERROR) Encounter [facility] MD Miguel Interventional [address] [facility] [address] [place] [id number] [place] [address] [phone] [phone] Allergies No Known Allergiesdocumented as of this [...] with No / Unsure 07/27/2020 12:32 PM REAL ESTATE SALES MANAGER someone who was confirmed or suspected to have Coronavirus / COVID-19? documented as of this encounter Last Filed Vital Signs Vital Sign Reading Time Taken Comments Blood Pressure 109/88 07/27/2020 1:02 PM REAL ESTATE SALES MANAGER Pulse 76 07/27/2020 1:02 PM REAL ESTATE SALES MANAGER Temperature - - Respiratory Rate 20 07/27/2020 1:02 PM REAL ESTATE SALES MANAGER Oxygen Saturation 93% 07/27/2020 1:19 PM REAL ESTATE SALES MANAGER Inhaled Oxygen Concentration - - Weight 149.7 kg (330 lb) 07/27/2020 1:02 PM REAL ESTATE SALES MANAGER Height - - Body Mass Index 44.76 06/09/2020 1:30 PM CDT documented in this encounter Plan of Treatment Date Type Specialty Care Team Description 08/03/2020 Appointment Radiology Marquez Meredith MD [address] [place], [place] [address] Health Maintenance Due Date Last [...] of this encounter Implants Implanted Type Area Mounter Brass Wind Instruments Device Shelf Model / Serial Identifier Expiration / Lot Date Lens LENS Left: Eye Ji 10/23/2020 SN60WF / Implanted: Qty: 1 on 03/14/2016 by Sarmad Berrios MD at [facility] 6 [id number] / [id number] Lens LENS Right: Ji 10/23/2020 SN60WF / Implanted: Qty: 1 on 03/28/2016 by Sarmad Berrios MD at [facility] Eye 5 [id number] / [id number] documented as of this encounter Results Not on filedocumented in this encounter Administered Medications Medication Order MAR Action Action Date Dose Rate Site albumin (ALBUMINAR 25%) 25 % Given 07/27/2020 1:20 PM REAL ESTATE SALES MANAGER 25 g injection IV Infusion, PRN, Starting Sat07/27/20 at 1320, Until Sat07/27/20 at 1320 documented in this encounter Insurance Payer Benefit Plan Subscriber ID Effective Phone Address Typ e / Group Dates AETNA - AETNA MEBJVXWF 2014-Hal P O BOX Medic are Adv MANAGED MEDICARE ADV nt [id number] [place] [address] documented as of this encounter
[2020-09-13 14:25] LABS: Protime INR 1.12
[2020-09-13 14:41] LABS: Absolute Lymphocytes (CBC) 0.9 K/uL (0.7-4.9); Basophils % 1.1 % (0-1.3); Hematocrit 26.6 % (39.6-49.0); MPV 8.5 fL (7.6-11.3); RBC Red Blood Cell Count 2.92 M/uL (4.33-5.43)
[2020-09-13 14:44] LABS: ALT/SGPT 110 U/L (12-78); AST/SGOT 165 U/L (15-37); Albumin 2.9 g/dL (3.4-5.0); Alkaline Phosphatase 813 U/L (45-117); BUN Blood Urea Nitrogen 46 mg/dL (7-18); Bicarbonate 26 mmol/L (21-32); Bilirubin Direct 2.1 mg/dL (0-0.2); Bilirubin Total 2.9 mg/dL (0.2-1.0); Glucose Level 163 mg/dL (74-106); Magnesium 2.4 mg/dL (1.8-2.4); NT PRO-BNP 1495 pg/mL (<125); Protein, Total 6.8 g/dL (6.4-8.2); Sodium Level 134 mmol/L (136-145); Troponin (Emerg Dept Use Only) < 0.02 ng/mL (0.0-0.045)
[2020-09-13] MEDS ORDERED: ONDANSETRON 4 MG/2 ML VIAL ONE (14:57)
[2020-09-13] MEDS ORDERED: FENTANYL CITR 100 MCG/2 ML ONE (14:57)
--- NOTE | 2020-09-13 15:35 | RAD REPORT ---
EXAM DESCRIPTION: RAD - Chest Single View - 09/13/2020 2:46 pm CLINICAL HISTORY: ABDOMINAL DISTENTION COMPARISON: None TECHNIQUE: AP portable chest image was obtained 09/13/2020 2:46 pm . FINDINGS: Lung volumes are low. No focal mass or consolidation identified. Low lung volumes accentua te the interstitial pattern. Minimal alveolar opacities are present probably minimal edema. Dialysis catheter in place. Heart and vasculature are normal. No measurable pleural effusion and no pneumothor ax. No acute bony abnormality seen. No acute aortic findings suspected. IMPRESSION: Limited portable study showing suspected mild edema.
--- NOTE | 2020-09-13 15:47 | RAD REPORT ---
EXAM DESCRIPTION: CT - Thorax Wo Con - 09/13/2020 3:26 pm CLINICAL HISTORY: DISTENTION, shortness of breath COMPARISON: Abdomen Pelvis Wo Contrast dated 09/13/2020; Chest Single View dated 09/13/2020 TECHNIQUE: Axial 5 mm thick images of the chest were obtained without IV contrast. All CT scans are performed using dose optimization technique as appropriate and may include automated exposure control or mA/KV adjustment according to patient size. FINDINGS: No suspicious mass or infiltrate of the lung parenchyma. Patient has a few calcified granu dalton. Small right-side and moderate left-side pleural effusions are present with partial atelectasis of each lower lobe. No pneumothorax. No pleural based mass. No abnormal mediastinal or hilar masses or lymphadenopathy seen. Aortic and Coronary artery calcifica tions are present. No cardiomegaly or pericardial effusion. Assessment is limited in the absence of I V contrast. No chest wall mass or abnormal axillary lymphadenopathy. Right-sided double-lumen catheter is in plac e. IMPRESSION: Moderate left-side and small right-sided pleural effusions with partial atelectasis. No cardiomegaly or pericardial effusion.
--- NOTE | 2020-09-13 15:57 | RAD REPORT ---
EXAM DESCRIPTION: CT - Abdomen Pelvis Wo Contrast - 09/13/2020 3:25 pm CLINICAL HISTORY: Abd pain;Abdominal distention COMPARISON: No comparisons TECHNIQUE: Axial [address] imaging of the abdomen and pelvis was performed without IV contrast. No IV contrast was given because of allergy, abnormal renal function, patient refusal or physician re quest. No oral contrast administered. All CT scans are performed using dose optimization technique as appropriate and may include automated exposure control or mA/KV adjustment according to patient size. FINDINGS: Moderate left-side and moderate right-sided pleural effusions are present further addresse d on separate CT chest report. The liver is grossly abnormal with a prominent nodular capsular contour. Attenuation is heterogeneous in the left lobe and posterior right lobe. This is in part due to significant spray artifact. The pa tient's arms were in place across the upper abdomen. The possibility of a 1 or more liver lesions can not be excluded. Borderline splenomegaly at 15 cm. No focal splenic lesion on noncontrast imaging. No pancreatic abnormality seen. No biliary tree dilatation or gross gallbladder abnormality seen. Galls tones can be occult. No hydronephrosis or suspicious renal mass. No significant adrenal finding. Isodense renal masses an d pyelonephritis cannot be excluded in the absence of IV contrast. Urinary bladder is mostly contract ed limiting assessment. No dilated bowel loops or bowel wall thickening. Patient has marked volume of ascites causing gross distention of the abdomen. Omental thickening and edema are present. The extent of ascites could mask the presence of any omental caking. Patient has a few small nonspecific central mesenteric lymph nod es. No large bulky lymphadenopathy. No hernia identified. Disc and bone degenerative changes are present. No pathologic bone finding. Arterial tree calcificati ons are present. IMPRESSION: Tense ascites with marked distention of the abdomen by very large volume of ascites. Advanced liver cirrhotic changes are evident. There are multiple areas of heterogeneous liver parench ymal attenuation. Hepatocellular carcinoma cannot be excluded on this noncontrast study.
[2020-09-13] MEDS ORDERED: FAMOTIDINE 20 MG/2 ML VIAL IV ONE (16:07)
--- NOTE | 2020-09-13 16:26 | EDPHYS ---
Physician Documentation [facility] Name: Duglas Morales Jr Age: 70 yrs Sex: Male : 1950 Arrival Date: 09/13/2020 Time: 13:37 Bed 2 Private MD: ED Physician Lloyd Moore HPI: 09/13 14:00 This 70 yrs old Male presents to ER via EMS with complaints of Abdominal cp Swelling. 14:00 The patient presents with abdominal pain that is diffuse, abdominal distention that is cp diffuse. Onset: The symptoms/episode began/occurred gradually. Associated signs and symptoms: Pertinent positives: nausea, Pertinent negatives: active vomiting. 14:00 Patient reports having paracentesis performed 1 week ago at [facility]. cp Historical: - Allergies: 13:49 Augmentin; jl7 13:49 Lyrica; jl7 13:49 Victoza 2-Casey; jl7 - Home Meds: 13:49 Humalog 100 unit/mL Sub-Q crtg [Active]; hydroxyzine HCl 25 mg Oral tab 1 tab [Active]; jl7 levothyroxine 50 mcg tab 1 tab once daily [Active]; metoprolol tartrate 25 mg Oral tab 1 tab 2 times per day [Active]; midodrine 5 mg oral tab 3 times per day [Active]; omeprazole 20 mg Oral cpDR 1 cap once daily [Active]; Zoloft 25 mg Oral tab 1 tab once daily [Active]; doxycycline hyclate 100 mg Oral cap 1 cap every 12 hours [Active]; - PMHx: 13:49 ESRD; Dialysis; M-W-F; Depression; Hypothyroidism; Metabolic encephalopathy; jl7 Hyperlipidemia; GERD; Diabetes - IDDM; CAD; Hypertension; Cirrhosis; - Immunization history:: Adult Immunizations up to date. - Social history:: Smoking status: Patient denies any tobacco usage or history of. ROS: 14:05 Constitutional: Negative for body aches, chills, fever, poor PO intake. cp 14:05 Eyes: Negative for injury, pain, redness, and discharge. cp 14:05 ENT: Negative for ear pain, sore throat, difficulty swallowing, difficulty handling secretions. 14:05 Cardiovascular: Positive for edema, Negative for chest pain, palpitations. 14:05 Respiratory: Positive for shortness of breath, at rest. Negative for cough, wheezing. 14:05 Abdomen/GI: Positive for abdominal pain, nausea, abdominal distension, Negative for vomiting, diarrhea, constipation, black/tarry stool, rectal bleeding. 14:05 Back: Negative for pain at rest, pain with movement. 14:05 Neuro: Negative for altered mental status, headache, weakness. 14:05 All other systems are negative. Exam: 14:10 Constitutional: The patient appears in no acute distress, alert, awake, cp non-diaphoretic, non-toxic, well developed, well nourished, obese, uncomfortable. 14:10 Head/Face: Normocephalic, atraumatic. cp 14:10 Eyes: Periorbital structures: appear normal, Conjunctiva: normal, no exudate, no injection, Sclera: no appreciated abnormality, Lids and lashes: appear normal, bilaterally. 14:10 ENT: External ear(s): are unremarkable, Nose: is normal, Mouth: Lips: moist, Oral mucosa: moist, Posterior pharynx: Airway: no evidence of obstruction, patent. 14:10 Chest/axilla: Inspection: normal, Palpation: is normal, no crepitus, no tenderness. 14:10 Cardiovascular: Rate: normal, Rhythm: regular, Edema: ankle edema, that is mild, JVD: is not appreciated. 14:10 Respiratory: the patient does not display signs of respiratory distress, Respirations: normal, no use of accessory muscles, no retractions, no splinting, no tachypnea, labored breathing, is not present, Breath sounds: are clear throughout, no decreased breath sounds, no stridor, no wheezing. 14:10 Abdomen/GI: Inspection: distension, that is severe, in the abdomen diffusely, Bowel sounds: active, all quadrants, Palpation: soft, in all quadrants, moderate abdominal tenderness, in all quadrants. 14:10 Skin: cellulitis, is not appreciated. 14:10 Neuro: Orientation: to person, place \T\ time. Mentation: is normal. 14:30 ECG was reviewed by the Attending Physician. cp Vital Signs: 13:37 BP 108 / 63; Pulse 84; Resp 19; Temp 97.9; Pulse Ox 98% ; Weight 117.93 kg; Pain 6/10; jl7 14:52 BP 113 / 67; Pulse 81; Resp 24; Pulse Ox 96% ; jl7 15:49 BP 117 / 61; Pulse 81; Resp 20; Pulse Ox 100% ; iw 16:29 BP 124 / 63; Pulse 89; Resp 17; Pulse Ox 99% ; jl7 21:05 BP 130 / 63; Pulse 80; Resp 16; Pulse Ox 99% on R/A; ea MDM: 13:46 Patient medically screened. yas 14:00 Differential diagnosis: bowel obstruction, urinary tract infection, ascites, CHF. cp 16:20 Physician consultation: Aaron Baumann MD was called at 16:15, was contacted at 16:15, cp regarding consult, patient's condition, spoke with medical front desk specialist who will give patient info to DR Baumann. 16:25 Physician consultation: Kevin Perez MD was called at 16:20, was contacted at 16:20, cp regarding admission, to the telemetry unit. patient's condition. 16:30 Data reviewed: vital signs, nurses notes, lab test result(s), EKG, radiologic studies, cp CT scan, plain films. 16:30 Test interpretation: by ED physician or midlevel provider: ECG. Counseling: I had a cp detailed discussion with the patient and/or guardian regarding: the historical points, exam findings, and any diagnostic results supporting the discharge/admit diagnosis, lab results, radiology results, the need for further work-up and treatment in the hospital. 09/13 13:53 Order name: Basic Metabolic Panel; Complete Time: 14:59 09/13 15:00 Interpretation: Normal except: NA 134; CL 96; GLUC 163; BUN 46; CRE 6.02; GFR 9. cp 09/13 13:53 Order name: CBC with Diff; Complete Time: 15:00 cp 09/13 15: Interpretation: Normal except: RBC 2.92; HGB 8.8; HCT 26.6; MCV 91.2; MCH 30.3; PLT cp 122; RDW 15.9; SAILAJA% 80.8; LYM% 10.0. 09/13 13:53 Order name: LFT's; Complete Time: 14:59 cp 09/13 15: Interpretation: Normal except: AST 165; ALT 110; ALK 813; BILIT 2.9; BILID 2.1; ALB cp 2.9; GLOB 3.9; A/G 0.7. 09/13 13:53 Order name: Magnesium; Complete Time: 14:59 cp 09/13 13:53 Order name: NT PRO-BNP; Complete Time: 14:59 cp 09/13 13:53 Order name: PT-INR; Complete Time: 14:59 cp 09/13 13:53 Order name: Troponin (emerg Dept Use Only); Complete Time: 14:59 cp 09/13 13:53 Order name: AMMONIA; Complete Time: 14:59 cp 09/13 13:53 Order name: Ptt, Activated; Complete Time: 14:59 cp 09/13 18:18 Order name: Basic Metabolic Panel EDNJ 09/13 18:18 Order name: Basic Metabolic Panel EDNJ 09/13 18:18 Order name: CBC with Automated Diff EDMS 09/13 18:18 Order name: CBC with Automated Diff EDNJ 09/13 13:53 Order name: XRAY Chest (1 view); Complete Time: 16:03 cp 09/13 13:53 Order name: EKG; Complete Time: 13:54 cp 09/13 13:53 Order name: Cardiac monitoring; Complete Time: 14:26 cp 09/13 13:53 Order name: EKG - Nurse/Tech; Complete Time: 14:25 cp 09/13 15:02 Order name: CT Abd/Pelvis - Without Contrast; Complete Time: 16:03 cp 09/13 15:24 Order name: Thorax Wo Con; Complete Time: 16:03 EDNJ 09/13 18:18 Order name: Dietitian Consult EDNJ 09/13 18:18 Order name: Renal EDNJ 09/13 18:18 Order name: Lipase EDNJ 09/13 18:18 Order name: Lipase EDNJ 09/13 18:18 Order name: Liver (Hepatic) Function EDNJ 09/13 18:18 Order name: Liver (Hepatic) Function EDNJ 09/13 18:18 Order name: SARS-COV-2 RT PCR EDNJ 09/13 13:53 Order name: IV Saline Lock; Complete Time: 14:41 cp 09/13 13:53 Order name: Labs collected and sent; Complete Time: 14:41 cp 09/13 13:53 Order name: O2 Per Protocol; Complete Time: 14:41 cp 09/13 13:53 Order name: O2 Sat Monitoring; Complete Time: 14:41 cp EC:30 Rate is 81 beats/min. Rhythm is regular. OR interval is normal. QRS interval is normal. cp QT interval is normal. T waves are Inverted in lead aVL. Interpreted by me. Reviewed by me. Administered Medications: 14:45 Drug: Zofran (Ondansetron) 4 mg Route: IVP; Site: left forearm; jl7 15:15 Follow up: Response: No adverse reaction jl7 14:47 Drug: fentaNYL (PF) 25 mcg Route: IVP; Site: left forearm; jl7 15:15 Follow up: Response: No adverse reaction; Pain is decreased jl7 15:56 Drug: Pepcid 20 mg Route: IVP; Site: left forearm; iw 16:30 Follow up: Response: No adverse reaction jl7 Disposition: 09/14 06:32 Co-signature as Attending Physician, Lloyd Moore MD I agree with the assessment and [facility] plan of care. Disposition: 09/13/20 16:25 Hospitalization ordered by Kevin Perez for Inpatient Admission. Preliminary diagnosis are Unspecified cirrhosis of liver, Ascites, Unspecified kidney failure. - Bed requested for Telemetry/MedSurg (Inpatient). - Status is Inpatient Admission. ea - Condition is Stable. - Problem is an ongoing problem. - Symptoms have improved. Signatures: Dispatcher [employer] EDMS Annie Whitney Diana, RN RN dw Anderson, Corey, MD MD cha Williams, Irene RN Lloyd Higgins PA PA cp Leal, Jahala, RN RN jl7 Antunez, Elena, RN RN ea Corrections: (The following items were deleted from the chart) 09/13 15:01 15:01 Normal except: AST 165; ALT 110; ALK 813; BILIT 2.9; BILID 2.1; ALB 2.9; GLOB cp 3.9. cp 17:22 16:31 CORONAVIRUS+MR.LAB.BRZ ordered. EDMS EDMS 17:46 13:53 Urine Dipstick-Ancillary ordered. cp iw 18:53 16:25 Hospitalization Ordered by Kevin Perez MD for Inpatient Admission. Preliminary bd diagnosis is Unspecified cirrhosis of liver; Ascites; Unspecified kidney failure. Bed requested for Telemetry/MedSurg (Inpatient). Status is Inpatient Admission. Condition is Stable. Problem is an ongoing problem. Symptoms have improved. cp 19:23 18:53 09/13/2020 16:25 Hospitalization Ordered by Kevin Perez MD for Inpatient jl7 Admission. Preliminary diagnosis is Unspecified cirrhosis of liver; Ascites; Unspecified kidney failure. Bed requested for [facility] ER HOLD. Status is Inpatient Admission. Condition is Stable. Problem is an ongoing problem. Symptoms have improved. bd 19:57 19:23 09/13/2020 16:25 Hospitalization Ordered by Kevin Perez MD for Inpatient dw Admission. Preliminary diagnosis is Unspecified cirrhosis of liver; Ascites; Unspecified kidney failure. Bed requested for [facility] ER HOLD. Status is Inpatient Admission. Condition is Stable. Problem is an ongoing problem. Symptoms have improved. jl7 21:06 19:57 09/13/2020 16:25 Hospitalization Ordered by Kevin Perez MD for Inpatient ea Admission. Preliminary diagnosis is Unspecified cirrhosis of liver; Ascites; Unspecified kidney failure. Bed requested for Telemetry/MedSurg (Inpatient). Status is Inpatient Admission. Condition is Stable. Problem is an ongoing problem. Symptoms have improved. dw
--- NOTE | 2020-09-13 16:26 | ER ---
Nurse's Notes [facility] Name: Duglas Morales Jr Age: 70 yrs Sex: Male : 1950 Arrival Date: 09/13/2020 Time: 13:37 Bed 2 Private MD: Diagnosis: Unspecified cirrhosis of liver;Ascites;Unspecified kidney failure Presentation: 09/13 13:37 Chief complaint: EMS states: Toned out for abd pain and distention, had a paracentesis jl7 1 week ago, abdomen is distended again, pt report nausea and diffuse abdominal pain. Coronavirus screen: Client denies travel out of the [place] in the last 14 days. At this time, the client does not indicate any symptoms associated with coronavirus-19. Ebola Screen: No symptoms or risks identified at this time. Initial Sepsis Screen: Does the patient meet any 2 criteria? No. Patient's initial sepsis screen is negative. Does the patient have a suspected source of infection? No. Patient's initial sepsis screen is negative. Risk Assessment: Do you want to hurt yourself or someone else? Patient reports no desire to harm self or others. Onset of symptoms is unknown. Care prior to arrival: None. Transition of care: patient was received from another setting of care (long-term care facility), [facility]. 13:37 Method Of Arrival: EMS: [facility] 13:37 Acuity: KELLY 2 jl7 Triage Assessment: 13:49 General: Appears in no apparent distress. uncomfortable, ill, Behavior is calm, jl7 cooperative, appropriate for age. Pain: Complains of pain in abdomen Pain currently is 6 out of 10 on a pain scale. Neuro: Level of Consciousness is awake, alert, obeys commands, Oriented to person, time, situation. Cardiovascular: Patient's skin is warm and dry. Respiratory: Airway is patent Respiratory effort is even, unlabored, Respiratory pattern is regular, symmetrical. GI: Abdomen is round distended, Reports nausea. Derm: Skin is pink, warm \T\ dry. Historical: - Allergies: 13:49 Augmentin; jl7 13:49 Lyrica; jl7 13:49 Victoza 2-Casey; jl7 - Home Meds: 13:49 Humalog 100 unit/mL Sub-Q crtg [Active]; hydroxyzine HCl 25 mg Oral tab 1 tab [Active]; jl7 levothyroxine 50 mcg tab 1 tab once daily [Active]; metoprolol tartrate 25 mg Oral tab 1 tab 2 times per day [Active]; midodrine 5 mg oral tab 3 times per day [Active]; omeprazole 20 mg Oral cpDR 1 cap once daily [Active]; Zoloft 25 mg Oral tab 1 tab once daily [Active]; doxycycline hyclate 100 mg Oral cap 1 cap every 12 hours [Active]; - PMHx: 13:49 ESRD; Dialysis; M-W-F; Depression; Hypothyroidism; Metabolic encephalopathy; jl7 Hyperlipidemia; GERD; Diabetes - IDDM; CAD; Hypertension; Cirrhosis; - Immunization history:: Adult Immunizations up to date. - Social history:: Smoking status: Patient denies any tobacco usage or history of. Screenin:09 Abuse screen: Denies threats or abuse. Denies injuries from another. Nutritional iw screening: No deficits noted. Tuberculosis screening: No symptoms or risk factors identified. 14:51 Fall Risk IV access (20 points). Total Hurley Fall Scale indicates No Risk (0-24 pts). jl7 Assessment: 13:35 General: See triage assessment. jl7 14:08 General: Appears uncomfortable, ill, obese, Behavior is calm. Pain: Complains of pain iw in abdomen. Neuro: Level of Consciousness is awake, alert, obeys commands, Oriented to person, place, time, situation. GI: Abdomen is distended, Bowel sounds present X 4 quads. Abd is rigid X 4 quads. Derm: Skin is fragile, Skin is pale. 14:50 Reassessment: Pt reports he does not make urine, ERP notified. jl7 16:50 Reassessment: pt repositioned for pain, sat up in bed, pt then placed in recliner iw chair, states he feels more comfortable sitting up. 18:00 Reassessment: Patient appears in no apparent distress at this time. Patient and/or jl7 family updated on plan of care and expected duration. Pain level reassessed. Patient is alert, oriented x 3, equal unlabored respirations, skin warm/dry/pink. 21:05 Reassessment: Patient and/or family updated on plan of care and expected duration. Pain ea level reassessed. Patient is alert, oriented x 3, equal unlabored respirations, skin warm/dry/pink. Pt admitted to second floor, report given to receiving nurse. Pt left ED via wheelchair tolerating well. Vital Signs: 13:37 BP 108 / 63; Pulse 84; Resp 19; Temp 97.9; Pulse Ox 98% ; Weight 117.93 kg; Pain 6/10; jl7 14:52 BP 113 / 67; Pulse 81; Resp 24; Pulse Ox 96% ; jl7 15:49 BP 117 / 61; Pulse 81; Resp 20; Pulse Ox 100% ; iw 16:29 BP 124 / 63; Pulse 89; Resp 17; Pulse Ox 99% ; jl7 21:05 BP 130 / 63; Pulse 80; Resp 16; Pulse Ox 99% on R/A; ea ED Course: 13:37 Patient arrived in ED. jl7 13:41 Triage completed. jl7 13:44 Lloyd Puga PA is PHCP. cp 13:44 Lloyd Moore MD is Attending Physician. cp 13:49 Arm band placed on right wrist. jl7 14:08 Initial lab(s) drawn, by sd, sent to lab. Inserted saline lock: 20 gauge in left iw forearm, using aseptic technique. Blood collected. 14:41 Arianna Blake RN is Primary Nurse. jl7 14:46 XRAY Chest (1 view) In Process Unspecified. EDMS 14:51 Patient has correct armband on for positive identification. Placed in gown. Bed in low jl7 position. Call light in reach. Side rails up X2. school lunch monitor on. Pulse ox on. NIBP on. 15:25 CT Abd/Pelvis - Without Contrast In Process Unspecified. EDMS 15:27 Thorax Wo Con In Process Unspecified. EDMS 16:24 Kevin Perez MD is Hospitalizing Provider. cp 19:20 No provider procedures requiring assistance completed. Patient admitted, IV remains in jl7 place. intact, No redness/swelling at site. 19:23 Report given to CAYETANO Loving. jl7 19:24 Primary Nurse role handed off by Arianna Blake RN jl7 Administered Medications: 14:45 Drug: Zofran (Ondansetron) 4 mg Route: IVP; Site: left forearm; jl7 15:15 Follow up: Response: No adverse reaction jl7 14:47 Drug: fentaNYL (PF) 25 mcg Route: IVP; Site: left forearm; jl7 15:15 Follow up: Response: No adverse reaction; Pain is decreased jl7 15:56 Drug: Pepcid 20 mg Route: IVP; Site: left forearm; iw 16:30 Follow up: Response: No adverse reaction jl7 Outcome: 16:25 Decision to Hospitalize by Provider. cp 21:04 Admitted to Med/surg accompanied by tech, via wheelchair, room 217, Report called to ea receiving nurse on second floor 21:04 Condition: stable 21:04 Instructed on the need for admit, Demonstrated understanding of instructions. 21:06 Patient left the ED. ea Signatures: Dispatcher [employer] EDMS Sofi Casanova RN RN iw Lloyd Puga PA PA cp Leal, Jahala, RN RN jl7 Antunez, Elena, RN RN ea Corrections: (The following items were deleted from the chart) 15:56 15:49 BP 117 / 61; Pulse 81bpm; Resp 80bpm; Pulse Ox 100%; jl7 iw 19:24 19:23 Patient left the ED. jl7 jl7
[2020-09-13] MEDS ORDERED: ONDANSETRON 4 MG/2 ML VIAL IV PRN (18:12)
[2020-09-13] MEDS ORDERED: GLUCAGON 1 MG/VIAL IM PRN (18:16)
[2020-09-13] MEDS ORDERED: D50W 25 GM/50 ML VIAL IV PRN (18:44)
[2020-09-13] MEDS ORDERED: MORPHINE 2 MG/ML SYR IV PRN (18:45)
[2020-09-13 21:50] VITALS: BMI 38.2
[2020-09-13] MEDS: INSULIN -REGULAR HUMAN 50 UNIT/0.5 ML ML SQ SCH (23:24)
[2020-09-14 06:28] LABS: Absolute Lymphocytes (CBC) 0.9 K/uL (0.7-4.9); Basophils % 1.2 % (0-1.3); Hematocrit 26.1 % (39.6-49.0); Lymphocytes % 11.4 % (15.3-44.8); MPV 8.4 fL (7.6-11.3); RBC Red Blood Cell Count 2.85 M/uL (4.33-5.43)
[2020-09-14 06:33] LABS: Albumin 2.7 g/dL (3.4-5.0); Bilirubin Direct 1.9 mg/dL (0-0.2); Bilirubin Total 2.7 mg/dL (0.2-1.0); Potassium 4.1 mmol/L (3.5-5.1); Protein, Total 6.6 g/dL (6.4-8.2)
[2020-09-14] MEDS: INSULIN -REGULAR HUMAN 50 UNIT/0.5 ML ML SQ SCH ×4 (08:30→21:58)
--- NOTE | 2020-09-14 12:11 | EKG ---
Test Date: 2020-09-13 Test Time: 14:21:48 Boarding Kennel Or Cattery Operator: SHANDRA MEASUREMENT RESULTS: Intervals: Rate: 81 LA: 178 QRSD: 96 QT: 410 QTc: 476 Sapello: P: 59 LA: 178 QRS: -44 T: 73 INTERPRETIVE STATEMENTS: Normal sinus rhythm Left axis deviation Low voltage QRS Possible Lateral infarct, age undetermined Abnormal ECG No previous ECG available for comparison Electronically Signed On 09-14-20 12:10:33 DRY CELL BATTERY ASSEMBLER by Tang Thapa
[2020-09-14] MEDS ORDERED: SENOSIDES 8.6 MG TAB PO PRN (15:27)
[2020-09-14] MEDS ORDERED: MAGNES/ALUMIN/SIMET 30ML UCUP PO PRN (15:27)
[2020-09-14] MEDS ORDERED: NITROGLYCERIN 0.4 MG/TAB SL PRN (15:27)
[2020-09-14] MEDS ORDERED: ONDANSETRON 4 MG (ODT) TAB PO PRN (15:27)
[2020-09-14] MEDS ORDERED: EPOETIN 4,000 UNIT/ML VIAL IV SCH (16:30)
--- NOTE | 2020-09-14 17:33 | CON ---
If Date of Consultation: 09/14/2020 Reason For Consultation: Elevated BUN and creatinine, dialysis management. History Of Present Illness: This is a pleasant 70-year-old gentleman with significant past medical history of hypertension, diabetes complicated with neuropathy, end-stage renal disease, recently started on dialysis 2 months ago through right IJ PermCath, cirrhosis, the patient came to the hospital because of increased abdominal girth and distention. We have been consulted to maintain his dialysis. The patient had paracentesis today with 4 L output. Past Medical History: Includes; 1. Hypertension. 2. Diabetes. 3. Cirrhosis. 4. End-stage renal disease. Past Surgical History: Includes PermCath placement, recurrent paracentesis. Family History: Positive for hypertension. Allergies: NO KNOWN DRUG ALLERGIES. Social History: Ex-smoker. Denied alcohol. Review of Systems: Head and Neck: No red eye. No ear pain. GI: Has abdominal girth, increased. Has pain. : No polyuria. No dysuria. No hematuria. PRINTED CIRCUIT BOARDS PINNER: Not applicable. Respiratory: Has shortness of breath. Cardiovascular: No chest pain. Endocrine: No polydipsia. Skin: No rash. Neuro: Has neuropathy. Musculoskeletal: Generalized fatigue. Physical Examination: Vital Signs: When I saw the patient, blood pressure 101/55, pulse of 77, afebrile. Chest: Crackles bilateral base. Heart: S1, S2. Regular. Abdomen: Soft. Ascites. Extremity: Plus edema. Neuro: Alert. No tremor. Laboratory Data: WBC 8.1, H and H 8.8/26.1, platelet 121. Sodium 134, potassium 4.1, bicarb 26, BUN 53, creatinine 6.5, calcium 9.3. Current Medications: The patient on in the hospital include; 1. Zoloft. 2. Nitroglycerin. 3. Midodrine. 4. Morphine p.r.n. 5. Lactulose. Assessment And Plan: 1. End-stage renal disease, slightly on the wet side. I am going to arrange for the dialysis Saturday, Saturday, Saturday. We will follow up. 2. Hypertension, currently hypotension. Keep using midodrine to support the blood pressure. 3. Ascites, status post paracentesis. We will follow up lab. 4. Anemia of chronic kidney disease. We will resume ABHI. 5. Secondary hyperparathyroidism. We will follow up with primary. Continue to follow up the phosphorus. 6. Anasarca secondary to renal failure, cirrhosis. We will try to challenge the patient. 7. Over volume secondary to renal failure. We will challenge the patient on the dialysis. time spend discussing with the patient face to face , placing order , discusse with the patient and other sales team manager including hospitalist 75 min. ELENA Voice ID: [id number] Report ID: [id number]
[2020-09-14 19:06] LABS: Appearance TURBID (CLEAR); Body Fluid Source PERITONEAL; Color of fluid Yellow (COLORLESS)
[2020-09-14 19:07] LABS: Body Fluid WBC 140 /mm^3
[2020-09-14] MEDS: ENSURE HIGH PROTEIN 237 ML CAN PO SCH (21:00)
[2020-09-14] MEDS ORDERED: HOME MED 1 EA UNK (Lactulose [Lactulose] 10 GM/15 ML Solution) PO SCH (21:00)
[2020-09-14] MEDS ORDERED: GLUCERNA SHAKE 237 ML CAN PO SCH (21:00)
[2020-09-14] MEDS ORDERED: HYDROCORTISONE 1 % CREAM 30GM TOP SCH (21:00)
[2020-09-14] MEDS: HYDROCORTISONE 1 % CREAM 30GM TOP SCH (21:00)
--- NOTE | 2020-09-14 21:18 | RAD REPORT ---
EXAM DESCRIPTION: US - Paracentesis Proc Guidance - 09/14/2020 11:05 am CLINICAL HISTORY: Liver disease with ascites FINDINGS: The risks, benefits and alternatives to the procedure were explained to the patient and in formed consent obtained. The skin and subcutaneous tissues were anesthetized with Lidocaine. Under sonographic guidance an 8 F rench catheter was placed into the right lower quadrant. 6 liters of yellow fluid was removed The patient experienced no immediate complication. IMPRESSION: Paracentesis
[2020-09-14] MEDS: SERTRALINE HCL 50 MG TAB PO SCH (21:56)
[2020-09-14] MEDS: LACTULOSE 20 GM/30 ML UCUP PO SCH (21:56)
[2020-09-14] MEDS: hydrOXYzine HCL 25 MG TAB PO PRN (21:57)
[2020-09-14] MEDS: MIDODRINE HCL 5 MG TABLET PO SCH (21:57)
[2020-09-15] MEDS: LEVOTHYROXINE SOD 0.05 MG TABLET PO SCH (05:38)
[2020-09-15 06:23] LABS: Albumin 2.8 g/dL (3.4-5.0); Phosphorus 5.4 mg/dL (2.5-4.9); Potassium 4.4 mmol/L (3.5-5.1)
[2020-09-15 06:28] LABS: Thyroid Stimulating Hormone 11.1 uIU/mL (0.360-3.740)
[2020-09-15] MEDS: PANTOPRAZOLE 40MG TABLET PO SCH (08:11)
[2020-09-15] MEDS: INSULIN -REGULAR HUMAN 50 UNIT/0.5 ML ML SQ SCH ×4 (08:11→20:19)
[2020-09-15] MEDS: MIDODRINE HCL 5 MG TABLET PO SCH ×3 (08:11→20:17)
[2020-09-15] MEDS: [UNRECOGNIZED DRUG - REMARK] NAS SCH (08:12)
[2020-09-15] MEDS: HYDROCORTISONE 1 % CREAM 30GM TOP SCH ×2 (08:12→20:19)
[2020-09-15] MEDS: LACTULOSE 20 GM/30 ML UCUP PO SCH ×3 (08:12→20:18)
[2020-09-15] MEDS: ENSURE HIGH PROTEIN 237 ML CAN PO SCH ×2 (08:13→20:18)
[2020-09-15] MEDS ORDERED: HOME MED 1 EA UNK (Omeprazole [Omeprazole] 20 MG Capsule.Dr) PO SCH (09:00)
--- NOTE | 2020-09-15 10:31 | CON ---
Reason For Consultation: Ascites, cirrhosis. History Of Presenting Illness: This patient is a 70-year-old gentleman with a past medical history o f hypertension; diabetes; end-stage renal disease, recently started on dialysis; cirrhosis, decompens ated, who came to the ER with complaints of increasing abdominal girth and distention. The patient s tates that he has cirrhosis and has ascites. He has had frequent paracentesis and the last 1 was don e around 1 week ago at [facility]. They had removed around 6 L of fluid. Allergies: AUGMENTIN, LYRICA AND VICTOZA. Home Medications: As in the chart. Past Medical History: As above. Past Surgical History: PermCath placement for dialysis. No other pertinent history. Social History: Denies any current toxic habits. Review of Systems: GI: As in HPI. General: As in HPI, otherwise negative. Remainder of 10-point review of system is negative. Physical Examination: Vital signs: Reviewed. He normotensive, not tachycardic, not tachypneic, afebrile. Head: Atraumatic, normocephalic. Eyes: Pupils equally reactive. Neck: Supple. Chest: Bilateral air entry. Abdomen: Significantly distended with edema of the abdominal wall. Extremities: Pedal edema positive. CHEF CONCIERGE: Alert, oriented x3. CVS: S1, S2 plus. Imaging Data: Reviewed, tense ascites. Impression: A 70-year-old gentleman with end-stage renal disease, ascites, cirrhosis, who has been seen in [facility] for this issue, now presents to our hospital. Plan: Continue current management. I agree with large volume paracentesis. Renal evaluation. No r ole of diuretics as he is already a dialysis patient. He will need to follow up with the Liver Trans plant and Hepatology at the [facility] for further plan of care. As his paracentesis is continuing, given the renal disease, I would not know if TIPS would be a better solution, but will defer the manuel conley as an outpatient basis to Liver Transplant and Hepatology. US/MODL Voice ID: [id number] Report ID: [id number]
--- NOTE | 2020-09-15 11:55 | PN ---
The patient underwent paracentesis today and over 6000 cc removed. He states he has had significant recurrences rather quickly as of late and he has undergone renal dialysis as well locally on 3 times a week basis. For the past few months, the patient continues to reside at [facility] or rehab. He states he still has not been able to walk, cannot bear weight with his legs and actuall y he has been hospitalized for over 60 days and has not been able to see his family during this time. Discussion of his situation with his cardio clinician, Dr. Rascon was done. The latter ref erred him to [facility] and apparently is now on the renal liver transplant list. Electrical Foreman sa id that he will recontact him to bring him up-to-date to his status. He has also had some blood pres sure problems, which has required some adjustment of his medication. However, he is fully orientated and depending on his results from this episode, we will determine his disposition. HR/MODL Voice ID: [id number] Report ID: [id number]
--- NOTE | 2020-09-15 11:55 | HP ---
Date of Admission: 09/13/2020 Entrance Complaint: Abdominal discomfort and distention. History Of Present Illness: The patient has a long history of the above-outlined symptoms. Patient has been diagnosed with cirrhosis and has undergone paracentesis on innumerable occasions at various locations including [facility], [facility], [facility], and [facility]. Last one was done approxim ately a week ago at [facility]. He does state that it has been filling up quicker than usual. On thi s occasion, he became a little more lethargic and uncomfortable and therefore presented to the emerge ncy room. He has been staying at the [facility] for the past few weeks for rehab. Ho wever, he states he has difficulty walking. His legs do not support him. Also during this time he h as developed renal failure and has been undergoing dialysis 3 times a week. Other significant factor has been his blood pressure, which he has had difficulty controlling. At one time, he was on medica tion including beta blockers for this. However, his blood pressure dropped and he has required suppo rtive treatment recently. Family History: Noncontributory. Social History: Nonsmoker, nondrinker. Physical Examination: General: Patient is an elderly male, hypotensive, orientated. Head and Neck: Normocephalic. Pupils are equal and reactive to light accommodation. Fundi negative . Trachea midline. Thyroid not palpable. ENT: Negative. Chest: Clear to P and A. Cardiovascular: PMI midclavicular line. Heart sounds normal. Peripheral pulses present and equal b ilaterally. Abdomen: Grossly distended. Slightly tender to palpation at umbilical area. Bowel sounds hypoactiv e. Extremities: Good tone and movement bilaterally. Reflexes physiologic. +2 pitting edema. Rectal: Deferred. Impression: Cirrhosis with ascites; end-stage renal disease; insulin-dependent diabetes mellitus, go od control; hypertension, poor control. Plan: Patient will be admitted. A procedure was obviously necessitated. He will continue with his dialysis. We will discuss the case further with his local glass washer and carrier as well as the [facility] team that he is apparently on the transplant list. HR/MODL Voice ID: [id number]
--- NOTE | 2020-09-15 12:40 | PN ---
Date of Progress Note: 09/15/2020 Subjective: The patient was admitted with ascites status post paracentesis. Yesterday tolerated paracentesis. We managed to remove 6 L. Objective: Vital signs: Blood pressure 100/57, pulse of 88, afebrile Chest: Decreased entry bilateral base. Heart: S1, S2. Systolic murmur. Abdomen: Ascites. Extremities: Plus edema, venous stasis. Laboratory Data: H and H 8.8/26.1. Sodium 133, potassium 4.4, bicarb 26, BUN 63, creatinine 7.4, calcium 9.2, phos 5.4, albumin 2.8. Current Medications: The patient on include: 1. Midodrine t.i.d. 15 mg. 2. tylenol 3. Epogen. 4. Heparin. 5. Nitroglycerin. 6. Zoloft. 7. Zofran. 8. Pantoprazole. Assessment And Plan: 1. End-stage renal disease. We will continue the patient on dialysis, TTS. 2. Secondary hyperparathyroidism. Stable. We will monitor. 3. Hypertension, currently low blood pressure. Continue using midodrine. 4. Anemia of chronic kidney disease. Continue ABHI. 5. Ascites secondary to cirrhosis. P.r.n. paracentesis. time spend discussing with the patient face to face , placing order , discusse with the patient and other stationary steam engineer including hospitalist 45 min. ELENA Voice ID: [id number] Report ID: [id number] MTDD
--- NOTE | 2020-09-15 15:37 | PN ---
Date of Progress Note: 09/15/2020 The patient states he feels better today. He is much more alert. He has his dialysis and discussed the problems with him getting a central area to do his paracentesis. We will discuss further with [facility]. Dialysis has been going on for approximately a month and during this time, as adi smith, he has had numerous paracentesis procedures and places ranging from [facility] in [place] to [facility] in [facility] to [facility], also started PT. HR/MODL Voice ID: [id number] Report ID: [id number]
--- NOTE | 2020-09-15 17:57 | PN ---
Date of Progress Note: 09/15/2020 Subjective: The patient is seen on dialysis. The patient had a paracentesis yesterday with 6 L. Blood pressure has been on the lower side. Physical Examination: Vital Signs: Blood pressure 101/62, pulse of 88. Chest: Decreased air entry bilateral base. Abdomen: Ascites. Extremities: Venous stasis change bilateral, +1 edema. Neurologic: Alert, oriented x3. No focal. Laboratory Data: The patient had blood flow of 350, goal of 2 L. Lab reviewed. Current Medications: Midodrine 15 mg t.i.d., Renvela, Epogen. Assessment And Plan: 1. End-stage renal disease, on dialysis. The patient had marginal blood pressure. I am going to go ahead and decrease the temperature on the machine to 36 to maintain good blood pressure. We will use sodium module for blood pressure support and we will monitor the patient. 2. Hypokalemia. We will dialyze the patient on high potassium bath. 3. Hypertension, currently hypotension. The patient is going to be dialyzed on low temperature and sodium module. Continue midodrine. 4. Cirrhosis, status post paracentesis. Discussed with Dr. Rascon and Dr. Perez, the PCP regarding the followup for the patient with transplant for kidney, liver and pancreas. The patient cleared from the renal standpoint for discharge planning to follow up as outpatient on the dialysis. I informed Dr. Page, his primary customer care agent to follow up for the patient. time spend discussing with the patient face to face , placing order , discusse with the patient and other steam service inspector including hospitalist 45 min. ELENA Voice ID: [id number] Report ID: [id number] SHAWN
[2020-09-15] MEDS: hydrOXYzine HCL 25 MG TAB PO PRN (20:16)
[2020-09-15] MEDS: SERTRALINE HCL 50 MG TAB PO SCH (20:16)
[2020-09-16] MEDS: LEVOTHYROXINE SOD 0.05 MG TABLET PO SCH (05:29)
[2020-09-16 06:25] LABS: Albumin 2.5 g/dL (3.4-5.0); Phosphorus 4.4 mg/dL (2.5-4.9); Potassium 4.1 mmol/L (3.5-5.1)
[2020-09-16] MEDS: LACTULOSE 20 GM/30 ML UCUP PO SCH ×3 (08:23→20:52)
[2020-09-16] MEDS: MIDODRINE HCL 5 MG TABLET PO SCH ×3 (08:23→20:52)
[2020-09-16] MEDS: INSULIN -REGULAR HUMAN 50 UNIT/0.5 ML ML SQ SCH ×4 (08:23→20:54)
[2020-09-16] MEDS: PANTOPRAZOLE 40MG TABLET PO SCH (08:23)
[2020-09-16] MEDS: ENSURE HIGH PROTEIN 237 ML CAN PO SCH ×2 (08:24→21:00)
[2020-09-16] MEDS: [UNRECOGNIZED DRUG - REMARK] NAS SCH (08:41)
[2020-09-16] MEDS: HYDROCORTISONE 1 % CREAM 30GM TOP SCH ×2 (08:41→20:53)
[2020-09-16] MEDS ORDERED: ACETAMINOPHEN 500 MG TAB PO PRN (15:05)
[2020-09-16] MEDS ORDERED: CEFTRIAXONE/SWI 1gm 1 GM/10 ML SYR IVP SCH (15:40)
[2020-09-16] MEDS ORDERED: CEFTRIAXONE 1000 MG/VIAL IVP SCH (16:00)
[2020-09-16 16:37] LABS: Absolute Lymphocytes (CBC) 1.4 K/uL (0.7-4.9); Basophils % 0.8 % (0-1.3); Hematocrit 28.7 % (39.6-49.0); Lymphocytes % 17.9 % (15.3-44.8); MPV 8.2 fL (7.6-11.3); RBC Red Blood Cell Count 3.08 M/uL (4.33-5.43)
[2020-09-16 17:14] LABS: Potassium 4.2 mmol/L (3.5-5.1)
--- NOTE | 2020-09-16 18:20 | PN ---
Date of Progress Note: 09/16/2020 The patient has developed some right lower quadrant tenderness and discomfort, which he says has been present for most of the day. Seemed to be somewhat progressive. Afebrile. No vomiting. No diarrh ea. However, on examination, he is quite tender. Some questionable rebound tenderness in this area. We will obtain a CT scan. The patient is now 24 hours post dialysis and 48 hours post paracentesis . This feels like he may be regaining some fluid. Depending on the results of his CT scan, we will determine the next situation. Rocephin will also be started. HR/MODL Voice ID: [id number] Report ID: [id number]
--- NOTE | 2020-09-16 19:50 | RAD REPORT ---
EXAM DESCRIPTION: CT - Abdomen Pelvis Wo Contrast - 09/16/2020 7:05 pm CLINICAL HISTORY: Abdominal pain COMPARISON: Abdomen Pelvis Wo Contrast dated 09/13/2020; Paracentesis Proc Guidance dated 09/14/2020 TECHNIQUE: Axial [address] imaging of the abdomen and pelvis was performed without IV contrast. No IV contrast was given because of allergy, abnormal renal function, patient refusal or physician re quest. No oral contrast administered. All CT scans are performed using dose optimization technique as appropriate and may include automated exposure control or mA/KV adjustment according to patient size. FINDINGS: Moderate left pleural effusion is present similar to comparison. Trace right pleural fluid collections seen. No cardiomegaly. Liver is grossly abnormal. Lobulated capsule contour and heterogeneous parenchyma noted. Artifact is present from the patient's arms placed across his abdomen. Liver shows advanced cirrhotic change. Het erogeneity of the parenchyma could indicate the presence of hepatocellular carcinoma or multifocal HC C. The spleen, pancreas, gallbladder, biliary tree but without new finding. No hydronephrosis or suspicious renal mass. No significant adrenal finding. Isodense renal masses an d pyelonephritis cannot be excluded in the absence of IV contrast. The urinary bladder is without sig nificant finding. No gastric dilatation or wall thickening. No acute GI process identifiable. No free air or pneumatosi s. Large volume of ascites is still present. No hernia, mass or bulky lymphadenopathy. No suspicious bony findings. IMPRESSION: Large volume of ascites is still present. Volume has been reduced since September 13. Mode rate left pleural effusion is still present. Advanced cirrhotic liver changes with findings concerning for hepatocellular carcinoma. Full assessment is limited is the absence of IV contrast.
[2020-09-16] MEDS: SERTRALINE HCL 50 MG TAB PO SCH (20:51)
[2020-09-16] MEDS: hydrOXYzine HCL 25 MG TAB PO PRN (20:51)
[2020-09-17] MEDS: LEVOTHYROXINE SOD 0.05 MG TABLET PO SCH (05:35)
[2020-09-17 05:58] LABS: Absolute Lymphocytes (CBC) 0.4 K/uL (0.7-4.9); Hematocrit 28.3 % (39.6-49.0); Lymphocytes % 4.9 % (15.3-44.8); MPV 8.4 fL (7.6-11.3); RBC Red Blood Cell Count 3.06 M/uL (4.33-5.43)
[2020-09-17 06:18] LABS: Albumin 2.5 g/dL (3.4-5.0); Phosphorus 4.5 mg/dL (2.5-4.9); Potassium 4.5 mmol/L (3.5-5.1)
[2020-09-17] MEDS: INSULIN -REGULAR HUMAN 50 UNIT/0.5 ML ML SQ SCH ×4 (08:02→21:21)
[2020-09-17] MEDS: MIDODRINE HCL 5 MG TABLET PO SCH ×3 (08:03→21:20)
[2020-09-17] MEDS: LACTULOSE 20 GM/30 ML UCUP PO SCH ×3 (08:03→21:22)
[2020-09-17] MEDS: PANTOPRAZOLE 40MG TABLET PO SCH (08:03)
[2020-09-17] MEDS: hydrOXYzine HCL 25 MG TAB PO PRN (08:03)
[2020-09-17] MEDS: HYDROCORTISONE 1 % CREAM 30GM TOP SCH ×2 (08:05→21:00)
[2020-09-17] MEDS: [UNRECOGNIZED DRUG - REMARK] NAS SCH (08:05)
[2020-09-17] MEDS: ENSURE HIGH PROTEIN 237 ML CAN PO SCH ×2 (08:05→21:00)
--- NOTE | 2020-09-17 14:21 | PN ---
Date of Progress Note: 09/17/2020 The patient states his discomfort is still present and he is needle loom tender in the right lower quadrant . It feels like a bruise according to him, which is unusual after his multiple paracentesis. I will discuss the plan going forward with his liver specialist in [place] on Saturday. He underwent dialysi s today. He is still having some problems with stability of his blood pressure. His CT scan did mathieu w accumulation of significant amount of fluid. We will discuss this issue with the pathologist as we ll. HR/MODL Voice ID: [id number] Report ID: [id number]
--- NOTE | 2020-09-17 15:53 | P.PN ---
Subjective Date of Service: 10/20/20 Chief Complaint: Dizziness, weakness Pt seen and evaluated. Pt still feeeling poorly. Review of Systems 10-point ROS is otherwise unremarkable Physical Examination - Vital Signs Temperature: 98.9 F Blood Pressure: 105/56 Pulse: 91 Respirations: 19 Pulse Ox (%): 99 - Physical Exam General: Alert (Complainiing of presistent dizziness, and weakness, Abdomen slightly tender and improving. ) HEENT: Atraumatic, PERRLA, EOMI Neck: Supple, JVD not distended Respiratory: Diminished Cardiovascular: Edema Capillary refill: <2 Seconds Gastrointestinal: Distended Integumentary: No cyanosis Urinary: Dialysis catheter Assessment & Plan Physician Review Additional Text: Problems JENNIFER 2/2 hepatorenal syndrome. Being followed by liver transplant Hypertension now hypotensive Dizziness Weakness Plan Hd today with albumin and lower dialysate temperature Continue midodrine. Encouraged to orally hydrate Caution with position changes Agree with primary, pt needs to transfer to a tertiary center where he can be closely monitored under liver transplant team.
[2020-09-17] MEDS: CEFTRIAXONE/SWI 1gm 1 GM/10 ML SYR IVP SCH (17:55)
[2020-09-17] MEDS: SERTRALINE HCL 50 MG TAB PO SCH (21:26)
[2020-09-18] MEDS: LEVOTHYROXINE SOD 0.05 MG TABLET PO SCH (05:22)
[2020-09-18 06:18] LABS: Albumin 2.4 g/dL (3.4-5.0); Phosphorus 3.9 mg/dL (2.5-4.9)
[2020-09-18 06:22] LABS: Potassium 4.1 mmol/L (3.5-5.1)
[2020-09-18] MEDS: LACTULOSE 20 GM/30 ML UCUP PO SCH ×3 (08:13→20:38)
[2020-09-18] MEDS: PANTOPRAZOLE 40MG TABLET PO SCH (08:13)
[2020-09-18] MEDS: MIDODRINE HCL 5 MG TABLET PO SCH ×3 (08:13→20:38)
[2020-09-18] MEDS: hydrOXYzine HCL 25 MG TAB PO PRN (08:13)
[2020-09-18] MEDS: INSULIN -REGULAR HUMAN 50 UNIT/0.5 ML ML SQ SCH ×4 (08:15→20:39)
[2020-09-18] MEDS: [UNRECOGNIZED DRUG - REMARK] NAS SCH (08:15)
[2020-09-18] MEDS: HYDROCORTISONE 1 % CREAM 30GM TOP SCH ×2 (08:15→20:38)
[2020-09-18] MEDS: ENSURE HIGH PROTEIN 237 ML CAN PO SCH ×2 (08:16→20:38)
[2020-09-18] MEDS: CEFTRIAXONE/SWI 1gm 1 GM/10 ML SYR IVP SCH (16:33)
[2020-09-18] MEDS: SERTRALINE HCL 50 MG TAB PO SCH (20:39)
[2020-09-19] MEDS: MORPHINE 2 MG/ML SYR IV PRN ×3 (02:47→23:10)
[2020-09-19 05:01] LABS: Albumin 2.4 g/dL (3.4-5.0); Potassium 4.1 mmol/L (3.5-5.1)
[2020-09-19] MEDS: LEVOTHYROXINE SOD 0.05 MG TABLET PO SCH (06:00)
[2020-09-19] MEDS: HYDROCORTISONE 1 % CREAM 30GM TOP SCH ×2 (09:00→21:00)
[2020-09-19] MEDS: [UNRECOGNIZED DRUG - REMARK] NAS SCH (09:00)
[2020-09-19] MEDS: LACTULOSE 20 GM/30 ML UCUP PO SCH ×3 (09:59→21:45)
[2020-09-19] MEDS: PANTOPRAZOLE 40MG TABLET PO SCH (09:59)
[2020-09-19] MEDS: INSULIN -REGULAR HUMAN 50 UNIT/0.5 ML ML SQ SCH ×4 (10:00→22:10)
[2020-09-19] MEDS: ENSURE HIGH PROTEIN 237 ML CAN PO SCH ×2 (10:00→21:46)
[2020-09-19] MEDS: MIDODRINE HCL 5 MG TABLET PO SCH ×3 (10:01→21:45)
--- NOTE | 2020-09-19 13:03 | P.PN ---
Subjective Date of Service: 10/20/20 Chief Complaint: Pt still dizzy but abdominal pain resolved. Still does not feel right Physical Examination - Vital Signs Temperature: 97.3 F Blood Pressure: 106/61 Pulse: 88 Respirations: 18 Pulse Ox (%): 100 - Physical Exam General: Mild distress HEENT: Atraumatic, PERRLA, EOMI Neck: Supple, JVD not distended Respiratory: Diminished Cardiovascular: Edema Capillary refill: <2 Seconds Gastrointestinal: Distended Assessment & Plan Physician Review Additional Text: Problems JENNIFER w/o renal recovery Cirrhosis Hypotension Abdominal pain with cellulitis Plan Dialyze cautiously Cautious volume removal Increase midordrine Continue albumin Transfer to tertiary center in process Pt is very ill, prognosis guarded Will continue to follow.
[2020-09-19] MEDS: CEFTRIAXONE/SWI 1gm 1 GM/10 ML SYR IVP SCH (17:09)
[2020-09-19] MEDS: ALBUMIN HUMAN 25% 100 ML IV SCH (17:09)
[2020-09-19] MEDS: SERTRALINE HCL 50 MG TAB PO SCH (21:45)
[2020-09-19] MEDS: hydrOXYzine HCL 25 MG TAB PO PRN (22:09)
[2020-09-20] MEDS: ALBUMIN HUMAN 25% 100 ML IV SCH ×4 (00:54→17:40)
[2020-09-20] MEDS: LEVOTHYROXINE SOD 0.05 MG TABLET PO SCH (05:37)
[2020-09-20] MEDS: LACTULOSE 20 GM/30 ML UCUP PO SCH ×3 (08:49→21:00)
[2020-09-20] MEDS: MIDODRINE HCL 5 MG TABLET PO SCH ×3 (08:50→21:00)
[2020-09-20] MEDS: PANTOPRAZOLE 40MG TABLET PO SCH (08:50)
[2020-09-20] MEDS: [UNRECOGNIZED DRUG - REMARK] NAS SCH (08:50)
[2020-09-20] MEDS: ENSURE HIGH PROTEIN 237 ML CAN PO SCH ×3 (08:50→21:00)
[2020-09-20] MEDS: INSULIN -REGULAR HUMAN 50 UNIT/0.5 ML ML SQ SCH ×4 (08:50→21:00)
[2020-09-20] MEDS: HYDROCORTISONE 1 % CREAM 30GM TOP SCH ×2 (08:51→21:00)
[2020-09-20] MEDS: hydrOXYzine HCL 25 MG TAB PO PRN ×2 (10:12→22:10)
--- NOTE | 2020-09-20 11:13 | PN ---
Date of Progress Note: 09/19/2020 The patient is still not doing well. He states he feels really weak, difficulty mobilizing. Discuss ion of the paracentesis situation with Radiology felt the possibility not being able to obtain more f luid at this time. Therefore, this was put on hold. Discussion with digital research analyst again sugges luis possible transfer to [place]. However, he did state that he was not in the liver kidney transpla nt list at present but was continued to be worked up for this. We will discuss transferring him with his liver transplant team. The renal situation is stable. Continue with dialysis and talk to nephr ologist and he has situation set up so he is on a Saturday, Saturday, Saturday dialysis here in [facility]. HR/MODL Voice ID: [id number] Report ID: [id number]
--- NOTE | 2020-09-20 13:04 | PN ---
Date of Progress Note: 09/20/2020 The patient is status quo. Has been seen by Cardiology and discussed with moving him to [place]. Aw aiting transfer okay. HR/MODL Voice ID: [id number] Report ID: [id number]
[2020-09-20] MEDS: CEFTRIAXONE/SWI 1gm 1 GM/10 ML SYR IVP SCH (17:40)
[2020-09-20 20:52] VITALS: O2SAT 98
[2020-09-20] MEDS: SERTRALINE HCL 50 MG TAB PO SCH (21:00)
[2020-10-20 11:02] VITALS: BP 106/61; TEMP 97.3
--- NOTE | 2020-10-31 15:01 | DS ---
Date of Discharge: 09/20/2020 Hospital Course: The patient was admitted to the hospital on 09/13 after presenting to the emergency room complaining of abdominal swelling. The patient has had a long history of cirrhosis necessitati ng numerous paracentesis procedures which se has undergone in various locations including [facility], [facility] and [place]. Apparently, on the wait list for renal liver transplant team and he has been [facility] for some time now. However, the pain has become increasingly more severe, noticed more swe lling and became dyspneic including general malaise and he was admitted, underwent paracentesis. 600 0 cc were removed. Obviously, felt better both from clinically and symptomatically. During his hosp ital stay, he had numerous procedures done and his general condition was often related to the amount of ascites he had. He was seen by GI and Renal. The patient also had problems with his hypertension which he became hypotensive significantly at times and that affected his altered mental status as we ll. His IDDM was under relatively good control. He also had anemia of the chronic disease. During his hospital stay, discussion was had with his economic adviser in [place] as far as possible [facility] since he builds up quite quickly on his ascites and due to the persistence of his symptoms, he was felt to possibly be better off going back to [place] if a bed was available and to correlate his renal and liver problems. During his hospital stay, he also developed some unusual discomfort in th e lower abdominal area, right and felt like it was a bruise, however, CAT scan of the area did not re veal any abnormality other than the previously mentioned ascites. Once he was stabilized, discussion was had with the team in [place] in regard to transferring up there and this was actually accomplish ed on 09/20. He was transferred in fair condition. During his hospital stay, he also required midod rine to control his blood pressure, lactulose and occasional morphine doses. Zoloft was also utilize d. He was as mentioned transferred on 09/20 in fair condition. 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 HR/MODL Voice ID: [id number] Report ID: [id number]
== END 2020-09-20 22:15 | disposition short-term general hospital (02) | DRG 432 ==
LOC: ER 13:36 → ERHOLD 18:25 → 2ND 21:09
PROVIDERS: ADMIT Family Medicine; ATTEND Family Medicine
PROC: 0W9G3ZZ Drainage of Peritoneal Cavity, Percutaneous Approach (ICD-10-PCS; principal; 2020-09-14)
DX: K74.60 Unspecified cirrhosis of liver (principal); N18.6 End stage renal disease; R18.8 Other ascites; I12.0 Hypertensive chronic kidney disease with stage 5 chronic kidney disease or end stage renal disease; N25.81 Secondary hyperparathyroidism of renal origin; E11.22 Type 2 diabetes mellitus with diabetic chronic kidney disease; E11.40 Type 2 diabetes mellitus with diabetic neuropathy, unspecified; E87.6 Hypokalemia; E78.5 Hyperlipidemia, unspecified; D63.1 Anemia in chronic kidney disease; I25.10 Atherosclerotic heart disease of native coronary artery without angina pectoris; K21.9 Gastro-esophageal reflux disease without esophagitis; E03.9 Hypothyroidism, unspecified; Z88.1 Allergy status to other antibiotic agents; Z88.8 Allergy status to other drugs, medicaments and biological substances; Z79.4 Long term (current) use of insulin; Z79.890 Hormone replacement therapy; Z79.899 Other long term (current) drug therapy; Z87.891 Personal history of nicotine dependence; Z99.2 Dependence on renal dialysis; Z20.822 Contact with and (suspected) exposure to COVID-19
CPT/HCPCS: 36415; 49083; 71045; 71250; 74176; 80048; 80069; 80076; 82140; 82947; 83690; 83735; 83880; 84439; 84443; 84484; 85025; 85610; 85730; 89050; 90935; 93005; 96374; 96375; 97110; 97161; 97530; 99285; J0696; J1644; J2270; J2405; J3010; P9047; U0003